=== PATIENT | female | born 1945 | race Caucasian/White ===

== ENCOUNTER → 2017-07-05 09:52 | Outpatient (CLI) | payer MEDICARE, OTHER, SELFPAY ==
[2017-07-05 09:57] VITALS: BP 138/82; PULSE 82; RESP 18; TEMP 37.1; O2SAT 99; BMI 28.3
[2017-07-05] MEDS: DiphenhydrAMINE 50 MG/ML Syringe 25 MG IV (10:11)
[2017-07-05] MEDS: Acetaminophen 325 MG Tablet 650 MG PO (10:11)
[2017-07-05] MEDS: Immune Globulin 10 gm Premixed Solution IV (10:52)
[2017-07-05 11:20] VITALS: BP 137/74; PULSE 73; RESP 16; TEMP 37.1; O2SAT 98
[2017-07-05 12:00] VITALS: BP 126/76; PULSE 81; RESP 16; TEMP 37.2; O2SAT 98
[2017-07-05 12:37] VITALS: BP 127/69; PULSE 76; RESP 18; TEMP 37.3; O2SAT 98
== END ==
PROVIDERS: Family Provider Family Medicine Geriatric Medicine; PCP Family Medicine Geriatric Medicine; Visit Provider Family Medicine Geriatric Medicine
DX: D80.0 Hereditary hypogammaglobulinemia (principal)
CPT/HCPCS: 96365; A4216; J1568

== ENCOUNTER → 2017-08-02 09:28 | Outpatient (CLI) | payer MEDICARE, OTHER, SELFPAY ==
[2017-08-02 09:45] VITALS: BP 135/77; PULSE 92; RESP 16; TEMP 36.4; O2SAT 99; BMI 28.5
[2017-08-02] MEDS: Acetaminophen 325 MG Tablet 650 MG PO (10:00)
[2017-08-02] MEDS: DiphenhydrAMINE 50 MG/ML Syringe 25 MG IV (10:01)
[2017-08-02] MEDS: Immune Globulin 10 gm Premixed Solution IV (10:24)
[2017-08-02 10:55] VITALS: BP 119/75; PULSE 89
[2017-08-02 11:25] VITALS: BP 133/79; PULSE 92
[2017-08-02 12:05] VITALS: BP 122/71; PULSE 88; RESP 18; TEMP 37.1; O2SAT 99
== END ==
PROVIDERS: Family Provider Family Medicine Geriatric Medicine; PCP Family Medicine Geriatric Medicine; Visit Provider Family Medicine Geriatric Medicine
DX: D80.0 Hereditary hypogammaglobulinemia (principal)
CPT/HCPCS: 96365; A4216; J1568

== ENCOUNTER → 2017-08-30 09:57 | Outpatient (CLI) | payer MEDICARE, OTHER, SELFPAY ==
[2017-08-30 10:01] VITALS: BP 118/80; PULSE 101; RESP 16; TEMP 36.8; O2SAT 97; BMI 29.2
[2017-08-30] MEDS: Acetaminophen 325 MG Tablet 650 MG PO (10:09)
[2017-08-30] MEDS: DiphenhydrAMINE 50 MG/ML Syringe 25 MG IV (10:11)
[2017-08-30] MEDS: Immune Globulin 10 gm Premixed Solution IV (10:44)
[2017-08-30 11:25] VITALS: BP 119/66; PULSE 81; RESP 16; TEMP 37.2; O2SAT 96
[2017-08-30 11:53] VITALS: BP 123/70; PULSE 84; RESP 16; TEMP 37.2; O2SAT 98
[2017-08-30 12:25] VITALS: BP 128/75; PULSE 91; RESP 16; TEMP 37.4; O2SAT 95
== END ==
PROVIDERS: Family Provider Family Medicine Geriatric Medicine; PCP Family Medicine Geriatric Medicine; Visit Provider Family Medicine Geriatric Medicine
DX: D80.0 Hereditary hypogammaglobulinemia (principal)
CPT/HCPCS: 96365; A4216; J1568

== ENCOUNTER → 2017-09-06 13:14 | Outpatient (CLI) | payer MEDICARE, OTHER, SELFPAY ==
[2017-09-06 13:55] LABS: Absolute Lymphocyte Count 1.59 X10^3/ul (0.83-4.51); Basophil# 0.01 X10^3/uL; Basophil% 0.1 % (0-1); Eosinophil# 0.03 X10^3/uL; Eosinophils% 0.4 % (0-5); Hematocrit 42.4 % (37-47); Hemoglobin 14.2 g/dl (12.0-15.0); Lymphocyte # 1.59 X10^3/ul (4.0); Lymphocyte % 21.8 % (19-41); Mean Corp Hgb Conc 33.5 g/gl (32-36); Mean Corpuscular Hgb 33.5 pg (27.0-32.0); Mean Platelet Vol. 10.7 fl (6.2-12.0); Monocyte# 0.65 X10^3/uL; Monocyte% 8.9 % (0-10); Neutrophil # 5.02 X10^3/uL (2.7-7.7); Neutrophil % 68.7 % (47-70); Platelet Count 192 K/mm3 (150-450); RBC Distribution Width CV 12.1 % (11.6-14.6); RBC Distribution Width SD 43.7 fl (35.1-43.9); Red Blood Count 4.24 M/mm3 (4.2-5.4); White Blood Count 7.3 K/mm3 (4.4-11.0)
[2017-09-06 13:56] LABS: POSITIVE COUNT NO; POSITIVE DIFFERENTIAL NO; POSITIVE MORPHOLOGY NO
[2017-09-06 14:31] LABS: AST(SGOT) 24 U/L (15-37); Alanine Aminotransfer ALT/SGPT 26 U/L (13-56); Albumin, Serum 3.7 g/dL (3.2-5.0); Alkaline Phosphatase 74 U/L (45-117); Anion Gap 8 (5-15); BUN 10 mg/dL (7-18); BUN/Creat Ratio 12.6 RATIO (10-20); Calcium,Total 8.4 mg/dL (8.5-10.1); Chloride 108 mmol/L (98-107); Creatinine, Serum 0.79 mg/dL (0.55-1.02); EST Glomerular Filtration Rate 76 mL/min (>60); Est Glom Filt Rate - Afr Amer 92 mL/min (>60); Globulin 3.6 g/dL (2.2-4.2); Glucose 84 mg/dL (74-106); Potassium 3.4 mmol/L (3.5-5.1); Protein, Total 7.3 g/dL (6.4-8.2); Sodium Level 143 mmol/L (136-145); Thyroid Stim Hormone (TSH) 0.91 uIU/mL (0.358-3.74); Vitamin D,25 Hydroxy 28.4 ng/mL (29.95-100.01)
[2017-09-08 09:22] LABS: Hep C Antibodies <0.1 s/co ratio (0.0-0.9)
== END ==
PROVIDERS: Family Provider Family Medicine Geriatric Medicine; PCP Family Medicine Geriatric Medicine; Visit Provider Family Medicine Geriatric Medicine
DX: E11.9 Type 2 diabetes mellitus without complications (principal); I10 Essential (primary) hypertension; E55.9 Vitamin D deficiency, unspecified; Z13.89 Encounter for screening for other disorder
CPT/HCPCS: 36415; 80053; 82306; 84443; 85025; 86803

== ENCOUNTER → 2017-09-27 09:42 | Outpatient (CLI) | payer MEDICARE, OTHER, SELFPAY ==
[2017-09-27 10:03] VITALS: BP 109/61; PULSE 121; RESP 20; TEMP 38.7; O2SAT 99
[2017-09-27] MEDS: 0.9% Normal Saline 1,000 ML 999 ML IV ×2 (10:07→11:07)
[2017-09-27] MEDS: DiphenhydrAMINE 50 MG/ML Syringe 25 MG IV (10:14)
[2017-09-27] MEDS: Acetaminophen 325 MG Tablet 650 MG PO (10:14)
[2017-09-27] MEDS: Immune Globulin 10 gm Premixed Solution IV (10:58)
[2017-09-27 11:30] VITALS: BP 115/57; PULSE 99; RESP 18; TEMP 37.3; O2SAT 97
[2017-09-27 12:00] VITALS: BP 125/60; PULSE 107; RESP 20; TEMP 37.9; O2SAT 96
--- NOTE | 2017-09-27 13:13 | RAD_ITS ---
STUDY: X-RAY CHEST REASON FOR EXAM: Female, 72 years old. Bronchitis for 3 weeks. TECHNIQUE: PA and lateral views of the chest. COMPARISON: PA and lateral chest x-ray May 01, 2017. FINDINGS: There is stable minor scarring in the inferolateral left base The lungs are otherwise clear and expanded. There is no demonstrated pleural abnormality. Normal size heart. Normal mediastinum and yudelka. Normal visualized pulmonary arteries. There is stable mild atherosclerotic calcification of the aortic arch. There is a stable mild shaped scoliosis of the thoracic spine. Surgical clips again seen in the medial right axilla. Normal visualized ribs, clavicles, and shoulders. There is no demonstrated abnormality of the visualized soft tissue structures of the upper abdomen. RAD/Chest PA and Lateral IMPRESSION: No acute cardiopulmonary disease. Electronically Signed: Santo Solares MD at 13:48 EDT , Service support ,
== END ==
PROVIDERS: Family Provider Family Medicine Geriatric Medicine; PCP Family Medicine Geriatric Medicine; Visit Provider Family Medicine Geriatric Medicine
DX: J40 Bronchitis, not specified as acute or chronic (principal); R50.9 Fever, unspecified; D80.0 Hereditary hypogammaglobulinemia
CPT/HCPCS: 96365; 71046; 87633; A4216; J1568

== ENCOUNTER → 2017-09-27 10:56 | Outpatient (CLI) | payer MEDICARE, OTHER, SELFPAY | PROVIDERS: Family Provider Family Medicine Geriatric Medicine; PCP Family Medicine Geriatric Medicine; Visit Provider Family Medicine Geriatric Medicine | DX: R50.9 Fever, unspecified (principal) | CPT/HCPCS: 87633 ==

== ENCOUNTER → 2017-10-23 14:57 | Outpatient (CLI) | payer MEDICARE, OTHER, SELFPAY ==
[2017-10-23 18:51] LABS: M R Staph aureus DNA By PCR Negative (Negative); Probe Check PASS; Specimen Processing Control PASS; Staph aureus DNA By PCR NEGATIVE (Negative)
== END ==
PROVIDERS: Family Provider Family Medicine Geriatric Medicine; PCP Family Medicine Geriatric Medicine; Visit Provider Family Medicine Geriatric Medicine
DX: L03.119 Cellulitis of unspecified part of limb (principal); L03.90 Cellulitis, unspecified
CPT/HCPCS: 87070; 87205; 87640

== ENCOUNTER → 2017-10-25 09:41 | Outpatient (CLI) | payer MEDICARE, OTHER, SELFPAY ==
[2017-10-25] MEDS: DiphenhydrAMINE 50 MG/ML Syringe 25 MG IV (10:05)
[2017-10-25] MEDS: Acetaminophen 325 MG Tablet 650 MG PO (10:05)
[2017-10-25 10:07] VITALS: BP 113/75; PULSE 106; RESP 16; TEMP 36.8; O2SAT 99; BMI 28.8
[2017-10-25] MEDS: Immune Globulin 10 gm Premixed Solution IV (10:28)
[2017-10-25 11:03] VITALS: BP 105/66; PULSE 83; RESP 16; TEMP 36.8
[2017-10-25 11:34] VITALS: BP 97/61; PULSE 83; RESP 16
[2017-10-25 12:10] VITALS: BP 106/68; PULSE 88; RESP 18; TEMP 36.7; O2SAT 94
== END ==
PROVIDERS: Family Provider Family Medicine Geriatric Medicine; PCP Family Medicine Geriatric Medicine; Visit Provider Family Medicine Geriatric Medicine
DX: D80.0 Hereditary hypogammaglobulinemia (principal)
CPT/HCPCS: 96365; A4216; J1568

== ENCOUNTER → 2017-11-14 17:30 | Outpatient (CLI) | payer MEDICARE, OTHER, SELFPAY ==
--- NOTE | 2017-11-14 17:29 | BI_ITS ---
MAMMOGRAPHY - UNILATERAL SCREENING: LEFT BREAST REASON FOR EXAM: Female, 72 years old. Routine annual screening examination (unilateral). PERTINENT HISTORY: Personal history of breast cancer. Prior right mastectomy. TECHNIQUE: Digital unilateral breast yumiko (3D mammographic acquisition) in the CC and MLO projections. 2-D mediolateral oblique (MLO) and craniocaudad (CC) views of both breasts were obtained. CAD: Full Field Digital Mammography with Computer Added Detection was performed. COMPARISON: Comparison is made with prior examination dated August 10, 2016 and August 05, 2015. FINDINGS: Breast Composition: There are scattered areas of fibroglandular density. There are no dominant masses or suspicious calcifications. No other significant abnormalities are identified. There has been no significant change since the prior study. BI/UNILAT LT SCRN W/CAD IMPRESSION: Stable unilateral screening mammogram. Yearly follow-up mammogram recommended. (A) ASSESSMENT CATEGORY: BIRADS Category 1: Negative. A letter regarding these results will be sent to the patient by the facility within 30 days. Approximately 10% of breast cancers are not detected by mammography. A normal mammogram should not delay biopsy of a clinically suspicious abnormality. [id number] Electronically Signed: Scooter Pierson MD at 10:54 EDT Tel [phone], Service support ,
== END ==
PROVIDERS: Family Provider Family Medicine Geriatric Medicine; PCP Family Medicine Geriatric Medicine; Visit Provider Family Medicine Geriatric Medicine
DX: Z12.31 Encounter for screening mammogram for malignant neoplasm of breast (principal)
CPT/HCPCS: 77061; 77067; G0279

== ENCOUNTER → 2017-11-22 10:00 | Outpatient (CLI) | payer MEDICARE, OTHER, SELFPAY ==
[2017-11-22 10:09] VITALS: BP 114/66; PULSE 85; RESP 16; TEMP 37.4
[2017-11-22] MEDS: DiphenhydrAMINE 50 MG/ML Syringe 25 MG IV (10:25)
[2017-11-22] MEDS: Acetaminophen 325 MG Tablet 650 MG PO (10:25)
[2017-11-22] MEDS: Immune Globulin 10 gm Premixed Solution IV (11:10)
[2017-11-22 11:44] VITALS: BP 125/62; PULSE 76; RESP 16; TEMP 36.7
[2017-11-22 12:18] VITALS: BP 135/64; PULSE 78
== END ==
PROVIDERS: Family Provider Family Medicine Geriatric Medicine; PCP Family Medicine Geriatric Medicine; Visit Provider Family Medicine Geriatric Medicine
DX: D80.0 Hereditary hypogammaglobulinemia (principal)
CPT/HCPCS: 96365; A4216; J1568

== ENCOUNTER → 2017-12-01 10:48 | Outpatient (CLI) | payer MEDICARE, OTHER, SELFPAY | PROVIDERS: Family Provider Family Medicine Geriatric Medicine; PCP Family Medicine Geriatric Medicine; Visit Provider Family Medicine Geriatric Medicine | DX: R68.83 Chills (without fever) (principal) | CPT/HCPCS: 87633 ==

== ENCOUNTER → 2017-12-20 10:02 | Outpatient (CLI) | payer MEDICARE, OTHER, SELFPAY ==
[2017-12-20 10:31] VITALS: BP 107/64; PULSE 76; RESP 16; TEMP 36.6; O2SAT 100; BMI 28.3
[2017-12-20] MEDS: Acetaminophen 325 MG Tablet 650 MG PO (10:53)
[2017-12-20] MEDS: DiphenhydrAMINE 50 MG/ML Syringe 25 MG IV (10:57)
[2017-12-20] MEDS: Immune Globulin 10 gm Premixed Solution IV (11:31)
[2017-12-20 12:06] VITALS: BP 116/65; PULSE 73; RESP 16; TEMP 36.4; O2SAT 95
[2017-12-20 12:36] VITALS: BP 122/64; PULSE 90
[2017-12-20 13:05] VITALS: BP 106/58; PULSE 98; RESP 16; TEMP 36.4; O2SAT 97
== END ==
PROVIDERS: Family Provider Family Medicine Geriatric Medicine; PCP Family Medicine Geriatric Medicine; Visit Provider Family Medicine Geriatric Medicine
DX: D80.0 Hereditary hypogammaglobulinemia (principal)
CPT/HCPCS: 96365; A4216; J1568

== ENCOUNTER → 2018-01-17 09:56 | Outpatient (CLI) | payer MEDICARE, OTHER, SELFPAY ==
[2018-01-17 10:03] VITALS: BP 130/66; PULSE 84; RESP 16; TEMP 37.3; O2SAT 99; BMI 28.9
[2018-01-17] MEDS: Acetaminophen 325 MG Tablet 650 MG PO (10:14)
[2018-01-17] MEDS: DiphenhydrAMINE 50 MG/ML Syringe 25 MG IV (10:36)
[2018-01-17] MEDS: Immune Globulin 10 gm Premixed Solution IV (11:15)
[2018-01-17 11:19] VITALS: BP 132/69; PULSE 77; RESP 16; TEMP 37.2
[2018-01-17 11:51] VITALS: BP 122/63; PULSE 90; RESP 16; TEMP 36.8; O2SAT 99
[2018-01-17 12:46] VITALS: BP 118/54; PULSE 97
== END ==
PROVIDERS: Family Provider Family Medicine Geriatric Medicine; PCP Family Medicine Geriatric Medicine; Visit Provider Family Medicine Geriatric Medicine
DX: M33.99 Dermatopolymyositis, unspecified with other organ involvement (principal)
CPT/HCPCS: 96365; J7050; A4216; J1568

== ENCOUNTER → 2018-02-14 11:02 | Outpatient (CLI) | payer MEDICARE, OTHER, SELFPAY ==
[2018-02-14 11:17] VITALS: BP 120/66; PULSE 80; RESP 16; TEMP 36.4; O2SAT 100; BMI 28.8
[2018-02-14] MEDS: DiphenhydrAMINE 50 MG/ML Syringe 25 MG IV (11:36)
[2018-02-14] MEDS: Acetaminophen 325 MG Tablet 650 MG PO (11:36)
[2018-02-14] MEDS: Immune Globulin 10 gm Premixed Solution IV (12:11)
[2018-02-14 12:50] VITALS: BP 112/66; PULSE 80; RESP 16; TEMP 36.6; O2SAT 99
[2018-02-14 13:23] VITALS: BP 119/62; PULSE 88; RESP 16; TEMP 36.6; O2SAT 99
== END ==
PROVIDERS: Family Provider Family Medicine Geriatric Medicine; PCP Family Medicine Geriatric Medicine; Visit Provider Family Medicine Geriatric Medicine
DX: D80.0 Hereditary hypogammaglobulinemia (principal)
CPT/HCPCS: 96365; 96366; J7050; A4216; J1568

== ENCOUNTER → 2018-03-14 09:56 | Outpatient (CLI) | payer MEDICARE, OTHER, SELFPAY ==
[2018-03-14 10:10] VITALS: BP 127/68; PULSE 90; RESP 16; TEMP 36.4; O2SAT 100; BMI 27.1
[2018-03-14] MEDS: Acetaminophen 325 MG Tablet 650 MG PO (10:17)
[2018-03-14] MEDS: DiphenhydrAMINE 50 MG/ML Syringe 25 MG IV (10:26)
[2018-03-14] MEDS: Immune Globulin 10 gm Premixed Solution IV (10:39)
[2018-03-14 11:19] VITALS: BP 118/69; PULSE 81; TEMP 36.7
[2018-03-14 11:50] VITALS: BP 121/63; PULSE 82
[2018-03-14 12:23] VITALS: BP 107/59; PULSE 84; RESP 18; TEMP 36.4; O2SAT 100
== END ==
PROVIDERS: Family Provider Family Medicine Geriatric Medicine; PCP Family Medicine Geriatric Medicine; Visit Provider Family Medicine Geriatric Medicine
DX: D80.0 Hereditary hypogammaglobulinemia (principal)
CPT/HCPCS: 96365; 96366; A4216; J1568

== ENCOUNTER → 2018-03-16 11:12 | Outpatient (CLI) | payer MEDICARE, OTHER, SELFPAY ==
[2018-03-16 12:07] LABS: Absolute Lymphocyte Count 1.56 X10^3/ul (0.83-4.51); Absolute Neutrophil Count 1.8 X10^3/uL (2.0-7.7); Basophil# 0.02 X10^3/uL; Basophil% 0.5 % (0-1); Eosinophil# 0.04 X10^3/uL; Hematocrit 39.2 % (37-47); Hemoglobin 13.4 g/dl (12.0-15.0); Lymphocyte # 1.56 X10^3/ul (4.0); Lymphocyte % 40.1 % (19-41); Mean Corp Hgb Conc 34.2 g/gl (32-36); Mean Corpuscular Volume 96.6 fL (81-99); Mean Platelet Vol. 11.5 fl (6.2-12.0); Monocyte# 0.48 X10^3/uL; Monocyte% 12.3 % (0-10); Neutrophil # 1.79 X10^3/uL (2.7-7.7); Neutrophil % 46.1 % (47-70); Platelet Count 172 K/mm3 (150-450); RBC Distribution Width CV 12.1 % (11.6-14.6); RBC Distribution Width SD 41.7 fl (35.1-43.9); Red Blood Count 4.06 M/mm3 (4.2-5.4); White Blood Count 3.9 K/mm3 (4.4-11.0)
[2018-03-16 12:08] LABS: POSITIVE COUNT NO; POSITIVE DIFFERENTIAL NO; POSITIVE MORPHOLOGY NO
[2018-03-16 12:21] LABS: AST(SGOT) 28 U/L (15-37); Alanine Aminotransfer ALT/SGPT 30 U/L (13-56); Albumin, Serum 3.7 g/dL (3.2-5.0); Alkaline Phosphatase 54 U/L (45-117); Anion Gap 8 (5-15); BUN 8 mg/dL (7-18); BUN/Creat Ratio 9.2 RATIO (10-20); Calcium,Total 9.4 mg/dL (8.5-10.1); Chloride 107 mmol/L (98-107); Creatinine, Serum 0.87 mg/dL (0.55-1.02); EST Glomerular Filtration Rate 68 mL/min (>60); Est Glom Filt Rate - Afr Amer 82 mL/min (>60); Globulin 3.6 g/dL (2.2-4.2); Glucose 90 mg/dL (74-106); Potassium 3.9 mmol/L (3.5-5.1); Protein, Total 7.3 g/dL (6.4-8.2); Sodium Level 142 mmol/L (136-145); Thyroid Stim Hormone (TSH) 1.05 uIU/mL (0.358-3.74)
[2018-03-16 12:25] LABS: Vitamin D,25 Hydroxy 35.9 ng/mL (29.95-100.01)
[2018-03-20 11:14] LABS: Hep C Antibodies <0.1 s/co ratio (0.0-0.9)
== END ==
PROVIDERS: Family Provider Family Medicine Geriatric Medicine; PCP Family Medicine Geriatric Medicine; Visit Provider Family Medicine Geriatric Medicine
DX: E55.9 Vitamin D deficiency, unspecified (principal); I10 Essential (primary) hypertension; Z13.89 Encounter for screening for other disorder
CPT/HCPCS: 36415; 80053; 82306; 84443; 85025; 86803

== ENCOUNTER → 2018-03-20 15:55 | Outpatient (CLI) | payer MEDICARE, OTHER, SELFPAY ==
--- NOTE | 2018-03-20 16:01 | BD_ITS ---
STUDY: DUAL ENERGY X-RAY ABSORPTIOMETRY / DXA REASON FOR EXAM: Female, 72 years old. The patient is postmenopausal. Loss of height. History of breast cancer. TECHNIQUE: Bone Mineral Density (BMD) measurements of lumbar spine and bilateral hips were obtained. COMPARISON: Comparison is made with prior study dated January 25, 2011. FINDINGS: Lumbar Spine (L1-L4): g/cm2 (1.005) / T-score (-1.3) / Z-score (0.4) Findings are suggestive of osteopenia with a moderate fracture risk. Left Femur Total: g/cm2 (0.982) / T-score (-0.2) / Z-score (1.4) Left Femoral Neck: g/cm2 (0.893) / T-score (-1.0) / Z-score (0.7) Right Femur Total: g/cm2 (0.888) / T-score (-0.9) / Z-score (0.6) Right Femoral Neck: g/cm2 (0.850) / T-score (-1.4) / Z-score (0.4) The T-Scores on the most recent prior examination were: Lumbar Spine (L1-L4): There has been worsening of bone density since the previous examination. Left Femur Total: which represents a worsening of 6.2%. Right Femur Total: which represents a worsening of 14.6%. BD/Dexa Bone Density Study IMPRESSION: The patient is considered osteopenic as outlined below according to World Fadi Organization (WHO) criteria with a moderate fracture risk. There has been worsening of bone density since the previous examination. Reference Information: The T-score is the number of standard deviations above or below the standard which is normal for young adults at their peak bone mineral density. The World Health Organization (WHO) interprets the T-scores as follows: Above -1 Normal bone density Between -1 and -2.5 Osteopenia Equal to / or below -2.5 Osteoporosis As a practical clinical guideline, osteopenia may be graded as follows: Mild -1 through -1.5 Moderate -1.6 through -2.0 Severe -2.1 through -2.4 The Z-score is the number of standard deviations above or below age-matched controls. A Z-score of less than -1.5 would be considered abnormal. References: 1. NIH Osteoporosis and Related Bone Diseases http://www.osteo.org 2. International Society for Clinical Densitometry http://www.iscd.org 3. National Osteoporosis Foundation http://www.nof.org Electronically Signed: Scooter Pierson MD at 15:25 EDT Tel [phone], Service support ,
== END ==
PROVIDERS: Family Provider Family Medicine Geriatric Medicine; PCP Family Medicine Geriatric Medicine; Visit Provider Family Medicine Geriatric Medicine
DX: Z78.0 Asymptomatic menopausal state (principal)
CPT/HCPCS: 77080

== ENCOUNTER → 2018-04-24 08:02 | Outpatient (CLI) | payer MEDICARE, OTHER, SELFPAY ==
[2018-04-24] MEDS: DiphenhydrAMINE 50 MG/ML Syringe 25 MG IV (08:28)
[2018-04-24] MEDS: Acetaminophen 325 MG Tablet 650 MG PO (08:28)
[2018-04-24 08:37] VITALS: BP 130/71; PULSE 92; RESP 18; O2SAT 100
[2018-04-24] MEDS: Immune Globulin 10 gm Premixed Solution IV (09:05)
[2018-04-24 09:40] VITALS: BP 127/66; PULSE 79
[2018-04-24 10:15] VITALS: BP 116/65; PULSE 67; RESP 16; TEMP 37.1; O2SAT 98
== END ==
PROVIDERS: Family Provider Family Medicine Geriatric Medicine; PCP Family Medicine Geriatric Medicine; Referring Provider Family Medicine Geriatric Medicine; Visit Provider Family Medicine Geriatric Medicine
DX: D80.0 Hereditary hypogammaglobulinemia (principal)
CPT/HCPCS: 96365; J7050; A4216; J1568

== ENCOUNTER → 2018-05-23 10:10 | Outpatient (CLI) | payer MEDICARE, OTHER, SELFPAY ==
[2018-05-23] MEDS: DiphenhydrAMINE 50 MG/ML Syringe 25 MG IV (10:41)
[2018-05-23] MEDS: Acetaminophen 325 MG Tablet 650 MG PO (10:41)
[2018-05-23] MEDS: Immune Globulin 10 gm Premixed Solution IV (10:52)
[2018-05-23 10:56] VITALS: BP 139/83; PULSE 67; RESP 16; TEMP 37.2; O2SAT 100; BMI 26.1
[2018-05-23 12:00] VITALS: BP 143/79; PULSE 67
--- OUTSIDE RECORDS SUMMARY | 2018-08-24 13:48 | XMS RPT_ITS ---
:1945 Author Organization OHIP Support Name Relationship Address Phone [address] Unavailable [address] + [place] [address] KATHLEEN JOSHI Unavailable [address] + [place] [address] R Unavailable Unavailable Unavailable [address] Unavailable [address] + [place] [address] KATHLEEN JOSHI Unavailable [address] + [place] [address] R Unavailable Unavailable Unavailable [address] Unavailable [address] + [place] [address] KATHLEEN JOSHI Unavailable [address] + [place] [address] R Unavailable Unavailable Unavailable [address] Unavailable [address] + [place] [address] KATHLEEN JOSHI Unavailable [address] + [place] [address] R Unavailable Unavailable Unavailable [address] Unavailable [address] + [place] [address] KATHLEEN JOSHI Unavailable [address] + [place] [address] R Unavailable Unavailable Unavailable [address] Unavailable [address] + [place] [address] KATHLEEN JOSHI Unavailable [address] + [place] [address] R Unavailable Unavailable Unavailable [address] Unavailable [address] + [place] [address] KATHLEEN JOSHI Unavailable [address] + [place] [address] R Unavailable Unavailable Unavailable [address] Unavailable [address] + [place] [address] KATHLEEN JOSHI Unavailable [address] + [facility] [place] [place] [address] R Unavailable Unavailable Unavailable [address] Unavailable [address] + [place] [address] KATHLEEN JOSHI Unavailable [address] + [facility] [place] [place] [address] R Unavailable Unavailable Unavailable [address] Unavailable [address] + [place] [address] KATHLEEN JOSHI Unavailable [address] + [place] [address] R Unavailable Unavailable Unavailable [address] Unavailable [address] + [place] [address] YOAN JOSHIA Unavailable [address] + [place] [address] R Unavailable Unavailable Unavailable [address] Unavailable [address] + [place] [address] YOAN JOSHIA Unavailable [address] + [place] [address] R Unavailable Unavailable Unavailable [address] Unavailable [address] + [place] [address] KATHLEEN JOSHI Unavailable [address] + [place] [address] R Unavailable Unavailable Unavailable [address] Unavailable [address] + [place] [address] KATHLEEN JOSHI Unavailable [address] + [place] [address] R Unavailable Unavailable Unavailable [address] Unavailable [address] + [place] [address] YOAN JOSHIA Unavailable [address] + [facility] [place] [address] R Unavailable Unavailable Unavailable [address] Unavailable [address] + [place] [address] RUBENSLALITA KATHLEEN Unavailable [address] + [facility] [place] [address] R Unavailable Unavailable Unavailable [address] Unavailable [address] + [place] [address] KATHLEEN JOSHI Unavailable [address] + [place] [address] R Unavailable Unavailable Unavailable [address] Unavailable [address] + [place] [address] KATHLEEN JOSHI Unavailable [address] + [place] [address] R Unavailable Unavailable Unavailable [address] Unavailable [address] + [place] [address] KATHLEEN JOSHI Unavailable [address] + [place] [address] R Unavailable Unavailable Unavailable [address] Unavailable [address] + [place] [address] KATHLEEN JOSHI Unavailable [address] + [place] [address] R Unavailable Unavailable Unavailable [address] Unavailable [address] + [place] [address] KATHLEEN JOSHI Unavailable [address] + [place] [address] R Unavailable Unavailable Unavailable Care Team Providers Name Role Phone Sánchez, Ari Chi Attending Unavailable Sánchez, Ari Chi Referring Unavailable Sánchez, Ari Chi Primary Care Unavailable Sánchez, Ari Chi Attending Unavailable Sánchez, Ari Chi Referring Unavailable Sánchez, Ari Chi Primary Care Unavailable Sánchez, Ari Chi Attending Unavailable Sánchez, Ari Chi Primary Care Unavailable Sánchez, Ari Chi Attending Unavailable Sánchez, Ari Chi Referring Unavailable Sánchez, Ari Chi Primary Care Unavailable Sánchez, Ari Chi Attending Unavailable Sánchez, Ari Chi Referring Unavailable Sánchez, Ari Chi Primary Care Unavailable Sánchez, Ari Chi Attending Unavailable Sánchez, Ari Chi Primary Care Unavailable Sánchez, Ari Chi Attending Unavailable Sánchez, Ari Chi Referring Unavailable Sánchez, Ari Chi Primary Care Unavailable Sánchez, Ari Chi Attending Unavailable Sánchez, Ari Chi Primary Care Unavailable Sánchez, Ari Chi Referring Unavailable Sánchez, Ari Chi Attending Unavailable Sánchez, Ari Chi Primary Care Unavailable Sánchez, Ari Chi Attending Unavailable Sánchez, Ari Chi Referring Unavailable Sánchez, Ari Chi Primary Care Unavailable Sánchez, Ari Chi Attending Unavailable Sánchez, Ari Chi Primary Care Unavailable Sánchez, Ari Chi Attending Unavailable Sánchez, Ari Chi Referring Unavailable Sánchez, Ari Chi Primary Care Unavailable Sánchez, Ari Chi Attending Unavailable Sánchez, Ari Chi Referring Unavailable Sánchez, Ari Chi Primary Care Unavailable Sánchez, Ari Chi Attending Unavailable Sánchez, Ari Chi Referring Unavailable Sánchez, Ari Chi Primary Care Unavailable Sánchez, Ari Chi Attending Unavailable Sánchez, Ari Chi Referring Unavailable Sánchez, Ari Chi Primary Care Unavailable Sánchez, Ari Chi Attending Unavailable Sánchez, Ari Chi Referring Unavailable Sánchez, Ari Chi Primary Care Unavailable Sánchez, Ari Chi Attending Unavailable Sánchez, Ari Chi Referring Unavailable Sánchez, Ari Chi Primary Care Unavailable Sánchez, Ari Chi Attending Unavailable Sánchez, Ari Chi Primary Care Unavailable Sánchez, Ari Chi Attending Unavailable Sánchez, Ari Chi Primary Care Unavailable Sánchez, Ari Chi Attending Unavailable Sánchez, Ari Chi Referring Unavailable Sánchez, Ari Chi Primary Care Unavailable Sánchez, Ari Chi Attending Unavailable Sánchez, Ari Chi Referring Unavailable Sánchez, Ari Chi Primary Care Unavailable PROBLEMS PROBLEMS DATE TYPE CONDITION / CODE ATTENDING STATUS SOURCE Unknown N95.9 - Unspecified Sánchez, Ari Chi Active [facility] menopausal and Community perimenopausal disorder / Hospital N95.9(ICD-10) Repository Unknown 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, 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 / Community D80.0(ICD-10) Hospital Repository Unknown Z12.31 - Encounter for Sánchez, Ari Chi Active [facility] screening mammogram for [facility] malignant neoplasm of Hospital breast / Z12.31(ICD-10) Repository Unknown R50.9 - Fever, unspecified Sánchez, Ari Chi Active [facility] / R50.9(ICD-10) [facility] Repository PROCEDURES PROCEDURES No Procedure Records FoundRESULTS RESULTS DEXA BONE DENSITY Observed: 03/20/2018 Status: F Source: [place] STUDY 3:56 PM [facility] HOSPITAL REPOSITORY [facility] Imaging Services [address] [place] [address] Dexa Bone Density Study MR#: [id number] Acct: [id number] Name: FREDIS [address] Rep #: [id number] : 1945 F 72 From: Scooter Pierson MD PCP: Sánchez LOTT,Ari Lucero Status: REG CLI Study: Dexa Bone Density Study Date of Exam: 03/20/18 Exam# [id number] Ordering Dr: Ari Pozo MD STUDY: DUAL ENERGY X-RAY ABSORPTIOMETRY / DXA REASON FOR EXAM: Female, 72 years old. The patient is postmenopausal. Loss of height. History of breast cancer. TECHNIQUE: Bone Mineral Density (BMD) measurements of lumbar spine and bilateral hips were obtained. COMPARISON: Comparison is made with prior study dated January 25, 2011. FINDINGS: Lumbar Spine (L1-L4): g/cm2 (1.005) / T-score (-1.3) / Z-score (0.4) Findings are suggestive of osteopenia with a moderate fracture risk. Left Femur Total: g/cm2 (0.982) / T-score (-0.2) / Z- score (1.4) Left Femoral Neck: g/cm2 (0.893) / T-score (-1.0) / Z- score (0.7) Right Femur Total: g/cm2 (0.888) / T-score (-0.9) / Z- score (0.6) Right Femoral Neck: g/cm2 (0.850) / T-score (-1.4) / Z-score (0.4) The T-Scores on the most recent prior examination were: Lumbar Spine (L1-L4): There has been worsening of bone density since the previous examination. Left Femur Total: which represents a worsening of 6.2%. Right Femur Total: which represents a worsening of 14.6%. BD/Dexa Bone Density Study IMPRESSION: The patient is considered osteopenic as outlined below according to World Fadi Organization (WHO) criteria with a moderate fracture risk. There has been worsening of bone density since the previous examination. Reference Information: The T-score is the number of standard deviations above or below the standard which is normal for young adults at their peak bone mineral density. The World Health Organization (WHO) interprets the T-scores as follows: Above -1 Normal bone density Between -1 and -2.5 Osteopenia Equal to / or below -2.5 Osteoporosis As a practical clinical guideline, osteopenia may be graded as follows: Mild -1 through -1.5 Moderate -1.6 through -2.0 Severe -2.1 through -2.4 The Z-score is the number of standard deviations above or below age-matched controls. A Z-score of less than -1.5 would be considered abnormal. References: 1. NIH Osteoporosis and Related Bone Diseases http://www.osteo.org 2. International Society for Clinical Densitometry http://www.iscd.org 3. National Osteoporosis Foundation http://www.nof.org Electronically Signed: Scooter Pierson MD at 15:25 EDT Tel [phone], Service support , CC: Ari Pozo MD Postpartum Nurse: Signed CBC W/DIFF, AUTOMATED Collected: 03/16/2018 Status: F Source: [place] 11:[address] [facility] REPOSITORY TYPE CODE TESTS RESULT OUT OF RANGE REFERENCE UNITS LAB L100.1000 4.4-11.0 K/mm3 Low WBC 3.9 LAB L100.1200 4.2-5.4 M/mm3 Low RBC 4.06 LAB L100.1300 12.0-15.0 g/dl Normal HGB 13.4 LAB L100.1400 37-47 % Normal HCT 39.2 LAB L100.1500 81-99 fL Normal MCV 96.6 LAB L100.1600 27.0-32.0 pg High MCH 33.0 LAB L100.1700 32-36 g/gl Normal MCHC 34.2 LAB L100.1810 11.6-14.6 % Normal RDW CV 12.1 LAB L100.1820 35.1-43.9 fl Normal RDW SD 41.7 LAB L100.1900 150-450 K/mm3 Normal PLT 172 LAB L100.2000 6.2-12.0 fl Normal MPV 11.5 LAB L100.2100 47-70 % Low NEUT% 46.1 LAB L100.2200 19-41 % Normal LY% 40.1 LAB L100.2300 0-10 % High MONO% 12.3 LAB L100.2400 0-5 % Normal EO% 1.0 LAB L100.2500 0-1 % Normal BASO% 0.5 LAB L100.2550 0.0-0.9 % Normal IM GRAN % 0.000 Result Comment: IG% - Immature Granulocytes (promyelocytes, myelocytes and metamyelocytes) > 1% indicates that a LEFT SHIFT is Present. LAB L100.2620 2.0-7.7 X10 3/uL Low Absolute Neut 1.8 LAB L100.2720 0.83-4.51 X10 3/ul Normal Absolute Lymph 1.56 Performed By: #### L100.0100 #### [facility] [address] [place], [address] COMPREHENSIVE METABOLIC Collected: 03/16/2018 Status: F Source: [facility] 11:[address] [facility] REPOSITORY TYPE CODE TESTS RESULT OUT OF RANGE REFERENCE UNITS LAB L501.0100 74-106 mg/dL Normal GLU 90 Result Comment: Please note revised GLUCOSE reference range effective 2017. LAB L501.1000 7-18 mg/dL Normal BUN 8 LAB L501.1100 0.55-1.02 mg/dL Normal CREAT,SERUM 0.87 Result Comment: The validity of the calculated GFR AND GFRAA in patients over 70 years has not been determined. Clinical correlation is essential. LAB L501.1110 >60 mL/min Normal EST GFR 68 Result Comment: Non- GFR Calc LAB L501.1115 >60 mL/min Normal EST GFR - AA 82 Result Comment: GFR Calc LAB L501.1300 10-20 RATIO Low BUN/CRE 9.2 LAB L501.1500 6.4-8.2 g/dL Normal T PROT 7.3 LAB L501.1800 3.2-5.0 g/dL Normal ALB 3.7 LAB L501.1950 2.2-4.2 g/dL Normal GLOB 3.6 LAB L501.2000 0.9-2.4 RATIO Normal A/G 1.0 LAB L501.2200 8.5-10.1 mg/dL Normal CA 9.4 LAB L501.4100 15-37 U/L Normal AST 28 LAB L501.4305 45-117 U/L Normal ALK P 54 LAB L501.4405 13-56 U/L Normal ALT 30 LAB L501.4600 0.20-1.00 mg/dL Normal T BILI 0.50 LAB L501.5300 136-145 mmol/L Normal NA 142 LAB L501.5600 3.5-5.1 mmol/L Normal K 3.9 LAB L501.5900 98-107 mmol/L Normal CL 107 LAB L501.6100 21.0-32.0 mmol/L Normal CO2 27.0 LAB L501.6200 5-15 Normal GAP 8 Performed By: #### L500.4050, L501.9520 #### [facility] [address] [place], [place], [address] THYROID STIM HORMONE Collected: 03/16/2018 Status: F Source: [place] (TSH) 11:[address] [facility] REPOSITORY TYPE CODE TESTS RESULT OUT OF RANGE REFERENCE UNITS LAB L501.9520 0.358-3.74 uIU/mL Normal TSH 1.05 Performed By: #### L500.4050, L501.9520 #### [facility] [address] [place], [place], [address] VITAMIN D,25 HYDROXY Collected: 03/16/2018 Status: F Source: [place] 11:[address] [facility] REPOSITORY TYPE CODE TESTS RESULT OUT OF RANGE REFERENCE UNITS LAB L506.1000 29.95-100.01 ng/mL Normal Vitamin D 35.9 25-OH Result Comment: Vitamin D 25(OH) Status Range Deficiency <20 ng/mL (50nmol/L) Insuffciency 20 - 30 ng/mL (50 - 75 nmol/L) Sufficiency 30 - 100 ng/mL (75 - 250 nmol/L) Toxicity >100 ng/mL (>250 nmol/L) Performed By: #### L506.1000 #### [facility] [address] [place], [place], [address] HEPATITIS C ANTIBODIES Collected: 03/16/2018 Status: F Source: [place] 11:[address] [facility] REPOSITORY TYPE CODE TESTS RESULT OUT OF RANGE REFERENCE UNITS LAB L3100.0650 0.0-0.9 s/co ratio Normal HEP C AB <0.1 Result Comment: Negative: < 0.8 Indeterminate: 0.8 - 0.9 Positive: > 0.9 The CDC recommends that a positive HCV antibody result be followed up with a HCV Nucleic Acid Amplification test (576992). Performed at: - [facility] [id number] An[employer] Machine Operator: José Soto PhD, Phone: [phone] Performed By: #### L3100.0625 #### [facility] (refer to report for specific site) refer to report for address and phone number Observed: 12/01/2017 Status: F Source: [place] RESPIRATORY PANEL 11:[address] [facility] MOLECULAR REPOSITORY RP PANEL Normal Reference Range = Not Detected Copy of report sent to Infection Control Printer [id number] 12/01/17 1401 [place]. RESULTS CALLED TO NURSE LINE 12/01/17 1401 [place]. ADENOVIRUS Not Detected HUMAN METAPHNEUMO Not Detected INFLUENZA A Not Detected INFLUENZA A (SUBTYPE H1) Not Detected INFLUENZA A (SUBTYPE H3) Not Detected INFLUENZA B Not Detected PARAINFLUENZA 1 Not Detected PARAINFLUENZA 2 Not Detected PARAINFLUENZA 3 Not Detected PARAINFLUENZA 4 Not Detected RHINOVIRUS Positive for RHINOVIRUS by NAAT technology RSV A Not Detected RSV B Not Detected NAAT METHOD Testing was performed using nucleic acid amplification ORGANISM 1: RHINOVIRUS Performed By: #### M100.638 #### [facility] [address] [place], [address] [facility] SCRN Observed: 11/14/2017 Status: F Source: [place] W/CAD 5:29 PM [facility] HOSPITAL REPOSITORY [facility] Imaging Services [address] [place] [address] UNILAT LT SCRN W/CAD MR#: [id number] Acct: [id number] Name: FR[address] Rep #: [id number] : 1945 F 72 From: Scooter Pierson MD PCP: Sánchez LOTT,Ari Chi Status: REG CLI Study: UNILAT LT SCRN W/CAD Date of Exam: 11/14/17 Exam# [id number] Ordering Dr: Ari Pozo MD MAMMOGRAPHY - UNILATERAL SCREENING: LEFT BREAST REASON FOR EXAM: Female, 72 years old. Routine annual screening examination (unilateral). PERTINENT HISTORY: Personal history of breast cancer. Prior right mastectomy. TECHNIQUE: Digital unilateral breast yumiko (3D mammographic acquisition) in the CC and MLO projections. 2-D mediolateral oblique (MLO) and craniocaudad (CC) views of both breasts were obtained. CAD: Full Field Digital Mammography with Computer Added Detection was performed. COMPARISON: Comparison is made with prior examination dated August 10, 2016 and August 05, 2015. FINDINGS: Breast Composition: There are scattered areas of fibroglandular density. There are no dominant masses or suspicious calcifications. No other significant abnormalities are identified. There has been no significant change since the prior study. BI/UNILAT LT SCRN W/CAD IMPRESSION: Stable unilateral screening mammogram. Yearly follow-up mammogram recommended. (A) ASSESSMENT CATEGORY: BIRADS Category 1: Negative. A letter regarding these results will be sent to the patient by the facility within 30 days. Approximately 10% of breast cancers are not detected by mammography. A normal mammogram should not delay biopsy of a clinically suspicious abnormality. [id number] Electronically Signed: Scooter Pierson MD at 10:54 EDT Tel [phone], Service support , CC: Ari Pozo MD Postpartum Nurse: Signed MRSA WOUND DNA BY Collected: 10/23/2017 Status: F Source: [place] PCR 2:[address] [facility] REPOSITORY Order Comment: Comments: RIGHT KNEE Specimen Source? WOUND RIGHT KNEE TYPE CODE TESTS RESULT OUT OF RANGE REFERENCE UNITS LAB L8200.1100 Negative Normal MRSA Negative RESULT LAB L8200.1150 Negative Normal SA RESULT NEGATIVE Performed By: #### L8200.1075 #### [facility] [address] [place], [address] Observed: 10/23/2017 Status: F Source: [place] CULTURE, WOUND 2:59 PM [facility] HOSPITAL REPOSITORY Comments: RIGHT KNEE Gram Stain Gram Stain 3+ Red Blood Cells No organisms seen Wound Culture No growth aerobically. Performed By: #### M100.1400 #### [facility] [address] [place], [address] CHEST PA AND LATERAL Observed: 09/27/2017 Status: F Source: [place] 1:13 PM [facility] HOSPITAL REPOSITORY [facility] Imaging Services [address] [place] [address] Chest PA and Lateral MR#: [id number] Acct: [id number] Name: TERESA STREETBinh Rodriguez Rep #: [id number] : 1945 F 72 From: Alfonso Solares MD PCP: Ari Pozo MD, Chi Status: REG CLI Study: Chest PA and Lateral Date of Exam: 09/27/17 Exam# [id number] Ordering Dr: Ari oPzo MD STUDY: X-RAY CHEST REASON FOR EXAM: Female, 72 years old. Bronchitis for 3 weeks. TECHNIQUE: PA and lateral views of the chest. COMPARISON: PA and lateral chest x-ray May 01, 2017. FINDINGS: There is stable minor scarring in the inferolateral left base The lungs are otherwise clear and expanded. There is no demonstrated pleural abnormality. Normal size heart. Normal mediastinum and yudelka. Normal visualized pulmonary arteries. There is stable mild atherosclerotic calcification of the aortic arch. There is a stable mild shaped scoliosis of the thoracic spine. Surgical clips again seen in the medial right axilla. Normal visualized ribs, clavicles, and shoulders. There is no demonstrated abnormality of the visualized soft tissue structures of the upper abdomen. RAD/Chest PA and Lateral IMPRESSION: No acute cardiopulmonary disease. Electronically Signed: Santo Solares MD at 13:48 EDT , Service support , CC: Ari Pozo MD Postpartum Nurse: Signed Observed: 09/27/2017 Status: F Source: [place] RESPIRATORY PANEL 10:[address] [facility] MOLECULAR REPOSITORY RP PANEL ADENOVIRUS Not Detected HUMAN METAPHNEUMO Not Detected INFLUENZA A Not Detected INFLUENZA A (SUBTYPE H1) Not Detected INFLUENZA A (SUBTYPE H3) Not Detected INFLUENZA B Not Detected PARAINFLUENZA 1 Not Detected PARAINFLUENZA 2 Not Detected PARAINFLUENZA 3 Not Detected PARAINFLUENZA 4 Not Detected RHINOVIRUS Not Detected RSV A Not Detected RSV B Not Detected NAAT METHOD Testing was performed using nucleic acid amplification Performed By: #### M100.638 #### [facility] [place], [address] CBC W/DIFF, AUTOMATED Collected: 09/06/2017 Status: F Source: [place] 1:[address] [facility] REPOSITORY TYPE CODE TESTS RESULT OUT OF RANGE REFERENCE UNITS LAB L100.1000 4.4-11.0 K/mm3 Normal WBC 7.3 LAB L100.1200 4.2-5.4 M/mm3 Normal RBC 4.24 LAB L100.1300 12.0-15.0 g/dl Normal HGB 14.2 LAB L100.1400 37-47 % Normal HCT 42.4 LAB L100.1500 81-99 fL High MCV 100.0 LAB L100.1600 27.0-32.0 pg High MCH 33.5 LAB L100.1700 32-36 g/gl Normal MCHC 33.5 LAB L100.1810 11.6-14.6 % Normal RDW CV 12.1 LAB L100.1820 35.1-43.9 fl Normal RDW SD 43.7 LAB L100.1900 150-450 K/mm3 Normal PLT 192 LAB L100.2000 6.2-12.0 fl Normal MPV 10.7 LAB L100.2100 47-70 % Normal NEUT% 68.7 LAB L100.2200 19-41 % Normal LY% 21.8 LAB L100.2300 0-10 % Normal MONO% 8.9 LAB L100.2400 0-5 % Normal EO% 0.4 LAB L100.2500 0-1 % Normal BASO% 0.1 LAB L100.2550 0.0-0.9 % Normal IM GRAN % 0.100 Result Comment: IG% - Immature Granulocytes (promyelocytes, myelocytes and metamyelocytes) > 1% indicates that a LEFT SHIFT is Present. LAB L100.2620 2.0-7.7 X10 3/uL Normal Absolute Neut 5.0 LAB L100.2720 0.83-4.51 X10 3/ul Normal Absolute Lymph 1.59 Performed By: #### L100.0100 #### [facility] [address] [place], [place], [address] VITAMIN D,25 HYDROXY Collected: 09/06/2017 Status: F Source: [place] 1:[address] [facility] REPOSITORY TYPE CODE TESTS RESULT OUT OF REFERENCE UNITS RANGE LAB L506.1000 29.95-100.01 ng/mL Low Vitamin D 28.4 25-OH Result Comment: Vitamin D 25(OH) Status Range Deficiency <20 ng/mL (50nmol/L) Insuffciency 20 - 30 ng/mL (50 - 75 nmol/L) Sufficiency 30 - 100 ng/mL (75 - 250 nmol/L) Toxicity >100 ng/mL (>250 nmol/L) Performed By: #### L506.1000 #### [facility] [address] [place], [address] COMPREHENSIVE METABOLIC Collected: 09/06/2017 Status: F Source: [facility] 1:[address] [facility] REPOSITORY TYPE CODE TESTS RESULT OUT OF RANGE REFERENCE UNITS LAB L501.0100 74-106 mg/dL Normal GLU 84 Result Comment: Please note revised GLUCOSE reference range effective 2017. LAB L501.1000 7-18 mg/dL Normal BUN 10 LAB L501.1100 0.55-1.02 mg/dL Normal CREAT,SERUM 0.79 Result Comment: The validity of the calculated GFR AND GFRAA in patients over 70 years has not been determined. Clinical correlation is essential. LAB L501.1110 >60 mL/min Normal EST GFR 76 Result Comment: Non- GFR Calc LAB L501.1115 >60 mL/min Normal EST GFR - AA 92 Result Comment: GFR Calc LAB L501.1300 10-20 RATIO Normal BUN/CRE 12.6 LAB L501.1500 6.4-8.2 g/dL T Normal PROT 7.3 LAB L501.1800 3.2-5.0 g/dL Normal ALB 3.7 LAB L501.1950 2.2-4.2 g/dL Normal GLOB 3.6 LAB L501.2000 0.9-2.4 RATIO Normal A/G 1.0 LAB L501.2200 8.5-10.1 mg/dL Low CA 8.4 LAB L501.4100 15-37 U/L Normal AST 24 LAB L501.4305 45-117 U/L Normal ALK P 74 LAB L501.4405 13-56 U/L Normal ALT 26 Result Comment: Please note revised ALT reference range effective 2017. LAB L501.4600 0.20-1.00 mg/dL Normal T BILI 0.50 LAB L501.5300 136-145 mmol/L Normal NA 143 LAB L501.5600 3.5-5.1 mmol/L Low K 3.4 LAB L501.5900 98-107 mmol/L High CL 108 LAB L501.6100 21.0-32.0 mmol/L Normal CO2 27.0 LAB L501.6200 5-15 Normal GAP 8 Performed By: #### L500.4050, L501.9520 #### [facility] [address] [place], [place], [address] THYROID STIM HORMONE Collected: 09/06/2017 Status: F Source: [place] (TSH) 1:[address] [facility] REPOSITORY TYPE CODE TESTS RESULT OUT OF RANGE REFERENCE UNITS LAB L501.9520 0.358-3.74 uIU/mL Normal TSH 0.91 Performed By: #### L500.4050, L501.9520 #### [facility] [address] [place], [address] HEPATITIS C ANTIBODIES Collected: 09/06/2017 Status: F Source: [place] 1:27 PM [facility] HOSPITAL REPOSITORY TYPE CODE TESTS RESULT OUT OF RANGE REFERENCE UNITS LAB L3100.0650 0.0-0.9 s/co ratio Normal HEP C AB <0.1 Result Comment: Negative: < 0.8 Indeterminate: 0.8 - 0.9 Positive: > 0.9 The CDC recommends that a positive HCV antibody result be followed up with a HCV Nucleic Acid Amplification test (915261). Performed at: [facility] [id number] [employer] Machine Operator: José Soto PhD, Phone: [phone] Performed By: #### L3100.0625 #### [facility] (refer to report for specific site) refer to report for address and phone number ALLERGIES ALLERGIES DATE TYPE / CODE NAME / CODE REACTION SEVERITY SOURCE 06/20/2018 Drug No Known Unknown Bern [facility] Allergy/4160 Allergies/F00 Hospital 87861(SNOMED [id number](RXNOR Repository CT) M) ENCOUNTERS ENCOUNTERS ADMIT/DISCHARGE ACCOUNT ADMITTING ENCOUNTER LOCATION SOURCE NUMBER CLASS 06/20/2018 [id number] [facility] ing:MEDOUTP Repository 05/23/2018 [id number] Ambulatory [place] Nicolasa 5 [facility] ing:MEDOUTP Repository 04/24/2018 [id number] Ambulatory Nicolasa [place] 6 [facility] ing:MEDOUTP Repository 04/11/2018 [id number] Ambulatory Bern Bern 8 [facility] ing:MEDOUTP Repository 03/20/2018 [id number] Ambulatory [place] Nicolasa 8 [facility] ing:OPBD Repository 03/16/2018 [id number] Ambulatory [place] Nicolasa 8 [facility] ing:POLAB3 Repository 03/14/2018 [id number] Ambulatory Nicolasa Nicolasa 2 [facility] ing:MEDOUTP Repository 02/14/2018 [id number] Ambulatory Nicolasa Nicolasa 5 [facility] ing:MEDOUTP Repository 01/17/2018 [id number] Ambulatory Nicolasa Bern 4 [facility] ing:MEDOUTP Repository 12/20/2017 [id number] Ambulatory Bern Bern 1 [facility] ing:MEDOUTP Repository 12/01/2017 [id number] Ambulatory Bern Bern 6 [facility] ing:PSN Repository 11/22/2017 [id number] Ambulatory Bern Bern 8 [facility] ing:MEDOUTP Repository 11/14/2017 [id number] Ambulatory Nicolasa [place] 3 [facility] ing:OPBI Repository 10/25/2017 [id number] Ambulatory Nicolasa Nicolasa 6 [facility] ing:MEDOUTP Repository 10/23/2017 [id number] Ambulatory [place] Nicolasa 1 [facility] ing:POLAB3 Repository 09/27/2017 [id number] Ambulatory Bern Bern 5 [facility] ing:LABSPEC Repository 09/27/2017 [id number] Ambulatory Bern Nicolasa 4 [facility] Hospital ing:MEDOUTP Repository 09/06/2017 [id number] Ambulatory Nicolasa Nicolasa 8 [facility] ing:POLAB3 Repository 08/30/2017 [id number] Ambulatory Nicolasa Nicolasa 4 [facility] ing:MEDOUTP Repository 08/02/2017 [id number] Ambulatory [place] Bern 9 [facility] ing:MEDOUTP Repository 07/05/2017 [id number] Ambulatory Nicolasa Nicolasa 6 [facility] ing:MEDOUTP Repository PAYERS PAYERS ENCOUNTER GUARANTOR PAYER SUBSCRIBER SOURCE 06/20/2018 FREDIS D [id number] Primary FREDIS D Nicolasa [address] Insurance:MEDICARE [place]: [place] [facility] [id number] Hospital 42913Ost: (330) Number: Repository [phone] HP [id number] Date:2018-05-23 06/20/2018 Secondary FREDIS D Bern Insurance:AARPPolicy BURENDOB: [facility] Number: [id number] Hospital [id number] Repository Date:0347-17-64WZ [address], [place] [address]UV: 06/20/2018 Tertiary NOT GIVENUNK [place] Insurance:SELF PAY [facility] Hospital Number: Effective Repository Date:2018-05-23 05/23/2018 FREDIS D [id number] Primary FREDIS D Bern [address] Insurance:MEDICARE BURENDOB: [facility] [place] PART A [facility] [id number] Hospital 19839Suk: (330) Number: Repository [phone] () [id number] Date:2018-04-24 05/23/2018 Secondary FREDIS D Nicolasa Insurance:AARPPolicy [place]UR[place]: Community Number: [id number] Hospital [id number] Repository Date:8543-46-08BC [address], [place] [address]LX: 05/23/2018 Tertiary NOT GIVENUNK Nicolasa Insurance:SELF PAY [facility] Number: Effective Repository Date:2018-04-24 04/24/2018 FREDIS D [id number] Primary FREDIS D [place] [address] Insurance:MEDICARE BUR[place]OB: [place] [facility] [id number] Hospital 91100Mym: (330) Number: Repository [phone] () [id number] Date:2018-04-23 04/24/2018 Secondary FREDIS D Nicolasa Insurance:AARPPolicy [place]UR[place]OB: Community Number: [id number] Hospital [id number] Repository Date:3497-28-15NA [address], [place] [address]PU: 04/24/2018 Tertiary NOT GIVENUNK Nicolasa Insurance:SELF PAY [facility] Number: Effective Repository Date:2018-04-23 04/11/2018 FREDIS D [id number] Primary FREDIS D Bern [address] Insurance:MEDICARE BURENDOB: [facility] [place] [facility] [id number] Hospital 013[address]Raa: (330) Number: Repository [phone] () [id number] Date:2018-03-14 04/11/2018 Secondary FREDIS D Nicolasa Insurance:AARPPolicy BURENDOB: Community Number: [id number] Hospital [id number] Repository Date:6235-19-41XJ [address], [place] [address]ZS: 04/11/2018 Tertiary NOT GIVENUNK [place] Insurance:SELF PAY [facility] Number: Effective Repository Date:2018-03-14 03/20/2018 FREDIS D [id number] Primary FREDIS D [place] [address] Insurance:MEDICARE BURENDOB: [place] [facility] [id number] Hospital [address]Dfy: (330) Number: Repository [phone] () [id number] Date:2018-03-19 03/20/2018 Secondary FREDIS D [place] Insurance:AARPPolicy [place]UR[place]: Community Number: [id number] Hospital [id number] Repository Date:5020-54-08UR [address], [place] [address]GW: 03/20/2018 Tertiary NOT GIVENUNK [place] Insurance:SELF PAY [facility] Number: Effective Repository Date:2018-03-19 03/16/2018 FREDIS D [id number] Primary FREDIS D [place] [address] Insurance:MEDICARE BUR[place]OB: [place] [facility] [id number] Hospital 77205Yue: (330) Number: Repository [phone] () [id number] Date:2018-03-16 03/16/2018 Secondary FREDIS D Nicolasa Insurance:AARPPolicy BURENDOB: Community Number: [id number] Hospital [id number] Repository Date:3614-24-87EY [address]JY[place]W, [place] [address]DW: 03/16/2018 Tertiary NOT GIVENUNK Bern Insurance:SELF PAY [facility] Number: Effective Repository Date:2018-03-16 03/14/2018 FREDIS D [id number] Primary FREDIS D [place] [address] Insurance:MEDICARE BUR[place]OB: [place] [facility] [id number] Hospital 55615Yps: (330) Number: Repository [phone] () [id number] Date:2018-02-14 03/14/2018 Secondary FREDIS D Nicolasa Insurance:AARPPolicy [place]UR[place]: Community Number: [id number] Hospital [id number] Repository Date:8822-05-79KH [address]WC, [place] [address]NH: 03/14/2018 Tertiary NOT GIVENUNK Nicolasa Insurance:SELF PAY [facility] Number: Effective Repository Date:2018-02-14 02/14/2018 FREDIS D [id number] Primary FREDIS D Bern [address] Insurance:MEDICARE BUR[place]OB: [place] [facility] [id number] Hospital [address]Srq: (330) Number: Repository [phone] () [id number] Date:2018-02-08 02/14/2018 Secondary FREDIS D [place] Insurance:AARPPolicy [facility] Number: [id number] Hospital [id number] Repository Date:6243-51-33ID [address]MWVTWF, [place] [address]KU: 02/14/2018 Tertiary NOT GIVENUNK Nicolasa Insurance:SELF PAY [facility] Number: Effective Repository Date:2018-02-08 01/17/2018 Fredis D [id number] Primary Fredis D [place]a [address] Insurance:MEDICARE BurenDOB: [place] PART A [facility] [id number] Hospital 22914Chv: (330) Number: Repository [phone] () [id number] Date:2017-12-20 01/17/2018 Secondary Frdeis D Nicolasa [facility]ARPPolicy [facility] Number: [id number] Hospital [id number] Repository Date:9949-72-32RL [address], [place] [address]SQ: 01/17/2018 Tertiary NOT GIVENUNK [place] Insurance:SELF PAY [facility] Number: Effective Repository Date:2017-12-20 12/20/2017 Fredis D [id number] Primary Fredis D [place] [address] Insurance:MEDICARE BurenDOB: [place] [facility] [id number] Hospital 47776Idx: (330) Number: Repository [phone] () [id number] Date:2017-11-22 12/20/2017 Secondary Fredis D Nicolasa Insurance:AARPPolicy BurenDOB: Community Number: [id number] Hospital [id number] Repository Date:1315-16-49JX [address]VM, [place] [address]GJ: 12/20/2017 Tertiary NOT GIVENUNK Nicolasa Insurance:SELF PAY [facility] Number: Effective Repository Date:2017-11-22 12/01/2017 Fredis D [id number] Primary Fredis D Nicolasa [address] Insurance:MEDICARE BurenDOB: [place] [facility] [id number] Hospital 92017Egc: (330) Number: Repository [phone] () [id number] Date:2017-12-01 12/01/2017 Secondary Fredis D Nicolasa Insurance:AARPPolicy BurenDOB: Community Number: [id number] Hospital [id number] Repository Date:0950-58-82SZ [address]BRGG, [place] [address]JP: 12/01/2017 Tertiary NOT GIVENUNK Bern Insurance:SELF PAY [facility] Number: Effective Repository Date:2017-12-01 11/22/2017 Fredis D [id number] Primary Fredis D Nicolasa [address] Insurance:MEDICARE BurenDOB: [place] [facility] [id number] Hospital 25016Yzo: (330) Number: Repository [phone] () [id number] Date:2017-10-25 11/22/2017 Secondary Fredis D Bern Insurance:AARPPolicy BurenDOB: Community Number: [id number] Hospital [id number] Repository Date:8536-27-72FV [address], [place] [address]SO: 11/22/2017 Tertiary NOT GIVENUNK Nicolasa Insurance:SELF PAY [facility] Number: Effective Repository Date:2017-10-25 11/14/2017 Fredis D [id number] Primary Fredis D Nicolasa [address] Insurance:MEDICARE BurenDOB: [place] [facility] [id number] Hospital 44154Utt: (330) Number: Repository [phone] () [id number] Date:2017-10-24 11/14/2017 Secondary Fredis D Nicolasa Insurance:AARPPolicy BurenDOB: Community Number: [id number] Hospital [id number] Repository Date:4016-33-07FI [address], [place] [address]FN: 11/14/2017 Tertiary NOT GIVENUNK Nicolasa Insurance:SELF PAY [facility] Number: Effective Repository Date:2017-11-14 10/25/2017 Fredis D [id number] Primary Fredis D Nicolasa [address] Insurance:MEDICARE BurenDOB: [place] [facility] [id number] Hospital 02489Znj: (330) Number: Repository [phone] () [id number] Date:2017-09-28 10/25/2017 Secondary Fredis D Nicolasa Insurance:AARPPolicy BurenDOB: Community Number: [id number] Hospital [id number] Repository Date:9966-87-58PY [address]CV[place]WQK, [place] [address]ZZ: 10/25/2017 Tertiary NOT GIVENUNK Nicolasa Insurance:SELF PAY [facility] Number: Effective Repository Date:2017-10-24 10/23/2017 Fredis D [id number] Primary Fredis D Nicolasa [address] Insurance:MEDICARE BurenDOB: [place] [facility] [id number] Hospital 57585Ybg: (330) Number: Repository [phone] () [id number] Date:2017-10-23 10/23/2017 Secondary Fredis D Nicolasa Insurance:AARPPolicy [facility] Number: [id number] Hospital [id number] Repository Date:6154-33-36[address], [place] [address]EE: 10/23/2017 Tertiary NOT GIVENUNK Bern Insurance:SELF PAY [facility] Number: Effective Repository Date:2017-10-23 09/27/2017 Fredis D [id number] Primary Fredis D [place] [address] Insurance:MEDICARE BurenDOB: [place] [facility] [id number] Hospital 59610Ith: (330) Number: Repository [phone] () [id number] Date:2017-09-27 09/27/2017 Secondary Fredis D Nicolasa Insurance:AARPPolicy [facility] Number: [id number] Hospital [id number] Repository Date:9020-51-15VT [address], [place] [address]US: 09/27/2017 Tertiary NOT GIVENUNK Nicolasa Insurance:SELF PAY [facility] Number: Effective Repository Date:2017-09-27 09/27/2017 Fredis D [id number] Primary Fredis D Nicolasa [address] Insurance:MEDICARE BurenDOB: [place] [facility] [id number] Hospital 46927Vki: (330) Number: Repository [phone] () [id number] Date:2017-08-30 09/27/2017 Secondary Fredis D Nicolasa Insurance:AARolicy [facility] Number: [id number] Hospital [id number] Repository Date:3949-64-57OH [address], [place] [address]WA: 09/27/2017 Tertiary NOT GIVENUNK Bern Insurance:SELF PAY [facility] Number: Effective Repository Date:2017-08-30 09/06/2017 Fredis D [id number] Primary Fredis D Nicolasa [address] Insurance:MEDICARE BurenDOB: [place] [facility] [id number] Hospital 19845Lnp: (330) Number: Repository [phone] () [id number] Date:2017-09-06 09/06/2017 Secondary Fredis D Nicolasa Insurance:AARPPolicy BurenDOB: Community Number: [id number] Hospital [id number] Repository Date:0412-99-60AR [address], [place] [address]DV: 09/06/2017 Tertiary NOT GIVENUNK Nicolasa Insurance:SELF PAY [facility] Number: Effective Repository Date:2017-09-06 08/30/2017 Fredis D [id number] Primary Fredis D Nicolasa [address] Insurance:MEDICARE BurenDOB: [place] [facility] [id number] Hospital 56739Ttj: (330) Number: Repository [phone] () [id number] Date:2017-08-02 08/30/2017 Secondary Fredis D Nicolasa Insurance:AARPPolicy BurenDOB: Community Number: [id number] Hospital [id number] Repository Date:0419-12-53PN [address], [place] [address]KM: 08/30/2017 Tertiary NOT GIVENUNK Bern Insurance:SELF PAY [facility] Number: Effective Repository Date:2017-08-02 08/02/2017 Fredis D [id number] Primary Fredis D [place] [address] Insurance:MEDICARE BurenDOB: [place] [facility] [id number] Hospital 31082Qev: (330) Number: Repository [phone] () [id number] Date:2017-07-05 08/02/2017 Secondary Fredis D [place] Insurance:AARPPolicy BurenDOB: Community Number: [id number] Hospital [id number] Repository Date:9285-13-47KB [facility] [address], [place] [address]JK: 08/02/2017 Tertiary NOT GIVENUNK [place] Insurance:SELF PAY [facility] Number: Effective Repository Date:2017-07-05 07/05/2017 Fredis D [id number] Primary Fredis D Nicolasa [address] Insurance:MEDICARE BurenDOB: [place] [facility] [id number] Hospital 368[address]Yxa: 330) Number: Repository [phone] ( [id number] Date:2017-06-07 07/05/2017 Secondary Fredis D [place] Insurance:AARPPolicy BurenDOB: Community Number: [id number] Hospital [id number] Repository Date:6680-26-44QS [address], [place] [address]MD: 07/05/2017 Tertiary NOT GIVENUNK Nicolasa Insurance:SELF PAY [facility] Number: Effective Repository Date:2017-06-07
== END ==
PROVIDERS: Family Provider Family Medicine Geriatric Medicine; PCP Family Medicine Geriatric Medicine; Referring Provider Family Medicine Geriatric Medicine; Visit Provider Family Medicine Geriatric Medicine
DX: D80.0 Hereditary hypogammaglobulinemia (principal)
CPT/HCPCS: 96365; J7050; A4216; J1568

== ENCOUNTER → 2018-06-20 09:50 | Outpatient (CLI) | payer MEDICARE, OTHER, SELFPAY ==
[2018-05-23 10:56] VITALS: BMI 26.1
[2018-06-20 10:01] VITALS: BP 129/68; PULSE 95; RESP 16; TEMP 37.6; O2SAT 100; BMI 25.0
[2018-06-20] MEDS: Acetaminophen 325 MG Tablet 650 MG PO (10:17)
[2018-06-20] MEDS: DiphenhydrAMINE 50 MG/ML Syringe 25 MG IV (10:17)
[2018-06-20] MEDS: Immune Globulin 10 gm Premixed Solution IV (10:24)
--- OUTSIDE RECORDS SUMMARY | 2018-08-25 02:05 | XMS RPT_ITS ---
:1945 Author Organization OHIP Support Name Relationship Address Phone [address] Unavailable [address] + [place] [address] KATHLEEN JOSHI Unavailable [address] + [place] [address] R Unavailable Unavailable Unavailable [address] Unavailable [address] + [place] [address] KATHLEEN JOSHI Unavailable [address] + [place] [address] R Unavailable Unavailable Unavailable [address] Unavailable [address] + [place] [address] KATHLEEN JOSHI Unavailable [address] + [place] [address] R Unavailable Unavailable Unavailable [address] Unavailable [address] + [place] [address] KATHLEEN JOSHI Unavailable [address] + [place] [address] R Unavailable Unavailable Unavailable [address] Unavailable [address] + [place] [address] KATHLEEN JOSHI Unavailable [address] + [place] [address] R Unavailable Unavailable Unavailable [address] Unavailable [address] + [place] [address] KATHLEEN JOSHI Unavailable [address] + [place] [address] R Unavailable Unavailable Unavailable [address] Unavailable [address] + [place] [address] KATHLEEN JOSHI Unavailable [address] + [place] [address] R Unavailable Unavailable Unavailable [address] Unavailable [address] + [place] [address] KATHLEEN JOSHI Unavailable [address] + [facility] [place] [address] R Unavailable Unavailable Unavailable [address] Unavailable [address] + [place] [address] KATHLEEN JOSHI Unavailable [address] + [facility] [place] [address] R Unavailable Unavailable Unavailable [address] Unavailable [address] + [place] [address] KATHLEEN JOSHI Unavailable [address] + [place] [address] R Unavailable Unavailable Unavailable [address] Unavailable [address] + [place] [address] YOAN JOSHIA Unavailable [address] + [place] [address] R Unavailable Unavailable Unavailable [address] Unavailable [address] + [place] [address] YOAN JOSHIA Unavailable [address] + [place] [address] R Unavailable Unavailable Unavailable [address] Unavailable [address] + [place] [address] KATHLEEN JOSHI Unavailable [address] + [place] [address] R Unavailable Unavailable Unavailable [address] Unavailable [address] + [place] [address] KATHLEEN JOSHI Unavailable [address] + [place] [address] R Unavailable Unavailable Unavailable [address] Unavailable [address] + [place] [address] YOAN JOSHIA Unavailable [address] + [facility] [place] [address] R Unavailable Unavailable Unavailable [address] Unavailable [address] + [place] [address] RUBENSLALITA KATHLEEN Unavailable [address] + [facility] [place] [address] R Unavailable Unavailable Unavailable [address] Unavailable [address] + [place] [address] KATHLEEN JOSHI Unavailable [address] + [place] [address] R Unavailable Unavailable Unavailable [address] Unavailable [address] + [place] [address] RUBENSKATHLEEN CELIS Unavailable [address] + [place] [address] R Unavailable Unavailable Unavailable [address] Unavailable [address] + [place] [address] RUBENSKATHLEEN CELIS Unavailable [address] + [place] [address] R Unavailable Unavailable Unavailable [address] Unavailable [address] + [place] [address] RUBENSKATHLEEN CELIS Unavailable [address] + [place] [address] R Unavailable Unavailable Unavailable [address] Unavailable [address] + [place] [address] KATHLEEN JOSHI Unavailable [address] + [place] [address] R Unavailable Unavailable Unavailable Care Team Providers [...] Chi Active Nicolas[facility] 8 screening mammogram for [facility] malignant neoplasm of Hospital breast / Z12.31(ICD-10) Repository Unknown R50.9 - Fever, unspecified Sánchez, Ari Chi Active [place] 8 / R50.9(ICD-10) [facility] Hospital Repository PROCEDURES PROCEDURES No Procedure Records FoundRESULTS RESULTS DEXA BONE DENSITY Observed: 03/20/2018 Status: F Source: NICOLAS[place] STUDY 3:56 PM [facility] HOSPITAL REPOSITORY [facility] Imaging Services [address] [place] [address] Dexa Bone Density Study MR#: [id number] Acct: [id number] Name: FREDIS [address] Rep #: [id number] : 1945 F 72 From: Scooter Pierson MD PCP: Sánchez LOTT,Ari Lucero Status: REG CLI Study: Dexa Bone Density Study Date of Exam: 03/20/18 Exam# [id number] Ordering Dr: Ari Pozo MD STUDY: DUAL [...] Scooter Pierson MD at 15:25 EDT Tel [phone], Service support , CC: Ari Pozo MD Electrical 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, [address] COMPREHENSIVE METABOLIC Collected: 03/16/2018 Status: F Source: [facility] 11:13 AM [facility] REPOSITORY TYPE CODE TESTS RESULT OUT [...] 8 Performed By: #### L500.4050, L501.9520 #### [facility] [address] [facility]. [place], [place], [address] THYROID STIM HORMONE Collected: 03/16/2018 Status: F Source: NICOLASA (TSH) 11:13 AM [facility] REPOSITORY TYPE CODE TESTS RESULT OUT OF RANGE REFERENCE UNITS LAB L501.9520 0.358-3.74 uIU/mL Normal TSH 1.05 Performed By: #### L500.4050, L501.9520 #### [facility] [address] [facility] [place], [place], [address] VITAMIN D,25 HYDROXY Collected: 03/16/2018 Status: F Source: NICOLASA 11:13 AM [facility] REPOSITORY TYPE CODE TESTS RESULT OUT OF RANGE REFERENCE UNITS LAB L506.1000 29.95-100.01 ng/mL Normal Vitamin D 35.9 25-OH Result Comment: Vitamin D 25(OH) Status Range Deficiency <20 ng/mL (50nmol/L) Insuffciency 20 - 30 ng/mL (50 - 75 nmol/L) Sufficiency 30 - 100 ng/mL (75 - 250 nmol/L) Toxicity >100 ng/mL (>250 nmol/L) Performed By: #### L506.1000 #### [facility] [address] [place], [place], [address] HEPATITIS C ANTIBODIES Collected: 03/16/2018 Status: F Source: [facility] 11:13 AM [facility] REPOSITORY TYPE CODE TESTS RESULT OUT OF RANGE REFERENCE UNITS LAB L3100.0650 0.0-0.9 s/co ratio Normal HEP C AB <0.1 Result Comment: Negative: < 0.8 Indeterminate: 0.8 - 0.9 Positive: > 0.9 The CDC recommends that a positive HCV antibody result be followed up with a HCV Nucleic Acid Amplification test (780722). Performed at: - [facility] [id number] Coating Line Worker: José Soto PhD, Phone: [phone] Performed By: #### L3100.0625 #### [facility] (refer to report for specific site) refer to report for address and phone number Observed: 12/01/2017 Status: F Source: [facility] RESPIRATORY PANEL 11:17 AM [facility] MOLECULAR REPOSITORY RP PANEL Normal Reference Range [...] 1: RHINOVIRUS Performed By: #### M100.638 #### [facility] [address] [place], [address] [facility] SCRN Observed: 11/14/2017 Status: F Source: NICOLASA W/CAD 5:29 PM [facility] HOSPITAL REPOSITORY [facility] Imaging Services [address] [place] [address] UNILAT LT SCRN W/CAD MR#: [id number] Acct: [id number] Name: FREDIS [address] Rep #: [id number] : 1945 F 72 From: Scooter Pierson MD PCP: Sánchez LOTT,Ari Chi Status: REG CLI Study: UNILAT LT SCRN W/CAD Date of Exam: 11/14/17 Exam# [id number] Ordering Dr: Ari Pozo MD MAMMOGRAPHY - [...] delay biopsy of a clinically suspicious abnormality. IX8000 Electronically Signed: Scooter Pierson MD at 10:54 EDT Tel [phone], Service support , CC: Ari Pozo MD Electrical Appliance Mechanic: Signed MRSA WOUND DNA BY Collected: 10/23/2017 Status: F Source: N[place]OLASA PCR 2:59 PM [facility] REPOSITORY Order Comment: Comments: RIGHT KNEE Specimen Source? WOUND RIGHT KNEE TYPE CODE TESTS RESULT OUT OF RANGE REFERENCE UNITS LAB L8200.1100 Negative Normal MRSA Negative RESULT LAB L8200.1150 Negative Normal SA RESULT NEGATIVE Performed By: #### L8200.1075 #### [facility] [address] [place], [address] Observed: 10/23/2017 Status: F Source: NICOLASA CULTURE, WOUND 2:59 PM [facility] HOSPITAL REPOSITORY Comments: RIGHT KNEE Gram Stain Gram Stain 3+ Red Blood Cells No organisms seen Wound Culture No growth aerobically. Performed By: #### M100.1400 #### [facility] [address] [place], [address] CHEST PA AND LATERAL Observed: 09/27/2017 Status: F Source: N[place]OLASA 1:13 PM [facility] HOSPITAL REPOSITORY [facility] Imaging Services [address] [facility] [place] [address] Chest PA and Lateral MR#: [id number] Acct: [id number] Name: TERESA STREETBinh Rodriguez Rep #: [id number] : 1945 F 72 From: Alfonso Solares MD PCP: Ari Pozo MD, Chi Status: REG CLI Study: Chest PA and Lateral Date of Exam: 09/27/17 Exam# [id number] Ordering Dr: Ari Pozo MD STUDY: X-RAY CHEST REASON FOR EXAM: [...] Service support , CC: Ari Pozo MD Electrical Appliance Mechanic: Signed Observed: 09/27/2017 Status: F Source: [facility] RESPIRATORY PANEL 10:15 AM [facility] MOLECULAR REPOSITORY RP PANEL ADENOVIRUS Not Detected [...] acid amplification Performed By: #### M100.638 #### [facility] [place], [address] CBC W/DIFF, AUTOMATED Collected: 09/06/2017 Status: F Source: [place] 1:27 PM [facility] REPOSITORY TYPE CODE TESTS RESULT OUT [...] Lymph 1.59 Performed By: #### L100.0100 #### [facility] [address] [facility] [place], [place], [address] VITAMIN D,25 HYDROXY Collected: 09/06/2017 Status: F Source: [place] 1:27 PM [facility] REPOSITORY TYPE CODE TESTS RESULT OUT OF REFERENCE UNITS RANGE LAB L506.1000 29.95-100.01 ng/mL Low Vitamin D 28.4 25-OH Result Comment: Vitamin D 25(OH) Status Range Deficiency <20 ng/mL (50nmol/L) Insuffciency 20 - 30 ng/mL (50 - 75 nmol/L) Sufficiency 30 - 100 ng/mL (75 - 250 nmol/L) Toxicity >100 ng/mL (>250 nmol/L) Performed By: #### L506.1000 #### [facility] [address] [facility] [place] [place], [address] COMPREHENSIVE METABOLIC Collected: 09/06/2017 Status: F Source: [facility] 1:27 PM [facility] REPOSITORY TYPE CODE TESTS RESULT OUT [...] 8 Performed By: #### L500.4050, L501.9520 #### [facility] [address] [facility] [place], [place], [address] THYROID STIM HORMONE Collected: 09/06/2017 Status: F Source: [facility] (TSH) 1:27 PM [facility] REPOSITORY TYPE CODE TESTS RESULT OUT OF RANGE REFERENCE UNITS LAB L501.9520 0.358-3.74 uIU/mL Normal TSH 0.91 Performed By: #### L500.4050, L501.9520 #### [facility] [address] [facility] [place] [place], [address] HEPATITIS C ANTIBODIES Collected: 09/06/2017 Status: F Source: N[place] 1:27 PM [facility] HOSPITAL REPOSITORY TYPE CODE TESTS RESULT OUT OF RANGE REFERENCE UNITS LAB L3100.0650 0.0-0.9 s/co ratio Normal HEP C AB <0.1 Result Comment: Negative: < 0.8 Indeterminate: 0.8 - 0.9 Positive: > 0.9 The CDC recommends that a positive HCV antibody result be followed up with a HCV Nucleic Acid Amplification test (514364). Performed at: [facility] [id number] Coating Line Worker: José Soto PhD, Phone: [phone] Performed By: #### L3100.0625 #### [facility] (refer to report for specific site) refer to report for address and phone number ALLERGIES ALLERGIES DATE TYPE / CODE NAME / CODE REACTION SEVERITY SOURCE 06/20/2018 Drug No Known Unknown [place] [facility] Allergy/4160 Allergies/F00 Hospital 10648(SNOMED 7196610(RXNOR Repository CT) M) ENCOUNTERS ENCOUNTERS ADMIT/DISCHARGE ACCOUNT ADMITTING ENCOUNTER LOCATION SOURCE NUMBER CLASS 06/20/2018 [id number] [facility] ing:MEDOUTP Repository 05/23/2018 [id number] Ambulatory [place] [facility] 5 [facility] ing:MEDOUTP Repository 04/24/2018 [id number] Ambulatory [place] 6 [facility] ing:MEDOUTP Repository 04/11/2018 [id number] [facility] [place] 8 [facility] ing:MEDOUTP Repository 03/20/2018 [id number] Ambulatory [place] [facility] 8 [facility] ing:OPBD Repository 03/16/2018 [id number] Ambulatory [place] [facility] 8 [facility] Hospital ing:POLAB3 Repository 03/14/2018 [id number] Ambulatory [place] [facility] 2 [facility] ing:MEDOUTP Repository 02/14/2018 [id number] Ambulatory [facility] [facility] 5 [facility] ing:MEDOUTP Repository 01/17/2018 [id number] Ambulatory [place] 4 [facility] ing:MEDOUTP Repository 12/20/2017 [id number] Ambulatory [place] 1 [facility] Hospital ing:MEDOUTP Repository 12/01/2017 [id number] Ambulatory [place] 6 [facility] Hospital ing:PSN Repository 11/22/2017 [id number] Amb[facility] [place] 8 [facility] Hospital ing:MEDOUTP Repository 11/14/2017 [id number] Ambulatory [place] 3 [facility] Hospital ing:OPBI Repository 10/25/2017 [id number] Ambulatory [facility] 6 [facility] Hospital ing:MEDOUTP Repository 10/23/2017 [id number] Ambulatory [place] [facility] 1 [facility] Hospital ing:POLAB3 Repository 09/27/2017 [id number] [facility]ulatory [place] 5 [facility] Hospital ing:LABSPEC Repository 09/27/2017 [id number] Ambulatory [place] [facility] 4 [facility] Hospital ing:MEDOUTP Repository 09/06/2017 [id number] Ambulatory [facility] 8 [facility] Hospital ing:POLAB3 Repository 08/30/2017 [id number] Ambulatory [facility] 4 [facility] Hospital ing:MEDOUTP Repository 08/02/2017 [id number] Ambulatory [place] 9 [facility] Hospital ing:MEDOUTP Repository 07/05/2017 [id number] Ambulatory [facility] 6 [facility] Hospital ing:MEDOUTP Repository PAYERS PAYERS ENCOUNTER GUARANTOR PAYER SUBSCRIBER SOURCE 06/20/2018 FREDIS D [id number] Primary FREDIS D [place] [address] Insurance:MEDICARE BURENDOB: [place] PART A [facility] [id number] Hospital [address]Xee: (330) Number: Repository [phone] HP [id number] Date:2018-05-23 06/20/2018 Secondary FREDIS D [place] Insurance:AARPPolicy BURENDOB: [facility] Number: [id number] Hospital [id number] Repository Date:1820-62-[address], [place] [address]RP: 06/20/2018 Tertiary NOT GIVENUNK [place] Insurance:SELF PAY [facility] Number: Effective Repository Date:2018-05-23 05/23/2018 FREDIS D [id number] Primary FREDIS D [place] [address] Insurance:MEDICARE BURENDOB: [facility] [place] PART A [facility] [id number] Hospital [address]Rzp: (330) Number: Repository [phone] () [id number] Date:2018-04-24 05/23/2018 Secondary FREDIS D Nicolasa Insurance:AARPPolicy BURENDOB: Community Number: [id number] Hospital [id number] Repository Date:0369-79-23[address], [place] [address]JL: 05/23/2018 Tertiary NOT GIVENUNK [place] Insurance:SELF PAY [facility] Number: Effective Repository Date:2018-04-24 04/24/2018 FREDIS D [id number] Primary FREDIS D [place] [address] Insurance:MEDICARE BURENDOB: [place] PART A [facility] [id number] Hospital [address]Tzx: (330) Number: Repository [phone] () [id number] Date:2018-04-23 04/24/2018 Secondary FREDIS D [place] Insurance:AARPPolicy BURENDOB: Community Number: [id number] Hospital [id number] Repository Date:4756-75-36[address], [place] [address]KX: 04/24/2018 Tertiary NOT GIVENUNK [place] Insurance:SELF PAY [facility] Number: Effective Repository Date:2018-04-23 04/11/2018 FREDIS D [id number] Primary FREDIS D [place] [address] Insurance:MEDICARE BURENDOB: [facility] [place] PART A [facility] [id number] Hospital [address]Usy: (330) Number: Repository [phone] () [id number] Date:2018-03-14 04/11/2018 Secondary FREDIS D Nicolasa Insurance:AARPPolicy BURENDOB: Community Number: [id number] Hospital [id number] Repository Date:2402-77-65[address], [place] [address]YE: 04/11/2018 Tertiary NOT GIVENUNK [place] Insurance:SELF PAY [facility] Number: Effective Repository Date:2018-03-14 03/20/2018 FREDIS D [id number] Primary FREDIS D [place] [address] Insurance:MEDICARE BURENDOB: [place] PART A [facility] [id number] Hospital [address]Kak: (330) Number: Repository [phone] () [id number] Date:2018-03-19 03/20/2018 Secondary FREDIS D [place] Insurance:AARPPolicy BURENDOB: Community Number: [id number] Hospital [id number] Repository Date:7343-51-20[address], [place] [address]HA: 03/20/2018 Tertiary NOT GIVENUNK [place] Insurance:SELF PAY [facility] Number: Effective Repository Date:2018-03-19 03/16/2018 FREDIS D [id number] Primary FREDIS D [place] [address] Insurance:MEDICARE BURENDOB: [place] PART A [facility] [id number] Hospital [address]Vlu: (330) Number: Repository [phone] () [id number] Date:2018-03-16 03/16/2018 Secondary FREDIS D Nicolasa Insurance:AARPPolicy BURENDOB: Community Number: [id number] Hospital [id number] Repository Date:3086-12-15[address], [place] [address]OM: 03/16/2018 Tertiary NOT GIVENUNK [place] Insurance:SELF PAY [facility] Number: Effective Repository Date:2018-03-16 03/14/2018 FREDIS D [id number] Primary FREDIS D [place] [address] Insurance:MEDICARE BURENDOB: [place] PART A [facility] [id number] Hospital [address]Udp: (330) Number: Repository [phone] () [id number] Date:2018-02-14 03/14/2018 Secondary FREDIS D Nicolasa Insurance:AARPPolicy BURENDOB: Community Number: [id number] Hospital [id number] Repository Date:3425-63-23[address], [place] [address]IE: 03/14/2018 Tertiary NOT GIVENUNK [place] Insurance:SELF PAY [facility] Number: Effective Repository Date:2018-02-14 02/14/2018 FREDIS D [id number] Primary FREDIS D [place] [address] Insurance:MEDICARE BURENDOB: [place] PART A [facility] [id number] Hospital [address]Ahh: (330) Number: Repository [phone] () [id number] Date:2018-02-08 02/14/2018 Secondary FREDIS D [place] Insurance:AARPPolicy [facility] Number: [id number] Hospital [id number] Repository Date:2074-78-90[address], [place] [address]XX: 02/14/2018 Tertiary NOT GIVENUNK Nicolas[place] Insurance:SELF PAY [facility] Number: Effective Repository Date:2018-02-08 01/17/2018 Fredis D [id number] Primary Fredis D [facility] [address] Insurance:MEDICARE BurenDOB: [place] PART A [facility] [id number] Hospital [address]Nax: (330) Number: Repository [phone] () [id number] Date:2017-12-20 01/17/2018 Secondary Fredis D Nicolas[place] Insurance:AARPPolicy [facility] Community Number: [id number] Hospital [id number] Repository Date:2017-03-69[address], [place] [address]AM: 01/17/2018 Tertiary NOT GIVENUNK [place] Insurance:SELF PAY [facility] Number: Effective Repository Date:2017-12-20 12/20/2017 Fredis D [id number] Primary Fredis D [place] [address] Insurance:MEDICARE BurenDOB: [place] PART A [facility] [id number] Hospital [address]Thx: (330) Number: Repository [phone] () [id number] Date:2017-11-22 12/20/2017 Secondary Fredis D Nicolasa Insurance:AARPPolicy BurenDOB: Community Number: [id number] Hospital [id number] Repository Date:4140-62-54SZ [address], [place] [address]TP: 12/20/2017 Tertiary NOT GIVENUNK Nicolas[place] Insurance:SELF PAY [facility] Number: Effective Repository Date:2017-11-22 12/01/2017 Fredis D [id number] Primary Fredis D [place] [address] Insurance:MEDICARE BurenDOB: [place] PART A [facility] [id number] Hospital [address]Hry: (330) Number: Repository [phone] () [id number] Date:2017-12-01 12/01/2017 Secondary Fredis D Nicolasa Insurance:AARPPolicy BurenDOB: Community Number: [id number] Hospital [id number] Repository Date:6012-75-25[address], [place] [address]NB: 12/01/2017 Tertiary NOT GIVENUNK [place] Insurance:SELF PAY [facility] Number: Effective Repository Date:2017-12-01 11/22/2017 Fredis D [id number] Primary Fredis D Nicolas[place] [address] Insurance:MEDICARE BurenDOB: [place] PART A [facility] [id number] Hospital [address]Ubh: (330) Number: Repository [phone] () [id number] Date:2017-10-25 11/22/2017 Secondary Fredis D [place] Insurance:AARPPolicy BurenDOB: Community Number: [id number] Hospital [id number] Repository Date:5801-96-71[address], [place] [address]XX: 11/22/2017 Tertiary NOT GIVENUNK Nciolasa Insurance:SELF PAY [facility] Number: Effective Repository Date:2017-10-25 11/14/2017 Fredis D [id number] Primary Fredis D Nicolas[place] [address] Insurance:MEDICARE BurenDOB: [place] PART [place] [facility] [id number] Hospital [address]Guv: (330) Number: Repository [phone] () [id number] Date:2017-10-24 11/14/2017 Secondary Fredis D Nicolas[place] Insurance:AARPPolicy BurenDOB: Community Number: [id number] Hospital [id number] Repository Date:6801-77-62[address]TYWZD, [place] [address]YJ: 11/14/2017 Tertiary NOT GIVENUNK [place] Insurance:SELF PAY [facility] Number: Effective Repository Date:2017-11-14 10/25/2017 Fredis D [id number] Primary Fredis D Nicolas[place] [address] Insurance:MEDICARE BurenDOB: [place] PART [place] [facility] [id number] Hospital [address]Hbz: (330) Number: Repository [phone] () [id number] Date:2017-09-28 10/25/2017 Secondary Fredis D Nicolas[place] Insurance:AARPPolicy BurenDOB: Community Number: [id number] Hospital [id number] Repository Date:6353-85-36[address], [place] [address]VJ: 10/25/2017 Tertiary NOT GIVENUNK Nicolas[place] Insurance:SELF PAY [facility] Number: Effective Repository Date:2017-10-24 10/23/2017 Fredis D [id number] Primary Fredis D [place] [address] Insurance:MEDICARE BurenDOB: [place] PART [place] [facility] [id number] Hospital [address]Uey: (330) Number: Repository [phone] () [id number] Date:2017-10-23 10/23/2017 Secondary Fredis D Nicolas[place] Insurance:AARPPolicy [facility] Community Number: [id number] Hospital [id number] Repository Date:5287-07-28[address], [place] [address]PR: 10/23/2017 Tertiary NOT GIVENUNK [place] Insurance:SELF PAY [facility] Number: Effective Repository Date:2017-10-23 09/27/2017 Fredis D [id number] Primary Fredis D [place] [address] Insurance:MEDICARE [place]DOB: [place], [place] PART [place] [facility] [id number] Hospital [address]Fav: [phone]) Number: Repository [phone] () [id number] Date:2017-09-27 09/27/2017 Secondary Fredis D Nicolasa Insurance:AARPPolicy [facility] Number: [id number] Hospital [id number] Repository Date:[id number], [place] [address]DT: 09/27/2017 Tertiary NOT GIVENUNK Nicolasa Insurance:SELF PAY [facility] Number: Effective Repository Date:2017-09-27 09/27/2017 Fredis D [id number] Primary Fredis D Nicolasa [address] Insurance:MEDICARE BurenDOB: [place], [place] [facility] [id number] Hospital [address]Zla: [phone]) Number: Repository [phone] () [id number] Date:2017-08-30 09/27/2017 Secondary Fredis D Nicolasa Insurance:AARolicy [facility] Number: [id number] Hospital [id number] Repository Date:[id number], [place] [address]FR: 09/27/2017 Tertiary NOT GIVENUNK [place] Insurance:SELF PAY [facility] Number: Effective Repository Date:2017-08-30 09/06/2017 Fredis D [id number] Primary Fredis D Nicolasa [address] Insurance:MEDICARE BurenDOB: [place] [facility] [id number] Hospital [address]Xzm: [phone]) Number: Repository [phone] () [id number] Date:2017-09-06 09/06/2017 Secondary Fredis D Nicolasa Insurance:AARPPolicy [place]DOB: Community Number: [id number] Hospital [id number] Repository Date:[id number], [place] [address]YB: 09/06/2017 Tertiary NOT GIVENUNK Nicolasa Insurance:SELF PAY [facility]: Effective Repository Date:2017-09-06 08/30/2017 Fredis D [id number] Primary Fredis D Nicolasa [address] Insurance:MEDICARE BurenDOB: [place] [facility] [id number] Hospital [address]Gnr: [phone]) Number: Repository [phone] () [id number] Date:2017-08-02 08/30/2017 Secondary Fredis D Nicolasa Insurance:AARPPolicy Bu[place]DOB: Community Number: [id number] Hospital [id number] Repository Date:[id number], [place] [address]EF: 08/30/2017 Tertiary NOT GIVENUNK [place] Insurance:SELF PAY [facility] Number: Effective Repository Date:2017-08-02 08/02/2017 Fredis D [id number] Primary Fredis D [place] [address] Insurance:MEDICARE BurenDOB: [place] [facility] [id number] Hospital [address]Ibz: [phone]) Number: Repository [phone] () [id number] Date:2017-07-05 08/02/2017 Secondary Fredis D [place] Insurance:AARPPolicy Bu[place]DOB: Community Number: [id number] Hospital [id number] Repository Date:[id number] [facility] [id number], [place] [address]EF: 08/02/2017 Tertiary NOT GIVENUNK [place] Insurance:SELF PAY [facility] Number: Effective Repository Date:2017-07-05 07/05/2017 Fredis D [id number] Primary Fredis D Nicolasa [address] Insurance:MEDICARE BurenDOB: [place] [facility] [id number] Hospital [id number]: 330) Number: Repository [phone] ( [id number] Date:2017-06-07 07/05/2017 Secondary Fredis D [place] Insurance:AARPPolicy BurenDOB: Community Number: [id number] Hospital [id number] Repository Date:[id number], [place] [address]ZE: 07/05/2017 Tertiary NOT GIVENUNK Nicolasa Insurance:SELF PAY [facility]: Effective Repository Date:2017-06-07
== END ==
PROVIDERS: Family Provider Family Medicine Geriatric Medicine; PCP Family Medicine Geriatric Medicine; Referring Provider Family Medicine Geriatric Medicine; Visit Provider Family Medicine Geriatric Medicine
DX: D80.0 Hereditary hypogammaglobulinemia (principal)
CPT/HCPCS: 96365; 96366; J7050; A4216; J1568

== ENCOUNTER → 2018-07-18 10:10 | Outpatient (CLI) | payer MEDICARE, OTHER, SELFPAY ==
[2018-06-20 10:01] VITALS: BMI 25.0
[2018-07-18 10:34] VITALS: BP 123/62; PULSE 82; RESP 16; TEMP 37.3; O2SAT 100; BMI 25.9
[2018-07-18] MEDS: Acetaminophen 325 MG Tablet 650 MG PO (10:50)
[2018-07-18] MEDS: DiphenhydrAMINE 50 MG/ML Syringe 25 MG IV (10:50)
[2018-07-18] MEDS: Immune Globulin 10 gm Premixed Solution IV (10:58)
== END ==
PROVIDERS: Family Provider Family Medicine Geriatric Medicine; PCP Family Medicine Geriatric Medicine; Referring Provider Family Medicine Geriatric Medicine; Visit Provider Family Medicine Geriatric Medicine
DX: D80.0 Hereditary hypogammaglobulinemia (principal)
CPT/HCPCS: 96365; 96366; J7050; A4216; J1568

== ENCOUNTER → 2018-08-15 10:04 | Outpatient (CLI) | payer MEDICARE, OTHER, SELFPAY ==
[2018-07-18 10:34] VITALS: BMI 25.9
[2018-08-15 10:37] VITALS: BP 126/73; PULSE 93; RESP 16; TEMP 37.6; O2SAT 100; BMI 26.1
[2018-08-15] MEDS: Acetaminophen 325 MG Tablet 650 MG PO (10:45)
[2018-08-15] MEDS: DiphenhydrAMINE 50 MG/ML Syringe 25 MG IV (10:48)
[2018-08-15] MEDS: Immune Globulin 10 gm Premixed Solution IV (11:28)
== END ==
PROVIDERS: Family Provider Family Medicine Geriatric Medicine; PCP Family Medicine Geriatric Medicine; Referring Provider Family Medicine Geriatric Medicine; Visit Provider Family Medicine Geriatric Medicine
DX: D80.0 Hereditary hypogammaglobulinemia (principal)
CPT/HCPCS: 96365; 96366 ×3; J7050; A4216; J1568

== ENCOUNTER → 2018-09-12 10:00 | Outpatient (CLI) | payer MEDICARE, OTHER, SELFPAY ==
[2018-08-15 10:37] VITALS: BMI 26.1
[2018-09-12 09:30] VITALS: BP 150/84; PULSE 90; RESP 16; TEMP 36.5; O2SAT 100; BMI 26.4
[2018-09-12] MEDS: DiphenhydrAMINE 50 MG/ML Syringe 25 MG IV (10:20)
[2018-09-12] MEDS: Acetaminophen 325 MG Tablet 650 MG PO (10:20)
[2018-09-12] MEDS: Immune Globulin 10 gm Premixed Solution IV (10:44)
== END ==
LOC: MEDOUTP 10:01 → PSN 14:41
PROVIDERS: Family Provider Family Medicine Geriatric Medicine; PCP Family Medicine Geriatric Medicine; Referring Provider Family Medicine Geriatric Medicine; Visit Provider Family Medicine Geriatric Medicine
DX: R68.83 Chills (without fever) (principal); D80.0 Hereditary hypogammaglobulinemia
CPT/HCPCS: 96365; 87633; J7050; A4216; J1568

== ENCOUNTER → 2018-09-21 11:18 | Outpatient (CLI) | payer MEDICARE, OTHER, SELFPAY ==
[2018-09-12 09:30] VITALS: BMI 26.4
[2018-09-21 13:55] LABS: Vitamin D,25 Hydroxy 19.5 ng/mL (29.95-100.01)
[2018-09-21 13:56] LABS: Absolute Lymphocyte Count 2.09 X10^3/ul (0.83-4.51); Absolute Neutrophil Count 6.8 X10^3/uL (2.0-7.7); Basophil# 0.02 X10^3/uL; Basophil% 0.2 % (0-1); Eosinophil# 0.03 X10^3/uL; Eosinophils% 0.3 % (0-5); Hematocrit 39.4 % (37-47); Lymphocyte # 2.09 X10^3/ul (4.0); Lymphocyte % 21.3 % (19-41); Mean Corpuscular Hgb 31.9 pg (27.0-32.0); Mean Corpuscular Volume 96.6 fL (81-99); Mean Platelet Vol. 10.8 fl (6.2-12.0); Monocyte% 8.2 % (0-10); Neutrophil # 6.83 X10^3/uL (2.7-7.7); Neutrophil % 69.8 % (47-70); Platelet Count 191 K/mm3 (150-450); RBC Distribution Width CV 12.4 % (11.6-14.6); RBC Distribution Width SD 43.4 fl (35.1-43.9); Red Blood Count 4.08 M/mm3 (4.2-5.4); White Blood Count 9.8 K/mm3 (4.4-11.0)
[2018-09-21 13:58] LABS: ALB/GLOB Ratio 1.1 RATIO (0.9-2.4); AST(SGOT) 15 U/L (15-37); Alanine Aminotransfer ALT/SGPT 23 U/L (13-56); Albumin, Serum 3.4 g/dL (3.2-5.0); Alkaline Phosphatase 87 U/L (45-117); Anion Gap 4 (5-15); BUN 14 mg/dL (7-18); BUN/Creat Ratio 16.9 RATIO (10-20); Calcium,Total 8.5 mg/dL (8.5-10.1); Chloride 109 mmol/L (98-107); Creatinine, Serum 0.83 mg/dL (0.55-1.02); EST Glomerular Filtration Rate 72 mL/min (>60); Est Glom Filt Rate - Afr Amer 87 mL/min (>60); Globulin 3.1 g/dL (2.2-4.2); Glucose 81 mg/dL (74-106); Potassium 3.7 mmol/L (3.5-5.1); Protein, Total 6.5 g/dL (6.4-8.2); Sodium Level 142 mmol/L (136-145); Thyroid Stim Hormone (TSH) 0.24 uIU/mL (0.358-3.74)
[2018-09-21 13:59] LABS: POSITIVE COUNT NO; POSITIVE DIFFERENTIAL NO; POSITIVE MORPHOLOGY NO
== END ==
PROVIDERS: Family Provider Family Medicine Geriatric Medicine; PCP Family Medicine Geriatric Medicine; Visit Provider Family Medicine Geriatric Medicine
DX: I10 Essential (primary) hypertension (principal); E55.9 Vitamin D deficiency, unspecified
CPT/HCPCS: 36415; 80053; 82306; 84443; 85025

== ENCOUNTER → 2018-10-11 10:08 | Outpatient (CLI) | payer MEDICARE, OTHER, SELFPAY ==
[2018-09-12 09:30] VITALS: BMI 26.4
[2018-10-11] MEDS: Acetaminophen 325 MG Tablet 650 MG PO (10:20)
[2018-10-11] MEDS: DiphenhydrAMINE 50 MG/ML Syringe 25 MG IV (10:32)
[2018-10-11 10:33] VITALS: BP 135/68; PULSE 91; RESP 16; TEMP 37.6; O2SAT 99; BMI 26.6
[2018-10-11] MEDS: Immune Globulin 10 gm Premixed Solution IV (10:55)
== END ==
PROVIDERS: Family Provider Family Medicine Geriatric Medicine; PCP Family Medicine Geriatric Medicine; Referring Provider Family Medicine Geriatric Medicine; Visit Provider Family Medicine Geriatric Medicine
DX: D80.0 Hereditary hypogammaglobulinemia (principal)
CPT/HCPCS: 96365; A4216; J1568

== ENCOUNTER → 2018-11-08 | Outpatient (CLI) | payer MEDICARE, OTHER, SELFPAY ==
[2018-10-11 10:33] VITALS: BMI 26.6
[2018-11-08] MEDS: Acetaminophen 325 MG Tablet 650 MG PO (10:18)
[2018-11-08] MEDS: DiphenhydrAMINE 50 MG/ML Syringe 25 MG IV (10:19)
[2018-11-08 10:25] VITALS: BP 142/72; PULSE 75; RESP 15; TEMP 37.3; O2SAT 100; BMI 27.4
[2018-11-08] MEDS: Immune Globulin 10 gm Premixed Solution IV (10:30)
== END | disposition home or self-care (01) ==
LOC: MEDOUTP 09:51
PROVIDERS: Family Provider Family Medicine Geriatric Medicine; PCP Family Medicine Geriatric Medicine; Referring Provider Family Medicine Geriatric Medicine; Visit Provider Family Medicine Geriatric Medicine
DX: D80.0 Hereditary hypogammaglobulinemia (principal)
CPT/HCPCS: 96365; 96366; 96374; A4216; J1568

== ENCOUNTER → 2018-12-07 10:02 | Outpatient (CLI) | payer MEDICARE, OTHER, SELFPAY ==
[2018-11-08 10:25] VITALS: BMI 27.4
[2018-12-07] MEDS: Immune Globulin 10 gm Premixed Solution IV (10:31)
[2018-12-07] MEDS: Acetaminophen 325 MG Tablet 650 MG PO (10:34)
[2018-12-07] MEDS: DiphenhydrAMINE 50 MG/ML Syringe 25 MG IV (10:34)
[2018-12-07 10:52] VITALS: BP 117/69; PULSE 84; RESP 16; TEMP 37; O2SAT 98; BMI 27.3
== END ==
PROVIDERS: Family Provider Family Medicine Geriatric Medicine; PCP Family Medicine Geriatric Medicine; Referring Provider Family Medicine Geriatric Medicine; Visit Provider Family Medicine Geriatric Medicine
DX: D80.0 Hereditary hypogammaglobulinemia (principal)
CPT/HCPCS: 96365; 96366; J7050; A4216; J1568

== ENCOUNTER → 2019-01-29 09:54 | Outpatient (CLI) | payer MEDICARE, OTHER, SELFPAY ==
[2018-12-07 10:52] VITALS: BMI 27.3
[2019-01-29] MEDS: Acetaminophen 325 MG Tablet 650 MG PO (10:22)
[2019-01-29] MEDS: DiphenhydrAMINE 50 MG/ML Syringe 25 MG IV (10:23)
[2019-01-29] MEDS: Immune Globulin 10 gm Premixed Solution 27.4 BAG IV (10:30)
[2019-01-29 11:16] VITALS: BP 113/78; PULSE 76; RESP 16; TEMP 36.8; O2SAT 97; BMI 24.1
== END ==
PROVIDERS: Family Provider Family Medicine Geriatric Medicine; PCP Family Medicine Geriatric Medicine; Referring Provider Family Medicine Geriatric Medicine; Visit Provider Family Medicine Geriatric Medicine
DX: D80.0 Hereditary hypogammaglobulinemia (principal)
CPT/HCPCS: 96365; J7050; A4216; J1568

== ENCOUNTER → 2019-02-18 16:39 | Outpatient (CLI) | payer MEDICARE, OTHER, SELFPAY ==
[2019-01-29 11:16] VITALS: BMI 24.1
--- NOTE | 2019-02-18 16:42 | RAD_ITS ---
STUDY: X-RAY - RIGHT FOOT CLINICAL: Female, 73 years old. Pain TECHNIQUE: 3 view(s) of the foot. COMPARISON: None. FINDINGS: There is a plantar calcaneal spur. Normal visualized subtalar, talonavicular, calcaneocuboid, tarsal and tarsometatarsal articulations. Normal metatarsi. There is mild degenerative arthrosis of the metatarsophalangeal joint of the hallux . Normal tibial and fibular sesamoid bones. Normal interphalangeal joint of the great toe. Normal phalanges of the great toe. Normal second through fifth metatarsophalangeal joints. There is a flexed appearance of the fourth digit. The soft tissue structures are unremarkable. RAD/Foot min 3 Views IMPRESSION: Bony osteopenia. Plantar spur. No visualized acute fracture. Electronically Signed: Darlin Schmitt MD at 23:02 EDT Tel , Service support ,
--- NOTE | 2019-02-18 16:42 | RAD_ITS ---
STUDY: X-RAY - LEFT KNEE REASON FOR EXAM: Female, 73 years old. Pain TECHNIQUE: 4 with weightbearing view(s) of the knee. COMPARISON: None. FINDINGS: There is demineralization of the visualized distal femur. There is demineralization of the tibia and fibula. Normal proximal tibiofibular articulation. Normal medial femorotibial compartment. There is mild degenerative arthrosis of the lateral femorotibial compartment. There is mild degenerative arthrosis of the patellofemoral articulation. The soft tissue structures are unremarkable. RAD/Knee 4 or More Views IMPRESSION: Mild arthrosis, no joint effusion. No visualized fracture. Electronically Signed: Darlin Schmitt MD at 22:48 EDT Tel , Service support ,
--- NOTE | 2019-02-18 16:42 | RAD_ITS ---
STUDY: X-RAY - RIGHT KNEE REASON FOR EXAM: Female, 73 years old. Pain TECHNIQUE: 4 view(s) of the knee. 2 with weightbearing. COMPARISON: None. FINDINGS: There is demineralization of the visualized distal femur. There is demineralization of the tibia and fibula. Normal proximal tibiofibular articulation. There is mild narrowing of the medial compartment. Normal lateral femorotibial compartment. Normal patellofemoral articulation. There are phleboliths within the soft tissues. RAD/Knee 4 or More Views IMPRESSION: Minimal degenerative change. No visualized acute fracture. If pain persists could consider MRI if clinically appropriate. Electronically Signed: Dariln Schmitt MD at 22:49 EDT Tel , Service support ,
--- NOTE | 2019-02-18 16:43 | RAD_ITS ---
STUDY: X-RAY - LEFT FOOT CLINICAL: Female, 73 years old. Pain heel pain TECHNIQUE: 3 view(s) of the foot. COMPARISON: None. FINDINGS: There is a plantar calcaneal spur. Normal visualized subtalar, talonavicular, calcaneocuboid, tarsal and tarsometatarsal articulations. There is demineralization of the metatarsi. There is degenerative arthrosis of the metatarsophalangeal joint of the hallux . Normal tibial and fibular sesamoid bones. Normal interphalangeal joint of the great toe. Normal phalanges of the great toe. Normal second through fifth metatarsophalangeal joints. Normal interphalangeal joints and phalanges of the lesser toes. The soft tissue structures are unremarkable. RAD/Foot min 3 Views IMPRESSION: Bony osteopenia. Plantar spur. Degenerative change. No visualized acute fracture. Electronically Signed: Darlin Schmitt MD at 23:27 EDT Tel , Service support ,
--- NOTE | 2019-02-18 16:43 | RAD_ITS ---
STUDY: X-RAY - CERVICAL SPINE REASON FOR EXAM: Female, 73 years old. Pain TECHNIQUE: 4 view(s) of the cervical spine were obtained. COMPARISON: None FINDINGS: There are degenerative changes of the anterior atlantoaxial articulation. Normal odontoid process. There is anterolisthesis at the level of C3 over C4 of approximately 2 mm. At C5 C6 C6 C7 C7 T1 there is disc space narrowing spondylosis. There is multilevel facet arthropathy. The soft tissue structures are unremarkable. RAD/Cerv Spine 2 or 3 Views IMPRESSION: Slight anterolisthesis at the level of C3 on C4, this is likely degenerative. Could consider follow-up MRI. No visualized evidence of an acute fracture. Multilevel degenerative disc disease. Electronically Signed: Darlin Schmitt MD at 23:22 EDT Tel , Service support ,
--- NOTE | 2019-02-18 16:43 | RAD_ITS ---
STUDY: X-RAY - LUMBAR SPINE REASON FOR EXAM: Female, 73 years old. Pain TECHNIQUE: 3 view(s) of the lumbar spine were obtained. COMPARISON: May 01, 2017. Lateral film of the chest FINDINGS: Normal lumbar lordosis. There is no substantial scoliosis. There is a normal alignment of the vertebrae. There is slight chronic-appearing loss of height at L2. This is slightly greater than the prior study. There is mild multilevel spondylosis. There is facet arthropathy. Normal disc space heights. The soft tissue structures are unremarkable. RAD/Lumbar Spine 2 or 3 Views IMPRESSION: Age indeterminate 10-20% loss of height at the level of L2. Multilevel degenerative change. Could consider follow-up studies such as CT or MRI when appropriate. Electronically Signed: Darlin Schmitt MD at 23:30 EDT Tel , Service support ,
--- NOTE | 2019-02-18 16:50 | RAD_ITS ---
STUDY: X-RAY - RIGHT SHOULDER REASON FOR EXAM: Female, 73 years old. Pain right shoulder TECHNIQUE: 4 view(s) of the shoulder. COMPARISON: September 27, 2017 chest x-ray FINDINGS: Normal glenohumeral articulation. There is degenerative arthrosis of the acromioclavicular joint without inferior osseous spur formation. Normal acromion. Normal humeral head and visualized proximal humerus. There are surgical skin denys seen in the right axilla. Normal visualized pulmonary apex. RAD/Shoulder min 2 Views IMPRESSION: Minimal degenerative change. No visualized fracture. Postoperative changes right axilla. Degenerative change thoracic spine. Electronically Signed: Darlin Schmitt MD at 22:56 EDT Tel , Service support ,
== END ==
PROVIDERS: Family Provider Family Medicine Geriatric Medicine; PCP Family Medicine Geriatric Medicine; Referring Provider Family Medicine Geriatric Medicine; Visit Provider Family Medicine Geriatric Medicine
DX: M54.5 Low back pain (principal); M79.609 Pain in unspecified limb; M25.569 Pain in unspecified knee; M54.2 Cervicalgia
CPT/HCPCS: 72040; 72100; 73030; 73564; 73630

== ENCOUNTER → 2019-02-26 10:00 | Outpatient (CLI) | payer MEDICARE, OTHER, SELFPAY ==
[2019-01-29 11:16] VITALS: BMI 24.1
[2019-02-26] MEDS: Acetaminophen 325 MG Tablet 650 MG PO (10:23)
[2019-02-26] MEDS: DiphenhydrAMINE 50 MG/ML Syringe 25 MG IV (10:40)
[2019-02-26 10:49] VITALS: BP 134/76; PULSE 71; RESP 16; TEMP 37.2; O2SAT 100; BMI 27.3
[2019-02-26] MEDS: Immune Globulin 10 gm Premixed Solution 27.4 BAG IV (11:23)
== END ==
PROVIDERS: Family Provider Family Medicine Geriatric Medicine; PCP Family Medicine Geriatric Medicine; Referring Provider Family Medicine Geriatric Medicine; Visit Provider Family Medicine Geriatric Medicine
DX: D80.0 Hereditary hypogammaglobulinemia (principal)
CPT/HCPCS: 96365; 96366; J7050; A4216; J1568

== ENCOUNTER → 2019-03-15 14:26 | Outpatient (CLI) | payer MEDICARE, OTHER, SELFPAY ==
[2019-03-15 14:21] VITALS: BMI 27.3
--- NOTE | 2019-03-15 14:27 | RAD_ITS ---
STUDY: X-RAY - LEFT WRIST REASON FOR EXAM: Female, 73 years old. Left wrist fracture TECHNIQUE: 3 view(s) of the wrist were obtained. COMPARISON: None. FINDINGS: There is demineralization of the radius and ulna. Normal radiocarpal articulation. Normal distal radioulnar articulation. There is demineralization of the carpal bones. There is degenerative arthrosis of the carpal articulations. There is degenerative arthrosis of the carpometacarpal articulation of the thumb. Normal second through fifth carpometacarpal articulations. Normal visualized metacarpal bones. The soft tissue structures are unremarkable. RAD/Wrist min 3 Views IMPRESSION: No demonstrated fracture or malalignment. Electronically Signed: Girish Estrada MD ([place]) at 15:53 EDT , Service support ,
== END ==
PROVIDERS: Family Provider Family Medicine Geriatric Medicine; PCP Family Medicine Geriatric Medicine; Referring Provider Physician Assistant; Visit Provider Physician Assistant
DX: M25.532 Pain in left wrist (principal)
CPT/HCPCS: 73110

== ENCOUNTER → 2019-03-18 14:43 | Outpatient (CLI) | payer MEDICARE, OTHER, SELFPAY ==
[2019-03-15 14:21] VITALS: BMI 27.3
[2019-03-18 16:58] LABS: Absolute Neutrophil Count 4.6 X10^3/uL (2.0-7.7); Basophil# 0.02 X10^3/uL; Basophil% 0.3 % (0-1); Eosinophil# 0.04 X10^3/uL; Eosinophils% 0.6 % (0-5); Hematocrit 39.9 % (37-47); Hemoglobin 13.1 g/dL (12.0-15.0); Lymphocyte % 19.8 % (19-41); Mean Corp Hgb Conc 32.8 g/dL (32-36); Mean Corpuscular Hgb 32.3 pg (27.0-32.0); Mean Corpuscular Volume 98.5 fL (81-99); Mean Platelet Vol. 10.6 fl (6.2-12.0); Monocyte# 0.55 X10^3/uL; Monocyte% 8.4 % (0-10); NRBC Flagged by Analyzer 0 % (0-5); Neutrophil # 4.61 X10^3/uL (2.7-7.7); Neutrophil % 70.4 % (47-70); Platelet Count 186 K/mm3 (150-450); RBC Distribution Width CV 14.4 % (11.6-14.6); RBC Distribution Width SD 53.1 fl (35.1-43.9); Red Blood Count 4.05 M/mm3 (4.2-5.4); White Blood Count 6.6 K/mm3 (4.4-11.0)
[2019-03-18 17:15] LABS: ALB/GLOB Ratio 1.1 RATIO (0.9-2.4); AST(SGOT) 17 U/L (15-37); Alanine Aminotransfer ALT/SGPT 23 U/L (13-56); Albumin, Serum 3.5 g/dL (3.2-5.0); Alkaline Phosphatase 97 U/L (45-117); Anion Gap 6 (5-15); BUN 18 mg/dL (7-18); BUN/Creat Ratio 20.5 RATIO (10-20); Calcium,Total 8.4 mg/dL (8.5-10.1); Chloride 108 mmol/L (98-107); Creatinine, Serum 0.88 mg/dL (0.55-1.02); EST Glomerular Filtration Rate 67 mL/min (>60); Est Glom Filt Rate - Afr Amer 81 mL/min (>60); Globulin 3.3 g/dL (2.2-4.2); Glucose 85 mg/dL (74-106); Potassium 4.2 mmol/L (3.5-5.1); Protein, Total 6.8 g/dL (6.4-8.2); Sodium Level 143 mmol/L (136-145); Thyroid Stim Hormone (TSH) 1.75 uIU/mL (0.358-3.74)
[2019-03-18 17:27] LABS: Vitamin D,25 Hydroxy 21.1 ng/mL (29.95-100.01)
== END ==
PROVIDERS: Family Provider Family Medicine Geriatric Medicine; PCP Family Medicine Geriatric Medicine; Visit Provider Family Medicine Geriatric Medicine
DX: E11.9 Type 2 diabetes mellitus without complications (principal); E55.9 Vitamin D deficiency, unspecified; I10 Essential (primary) hypertension
CPT/HCPCS: 36415; 80053; 82306; 84443; 85025

== ENCOUNTER → 2019-04-01 | Outpatient (CLI) | payer MEDICARE, OTHER, SELFPAY ==
[2019-02-26 10:49] VITALS: BMI 27.3
[2019-03-15 14:21] VITALS: BMI 27.3
[2019-04-01 11:11] VITALS: BP 120/68; PULSE 92; RESP 16; TEMP 36.6; O2SAT 99; BMI 25.7
[2019-04-01] MEDS: DiphenhydrAMINE 50 MG/ML Syringe 25 MG IV (11:17)
[2019-04-01] MEDS: Acetaminophen 325 MG Tablet 650 MG PO (11:17)
[2019-04-01] MEDS: Immune Globulin 10 gm Premixed Solution 27.5 BAG IV (11:58)
== END | disposition home or self-care (01) ==
LOC: MEDOUTP 10:56
PROVIDERS: Family Provider Family Medicine Geriatric Medicine; PCP Family Medicine Geriatric Medicine; Referring Provider Family Medicine Geriatric Medicine; Visit Provider Family Medicine Geriatric Medicine
DX: D80.0 Hereditary hypogammaglobulinemia (principal)
CPT/HCPCS: 96365; 96366; 96375; A4216; J1568

== ENCOUNTER → 2019-04-29 10:54 | Outpatient (CLI) | payer MEDICARE, OTHER, SELFPAY ==
[2019-04-01 11:11] VITALS: BMI 25.7
[2019-04-08 12:40] VITALS: BMI 25.7
[2019-04-29] MEDS: Acetaminophen 325 MG Tablet 650 MG PO (11:27)
[2019-04-29] MEDS: DiphenhydrAMINE 50 MG/ML Syringe 25 MG IV (11:29)
[2019-04-29 11:46] VITALS: BP 127/64; PULSE 88; RESP 16; TEMP 37.1; O2SAT 100; BMI 25.2
[2019-04-29] MEDS: Immune Globulin 10 gm Premixed Solution 27.5 BAG IV (12:05)
== END ==
PROVIDERS: Family Provider Family Medicine Geriatric Medicine; PCP Family Medicine Geriatric Medicine; Referring Provider Family Medicine Geriatric Medicine; Visit Provider Family Medicine Geriatric Medicine
DX: D80.0 Hereditary hypogammaglobulinemia (principal)
CPT/HCPCS: 96365; J7050; A4216; J1568

== ENCOUNTER → 2019-05-27 11:00 | Outpatient (CLI) | payer MEDICARE, OTHER, SELFPAY ==
[2019-04-29 11:46] VITALS: BMI 25.2
[2019-05-27 11:09] VITALS: BP 125/71; PULSE 86; RESP 16; TEMP 37.3; O2SAT 99; BMI 26.4
[2019-05-27] MEDS: DiphenhydrAMINE 50 MG/ML Syringe 25 MG IV (11:24)
[2019-05-27] MEDS: Acetaminophen 325 MG Tablet 650 MG PO (11:24)
[2019-05-27] MEDS: Immune Globulin 10 gm Premixed Solution 27.5 BAG IV (11:52)
== END ==
PROVIDERS: Family Provider Family Medicine Geriatric Medicine; PCP Family Medicine Geriatric Medicine; Referring Provider Family Medicine Geriatric Medicine; Visit Provider Family Medicine Geriatric Medicine
DX: D80.0 Hereditary hypogammaglobulinemia (principal)
CPT/HCPCS: 96365; 96366; 96375; J7050; A4216; J1568

== ENCOUNTER → 2019-06-27 12:08 | Outpatient (CLI) | payer MEDICARE, OTHER, SELFPAY ==
[2019-05-27 11:09] VITALS: BMI 26.4
[2019-06-27 12:20] VITALS: BP 127/64; PULSE 83; RESP 18; TEMP 37.1; O2SAT 100; BMI 25.4
[2019-06-27] MEDS: DiphenhydrAMINE 50 MG/ML Syringe 25 MG IV (12:35)
[2019-06-27] MEDS: Acetaminophen 325 MG Tablet 650 MG PO (12:35)
[2019-06-27] MEDS: Immune Globulin 10 gm Premixed Solution 27.5 BAG IV (13:08)
== END ==
PROVIDERS: Family Provider Family Medicine Geriatric Medicine; PCP Family Medicine Geriatric Medicine; Referring Provider Family Medicine Geriatric Medicine; Visit Provider Family Medicine Geriatric Medicine
DX: D80.0 Hereditary hypogammaglobulinemia (principal)
CPT/HCPCS: 96365; J7050; A4216; J1568

== ENCOUNTER → 2019-07-25 11:48 | Outpatient (CLI) | payer MEDICARE, OTHER, SELFPAY ==
[2019-05-27 11:09] VITALS: BMI 26.4
[2019-06-27 12:20] VITALS: BMI 25.4
[2019-07-25 12:06] VITALS: BP 135/59; PULSE 83; RESP 16; TEMP 36.4; O2SAT 100; BMI 25.9
[2019-07-25] MEDS: DiphenhydrAMINE 50 MG/ML Syringe 25 MG IV (12:21)
[2019-07-25] MEDS: Acetaminophen 325 MG Tablet 650 MG PO (12:21)
[2019-07-25] MEDS: Immune Globulin 10 gm Premixed Solution 27.5 BAG IV (12:35)
== END ==
PROVIDERS: PCP Family Medicine Geriatric Medicine; Referring Provider Family Medicine Geriatric Medicine; Visit Provider Family Medicine Geriatric Medicine
DX: D80.0 Hereditary hypogammaglobulinemia (principal)
CPT/HCPCS: 96365; 96366; J7050; A4216; J1568

== ENCOUNTER → 2019-09-18 13:01 | Outpatient (CLI) | payer MEDICARE, OTHER, SELFPAY ==
[2019-07-25 12:06] VITALS: BMI 25.9
[2019-09-18 15:30] LABS: Absolute Lymphocyte Count 1.58 X10^3/uL (0.83-4.51); Absolute Neutrophil Count 3.4 X10^3/uL (2.0-7.7); Basophil# 0.03 X10^3/uL; Basophil% 0.5 % (0-1); Eosinophil# 0.06 X10^3/uL; Eosinophils% 1.1 % (0-5); Hematocrit 41.5 % (37-47); Hemoglobin 13.9 g/dL (12.0-15.0); Lymphocyte # 1.58 X10^3/ul (4.0); Lymphocyte % 28.7 % (19-41); Mean Corp Hgb Conc 33.5 g/dL (32-36); Mean Corpuscular Hgb 31.2 pg (27.0-32.0); Mean Corpuscular Volume 93.3 fL (81-99); Mean Platelet Vol. 11.2 fl (6.2-12.0); Monocyte# 0.43 X10^3/uL; Monocyte% 7.8 % (0-10); NRBC Flagged by Analyzer 0 % (0-5); Neutrophil % 61.7 % (47-70); Platelet Count 180 K/mm3 (150-450); RBC Distribution Width CV 11.9 % (11.6-14.6); RBC Distribution Width SD 41.4 fl (35.1-43.9); Red Blood Count 4.45 M/mm3 (4.2-5.4); White Blood Count 5.5 K/mm3 (4.4-11.0)
[2019-09-18 15:44] LABS: Vitamin D,25 Hydroxy 22.3 ng/mL
[2019-09-18 15:54] LABS: ALB/GLOB Ratio 1.1 RATIO (0.9-2.4); AST(SGOT) 22 U/L (15-37); Alanine Aminotransfer ALT/SGPT 21 U/L (13-56); Albumin, Serum 3.9 g/dL (3.2-5.0); Alkaline Phosphatase 91 U/L (45-117); Anion Gap 6 (5-15); BUN 11 mg/dL (7-18); BUN/Creat Ratio 12.9 RATIO (10-20); Calcium,Total 9.1 mg/dL (8.5-10.1); Chloride 106 mmol/L (98-107); Creatinine, Serum 0.85 mg/dL (0.55-1.02); EST Glomerular Filtration Rate 69 mL/min (>60); Est Glom Filt Rate - Afr Amer 84 mL/min (>60); Globulin 3.4 g/dL (2.2-4.2); Glucose 121 mg/dL (74-106); Potassium 3.7 mmol/L (3.5-5.1); Protein, Total 7.3 g/dL (6.4-8.2); Sodium Level 140 mmol/L (136-145); Thyroid Stim Hormone (TSH) 3.47 uIU/mL (0.358-3.74)
== END ==
PROVIDERS: PCP Family Medicine Geriatric Medicine; Visit Provider Family Medicine Geriatric Medicine
DX: E11.9 Type 2 diabetes mellitus without complications (principal); E55.9 Vitamin D deficiency, unspecified; I10 Essential (primary) hypertension
CPT/HCPCS: 36415; 80053; 82306; 84443; 85025

== ENCOUNTER → 2019-10-03 10:32 | Outpatient (CLI) | payer MEDICARE, OTHER, SELFPAY ==
[2019-07-25 12:06] VITALS: BMI 25.9
[2019-10-03] MEDS: DiphenhydrAMINE 50 MG/ML Syringe 25 MG IV (10:58)
[2019-10-03] MEDS: Acetaminophen 325 MG Tablet 650 MG PO (10:59)
[2019-10-03] MEDS: Immune Globulin 10 gm Premixed Solution 27.5 BAG IV (11:15)
[2019-10-03 11:20] VITALS: BP 144/88; PULSE 119; RESP 16; TEMP 37.1; BMI 25.1
== END ==
PROVIDERS: PCP Family Medicine Geriatric Medicine; Referring Provider Family Medicine Geriatric Medicine; Visit Provider Family Medicine Geriatric Medicine
DX: D80.0 Hereditary hypogammaglobulinemia (principal)
CPT/HCPCS: 96365; A4216; J1568

== ENCOUNTER → 2019-10-31 10:24 | Outpatient (CLI) | payer MEDICARE, OTHER, SELFPAY ==
[2019-07-25 12:06] VITALS: BMI 25.9
[2019-10-03 11:20] VITALS: BMI 25.1
[2019-10-31 10:33] VITALS: BP 119/66; PULSE 90; RESP 16; TEMP 37.2; O2SAT 96; BMI 25.7
[2019-10-31] MEDS: 0.9% NaCl Peripheral Flush Adult/Peds IV (10:37)
[2019-10-31] MEDS: 0.9% NaCl IVPB Med Flush (250 mL) 15 ML IV (10:46)
[2019-10-31] MEDS: DiphenhydrAMINE 50 MG/ML Syringe 25 MG IV (10:47)
[2019-10-31] MEDS: Acetaminophen 325 MG Tablet 650 MG PO (10:47)
[2019-10-31] MEDS: Immune Globulin 10 gm Premixed Solution 27.5 BAG IV (11:18)
== END ==
PROVIDERS: PCP Family Medicine Geriatric Medicine; Referring Provider Family Medicine Geriatric Medicine; Visit Provider Family Medicine Geriatric Medicine
DX: D80.0 Hereditary hypogammaglobulinemia (principal)
CPT/HCPCS: 96365; J7050; A4216; J1568

== ENCOUNTER → 2019-11-28 10:26 | Outpatient (CLI) | payer MEDICARE, OTHER, SELFPAY ==
[2019-10-03 11:20] VITALS: BMI 25.1
[2019-10-31 10:33] VITALS: BMI 25.7
[2019-11-28 10:32] VITALS: BP 132/67; PULSE 84; RESP 16; TEMP 37; O2SAT 100; BMI 26.0
[2019-11-28] MEDS: 0.9% NaCl Peripheral Flush Adult/Peds IV (10:38)
[2019-11-28] MEDS: DiphenhydrAMINE 50 MG/ML Syringe 25 MG IV (10:45)
[2019-11-28] MEDS: 0.9% NaCl IVPB Med Flush (250 mL) 15 ML IV (10:45)
[2019-11-28] MEDS: Acetaminophen 325 MG Tablet 650 MG PO (10:46)
[2019-11-28] MEDS: Immune Globulin 10 gm Premixed Solution 27.5 BAG IV (11:22)
== END ==
PROVIDERS: PCP Family Medicine Geriatric Medicine; Referring Provider Family Medicine Geriatric Medicine; Visit Provider Family Medicine Geriatric Medicine
DX: D80.0 Hereditary hypogammaglobulinemia (principal)
CPT/HCPCS: 96365; J7050; A4216; J1568

== ENCOUNTER → 2019-12-26 10:19 | Outpatient (CLI) | payer MEDICARE, OTHER, SELFPAY ==
[2019-10-31 10:33] VITALS: BMI 25.7
[2019-11-28 10:32] VITALS: BMI 26.0
[2019-12-26 10:30] VITALS: BP 122/63; PULSE 84; RESP 16; TEMP 37.2; O2SAT 99; BMI 25.2
[2019-12-26] MEDS: Acetaminophen 325 MG Tablet 650 MG PO (10:39)
[2019-12-26] MEDS: DiphenhydrAMINE 50 MG/ML Syringe 25 MG IV (10:42)
[2019-12-26] MEDS: Immune Globulin 10 gm Premixed Solution 27.5 BAG IV (11:25)
== END ==
PROVIDERS: PCP Family Medicine Geriatric Medicine; Referring Provider Family Medicine Geriatric Medicine; Visit Provider Family Medicine Geriatric Medicine
DX: D80.0 Hereditary hypogammaglobulinemia (principal)
CPT/HCPCS: 96365; J7050; A4216; J1568

== ENCOUNTER → 2020-01-23 10:27 | Outpatient (CLI) | payer MEDICARE, OTHER, SELFPAY ==
[2019-11-28 10:32] VITALS: BMI 26.0
[2019-12-26 10:30] VITALS: BMI 25.2
[2020-01-23 10:33] VITALS: BP 128/70; PULSE 97; RESP 16; TEMP 37.2; O2SAT 95; BMI 26.4
[2020-01-23] MEDS: Acetaminophen 325 MG Tablet 650 MG PO (10:45)
[2020-01-23] MEDS: DiphenhydrAMINE 50 MG/ML Syringe 25 MG IV (10:49)
[2020-01-23] MEDS: Immune Globulin 10 gm Premixed Solution 0.3 BAG IV (11:34)
== END ==
PROVIDERS: PCP Family Medicine Geriatric Medicine; Referring Provider Family Medicine Geriatric Medicine; Visit Provider Family Medicine Geriatric Medicine
DX: D80.0 Hereditary hypogammaglobulinemia (principal)
CPT/HCPCS: 96365; J7050; A4216; J1568

== ENCOUNTER → 2020-02-20 10:25 | Outpatient (CLI) | payer MEDICARE, OTHER, SELFPAY ==
[2019-12-26 10:30] VITALS: BMI 25.2
[2020-01-23 10:33] VITALS: BMI 26.4
[2020-02-20 10:45] VITALS: BP 136/75; PULSE 101; RESP 16; TEMP 37.2; O2SAT 98; BMI 25.2
[2020-02-20] MEDS: Acetaminophen 325 MG Tablet 650 MG PO (10:48)
[2020-02-20] MEDS: DiphenhydrAMINE 50 MG/ML Syringe 25 MG IV (10:49)
[2020-02-20] MEDS: Immune Globulin 10 gm Premixed Solution 27.5 BAG IV (11:31)
[2020-02-20 13:42] VITALS: BP 122/69; PULSE 83; RESP 14; TEMP 37; O2SAT 100
== END ==
PROVIDERS: PCP Family Medicine Geriatric Medicine; Referring Provider Family Medicine Geriatric Medicine; Visit Provider Family Medicine Geriatric Medicine
DX: D80.0 Hereditary hypogammaglobulinemia (principal)
CPT/HCPCS: 96365; J7050; A4216; J1568

== ENCOUNTER → 2020-03-19 12:42 | Outpatient (CLI) | payer MEDICARE, OTHER, SELFPAY ==
[2020-01-23 10:33] VITALS: BMI 26.4
[2020-02-20 10:45] VITALS: BMI 25.2
[2020-03-19 12:49] VITALS: BP 120/68; PULSE 97; RESP 18; TEMP 36.6; O2SAT 99; BMI 25.4
[2020-03-19] MEDS: Acetaminophen 325 MG Tablet 650 MG PO (12:57)
[2020-03-19] MEDS: 0.9% NaCl IVPB Med Flush (250 mL) 15 ML IV (12:57)
[2020-03-19] MEDS: DiphenhydrAMINE 50 MG/ML Syringe 25 MG IV (12:58)
[2020-03-19] MEDS: 0.9% NaCl Peripheral Flush Adult/Peds IV (13:00)
[2020-03-19] MEDS: Immune Globulin 10 gm Premixed Solution 27.5 BAG IV (13:36)
== END ==
PROVIDERS: PCP Family Medicine Geriatric Medicine; Referring Provider Family Medicine Geriatric Medicine; Visit Provider Family Medicine Geriatric Medicine
DX: D80.0 Hereditary hypogammaglobulinemia (principal)
CPT/HCPCS: 96365; 96366; 96375; J7050; A4216; J1568

== ENCOUNTER → 2020-03-25 13:11 | Outpatient (CLI) | payer MEDICARE, OTHER, SELFPAY ==
[2020-03-19 12:49] VITALS: BMI 25.4
[2020-03-25 16:39] LABS: Absolute Lymphocyte Count 1.99 X10^3/uL (0.83-4.51); Basophil# 0.04 X10^3/uL; Basophil% 0.7 % (0-1); Eosinophil# 0.07 X10^3/uL; Eosinophils% 1.3 % (0-5); Hematocrit 41.7 % (37-47); Hemoglobin 13.6 g/dL (12.0-15.0); Lymphocyte # 1.99 X10^3/ul (4.0); Lymphocyte % 36.1 % (19-41); Mean Corp Hgb Conc 32.6 g/dL (32-36); Mean Corpuscular Hgb 31.6 pg (27.0-32.0); Mean Corpuscular Volume 96.8 fL (81-99); Mean Platelet Vol. 11.8 fl (6.2-12.0); Monocyte# 0.39 X10^3/uL; Monocyte% 7.1 % (0-10); NRBC Flagged by Analyzer 0 % (0-5); Neutrophil # 3.02 X10^3/uL (2.7-7.7); Neutrophil % 54.6 % (47-70); Platelet Count 211 K/mm3 (150-450); RBC Distribution Width CV 11.9 % (11.6-14.6); Red Blood Count 4.31 M/mm3 (4.2-5.4); White Blood Count 5.5 K/mm3 (4.4-11.0)
[2020-03-25 17:01] LABS: Vitamin D,25 Hydroxy 21.9 ng/mL
[2020-03-25 17:11] LABS: AST(SGOT) 28 U/L (15-37); Alanine Aminotransfer ALT/SGPT 26 U/L (13-56); Albumin, Serum 3.9 g/dL (3.2-5.0); Alkaline Phosphatase 84 U/L (45-117); Anion Gap 6 (5-15); BUN 15 mg/dL (7-18); BUN/Creat Ratio 14.4 RATIO (10-20); Calcium,Total 9.4 mg/dL (8.5-10.1); Chloride 108 mmol/L (98-107); Creatinine, Serum 1.04 mg/dL (0.55-1.02); EST Glomerular Filtration Rate 55 mL/min (>60); Est Glom Filt Rate - Afr Amer 67 mL/min (>60); Globulin 3.9 g/dL (2.2-4.2); Glucose 102 mg/dL (74-106); Protein, Total 7.8 g/dL (6.4-8.2); Sodium Level 142 mmol/L (136-145); Thyroid Stim Hormone (TSH) 1.65 uIU/mL (0.358-3.74)
== END ==
PROVIDERS: PCP Family Medicine Geriatric Medicine; Visit Provider Family Medicine Geriatric Medicine
DX: E55.9 Vitamin D deficiency, unspecified (principal); I10 Essential (primary) hypertension
CPT/HCPCS: 36415; 80053; 82306; 84443; 85025

== ENCOUNTER → 2020-04-16 11:04 | Outpatient (CLI) | payer MEDICARE, OTHER, SELFPAY ==
[2020-02-20 10:45] VITALS: BMI 25.2
[2020-03-19 12:49] VITALS: BMI 25.4
[2020-04-16] MEDS: 0.9% NaCl Peripheral Flush Adult/Peds IV (11:27)
[2020-04-16] MEDS: 0.9% NaCl IVPB Med Flush (250 mL) 15 ML IV (11:32)
[2020-04-16] MEDS: DiphenhydrAMINE 50 MG/ML Syringe 25 MG IV (11:34)
[2020-04-16] MEDS: Acetaminophen 325 MG Tablet 650 MG PO (11:34)
[2020-04-16 11:41] VITALS: BP 125/62; PULSE 80; RESP 14; TEMP 36.5; O2SAT 100; BMI 25.9
[2020-04-16] MEDS: Immune Globulin 10 gm Premixed Solution 27.5 BAG IV (12:37)
== END ==
PROVIDERS: PCP Family Medicine Geriatric Medicine; Referring Provider Family Medicine Geriatric Medicine; Visit Provider Family Medicine Geriatric Medicine
DX: D80.0 Hereditary hypogammaglobulinemia (principal)
CPT/HCPCS: 96365; J7050; A4216; J1568

== ENCOUNTER → 2020-05-14 12:27 | Outpatient (CLI) | payer MEDICARE, OTHER, SELFPAY ==
[2020-03-19 12:49] VITALS: BMI 25.4
[2020-04-16 11:41] VITALS: BMI 25.9
[2020-05-14 12:43] VITALS: BP 151/83; PULSE 94; RESP 18; TEMP 37.1; O2SAT 98; BMI 26.1
[2020-05-14] MEDS: Acetaminophen 325 MG Tablet 650 MG PO (12:48)
[2020-05-14] MEDS: 0.9% NaCl Peripheral Flush Adult/Peds IV (12:52)
[2020-05-14] MEDS: 0.9% NaCl IVPB Med Flush (250 mL) 15 ML IV (12:58)
[2020-05-14] MEDS: DiphenhydrAMINE 50 MG/ML Syringe 25 MG IV (12:58)
[2020-05-14] MEDS: Immune Globulin 10 gm Premixed Solution 27.5 BAG IV (13:36)
== END ==
PROVIDERS: PCP Family Medicine Geriatric Medicine; Referring Provider Family Medicine Geriatric Medicine; Visit Provider Family Medicine Geriatric Medicine
DX: D80.0 Hereditary hypogammaglobulinemia (principal)
CPT/HCPCS: 96365; J7050; A4216; J1568

== ENCOUNTER → 2020-06-11 12:36 | Outpatient (CLI) | payer MEDICARE, OTHER, SELFPAY ==
[2020-04-16 11:41] VITALS: BMI 25.9
[2020-05-14 12:43] VITALS: BMI 26.1
[2020-06-11] MEDS: 0.9% NaCl IVPB Med Flush (250 mL) 15 ML IV (12:58)
[2020-06-11] MEDS: 0.9% NaCl Peripheral Flush Adult/Peds IV (12:59)
[2020-06-11] MEDS: DiphenhydrAMINE 50 MG/ML Syringe 25 MG IV (13:03)
[2020-06-11] MEDS: Acetaminophen 325 MG Tablet 650 MG PO (13:17)
[2020-06-11] MEDS: Acetaminophen 325 MG Tablet PO (13:19)
[2020-06-11 13:23] VITALS: BP 149/74; PULSE 83; RESP 16; TEMP 36.9; O2SAT 100
[2020-06-11] MEDS: Immune Globulin 10 gm Premixed Solution 27.5 BAG IV (13:46)
== END ==
PROVIDERS: PCP Family Medicine Geriatric Medicine; Referring Provider Family Medicine Geriatric Medicine; Visit Provider Family Medicine Geriatric Medicine
DX: D80.0 Hereditary hypogammaglobulinemia (principal)
CPT/HCPCS: 96365; J7050; A4216; J1568

== ENCOUNTER → 2020-06-12 12:37 | Outpatient (CLI) | payer MEDICARE, OTHER, SELFPAY ==
[2020-03-19 12:49] VITALS: BMI 25.4
[2020-05-14 12:43] VITALS: BMI 26.1
--- NOTE | 2020-06-12 12:39 | BI_ITS ---
MAMMOGRAPHY - UNILATERAL SCREENING: LEFT BREAST REASON FOR EXAM: Female, 75 years old. Routine annual screening examination (unilateral). PERTINENT HISTORY: Personal history of breast cancer. Prior right mastectomy. TECHNIQUE: Digital unilateral breast kassie (3D mammographic acquisition) in the CC and MLO projections. 2-D mediolateral oblique (MLO) and craniocaudad (CC) views of both breasts were obtained. CAD: Full Field Digital Mammography with Computer Added Detection was performed. COMPARISON: Comparison is made with prior study dated 11/14/2017. FINDINGS: Breast Composition: There are scattered areas of fibroglandular density. There are no dominant masses or suspicious calcifications. No other significant abnormalities are identified. There has been no significant change since the prior study. BI/SCREEN MAMM (CAD) W/KASSIE UNI L IMPRESSION: Stable unilateral screening mammogram. Yearly follow-up mammogram recommended. (A) ASSESSMENT CATEGORY: BIRADS Category 1: Negative. A letter regarding these results will be sent to the patient by the facility within 30 days. Approximately 10% of breast cancers are not detected by mammography. A normal mammogram should not delay biopsy of a clinically suspicious abnormality. [id number] Electronically Signed: Scooter Pierson, at 13:23 EST , Service support ,
== END ==
PROVIDERS: PCP Family Medicine Geriatric Medicine; Visit Provider Family Medicine Geriatric Medicine
DX: Z12.31 Encounter for screening mammogram for malignant neoplasm of breast (principal); Z85.3 Personal history of malignant neoplasm of breast; Z90.11 Acquired absence of right breast and nipple
CPT/HCPCS: 77063; 77067

== ENCOUNTER → 2020-07-09 12:20 | Outpatient (CLI) | payer MEDICARE, OTHER, SELFPAY ==
[2020-05-14 12:43] VITALS: BMI 26.1
[2020-07-09 12:30] VITALS: BP 122/59; PULSE 86; RESP 16; TEMP 37.3; O2SAT 98; BMI 26.1
[2020-07-09] MEDS: Acetaminophen 325 MG Tablet 650 MG PO (12:39)
[2020-07-09] MEDS: DiphenhydrAMINE 50 MG/ML Syringe 25 MG IV (12:40)
[2020-07-09] MEDS: 0.9% NaCl IVPB Med Flush (250 mL) 15 ML IV (12:55)
[2020-07-09] MEDS: 0.9% NaCl Peripheral Flush Adult/Peds IV (12:55)
[2020-07-09] MEDS: Immune Globulin 10 gm Premixed Solution 27.5 BAG IV (13:15)
== END ==
PROVIDERS: PCP Family Medicine Geriatric Medicine; Referring Provider Family Medicine Geriatric Medicine; Visit Provider Family Medicine Geriatric Medicine
DX: D80.0 Hereditary hypogammaglobulinemia (principal)
CPT/HCPCS: 96365; J7050; A4216; J1568

== ENCOUNTER → 2020-08-06 12:23 | Outpatient (CLI) | payer MEDICARE, OTHER, SELFPAY ==
[2020-05-14 12:43] VITALS: BMI 26.1
[2020-07-09 12:30] VITALS: BMI 26.1
[2020-08-06 13:00] VITALS: BP 147/75; PULSE 87; RESP 16; TEMP 36.7; O2SAT 100; BMI 26.1
[2020-08-06] MEDS: 0.9% NaCl Peripheral Flush Adult/Peds IV (13:00)
[2020-08-06] MEDS: 0.9% NaCl IVPB Med Flush (250 mL) 15 ML IV (13:00)
[2020-08-06] MEDS: Acetaminophen 325 MG Tablet 650 MG PO (13:08)
[2020-08-06] MEDS: DiphenhydrAMINE 50 MG/ML Syringe 25 MG IV (13:08)
[2020-08-06] MEDS: Immune Globulin 10 gm Premixed Solution 27.5 BAG IV (13:21)
[2020-08-06 15:23] VITALS: BP 147/70; PULSE 79; RESP 16; TEMP 37.5; O2SAT 99
== END ==
PROVIDERS: PCP Family Medicine Geriatric Medicine; Referring Provider Family Medicine Geriatric Medicine; Visit Provider Family Medicine Geriatric Medicine
DX: D80.0 Hereditary hypogammaglobulinemia (principal)
CPT/HCPCS: 96365; J7050; A4216; J1568

== ENCOUNTER → 2020-09-03 12:24 | Outpatient (CLI) | payer MEDICARE, OTHER, SELFPAY ==
[2020-07-09 12:30] VITALS: BMI 26.1
[2020-08-06 13:00] VITALS: BMI 26.1
[2020-09-03 12:34] VITALS: BP 146/71; PULSE 84; RESP 18; TEMP 37.1; O2SAT 99; BMI 26.1
[2020-09-03] MEDS: Acetaminophen 325 MG Tablet 650 MG PO (12:47)
[2020-09-03] MEDS: DiphenhydrAMINE 50 MG/ML Syringe 25 MG IV (12:50)
[2020-09-03] MEDS: 0.9% NaCl Peripheral Flush Adult/Peds IV (12:50)
[2020-09-03] MEDS: 0.9% NaCl IVPB Med Flush (250 mL) 15 ML IV (13:00)
[2020-09-03] MEDS: Immune Globulin 10 gm Premixed Solution 27.5 BAG IV (13:01)
== END ==
PROVIDERS: PCP Family Medicine Geriatric Medicine; Referring Provider Family Medicine Geriatric Medicine; Visit Provider Family Medicine Geriatric Medicine
DX: D80.0 Hereditary hypogammaglobulinemia (principal)
CPT/HCPCS: 96365; J7050; A4216; J1568

== ENCOUNTER → 2020-09-23 13:59 | Outpatient (CLI) | payer MEDICARE, OTHER, SELFPAY ==
[2020-09-03 12:34] VITALS: BMI 26.1
[2020-09-23 14:28] LABS: Absolute Lymphocyte Count 2.12 X10^3/uL (0.83-4.51); Absolute Neutrophil Count 3.2 X10^3/uL (2.0-7.7); Basophil# 0.04 X10^3/uL; Basophil% 0.7 % (0-1); Eosinophil# 0.13 X10^3/uL; Eosinophils% 2.2 % (0-5); Hematocrit 38.9 % (37-47); Hemoglobin 13.4 g/dL (12.0-15.0); Lymphocyte # 2.12 X10^3/ul (0.83-4.51); Lymphocyte % 35.3 % (19-41); Mean Corp Hgb Conc 34.4 g/dL (32-36); Mean Corpuscular Hgb 31.8 pg (27.0-32.0); Mean Corpuscular Volume 92.2 fL (81-99); Mean Platelet Vol. 11.5 fl (6.2-12.0); Monocyte# 0.55 X10^3/uL; Monocyte% 9.2 % (0-10); NRBC Flagged by Analyzer 0 % (0-5); Neutrophil # 3.15 X10^3/uL (2.7-7.7); Neutrophil % 52.3 % (47-70); Platelet Count 193 K/mm3 (150-450); RBC Distribution Width CV 11.7 % (11.6-14.6); RBC Distribution Width SD 39.8 fl (35.1-43.9); Red Blood Count 4.22 M/mm3 (4.2-5.4)
[2020-09-23 15:07] LABS: Vitamin D,25 Hydroxy 21.4 ng/mL
[2020-09-23 15:15] LABS: AST(SGOT) 23 U/L (15-37); Alanine Aminotransfer ALT/SGPT 21 U/L (13-56); Albumin, Serum 3.6 g/dL (3.2-5.0); Alkaline Phosphatase 97 U/L (45-117); Anion Gap 5 (5-15); BUN 20 mg/dL (7-18); BUN/Creat Ratio 22.1 RATIO (10-20); Calcium,Total 8.6 mg/dL (8.5-10.1); Chloride 106 mmol/L (98-107); EST Glomerular Filtration Rate 65 mL/min (>60); Est Glom Filt Rate - Afr Amer 78 mL/min (>60); Globulin 3.5 g/dL (2.2-4.2); Glucose 78 mg/dL (74-106); Potassium 3.2 mmol/L (3.5-5.1); Protein, Total 7.1 g/dL (6.4-8.2); Sodium Level 142 mmol/L (136-145); Thyroid Stim Hormone (TSH) 1.43 uIU/mL (0.358-3.74)
== END ==
PROVIDERS: PCP Family Medicine Geriatric Medicine; Visit Provider Family Medicine Geriatric Medicine
DX: E55.9 Vitamin D deficiency, unspecified (principal); I10 Essential (primary) hypertension
CPT/HCPCS: 36415; 80053; 82306; 84443; 85025

== ENCOUNTER → 2020-10-01 12:58 | Outpatient (CLI) | payer MEDICARE, OTHER, SELFPAY ==
[2020-08-06 13:00] VITALS: BMI 26.1
[2020-09-03 12:34] VITALS: BMI 26.1
[2020-10-01 13:02] VITALS: BP 153/60; PULSE 99; RESP 16; TEMP 37; O2SAT 100; BMI 26.7
[2020-10-01] MEDS: Acetaminophen 325 MG Tablet 650 MG PO (13:11)
[2020-10-01] MEDS: 0.9% NaCl IVPB Med Flush (250 mL) 15 ML IV (13:11)
[2020-10-01] MEDS: 0.9% NaCl Peripheral Flush Adult/Peds IV (13:13)
[2020-10-01] MEDS: DiphenhydrAMINE 50 MG/ML Syringe 25 MG IV (13:13)
[2020-10-01] MEDS: Immune Globulin 10 gm Premixed Solution 27.5 BAG IV (13:51)
== END ==
PROVIDERS: PCP Family Medicine Geriatric Medicine; Referring Provider Family Medicine Geriatric Medicine; Visit Provider Family Medicine Geriatric Medicine
DX: D80.0 Hereditary hypogammaglobulinemia (principal)
CPT/HCPCS: 96365; J7050; A4216; J1568

== ENCOUNTER → 2020-10-05 14:11 | Outpatient (CLI) | payer MEDICARE, OTHER, SELFPAY ==
[2020-10-01 13:02] VITALS: BMI 26.7
[2020-10-05 15:28] LABS: Anion Gap 7 (5-15); BUN 16 mg/dL (7-18); BUN/Creat Ratio 19.1 RATIO (10-20); Calcium,Total 8.5 mg/dL (8.5-10.1); Chloride 107 mmol/L (98-107); Creatinine, Serum 0.84 mg/dL (0.55-1.02); EST Glomerular Filtration Rate 71 mL/min (>60); Est Glom Filt Rate - Afr Amer 86 mL/min (>60); Glucose 93 mg/dL (74-106); Potassium 3.6 mmol/L (3.5-5.1); Sodium Level 142 mmol/L (136-145)
== END ==
PROVIDERS: PCP Family Medicine Geriatric Medicine; Visit Provider Family Medicine Geriatric Medicine
DX: E87.6 Hypokalemia (principal)
CPT/HCPCS: 36415; 80048

== ENCOUNTER → 2020-10-29 12:57 | Outpatient (CLI) | payer MEDICARE, OTHER, SELFPAY ==
[2020-09-03 12:34] VITALS: BMI 26.1
[2020-10-01 13:02] VITALS: BMI 26.7
[2020-10-29 13:04] VITALS: BP 123/62; PULSE 91; RESP 16; TEMP 36.8; O2SAT 100
[2020-10-29] MEDS: 0.9% NaCl Peripheral Flush Adult/Peds IV (13:10)
[2020-10-29] MEDS: 0.9% NaCl IVPB Med Flush (250 mL) 15 ML IV (13:20)
[2020-10-29] MEDS: DiphenhydrAMINE 50 MG/ML Syringe 25 MG IV (13:25)
[2020-10-29] MEDS: Acetaminophen 325 MG Tablet 650 MG PO (13:25)
[2020-10-29] MEDS: Immune Globulin 10 gm Premixed Solution 27.5 BAG IV (13:48)
== END ==
PROVIDERS: PCP Family Medicine Geriatric Medicine; Referring Provider Family Medicine Geriatric Medicine; Visit Provider Family Medicine Geriatric Medicine
DX: D80.0 Hereditary hypogammaglobulinemia (principal)
CPT/HCPCS: 96365; 96366 ×3; J7050; A4216; J1568

== ENCOUNTER → 2020-11-26 12:56 | Outpatient (CLI) | payer MEDICARE, OTHER, SELFPAY ==
[2020-10-01 13:02] VITALS: BMI 26.7
[2020-11-26 13:18] VITALS: BP 133/77; PULSE 81; RESP 16; TEMP 36.8; O2SAT 99; BMI 26.7
[2020-11-26] MEDS: 0.9% NaCl Peripheral Flush Adult/Peds IV (13:23)
[2020-11-26] MEDS: 0.9% NaCl IVPB Med Flush (250 mL) 15 ML IV (13:37)
[2020-11-26] MEDS: DiphenhydrAMINE 50 MG/ML Syringe 25 MG IV (13:38)
[2020-11-26] MEDS: Acetaminophen 325 MG Tablet 650 MG PO (13:38)
[2020-11-26] MEDS: Immune Globulin 10 gm Premixed Solution 27.5 BAG IV (14:15)
== END ==
PROVIDERS: PCP Family Medicine Geriatric Medicine; Referring Provider Family Medicine Geriatric Medicine; Visit Provider Family Medicine Geriatric Medicine
DX: D80.0 Hereditary hypogammaglobulinemia (principal)
CPT/HCPCS: 96365; J7050; A4216; J1568

== ENCOUNTER → 2020-12-24 12:57 | Outpatient (CLI) | payer MEDICARE, OTHER, SELFPAY ==
[2020-10-01 13:02] VITALS: BMI 26.7
[2020-11-26 13:18] VITALS: BMI 26.7
[2020-12-24 13:10] VITALS: BP 114/67; PULSE 87; RESP 16; TEMP 37.2; O2SAT 98; BMI 26.1
[2020-12-24] MEDS: Acetaminophen 325 MG Tablet 650 MG PO (13:16)
[2020-12-24] MEDS: DiphenhydrAMINE 50 MG/ML Syringe 25 MG IV (13:27)
[2020-12-24] MEDS: 0.9% NaCl IVPB Med Flush (250 mL) 15 ML IV (13:38)
[2020-12-24] MEDS: 0.9% NaCl Peripheral Flush Adult/Peds IV (13:38)
[2020-12-24] MEDS: Immune Globulin 10 gm Premixed Solution 27.5 BAG IV (14:01)
[2020-12-24 15:37] VITALS: BP 125/63; PULSE 81; RESP 16; TEMP 37.2; O2SAT 100
== END ==
PROVIDERS: PCP Family Medicine Geriatric Medicine; Referring Provider Family Medicine Geriatric Medicine; Visit Provider Family Medicine Geriatric Medicine
DX: D80.0 Hereditary hypogammaglobulinemia (principal)
CPT/HCPCS: 96365; J7050; A4216; J1568

== ENCOUNTER → 2021-01-21 12:52 | Outpatient (CLI) | payer MEDICARE, OTHER, SELFPAY ==
[2020-11-26 13:18] VITALS: BMI 26.7
[2021-01-21] MEDS: 0.9% NaCl Peripheral Flush Adult/Peds IV (13:07)
[2021-01-21] MEDS: DiphenhydrAMINE 50 MG/ML Syringe 25 MG IV (13:09)
[2021-01-21] MEDS: Acetaminophen 325 MG Tablet 650 MG PO (13:09)
[2021-01-21] MEDS: 0.9% NaCl IVPB Med Flush (250 mL) 15 ML IV (13:10)
[2021-01-21 13:19] VITALS: BP 140/63; PULSE 88; RESP 16; TEMP 36.1; O2SAT 97; BMI 26.9
[2021-01-21] MEDS: Immune Globulin 10 gm Premixed Solution 27.5 BAG IV (13:45)
== END ==
PROVIDERS: PCP Family Medicine Geriatric Medicine; Referring Provider Family Medicine Geriatric Medicine; Visit Provider Family Medicine Geriatric Medicine
DX: D80.0 Hereditary hypogammaglobulinemia (principal)
CPT/HCPCS: 96365; J7050; A4216; J1568

== ENCOUNTER → 2021-01-25 14:10 | Outpatient (CLI) | payer MEDICARE, OTHER, SELFPAY ==
--- NOTE | 2021-01-25 14:13 | CT_ITS ---
STUDY: CT BRAIN WITHOUT CONTRAST REASON FOR EXAM: Female, 75 years old. HEAD TRAUMA RADIATION DOSAGE (If Supplied By Facility): CTDIvol = ( 44.99 ) mGy, DLP = ( 762.36 ) mGycm TECHNIQUE: Transaxial CT imaging of the brain was performed without administration of intravenous contrast material. Individualized dose optimization techniques were used for this CT. COMPARISON: Comparison is made with prior study dated 05/12/2015. FINDINGS: Normal soft tissue structures. Normal calvarium. There is mild cerebral atrophy with widening of the extra-axial spaces and ventricular dilatation. Normal white matter tracts of the cerebral hemispheres. Normal basal ganglia and thalami. Normal brainstem. Normal cerebellum. There is no intracranial hemorrhage. There are no findings of an acute ischemic infarction. Normal visualized paranasal sinuses. CT/Brain/Head without Contrast IMPRESSION: Chronic involutional changes of the brain. Electronically Signed: Scooter Pierson MD at 14:39 EDT , Service support ,
--- NOTE | 2021-01-25 14:25 | RAD_ITS ---
STUDY: X-RAY - LUMBAR SPINE REASON FOR EXAM: Female, 75 years old. LOW BACK PAIN TECHNIQUE: 3 view(s) of the lumbar spine were obtained. COMPARISON: Comparison is made with prior examination dated 02/18/2009. FINDINGS: Normal lumbar lordosis. There is no substantial scoliosis. There is a normal alignment of the vertebrae. There is generalized demineralization of the vertebral bodies. Stable loss of height of the superior endplate of the L2 vertebrae. Mild degree of disc space narrowing at the L2-L3, L3-L4 and L4-L5 levels. Facet joint osteoarthritis. The soft tissue structures are unremarkable. RAD/Lumbar Spine 2 or 3 Views IMPRESSION: Stable loss of height of the superior endplate of the L2 vertebrae. Stable degenerative changes. Electronically Signed: Scooter Pierson MD at 15:04 EDT , Service support ,
[2021-01-25 17:03] LABS: Absolute Lymphocyte Count 1.76 X10^3/uL (0.83-4.51); Absolute Neutrophil Count 4.6 X10^3/uL (2.0-7.7); Basophil# 0.05 X10^3/uL; Basophil% 0.7 % (0-1); Eosinophils% 1.4 % (0-5); Hematocrit 39.3 % (37-47); Hemoglobin 13.2 g/dL (12.0-15.0); Lymphocyte # 1.76 X10^3/ul (0.83-4.51); Lymphocyte % 24.7 % (19-41); Mean Corp Hgb Conc 33.6 g/dL (32-36); Mean Corpuscular Hgb 31.3 pg (27.0-32.0); Mean Corpuscular Volume 93.1 fL (81-99); Mean Platelet Vol. 11.4 fl (6.2-12.0); Monocyte# 0.58 X10^3/uL; Monocyte% 8.1 % (0-10); NRBC Flagged by Analyzer 0 % (0-5); Neutrophil # 4.61 X10^3/uL (2.7-7.7); Neutrophil % 64.8 % (47-70); Platelet Count 230 K/mm3 (150-450); RBC Distribution Width CV 11.9 % (11.6-14.6); RBC Distribution Width SD 40.8 fl (35.1-43.9); Red Blood Count 4.22 M/mm3 (4.2-5.4); White Blood Count 7.1 K/mm3 (4.4-11.0)
[2021-01-25 17:19] LABS: ALB/GLOB Ratio 0.9 RATIO (0.9-2.4); AST(SGOT) 35 U/L (15-37); Alanine Aminotransfer ALT/SGPT 35 U/L (13-56); Albumin, Serum 3.7 g/dL (3.2-5.0); Alkaline Phosphatase 77 U/L (45-117); Anion Gap 5 (5-15); BUN 11 mg/dL (7-18); BUN/Creat Ratio 12.3 RATIO (10-20); Calcium,Total 9.2 mg/dL (8.5-10.1); Chloride 106 mmol/L (98-107); EST Glomerular Filtration Rate 65 mL/min (>60); Est Glom Filt Rate - Afr Amer 79 mL/min (>60); Globulin 3.9 g/dL (2.2-4.2); Glucose 75 mg/dL (74-106); Potassium 3.2 mmol/L (3.5-5.1); Protein, Total 7.6 g/dL (6.4-8.2); Sodium Level 140 mmol/L (136-145)
== END ==
PROVIDERS: PCP Family Medicine Geriatric Medicine; Referring Provider Family Medicine Geriatric Medicine; Visit Provider Family Medicine Geriatric Medicine
DX: S09.90XA Unspecified injury of head, initial encounter (principal); M54.5 Low back pain; I10 Essential (primary) hypertension; N39.0 Urinary tract infection, site not specified
CPT/HCPCS: 36415; 70450; 72100; 80053; 85025; 87086

== ENCOUNTER → 2021-02-18 12:49 | Outpatient (CLI) | payer MEDICARE, OTHER, SELFPAY ==
[2021-02-18] MEDS: 0.9% NaCl Peripheral Flush Adult/Peds IV (13:24)
[2021-02-18] MEDS: Acetaminophen 325 MG Tablet 650 MG PO (13:35)
[2021-02-18] MEDS: DiphenhydrAMINE 50 MG/ML Syringe 25 MG IV (13:35)
[2021-02-18] MEDS: 0.9% NaCl IVPB Med Flush (250 mL) 15 ML IV (13:36)
[2021-02-18 13:41] VITALS: BP 135/78; PULSE 88; RESP 16; TEMP 36.8; O2SAT 98
[2021-02-18] MEDS: Immune Globulin 10 gm Premixed Solution 27.5 BAG IV (14:14)
== END ==
PROVIDERS: PCP Family Medicine Geriatric Medicine; Referring Provider Family Medicine Geriatric Medicine; Visit Provider Family Medicine Geriatric Medicine
DX: D80.0 Hereditary hypogammaglobulinemia (principal)
CPT/HCPCS: 96365; J7050; A4216; J1568

== ENCOUNTER → 2021-03-18 12:55 | Outpatient (CLI) | payer MEDICARE, OTHER, SELFPAY ==
[2021-03-18 13:05] VITALS: BP 134/63; PULSE 94; RESP 16; TEMP 37.2; O2SAT 98; BMI 26.6
[2021-03-18] MEDS: 0.9% NaCl Peripheral Flush Adult/Peds IV (13:15)
[2021-03-18] MEDS: 0.9% NaCl IVPB Med Flush (250 mL) 15 ML IV (13:15)
[2021-03-18] MEDS: Acetaminophen 325 MG Tablet 650 MG PO (13:17)
[2021-03-18] MEDS: DiphenhydrAMINE 50 MG/ML Syringe 25 MG IV (13:18)
[2021-03-18] MEDS: Immune Globulin 10 gm Premixed Solution 27.5 BAG IV (13:50)
== END ==
PROVIDERS: PCP Family Medicine Geriatric Medicine; Referring Provider Family Medicine Geriatric Medicine; Visit Provider Family Medicine Geriatric Medicine
DX: D80.0 Hereditary hypogammaglobulinemia (principal)
CPT/HCPCS: 96365; J7050; A4216; J1568

== ENCOUNTER → 2021-03-29 14:34 | Outpatient (CLI) | payer MEDICARE, OTHER, SELFPAY ==
[2021-03-29 16:31] LABS: Absolute Lymphocyte Count 2.35 X10^3/uL (0.83-4.51); Absolute Neutrophil Count 2.7 X10^3/uL (2.0-7.7); Basophil# 0.04 X10^3/uL; Basophil% 0.7 % (0-1); Eosinophil# 0.05 X10^3/uL; Eosinophils% 0.9 % (0-5); Hematocrit 39.8 % (37-47); Hemoglobin 13.3 g/dL (12.0-15.0); Lymphocyte # 2.35 X10^3/ul (0.83-4.51); Lymphocyte % 42.5 % (19-41); Mean Corp Hgb Conc 33.4 g/dL (32-36); Mean Corpuscular Hgb 31.4 pg (27.0-32.0); Mean Corpuscular Volume 94.1 fL (81-99); Mean Platelet Vol. 11.6 fl (6.2-12.0); Monocyte% 7.2 % (0-10); NRBC Flagged by Analyzer 0 % (0-5); Neutrophil # 2.68 X10^3/uL (2.7-7.7); Neutrophil % 48.5 % (47-70); Platelet Count 210 K/mm3 (150-450); RBC Distribution Width CV 12.4 % (11.6-14.6); RBC Distribution Width SD 43.3 fl (35.1-43.9); Red Blood Count 4.23 M/mm3 (4.2-5.4); White Blood Count 5.5 K/mm3 (4.4-11.0)
[2021-03-29 16:48] LABS: Vitamin D,25 Hydroxy 18.9 ng/mL
[2021-03-29 16:51] LABS: ALB/GLOB Ratio 0.9 RATIO (0.9-2.4); AST(SGOT) 23 U/L (15-37); Alanine Aminotransfer ALT/SGPT 26 U/L (13-56); Albumin, Serum 3.6 g/dL (3.2-5.0); Alkaline Phosphatase 85 U/L (45-117); Anion Gap 6 (5-15); BUN 15 mg/dL (7-18); BUN/Creat Ratio 16.5 RATIO (10-20); Chloride 107 mmol/L (98-107); Creatinine, Serum 0.91 mg/dL (0.55-1.02); EST Glomerular Filtration Rate 64 mL/min (>60); Est Glom Filt Rate - Afr Amer 78 mL/min (>60); Globulin 3.8 g/dL (2.2-4.2); Glucose 112 mg/dL (74-106); Potassium 3.5 mmol/L (3.5-5.1); Protein, Total 7.4 g/dL (6.4-8.2); Sodium Level 140 mmol/L (136-145)
== END ==
PROVIDERS: PCP Family Medicine Geriatric Medicine; Visit Provider Family Medicine Geriatric Medicine
DX: E11.9 Type 2 diabetes mellitus without complications (principal); E55.9 Vitamin D deficiency, unspecified; I10 Essential (primary) hypertension
CPT/HCPCS: 36415; 80053; 82306; 84443; 85025

== ENCOUNTER → 2021-04-20 13:05 | Outpatient (CLI) | payer MEDICARE, OTHER, SELFPAY ==
[2021-04-20 13:26] VITALS: BP 125/58; PULSE 82; RESP 16; TEMP 36.7; O2SAT 96
[2021-04-20] MEDS: 0.9% NaCl IVPB Med Flush (250 mL) 15 ML IV (13:32)
[2021-04-20] MEDS: 0.9% NaCl Peripheral Flush Adult/Peds IV (13:32)
[2021-04-20] MEDS: Acetaminophen 325 MG Tablet 650 MG PO (13:33)
[2021-04-20] MEDS: DiphenhydrAMINE 50 MG/ML Syringe 25 MG IV (13:33)
[2021-04-20] MEDS: Immune Globulin 10 gm Premixed Solution 27.5 BAG IV (14:07)
== END ==
PROVIDERS: PCP Family Medicine Geriatric Medicine; Referring Provider Family Medicine Geriatric Medicine; Visit Provider Family Medicine Geriatric Medicine
DX: D80.0 Hereditary hypogammaglobulinemia (principal)
CPT/HCPCS: 96365; J7050; A4216; J1568

== ENCOUNTER → 2021-05-27 11:07 | Outpatient (CLI) | payer MEDICARE, OTHER, SELFPAY ==
[2021-05-27 12:25] LABS: Absolute Lymphocyte Count 1.34 X10^3/uL (0.83-4.51); Basophil# 0.03 X10^3/uL; Basophil% 0.6 % (0-1); Eosinophil# 0.04 X10^3/uL; Eosinophils% 0.8 % (0-5); Hematocrit 39.9 % (37-47); Hemoglobin 13.6 g/dL (12.0-15.0); Lymphocyte # 1.34 X10^3/ul (0.83-4.51); Lymphocyte % 27.6 % (19-41); Mean Corp Hgb Conc 34.1 g/dL (32-36); Mean Corpuscular Hgb 32.2 pg (27.0-32.0); Mean Corpuscular Volume 94.3 fL (81-99); Mean Platelet Vol. 11.5 fl (6.2-12.0); Monocyte# 0.42 X10^3/uL; Monocyte% 8.6 % (0-10); NRBC Flagged by Analyzer 0.4 % (0-5); Neutrophil # 3.02 X10^3/uL (2.7-7.7); Neutrophil % 62.2 % (47-70); Platelet Count 189 K/mm3 (150-450); RBC Distribution Width CV 12.5 % (11.6-14.6); RBC Distribution Width SD 43.2 fl (35.1-43.9); Red Blood Count 4.23 M/mm3 (4.2-5.4); White Blood Count 4.9 K/mm3 (4.4-11.0)
[2021-05-27 12:59] LABS: AST(SGOT) 24 U/L (15-37); Alanine Aminotransfer ALT/SGPT 23 U/L (13-56); Albumin, Serum 3.6 g/dL (3.2-5.0); Alkaline Phosphatase 88 U/L (45-117); Anion Gap 4 (5-15); BUN 19 mg/dL (7-18); BUN/Creat Ratio 22.1 RATIO (10-20); Chloride 114 mmol/L (98-107); Creatinine, Serum 0.86 mg/dL (0.55-1.02); EST Glomerular Filtration Rate 68 mL/min (>60); Est Glom Filt Rate - Afr Amer 83 mL/min (>60); Globulin 3.6 g/dL (2.2-4.2); Glucose 91 mg/dL (74-106); Potassium 4.2 mmol/L (3.5-5.1); Protein, Total 7.2 g/dL (6.4-8.2); Sodium Level 143 mmol/L (136-145)
[2021-05-27 13:01] LABS: Vitamin D,25 Hydroxy 21.6 ng/mL
[2021-05-27 13:05] VITALS: BP 135/74; PULSE 93; RESP 16; TEMP 36.9; O2SAT 98
[2021-05-27] MEDS: 0.9% NaCl Peripheral Flush Adult/Peds IV (13:11)
[2021-05-27] MEDS: Acetaminophen 325 MG Tablet 650 MG PO (13:15)
[2021-05-27] MEDS: 0.9% NaCl IVPB Med Flush (250 mL) 15 ML IV (13:18)
[2021-05-27] MEDS: DiphenhydrAMINE 50 MG/ML Syringe 25 MG IV (13:18)
[2021-05-27] MEDS: Immune Globulin 10 gm Premixed Solution 27.5 BAG IV (13:54)
== END ==
PROVIDERS: PCP Family Medicine Geriatric Medicine; Referring Provider Family Medicine Geriatric Medicine; Visit Provider Family Medicine Geriatric Medicine
DX: E55.9 Vitamin D deficiency, unspecified (principal); R53.83 Other fatigue; D80.0 Hereditary hypogammaglobulinemia
CPT/HCPCS: 96365; 96366; 36415; 80053; 82306; 85025; J7050; A4216; J1568

== ENCOUNTER 2021-06-18 07:58 | Day surgery (SDC) | payer MEDICARE, OTHER, SELFPAY ==
[2021-06-18] VITALS (9 sets, daily range): BP systolic 107–140; BP diastolic 58–71; PULSE 83–98; RESP 16–18; TEMP 36.1–36.3; O2SAT 93–100; BMI 25.7
[2021-06-18] MEDS: Lactated Ringers 1,000 ML 15 ML IV ×2 (08:30→11:15)
--- NOTE | 2021-06-18 08:56 | EX.PCM.DISCH ---
Discharge Instructions Diet Discharge Diet: No restrictions Activity Discharge Activity: May Not Drive (while using pain medication) and May Shower (use shower bag to keep dressing and splint clean and dry) Ice area for (Minutes): 15 (place ice pack behind knee and do not apply to the surgical foot) Weight Bearing Status: No weight bearing Keep extremity elevated above heart level: Left Leg Dressing / Incision Call your doctor if your incision/area has: Continuous Slow Oozing, Sudden Increased Bleeding, Increased Pain/ Swelling, Increased Redness, Foul Smelling Discharge and Swelling at the incision site Call your doctor if you observe: Fever of 101 or Higher, Numbness or Tingling, Calf discomfort and Uncontrolled pain Change Dressing in: do not change dressing Remove Dressing in: do not remove dressing Cleanse incision/area with: Keep Dressing Clean & Dry Follow Up Care Please Follow Up With: Radha Khan DPM When: [facility] Call [phone] if questions or concerns. Test Results: Test results from this visit will be discussed in further detail at your follow-up appointment, if applicable. Discharge Plan Admission Primary Reason for Your Visit: s/p left bunion and hammer toe correction Attending Provider: Radha Khan Primary Care Provider: Ari Pozo Chi Discharge Orders/Prescriptions Prescriptions: New hydrocodone-acetaminophen 5-325 mg tablet 1 tab PO Q4H PRN (Reason: pain) 7 Days Qty: 42 RF: 0 No Action lisinopril-hydrochlorothiazide 20-12.5 mg tablet 1 tab PO DAILY Qty: 90 RF: 0 citalopram 40 MG tablet 40 mg PO DAILY RF: 0 levothyroxine 100 MCG tablet 100 mcg PO DAILY RF: 0 trazodone 100 MG tablet 100 mg PO QHS RF: 0 potassium chloride 20 MEQ tablet,ER particles/crystals 20 meq PO BID RF: 0 Referrals / Follow Up: Radha Khan DPM [STAFF PHYSICIAN] - In 1 Week Ari Pozo Chi, MD [Primary Care Provider] - Disposition Disposition (needs filled in before D/C Order can be placed): Home, Self Care
[2021-06-18] MEDS: Bupivacaine Mpf 0.5% 30 ML VIAL (09:37)
[2021-06-18] MEDS: Lidocaine 1% (30 ml sdv) 30 ML Vial (09:37)
--- NOTE | 2021-06-18 12:36 | OP.PCM_ITS ---
Problems Associated Problem List Diagnoses (1) Other hammer toe(s) (acquired), left foot: (2) Pain in left foot: (3) Hallux valgus (acquired), left foot: Report of Operation Date of Procedure: 06/18/21 Pre-Operative Diagnosis: 1. 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 Left hammertoe deformity Post-Operative Diagnosis: 1. 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 Left hammertoe deformity Surgery/Procedure Performed:: 1. Left foot bunionectomy including Lapidus (arthrodesis of first metatarsal cuneiform with internal fixation) 2. Hammer digit syndrome correction with arthrodesis of proximal interphalangeal joint with internal fixation and capsule release of the second metatarsal phalangeal joint Description of Surgical Findings:: Hemostasis: Well-padded pneumatic left thigh tourniquet, 305 mmHg, 120 minutes Materials: 3-0 Vicryl, 3-0 Monocryl, 4-0 Monocryl, 2.5 mm compression FT screw, 4 mm cannulated screw, 3.5 mm compression FT screw, 3.5 mm locking screw (3), 3.5 mm cortical screw, short left plantar Lapidus plate Surgeon: Radha Khan gun sealing machine operator: None (Tahir Felipe DPM, PGY2) Type of Anesthesia: Local (Preop: 1:1 1% lidocaine plain and 0.5% Marcaine plain administered in typical left ankle block fashion, 20 cc. Intra-Op: Same mixture first interspace and dorsal intermediate cutaneous nerve branches, 7 cc) and MAC (LMA) Specimen's removed: none Estimated Blood Loss (mL): <40 mL Description of Procedure: Indications: This 76-year-old female with significant past medical history of depression, hypertension, hyperlipidemia, hypothyroidism, GERD, arthritis, and history of breast cancer continues to have symptomatic painful left bunion deformity and hammertoe deformities. She has pain on palpation to the prominent medial first metatarsal head eminence. Her pain is aggravated with walking and shoe gear use. Her neurovascular status is intact. She does have hypermobility of the first metatarsal tarsal articulation and her first metatarsophalangeal joint is limited with some subluxation in the lateral direction. Her neurovascular status is intact. She also has nonreducible dorsal contraction of the second toe with the apex of the deformity at the proximal interphalangeal joint. This is where her pain to palpation is located. This hammertoe deformity is also apparent radiographically. Preoperative standing x-rays were reviewed with a lateral hallux deviation, large increased first intermetatarsal space, prominent medial first metatarsal eminence, lateral sesamoid apparatus appearance s ignificant, frontal plane rotation with the sesamoid apparatus with some degenerative changes to the sesamoid metatarsal articular surface in the axial sesamoid view. No other acute pathology or injuries were noted. Preoperative H&P were reviewed including his diagnostic data. There is no gross abnormalities noted with labs. Preoperative indications, planned procedure, benefits, risk, anticipated healing time and management were reviewed. The patient understands and elects proceed with surgery at this time. No guarantees were made. The patient understands risk and complications include but are not limited to following: pain, swelling, scarring, need for further surgery, tendon contracture, transfer lesion, hardware failure, arthritis, need for further surgery, delayed or nonhealing, infection, blood clot, allergic reaction, loss of limb, function, or life. The informed surgical limb and consent were signed. Her clearance and preoperative history and physical exam were also reviewed. I answered all the patient's questions. The patient also understands there is an inherent risk with being in the hospital and undergoing a procedure during the time of COVID-19 pandemic. The patient understands precautions are being taken to prevent transmission. This patient understands the benefits and risks of having a procedure at this time versus waiting in which the benefits are reasonable at this time. Procedure in detail: The patient was transported to the operating room via cart and placed on the operating table in the supine position. Final verification the patient, s urgery, limb designation was performed via the timeout procedure. Preoperative antibiotics were administered by the anesthesia team. General anesthesia was initially by the anesthesia team. I administered the preoperative local anesthetic as noted. Well-padded pneumatic left thigh tourniquet was placed. The left lower extremity was prepped and draped in the usual aseptic manner. An Esmarch bandage was used to exsanguinate the limb and the tourniquet was inflated at this time. Surgery began the following manner: Attention was first directed to the medial left foot in which an 8 cm linear incision was made through the skin from the midfoot to the medial aspect of the first metatarsophalangeal joint. Care was taken to identify, protect, and retract all neurovascular structures at this point and throughout the remainder of surgery. Blunt dissection was performed down to the layer between the abductor hallucis muscle belly and the first ray. The medial and dorsal aspect of the first metatarsal cuneiform joint were identified and the joint was entered and distracted. Care was taken to preserve the tibialis anterior tendon. The joint surfaces were denuded of cartilage. The surfaces were next prepared for arthrodesis with fish scaling, drilling, and removal of the subchondral plate. Healthy bleeding surfaces were identified. Additional mobilization was needed due to her arthrosis of the structures around the first metatarsophalangeal joint. Therefore, a McGlamry elevator was used to release the sesamoid metatarsal articulation. An additional partial lateral release was performed by releasing the intermetatarsal superficial ligament and the abductor hallucis muscle. Significant improvement with mobility, and correction of the subluxed first metatarsal phalangeal joint was achieved with these extra steps. Next, a K wire was entered into the first metatarsal and used as a joystick to correct the deformity in a triplanar manner. This was temporarily fixated with tenaculum and additional K wires. The windlass mechanism was also recreated to gain good compression. Next, FT Arthrex compression screw was applied across the arthrodesis site. Next, a plantar lapidus plate was temporarily secured with BB tacks. Utilizing proper AO fixation technique, the distal aspect of the plate was secured to the bone with locking and cortical screws. Also, the arthrodesis site was further compressed and secured with a cancellous screw and this was applied according to typical AO standard technique. Solid fixation was viewed radiographically and clinically with corrected deformity position maintained. The sesamoid apparatus were realigned, reduced first intermetatarsal space, and resolution of lateral hallux deviation. Next, the remainder of the proximal s crew holes were filled with locking screws and this site was secured as one solid unit. Next, attention was directed to the first metatarsophalangeal joint level in which a sagittal saw was used to resect any hypertrophic remaining eminence that was now dorsal medially located. Care was taken to avoid staking the head. Her first metatarsophalangeal joint range of motion was next tested in a loaded and unloaded position and she had about 70 degrees of range of motion. An additional cheilectomy was not deemed necessary. The first ray was in a rectus position and additional osteotomies were also not deemed necessary at this time. There was some degenerative first metatarsal head articular surface changes noted that involved the dorsal 40% of the joint surface. Therefore, a 0.045 K wire was used to perform subchondral drilling. Next, saline copious irrigation was performed. The capsulorrhaphy was performed at the level of the joint and capsular closure was performed with 3-0 Monocryl. Next, attention was directed to the second toe deformity. A one and a half centimeter linear incision was made over the proximal interphalangeal joint through the skin. Blunt dissection was performed down to the extensor tendon and the tissue was gently reflected. The extensor tendon was released and the collateral ligaments were reflected from the head of the proximal phalanx to obtain good exposure. A sagittal saw was next used to resect the proximal phalanx head. A rongeur was used to reflect the cartilage off of the base of the middle phalanx to prepare this for arthrodesis with subchondral bone exposure. The prepared bone ends were approximated and a temporary guidewire was placed. An FT compression screw was applied and a compressive manner according to standard protocol. Next, the Kelikian push-up test was performed to see if additional release was deemed necessary. The second metatarsal phalangeal joint was next released with the 15 blade scalpel. A 1 cm linear incision was made to the lateral aspect of the extensor tendon. Then blunt dissection was performed down to the capsule. The capsule was released and a McGlamry elevator was used to gain additional mobility from plantar tissue adhesions. The Kelikian push-up test was next performed and adequate correction was achieved. Saline irrigation was performed. The tourniquet was deflated at this time and brisk capillary refill time was noted to all digits of the left foot. No pulsatile bleeding was noted. Electrocauterization and direct pressure was used to control hemostasis. Next, deep closure was further performed with 3-0 Monocryl and the skin was reapproximated with 4-0 Monocryl utilizing subcuticular technique. Steri-Strips were applied. A dressing consisting of Adaptic soaked in Betadine, 4 x 4 gauze, abdominal pads, and Carlos wrap. A well-padded posterior mold splint was applied in a rectus position. Intraoperative fluoroscopy was used throughout the bunion and hammertoe correction to confirm adequate hardware placement in the desired trajectory and position and also deformity correction. No acute injuries were noted. After procedure: The patient tolerated the procedure and anesthesia well. The patient was transported to the PACU with vital signs stable and vascular status intact to the surgical limb. To ice and elevate for pain and inflammation management. Postoperative x-rays were reviewed prior to leaving the operating room as noted. To maintain a strict nonweightbearing status to left foot. She has a splint in place and already has an assistive walking device. She was provided with a postoperative pain medication prescription including Roulette and was advised on safe and proper use. She will follow-up in clinic in 1 week at the [facility]. Postoperative orders were entered electronically. She will be discharged home. Radha Khan DPM, [facility] Grafts/Implants Used: arthrex Complications none Admit VTE Documentation VTE Present on Admission: No VTE Mechan Device Prophylaxis: SCD's VTE Pharm Prophylaxis ordered?: Yes
--- NOTE | 2021-06-18 13:00 | RAD_ITS ---
STUDY: X-RAY - LEFT FOOT CLINICAL: Female, 76 years old. s/p bunionectomy, arthrodesis , hammer toe correct TECHNIQUE: 3 view(s) of the foot. COMPARISON: Comparison is made with prior examination done earlier today. FINDINGS: The patient is status post bunionectomy with arthrodesis utilizing bridging hardware of the first tarsometatarsal articulation and arthrodesis of the second proximal interphalangeal joint with a bridging orthopedic screw. RAD/Foot min 3 Views IMPRESSION: Postoperative changes as described above. Electronically Signed: Scooter Pierson MD at 15:25 EST , Service support ,
[2021-06-18] MEDS: HYDROcodone Bitartrate/Apap 5/325 Tablet PO (14:44)
== END 2021-06-18 23:59 | disposition home or self-care (01) ==
LOC: SDC 08:00 → AC 08:01
PROVIDERS: PCP Family Medicine Geriatric Medicine; Referring Provider Podiatrist; Visit Provider Podiatrist
PROC: (CPT 28292; principal; 2021-06-18 09:10)
DX: M20.12 Hallux valgus (acquired), left foot (principal); M20.42 Other hammer toe(s) (acquired), left foot; M19.072 Primary osteoarthritis, left ankle and foot; I10 Essential (primary) hypertension; E78.5 Hyperlipidemia, unspecified; E03.9 Hypothyroidism, unspecified; M19.90 Unspecified osteoarthritis, unspecified site; Z79.899 Other long term (current) drug therapy
CPT/HCPCS: 28297; 28285; 01480; 73620; 73630; 76000; C1713; J7120; C1769; J2405

== ENCOUNTER 2021-08-20 12:45 | Outpatient (CLI) | payer MEDICARE, OTHER, SELFPAY ==
--- NOTE | 2021-06-18 09:38 | RAD_ITS ---
STUDY: X-RAY - LEFT FOOT CLINICAL: Intraoperative fluoroscopy for bunionectomy, arthrodesis and internal fixation of the second toe. TECHNIQUE: 5 intraoperative images of the foot. COMPARISON: Radiographs 02/18/2019. FINDINGS: Status post bunionectomy, arthrodesis with bridging hardware of the first tarsometatarsal articulation and arthrodesis of the second proximal interphalangeal joint with a bridging orthopedic screw. 67.2 seconds of fluoroscopy time was used. Electronically Signed: Mick Javier MD at 14:44 EST Tel , Service support , RAD/Foot 2 Views
[2021-08-20] MEDS: Acetaminophen 325 MG Tablet 650 MG PO (13:00)
[2021-08-20] MEDS: DiphenhydrAMINE 50 MG/ML Syringe 25 MG IV (13:08)
[2021-08-20] MEDS: 0.9% NaCl IVPB Med Flush (250 mL) 15 ML IV (13:20)
[2021-08-20] MEDS: 0.9% NaCl Peripheral Flush Adult/Peds IV (13:20)
[2021-08-20] MEDS: Immune Globulin 10 gm Premixed Solution 27.5 BAG IV (13:46)
== END 2021-08-20 23:59 | disposition home or self-care (01) ==
LOC: MEDOUTP 12:50
PROVIDERS: PCP Family Medicine Geriatric Medicine; Referring Provider Family Medicine Geriatric Medicine; Visit Provider Family Medicine Geriatric Medicine
DX: D80.0 Hereditary hypogammaglobulinemia (principal)
CPT/HCPCS: 96365; 96366; 96375; J7050; A4216; J1568

== ENCOUNTER 2021-09-17 11:32 | Outpatient (CLI) | payer MEDICARE, OTHER, SELFPAY ==
[2021-09-17 11:43] VITALS: BP 118/70; PULSE 94; RESP 16; TEMP 37.1; O2SAT 97
[2021-09-17] MEDS: 0.9% NaCl Peripheral Flush Adult/Peds IV (11:53)
[2021-09-17] MEDS: Acetaminophen 325 MG Tablet 650 MG PO (11:56)
[2021-09-17] MEDS: DiphenhydrAMINE 50 MG/ML Syringe 25 MG IV (11:58)
[2021-09-17] MEDS: 0.9% NaCl IVPB Med Flush (250 mL) 15 ML IV (12:06)
[2021-09-17] MEDS: Immune Globulin 10 gm Premixed Solution 27.5 BAG IV (12:18)
== END 2021-09-17 23:59 | disposition home or self-care (01) ==
LOC: MEDOUTP 11:33
PROVIDERS: PCP Family Medicine Geriatric Medicine; Referring Provider Family Medicine Geriatric Medicine; Visit Provider Family Medicine Geriatric Medicine
DX: D80.0 Hereditary hypogammaglobulinemia (principal)
CPT/HCPCS: 96365; 96366; 96375; J7050; A4216; J1568

== ENCOUNTER → 2021-09-27 | Outpatient (CLI) | payer MEDICARE, OTHER, SELFPAY ==
[2021-09-27 17:16] LABS: Absolute Lymphocyte Count 1.82 X10^3/uL (0.83-4.51); Absolute Neutrophil Count 2.9 X10^3/uL (2.0-7.7); Basophil# 0.04 X10^3/uL; Basophil% 0.8 % (0-1); Eosinophil# 0.07 X10^3/uL; Eosinophils% 1.3 % (0-5); Hematocrit 38.6 % (37-47); Hemoglobin 13.2 g/dL (12.0-15.0); Lymphocyte # 1.82 X10^3/ul (0.83-4.51); Lymphocyte % 34.5 % (19-41); Mean Corp Hgb Conc 34.2 g/dL (32-36); Mean Corpuscular Hgb 31.7 pg (27.0-32.0); Mean Corpuscular Volume 92.6 fL (81-99); Mean Platelet Vol. 11.5 fl (6.2-12.0); Monocyte# 0.43 X10^3/uL; Monocyte% 8.1 % (0-10); NRBC Flagged by Analyzer 0 % (0-5); Neutrophil # 2.91 X10^3/uL (2.7-7.7); Neutrophil % 55.1 % (47-70); Platelet Count 239 K/mm3 (150-450); RBC Distribution Width CV 12.2 % (11.6-14.6); RBC Distribution Width SD 41.1 fl (35.1-43.9); Red Blood Count 4.17 M/mm3 (4.2-5.4); White Blood Count 5.3 K/mm3 (4.4-11.0)
[2021-09-27 17:26] LABS: Vitamin D,25 Hydroxy 49.8 ng/mL
[2021-09-27 17:28] LABS: ALB/GLOB Ratio 1.1 RATIO (0.9-2.4); AST(SGOT) 26 U/L (15-37); Alanine Aminotransfer ALT/SGPT 21 U/L (13-56); Albumin, Serum 3.7 g/dL (3.2-5.0); Alkaline Phosphatase 85 U/L (45-117); Anion Gap 5 (5-15); BUN 14 mg/dL (7-18); BUN/Creat Ratio 15.2 RATIO (10-20); Calcium,Total 8.7 mg/dL (8.5-10.1); Chloride 108 mmol/L (98-107); Creatinine, Serum 0.92 mg/dL (0.55-1.02); EST Glomerular Filtration Rate 63 mL/min (>60); Est Glom Filt Rate - Afr Amer 76 mL/min (>60); Globulin 3.5 g/dL (2.2-4.2); Glucose 87 mg/dL (74-106); Potassium 3.6 mmol/L (3.5-5.1); Protein, Total 7.2 g/dL (6.4-8.2); Sodium Level 140 mmol/L (136-145); Thyroid Stim Hormone (TSH) 1.97 uIU/mL (0.358-3.74)
== END | disposition home or self-care (01) ==
LOC: POLAB3 13:30
PROVIDERS: PCP Family Medicine Geriatric Medicine; Visit Provider Family Medicine Geriatric Medicine
DX: E11.9 Type 2 diabetes mellitus without complications (principal); E55.9 Vitamin D deficiency, unspecified; I10 Essential (primary) hypertension
CPT/HCPCS: 36415; 80053; 82306; 84443; 85025

== ENCOUNTER → 2021-10-15 | Outpatient (CLI) | payer MEDICARE, OTHER, SELFPAY ==
[2021-10-15] MEDS: 0.9% NaCl IVPB Med Flush (250 mL) 15 ML IV (13:04)
[2021-10-15] MEDS: 0.9% NaCl Peripheral Flush Adult/Peds IV (13:05)
[2021-10-15] MEDS: Acetaminophen 325 MG Tablet 650 MG PO (13:09)
[2021-10-15] MEDS: DiphenhydrAMINE 50 MG/ML Syringe 25 MG IV (13:11)
[2021-10-15 13:13] LABS: Absolute Lymphocyte Count 1.64 X10^3/uL (0.83-4.51); Absolute Neutrophil Count 2.8 X10^3/uL (2.0-7.7); Basophil# 0.03 X10^3/uL; Basophil% 0.6 % (0-1); Hematocrit 37.3 % (37-47); Lymphocyte # 1.64 X10^3/ul (0.83-4.51); Lymphocyte % 33.1 % (19-41); Mean Corp Hgb Conc 34.9 g/dL (32-36); Mean Corpuscular Hgb 32.1 pg (27.0-32.0); Mean Corpuscular Volume 92.1 fL (81-99); Mean Platelet Vol. 11.9 fl (6.2-12.0); Monocyte# 0.37 X10^3/uL; Monocyte% 7.5 % (0-10); NRBC Flagged by Analyzer 0 % (0-5); Neutrophil # 2.81 X10^3/uL (2.7-7.7); Neutrophil % 56.6 % (47-70); Platelet Count 153 K/mm3 (150-450); RBC Distribution Width SD 41.2 fl (35.1-43.9); Red Blood Count 4.05 M/mm3 (4.2-5.4)
[2021-10-15 13:17] LABS: Prothrombin Time (Protime)PT. 13.2 SECONDS (11.7-14.9)
[2021-10-15 13:19] VITALS: BP 140/82; PULSE 87; RESP 12; TEMP 35.8; O2SAT 99; BMI 25.2
[2021-10-15 13:39] LABS: ALB/GLOB Ratio 1.1 RATIO (0.9-2.4); AST(SGOT) 23 U/L (15-37); Alanine Aminotransfer ALT/SGPT 19 U/L (13-56); Albumin, Serum 3.7 g/dL (3.2-5.0); Alkaline Phosphatase 86 U/L (45-117); Anion Gap 5 (5-15); BUN 13 mg/dL (7-18); BUN/Creat Ratio 16.4 RATIO (10-20); Calcium,Total 9.1 mg/dL (8.5-10.1); Chloride 111 mmol/L (98-107); Creatinine, Serum 0.79 mg/dL (0.55-1.02); EST Glomerular Filtration Rate 75 mL/min (>60); Est Glom Filt Rate - Afr Amer 91 mL/min (>60); Estimated Creatinine Clearance 41.97 ml/min; Globulin 3.4 g/dL (2.2-4.2); Glucose 86 mg/dL (74-106); Potassium 4.1 mmol/L (3.5-5.1); Protein, Total 7.1 g/dL (6.4-8.2); Sodium Level 142 mmol/L (136-145)
[2021-10-15 13:40] LABS: Vitamin D,25 Hydroxy 43.1 ng/mL
[2021-10-15] MEDS: Immune Globulin 10 gm Premixed Solution 27.5 BAG IV (13:43)
== END | disposition home or self-care (01) ==
PROVIDERS: PCP Family Medicine Geriatric Medicine; Referring Provider Family Medicine Geriatric Medicine; Visit Provider Family Medicine Geriatric Medicine
DX: D80.0 Hereditary hypogammaglobulinemia (principal); R53.83 Other fatigue; E55.9 Vitamin D deficiency, unspecified; R23.8 Other skin changes
CPT/HCPCS: 96365; 96366; 36415; 80053; 82306; 85025; 85610; J7050; A4216; J1568

== ENCOUNTER → 2021-11-03 | Outpatient (CLI) | payer MEDICARE, OTHER, SELFPAY ==
--- NOTE | 2021-11-03 16:25 | RAD_ITS ---
STUDY: X-RAY - ABDOMEN/PELVIS REASON FOR EXAM: Female, 76 years old. ABD PAIN TECHNIQUE: AP supine and upright views of the abdomen and pelvis. COMPARISON: 05/01/2017 FINDINGS: Normal visualized lung bases. There is an unremarkable bowel gas pattern. There is no demonstrated free abdominal air. The visualized liver, spleen and kidneys are grossly normal in size and morphology. Normal soft tissue structures. Normal visualized osseous structures. RAD/Abd Inc Decub and/or Erect IMPRESSION: Normal x-ray examination of the abdomen and pelvis. Electronically Signed: Jason Stephenson MD at 17:37 EDT ,
[2021-11-03 16:32] LABS: Absolute Lymphocyte Count 1.77 X10^3/uL (0.83-4.51); Absolute Neutrophil Count 3.2 X10^3/uL (2.0-7.7); Basophil# 0.04 X10^3/uL; Basophil% 0.7 % (0-1); Eosinophil# 0.05 X10^3/uL; Eosinophils% 0.9 % (0-5); Hematocrit 43.1 % (37-47); Hemoglobin 14.6 g/dL (12.0-15.0); Lymphocyte # 1.77 X10^3/ul (0.83-4.51); Lymphocyte % 31.9 % (19-41); Mean Corp Hgb Conc 33.9 g/dL (32-36); Mean Corpuscular Hgb 31.3 pg (27.0-32.0); Mean Corpuscular Volume 92.5 fL (81-99); Mean Platelet Vol. 11.5 fl (6.2-12.0); Monocyte# 0.48 X10^3/uL; Monocyte% 8.7 % (0-10); NRBC Flagged by Analyzer 0 % (0-5); Neutrophil # 3.19 X10^3/uL (2.7-7.7); Neutrophil % 57.6 % (47-70); Platelet Count 204 K/mm3 (150-450); RBC Distribution Width CV 11.9 % (11.6-14.6); RBC Distribution Width SD 40.3 fl (35.1-43.9); Red Blood Count 4.66 M/mm3 (4.2-5.4); White Blood Count 5.5 K/mm3 (4.4-11.0)
[2021-11-03 16:59] LABS: AST(SGOT) 26 U/L (15-37); Alanine Aminotransfer ALT/SGPT 22 U/L (13-56); Albumin, Serum 3.8 g/dL (3.2-5.0); Alkaline Phosphatase 85 U/L (45-117); Anion Gap 11 (5-15); BUN 8 mg/dL (7-18); BUN/Creat Ratio 8.8 RATIO (10-20); Calcium,Total 9.2 mg/dL (8.5-10.1); Chloride 106 mmol/L (98-107); EST Glomerular Filtration Rate 65 mL/min (>60); Est Glom Filt Rate - Afr Amer 78 mL/min (>60); Globulin 3.7 g/dL (2.2-4.2); Glucose 96 mg/dL (74-106); Potassium 3.3 mmol/L (3.5-5.1); Protein, Total 7.5 g/dL (6.4-8.2); Sodium Level 142 mmol/L (136-145)
== END | disposition home or self-care (01) ==
LOC: POLAB3 15:28 → RAD 16:04
PROVIDERS: PCP Family Medicine Geriatric Medicine; Referring Provider Family Medicine Geriatric Medicine; Visit Provider Family Medicine Geriatric Medicine
DX: I10 Essential (primary) hypertension (principal); R10.9 Unspecified abdominal pain
CPT/HCPCS: 36415; 74019; 80053; 85025

== ENCOUNTER 2021-11-12 08:40 | Day surgery (SDC) | payer MEDICARE, OTHER, SELFPAY ==
[2021-11-12 09:16] VITALS: BP 163/86; PULSE 90; RESP 17; TEMP 37.5; O2SAT 98; BMI 24.2
[2021-11-12] MEDS: Lactated Ringers 1,000 ML 15 ML IV (09:22)
[2021-11-12] MEDS: Cefazolin 2 GM in 0.9% Normal Saline 100 ML IV (11:00)
--- NOTE | 2021-11-12 11:01 | EX.PCM.DISCH ---
Discharge Instructions Procedure Narrative: left fusion of great toe joint and metatarsal head resection (2nd) Diet Discharge Diet: No restrictions Activity Discharge Activity: May Not Drive (while on pain medications), May Shower (with use of shower bag) and Use Walker Ice area for (Minutes): 15 (apply ice bag behind knee no more than 15 min per hour) Weight Bearing Status: No weight bearing Keep extremity elevated above heart level: Left Leg Dressing / Incision Call your doctor if your incision/area has: Continuous Slow Oozing, Sudden Increased Bleeding, Increased Pain/ Swelling, Increased Redness, Foul Smelling Discharge and Swelling at the incision site Call your doctor if you observe: Fever of 101 or Higher, Chest pain, Calf discomfort and Uncontrolled pain Change Dressing in: do not change dressing Remove Dressing in: do not remove dressing Cleanse incision/area with: Do not get Incision Wet Follow Up Care Please Follow Up With: Radha Khan DPM When: [facility]. Call [phone] sooner if questions or concerns. Test Results: Test results from this visit will be discussed in further detail at your follow-up appointment, if applicable. Discharge Plan Admission Attending Provider: Radha Khan Primary Care Provider: Ari Pozo Chi Discharge Orders/Prescriptions Prescriptions: New hydrocodone-acetaminophen 5-300 mg tablet 1 tab PO Q8H PRN (Reason: pain) 7 Days Qty: 21 RF: 0 No Action lisinopril-hydrochlorothiazide 20-12.5 mg tablet 1 tab PO DAILY Qty: 90 RF: 0 citalopram [Celexa] 40 MG tablet 40 mg PO DAILY RF: 0 levothyroxine 100 MCG tablet 100 mcg PO DAILY RF: 0 trazodone 100 MG tablet 100 mg PO QHS RF: 0 potassium chloride 20 MEQ tablet,ER particles/crystals 20 meq PO BID RF: 0 Referrals / Follow Up: Ari Pozo Chi, MD [Primary Care Provider] - Disposition Disposition (needs filled in before D/C Order can be placed): Home, Self Care
[2021-11-12] MEDS: Lidocaine 1% (50 ml mdv) 50 ML Vial (11:21)
[2021-11-12] MEDS: Bupivacaine Mpf 0.5% 30 ML VIAL (11:21)
--- NOTE | 2021-11-12 11:30 | RAD_ITS ---
STUDY: INTRAOPERATIVE FLUOROSCOPY TECHNIQUE: The examination was performed with referring physician in attendance. Under fluoroscopic observation, fluoroscopic images were obtained. Radiologist was not present for the study. Radiologist did not perform the procedure. This dictation is for documentation of the radiation dosage only. There is no interpretation of the images. TOTAL NUMBER OF IMAGES: 1 COMPARISON: None RADIATION DOSE: 1.9 mGy FLUOROSCOPY TIME: 115 seconds REASON FOR EXAM: ARTHRODESIS FUSION 1ST METATARSAL Female, 76 years old. FINDINGS: Multiple screws in the first metatarsal bone. Multiple screws - the first metatarsal bone. Cortical screw of the second PIP joint. RAD/Foot min 3 Views IMPRESSION: Fluoroscopic assistance images were obtained. Dictation for documentation purposes only. Electronically Signed: Dagoberto Willams MD at 15:22 EDT ,
--- NOTE | 2021-11-12 13:22 | OP.PCM_ITS ---
Problems Associated Problem List Diagnoses (1) Pain in left foot: (2) Hallux rigidus, left foot: (3) Capsulitis of left foot: Report of Operation Date of Procedure: 11/12/21 Pre-Operative Diagnosis: Left hallux rigidus Left second metatarsal phalangeal joint capsulitis Post-Operative Diagnosis: Left hallux rigidus Left second metatarsal phalangeal joint capsulitis Surgery/Procedure Performed:: 1. Left arthrodesis of first metatarsal phalangeal joint with internal fixation 2. Second metatarsal head resection Description of Surgical Findings:: Hemostasis: Well-padded pneumatic left ankle tourniquet, 215 mmHg, 84 minutes Materials: two FT 4.0 compression screws, 3-0 nylon, 4-0 nylon, 2-0 Vicryl Surgeon: Radha Khan forest fire management officer: None (José Silva DPM, PGY1) Type of Anesthesia: General and Local (Preop: 1:1 mix 1% lidocaine plain and 0.5% Marcaine plain administered in left first and second ray block fashion, 18 cc) Specimen's removed: none Drains: none Estimated Blood Loss (mL): 100 mL Description of Procedure: Indications: This 76-year-old female with significant past medical history of depression, hypertension, hyperlipidemia, hypothyroidism, GERD, arthritis, and history of breast cancer continues to have symptomatic painful left great toe joint and a hammer toe deformity. She has pain on palpation now to the dorsal first metatarsal phalangeal joint and with end range of dorsiflexion motion. This has progressively worsened. She had prior bunionectomy procedure performed in June 2021 with some early partial reoccurrence noted and further subluxation of her second metatarsal phalangeal joint in the dorsal direction. Her pain is now aggravated with walking and shoe gear use. Her neurovascular status is intact. Her neurovascular status is intact. Her second toe remains in a rectus position at the interphalangeal joint levels however this is subluxed in a dorsal direction at the metatarsal phalangeal joint level and the hallux abuts the second toe causing additional lateral deviation. Preoperative x-rays were reviewed with a healed first metatarsal cuneiform arthrodesis with hardware intact, there is some progressive return of lateral hallux deviation in which the hallux abuts the second toe that is dislocating in a dorsal lateral direction. No other acute pathology or injuries were noted. Preoperative H&P were reviewed including his diagnostic data. There is no gross abnormalities noted with labs. Preoperative indications, planned procedure, benefits, risk, anticipated healing time and management were reviewed. The patient understands and elects proceed with surgery at this time. No guarantees were made. The patient understands risk and complications include but are not limited to following: pain, swelling, scarring, need for further surgery, tendon contracture, transfer lesion, hardware failure, arthritis, need for further surgery, delayed or nonhealing, infection, blood clot, allergic reaction, loss of limb, function, or life. The informed surgical limb and consent were signed. Her clearance and preoperative history and physical exam were also reviewed. I answered all the patient's questions. The patient also understands there is an inherent risk with being in the hospital and undergoing a procedure during the time of COVID-19 pandemic. The patient understands precautions are being taken to prevent transmission. This patient understands the benefits and risks of having a procedure at this time versus waiting in which the benefits are reasonable at this time. Procedure in detail: The patient was transported to the operating room via cart and placed on the operating table in the supine position. Final verification the patient, surgery, limb designation was performed via the timeout procedure. Preoperative antibiotics were administered by the anesthesia team. General anesthesia was initially by the anesthesia team. I administered the preoperative local anesthetic as noted. Well-padded pneumatic left ankle tourniquet was placed. The left lower extremity was prepped and draped in the usual aseptic manner. An Esmarch bandage was used to exsanguinate the limb and the tourniquet was inflated at this time. Surgery began the following manner: Attention was first directed to the dorsal medial left foot in which an 3 cm linear incision was made through the skin over the first metatarsophalangeal joint. Care was taken to identify, protect, and retract all neurovascular structures at this point and throughout the remainder of surgery. Blunt dissection was performed down to the capsule in which an incision was made to expose the joint surfaces. The first metatarsal head had approximately 50% loss of cartilage surface and was subluxing in the lateral direction. The joint surfaces were denuded of cartilage in a gentle manner. It is noted her bone is extremely soft to both of the metatarsal heads and there was some fragmentation of the central medial aspect of this first metatarsal bone noted with gentle reaming. The remainder of the surface of the joint was denuded by hand with curettes and rongeurs. Subchondral bone was exposed and the proximal phalanx surface was further prepared with fish scaling and gentle K wire drilling. Healthy bleeding surfaces were identified. This was temporarily fixated with 2 crossing guidewires with care being taken to place this in the desired neutral position to allow weightbearing after healed status. Next, FT Arthrex compression screws were applied across the arthrodesis site utilizing proper AO and device techniques. The decision was made to not use additional fixation such as a plate due to her soft bone quality. Solid fixation was viewed radiographically and clinically with corrected deformity position maintained. Next, attention was directed to the second ray. A one and a half centimeter linear incision was made over the metatarsal phalangeal joint through the skin. Blunt dissection was performed down to the extensor tendon and the tissue was gently retracted. A capsular incision was made to expose metatarsal phalangeal joint in which the toe was dorsally and slightly laterally subluxed upon the metatarsal head. McGlamry elevator was used to gently mobilize the second metatarsal head from the plantar structures and a sagittal saw was used to resect the metatarsal head in a slightly beveled manner. This was removed in toto without difficulty. It is also noted the bone was extremely soft. Saline irrigation was performed. The position of the toe in respect to the rest of the forefoot was immediately corrected in both the sagittal and frontal planes. Nylon suture was used to place an interposition arthroplasty with the capsule utilizing a pursestring technique. Saline irrigation was performed. The tourniquet was deflated at this time and brisk capillary refill time was noted to all digits of the left foot. No pulsatile bleeding was noted. Electrocauterization and direct pressure was used to control hemostasis. Next, deep closure was further performed with Vicryl suture and the skin was reapproximated with 4-0 nylon utilizing simple and horizontal mattress techniques. A dressing consisting of Adaptic soaked in Betadine, 4 x 4 gauze, abdominal pads, and Carlos wrap. A well-padded posterior mold splint was applied in a rectus position. Intraoperative fluoroscopy was used throughout the case to confirm appropriate positioning of hardware and deformity correction. No acute injuries were noted. After procedure: The patient tolerated the procedure and anesthesia well. The patient was transported to the PACU with vital signs stable and vascular status intact to the surgical limb. To ice and elevate for pain and inflammation management. Postoperative x-rays were reviewed prior to leaving the operating room as noted. To maintain a strict nonweightbearing status to left foot. She has a splint in place and already has an assistive walking device. She was provided with a postoperative pain medication prescription including Crenshaw and was advised on safe and proper use. Her bone is very soft and caution is advised while she goes through the healing process. She was noted to be on previous vitamin D supplements and her last level was checked on 10-15-21 as 43.1. This is in the normal range but on the lower side. OTC supplementation will additionally be recommended in addition to controlled sun exposure to optimize this level which affects bone healing. She will follow-up in clinic in 1 [facility] or call sooner if questions or concerns. Postoperative orders were entered electronically. She will be discharged home. Radha Khan DPM, FACFAS [facility] Grafts/Implants Used: arthrex Complications none Admit VTE Documentation VTE Present on Admission: No VTE Mechan Device Prophylaxis: SCD's VTE Pharm Prophylaxis ordered?: No Reason prophylaxis not ordered:: Treatment Not Indicated
[2021-11-12 13:35] VITALS: BP 144/83; BP 163/83; PULSE 79; RESP 16; TEMP 36.7; O2SAT 98
[2021-11-12 13:45] VITALS: BP 158/101; BP 163/83; PULSE 71; RESP 16; O2SAT 98
[2021-11-12 14:00] VITALS: BP 151/82; BP 163/83; PULSE 68; RESP 16; O2SAT 98
--- NOTE | 2021-11-12 14:15 | RAD_ITS ---
EXAM: XR LEFT FOOT COMPLETE, 3 OR MORE VIEWS CLINICAL INDICATION: s/p arthrodesis first metatarsal phalangeal joint TECHNIQUE: Frontal, lateral and oblique views of the left foot. This report was created using [employer] report [employer] technology. COMPARISON: None. FINDINGS: BONES/JOINTS: Cortical screws transfixing the first tarsal phalangeal joint. Single screw transfixing the second PIP joint. There is a metal sideplate transfixing the first tarsometatarsal joint. There are cortical screws holding the plate in place. No acute fracture. No subluxation. Normal alignment. No sclerotic or destructive changes observed. SOFT TISSUES: Unremarkable. No soft tissue swelling or gas. No radiopaque foreign body. RAD/Foot min 3 Views IMPRESSION: Satisfactory postoperative findings. Electronically Signed: Dagoberto Willams MD at 15:26 EDT Reading Location ID and State: [facility] / [place] , Service support ,
[2021-11-12 14:16] VITALS: BP 154/85; BP 163/83; PULSE 68; RESP 16; TEMP 37.1; O2SAT 100
[2021-11-12 14:32] VITALS: BP 163/83
[2021-11-12] MEDS: HYDROcodone Bitartrate/Apap 5/325 Tablet PO (15:00)
== END 2021-11-12 15:15 | disposition home or self-care (01) ==
LOC: SDC 08:40 → AC 08:42
PROVIDERS: Anesthesiology; PCP Family Medicine Geriatric Medicine; Referring Provider Podiatrist; Visit Provider Podiatrist
PROC: (CPT 28750; principal; 2021-11-12 10:15)
DX: M20.22 Hallux rigidus, left foot (principal); F33.42 Major depressive disorder, recurrent, in full remission; M79.672 Pain in left foot; I10 Essential (primary) hypertension; M25.549 Pain in joints of unspecified hand; E78.5 Hyperlipidemia, unspecified; M77.8 Other enthesopathies, not elsewhere classified; M20.42 Other hammer toe(s) (acquired), left foot
CPT/HCPCS: 28750; 28114; 01480; 73630; 76000; 84443; C1713; J7120; J2405

== ENCOUNTER → 2022-03-11 | Outpatient (CLI) | payer MEDICARE, OTHER, SELFPAY ==
[2022-03-11] MEDS: 0.9% NaCl Peripheral Flush Adult/Peds IV (12:53)
[2022-03-11] MEDS: Acetaminophen 325 MG Tablet 650 MG PO (12:58)
[2022-03-11] MEDS: 0.9% NaCl IVPB Med Flush (250 mL) 15 ML IV (12:58)
[2022-03-11] MEDS: DiphenhydrAMINE 50 MG/ML Syringe 25 MG IV (12:59)
[2022-03-11 13:07] VITALS: PULSE 86; RESP 16; TEMP 36.2; O2SAT 100; BMI 23.5
[2022-03-11] MEDS: Immune Globulin 10 gm Premixed Solution 27.5 BAG IV (13:33)
== END | disposition home or self-care (01) ==
LOC: MEDOUTP 12:25
PROVIDERS: PCP Family Medicine Geriatric Medicine; Referring Provider Family Medicine Geriatric Medicine; Visit Provider Family Medicine Geriatric Medicine
DX: D80.0 Hereditary hypogammaglobulinemia (principal)
CPT/HCPCS: 96365; 96366; 96375; J7050; A4216; J1568

== ENCOUNTER → 2022-04-04 | Outpatient (CLI) | payer MEDICARE, OTHER, SELFPAY ==
[2022-04-04 13:53] LABS: Absolute Lymphocyte Count 1.63 X10^3/uL (0.83-4.51); Absolute Neutrophil Count 2.4 X10^3/uL (2.0-7.7); Basophil# 0.05 X10^3/uL; Basophil% 1.1 % (0-1); Eosinophil# 0.06 X10^3/uL; Eosinophils% 1.3 % (0-5); Hematocrit 40.8 % (37-47); Hemoglobin 14.3 g/dL (12.0-15.0); Lymphocyte # 1.63 X10^3/ul (0.83-4.51); Lymphocyte % 35.6 % (19-41); Mean Corpuscular Hgb 32.4 pg (27.0-32.0); Mean Corpuscular Volume 92.3 fL (81-99); Mean Platelet Vol. 11.3 fl (6.2-12.0); Monocyte# 0.42 X10^3/uL; Monocyte% 9.2 % (0-10); NRBC Flagged by Analyzer 0 % (0-5); Neutrophil # 2.41 X10^3/uL (2.7-7.7); Neutrophil % 52.6 % (47-70); Platelet Count 187 K/mm3 (150-450); RBC Distribution Width CV 11.9 % (11.6-14.6); Red Blood Count 4.42 M/mm3 (4.2-5.4); White Blood Count 4.6 K/mm3 (4.4-11.0)
[2022-04-04 14:46] LABS: Vitamin D,25 Hydroxy 24.9 ng/mL
[2022-04-04 14:55] LABS: AST(SGOT) 20 U/L (15-37); Alanine Aminotransfer ALT/SGPT 16 U/L (13-56); Albumin, Serum 3.6 g/dL (3.2-5.0); Alkaline Phosphatase 91 U/L (45-117); Anion Gap 4 (5-15); BUN 10 mg/dL (7-18); Calcium,Total 8.8 mg/dL (8.5-10.1); Chloride 109 mmol/L (98-107); Creatinine, Serum 0.77 mg/dL (0.55-1.02); EST Glomerular Filtration Rate 78 mL/min (>60); Est Glom Filt Rate - Afr Amer 94 mL/min (>60); Globulin 3.5 g/dL (2.2-4.2); Glucose 84 mg/dL (74-106); Potassium 3.6 mmol/L (3.5-5.1); Protein, Total 7.1 g/dL (6.4-8.2); Sodium Level 143 mmol/L (136-145); Thyroid Stim Hormone (TSH) 4.55 uIU/mL (0.358-3.74)
== END | disposition home or self-care (01) ==
LOC: POLAB3 13:02
PROVIDERS: PCP Family Medicine Geriatric Medicine; Visit Provider Family Medicine Geriatric Medicine
DX: E11.9 Type 2 diabetes mellitus without complications (principal); E55.9 Vitamin D deficiency, unspecified; I10 Essential (primary) hypertension
CPT/HCPCS: 36415; 80053; 82306; 84443; 85025

== ENCOUNTER → 2022-04-08 | Outpatient (CLI) | payer MEDICARE, OTHER, SELFPAY ==
[2022-04-08] MEDS: 0.9% NaCl Peripheral Flush Adult/Peds IV (12:45)
[2022-04-08] MEDS: 0.9% NaCl IVPB Med Flush (250 mL) 15 ML IV (12:46)
[2022-04-08] MEDS: Acetaminophen 325 MG Tablet 650 MG PO (12:50)
[2022-04-08] MEDS: DiphenhydrAMINE 50 MG/ML Syringe 25 MG IV (12:50)
[2022-04-08 12:57] VITALS: BP 187/86; PULSE 81; RESP 16; TEMP 37.2; O2SAT 100
[2022-04-08] MEDS: Immune Globulin 10 gm Premixed Solution 27.5 BAG IV (13:25)
== END | disposition home or self-care (01) ==
LOC: MEDOUTP 12:29
PROVIDERS: PCP Family Medicine Geriatric Medicine; Referring Provider Family Medicine Geriatric Medicine; Visit Provider Family Medicine Geriatric Medicine
DX: D80.0 Hereditary hypogammaglobulinemia (principal)
CPT/HCPCS: 96365; 96366; 96375; J7050; A4216; J1568

== ENCOUNTER → 2022-05-11 | Outpatient (CLI) | payer MEDICARE, OTHER, SELFPAY ==
[2022-05-11] MEDS: Acetaminophen 325 MG Tablet 650 MG PO (12:37)
[2022-05-11] MEDS: 0.9% NaCl IVPB Med Flush (250 mL) 15 ML IV (12:37)
[2022-05-11] MEDS: 0.9% NaCl Peripheral Flush Adult/Peds IV (12:37)
[2022-05-11] MEDS: DiphenhydrAMINE 50 MG/ML Syringe 25 MG IV (12:42)
[2022-05-11 12:49] VITALS: BP 188/79; PULSE 94; RESP 14; TEMP 37.2; O2SAT 98; BMI 23.3
[2022-05-11] MEDS: Immune Globulin 10 gm Premixed Solution 27.5 BAG IV (13:03)
== END | disposition home or self-care (01) ==
LOC: MEDOUTP 12:23
PROVIDERS: PCP Family Medicine Geriatric Medicine; Referring Provider Family Medicine Geriatric Medicine; Visit Provider Family Medicine Geriatric Medicine
DX: D80.0 Hereditary hypogammaglobulinemia (principal)
CPT/HCPCS: 96365; 96366; 96375; J7050; A4216; J1568

== ENCOUNTER → 2022-06-10 | Outpatient (CLI) | payer MEDICARE, OTHER, SELFPAY ==
[2022-06-10 12:30] VITALS: BP 177/76; PULSE 93; RESP 16; TEMP 37.1; O2SAT 100
[2022-06-10] MEDS: 0.9% NaCl Peripheral Flush Adult/Peds IV (12:35)
[2022-06-10] MEDS: Acetaminophen 325 MG Tablet 650 MG PO (12:44)
[2022-06-10] MEDS: DiphenhydrAMINE 50 MG/ML Syringe 25 MG IV (12:45)
[2022-06-10] MEDS: 0.9% NaCl IVPB Med Flush (250 mL) 15 ML IV (12:45)
[2022-06-10] MEDS: Immune Globulin 10 gm Premixed Solution 27.5 BAG IV (13:11)
== END | disposition home or self-care (01) ==
LOC: MEDOUTP 12:25
PROVIDERS: PCP Family Medicine Geriatric Medicine; Referring Provider Family Medicine Geriatric Medicine; Visit Provider Family Medicine Geriatric Medicine
DX: D80.0 Hereditary hypogammaglobulinemia (principal)
CPT/HCPCS: 96372; J7050; A4216; J1568

== ENCOUNTER 2022-07-08 11:52 | Outpatient (CLI) | payer MEDICARE, OTHER, SELFPAY ==
[2022-07-08 12:02] VITALS: BP 163/73; PULSE 93; RESP 16; TEMP 36.2; O2SAT 97; BMI 24.0
[2022-07-08] MEDS: Acetaminophen 325 MG Tablet 650 MG PO (12:23)
[2022-07-08] MEDS: 0.9% NaCl IVPB Med Flush (250 mL) 15 ML IV (12:30)
[2022-07-08] MEDS: DiphenhydrAMINE 50 MG/ML Syringe 25 MG IV (12:30)
[2022-07-08] MEDS: Immune Globulin 10 gm Premixed Solution 27.5 BAG IV (13:00)
== END 2022-07-08 23:59 | disposition home or self-care (01) ==
LOC: MEDOUTP 11:53
PROVIDERS: PCP Family Medicine Geriatric Medicine; Referring Provider Family Medicine Geriatric Medicine; Visit Provider Family Medicine Geriatric Medicine
DX: D80.0 Hereditary hypogammaglobulinemia (principal)
CPT/HCPCS: 96365; 96366; 96372; J7050; J1568

== ENCOUNTER 2022-08-05 11:53 | Outpatient (CLI) | payer MEDICARE, OTHER, SELFPAY ==
[2022-08-05 12:26] VITALS: BP 158/63; PULSE 94; RESP 16; TEMP 36.5; O2SAT 99; BMI 23.0
[2022-08-05] MEDS: Acetaminophen 325 MG Tablet 650 MG PO (12:31)
[2022-08-05] MEDS: 0.9% NaCl IVPB Med Flush (250 mL) 15 ML IV (12:43)
[2022-08-05] MEDS: 0.9% NaCl Peripheral Flush Adult/Peds IV (12:43)
[2022-08-05] MEDS: DiphenhydrAMINE 50 MG/ML Syringe 25 MG IV (12:43)
[2022-08-05] MEDS: Immune Globulin 10 gm Premixed Solution 27.5 BAG IV (13:22)
== END 2022-08-05 23:59 | disposition home or self-care (01) ==
LOC: MEDOUTP 11:53
PROVIDERS: PCP Family Medicine Geriatric Medicine; Referring Provider Family Medicine Geriatric Medicine; Visit Provider Family Medicine Geriatric Medicine
DX: D80.0 Hereditary hypogammaglobulinemia (principal)
CPT/HCPCS: 96365; 96375; J7050; A4216; J1568

== ENCOUNTER → 2022-09-16 | Outpatient (CLI) | payer MEDICARE, OTHER, SELFPAY ==
[2022-09-16] MEDS: Acetaminophen 325 MG Tablet 650 MG PO (12:52)
[2022-09-16] MEDS: DiphenhydrAMINE 50 MG/ML Syringe 25 MG IV (12:59)
[2022-09-16] MEDS: 0.9% NaCl Peripheral Flush Adult/Peds IV (12:59)
[2022-09-16] MEDS: 0.9% NaCl IVPB Med Flush (250 mL) 15 ML IV (13:02)
[2022-09-16 13:03] VITALS: BP 148/68; PULSE 90; RESP 16; TEMP 36.3; O2SAT 98; BMI 23.0
[2022-09-16] MEDS: Immune Globulin 10 gm Premixed Solution 27.5 BAG IV (13:25)
== END | disposition home or self-care (01) ==
PROVIDERS: PCP Family Medicine Geriatric Medicine; Referring Provider Family Medicine Geriatric Medicine; Visit Provider Family Medicine Geriatric Medicine
DX: D80.0 Hereditary hypogammaglobulinemia (principal)
CPT/HCPCS: 96365; 96375; J7050; A4216; J1568

== ENCOUNTER → 2022-10-10 | Outpatient (CLI) | payer MEDICARE, OTHER, SELFPAY ==
[2022-10-10 18:05] LABS: Absolute Lymphocyte Count 1.93 X10^3/uL (0.83-4.51); Absolute Neutrophil Count 3.1 X10^3/uL (2.0-7.7); Basophil# 0.02 X10^3/uL; Basophil% 0.4 % (0-1); Eosinophil# 0.04 X10^3/uL; Eosinophils% 0.7 % (0-5); Hematocrit 43.5 % (37-47); Hemoglobin 14.3 g/dL (12.0-15.0); Lymphocyte # 1.93 X10^3/ul (0.83-4.51); Lymphocyte % 34.8 % (19-41); Mean Corp Hgb Conc 32.9 g/dL (32-36); Mean Corpuscular Hgb 31.6 pg (27.0-32.0); Mean Corpuscular Volume 96.2 fL (81-99); Monocyte# 0.42 X10^3/uL; Monocyte% 7.6 % (0-10); NRBC Flagged by Analyzer 0 % (0-5); Neutrophil # 3.11 X10^3/uL (2.7-7.7); Neutrophil % 56.1 % (47-70); Platelet Count 195 K/mm3 (150-450); RBC Distribution Width CV 12.3 % (11.6-14.6); RBC Distribution Width SD 43.7 fl (35.1-43.9); Red Blood Count 4.52 M/mm3 (4.2-5.4); White Blood Count 5.5 K/mm3 (4.4-11.0)
[2022-10-10 18:29] LABS: ALB/GLOB Ratio 1.1 RATIO (0.9-2.4); AST(SGOT) 24 U/L (15-37); Alanine Aminotransfer ALT/SGPT 24 U/L (13-56); Albumin, Serum 3.8 g/dL (3.2-5.0); Alkaline Phosphatase 81 U/L (45-117); Anion Gap 7 (5-15); BUN 11 mg/dL (7-18); Calcium,Total 8.9 mg/dL (8.5-10.1); Chloride 107 mmol/L (98-107); Creatinine, Serum 0.69 mg/dL (0.55-1.02); EST Glomerular Filtration Rate 88 mL/min (>60); Est Glom Filt Rate - Afr Amer 107 mL/min (>60); Globulin 3.5 g/dL (2.2-4.2); Glucose 73 mg/dL (74-106); Potassium 3.5 mmol/L (3.5-5.1); Protein, Total 7.3 g/dL (6.4-8.2); Sodium Level 142 mmol/L (136-145); Thyroid Stim Hormone (TSH) 4.46 uIU/mL (0.358-3.74)
== END | disposition home or self-care (01) ==
LOC: POLAB3 13:21
PROVIDERS: PCP Family Medicine Geriatric Medicine; Visit Provider Family Medicine Geriatric Medicine
DX: I10 Essential (primary) hypertension (principal); E55.9 Vitamin D deficiency, unspecified
CPT/HCPCS: 36415; 80053; 82306; 84443; 85025

== ENCOUNTER 2022-10-14 12:26 | Outpatient (CLI) | payer MEDICARE, OTHER, SELFPAY ==
[2022-10-14] MEDS: 0.9% NaCl Peripheral Flush Adult/Peds IV (12:58)
[2022-10-14 13:04] VITALS: BP 157/70; PULSE 88; RESP 16; TEMP 36; O2SAT 99
[2022-10-14] MEDS: 0.9% NaCl IVPB Med Flush (250 mL) 15 ML IV (13:14)
[2022-10-14] MEDS: DiphenhydrAMINE 50 MG/ML Syringe 25 MG IV (13:14)
[2022-10-14] MEDS: Acetaminophen 325 MG Tablet 650 MG PO (13:15)
[2022-10-14] MEDS: Immune Globulin 10 gm Premixed Solution 27.5 BAG IV (13:48)
== END 2022-10-14 12:27 | disposition home or self-care (01) ==
LOC: MEDOUTP 12:26
PROVIDERS: PCP Family Medicine Geriatric Medicine; Referring Provider Family Medicine Geriatric Medicine; Visit Provider Family Medicine Geriatric Medicine
DX: D80.0 Hereditary hypogammaglobulinemia (principal)
CPT/HCPCS: 96365; 96366; 96375; J7050; A4216; J1568

== ENCOUNTER 2022-11-11 12:25 | Outpatient (CLI) | payer MEDICARE, OTHER, SELFPAY ==
[2022-11-11] MEDS: Acetaminophen 325 MG Tablet 650 MG PO (12:47)
[2022-11-11] MEDS: 0.9% NaCl Peripheral Flush Adult/Peds IV (12:47)
[2022-11-11] MEDS: 0.9% NaCl IVPB Med Flush (250 mL) 15 ML IV (12:48)
[2022-11-11] MEDS: DiphenhydrAMINE 50 MG/ML Syringe 25 MG IV (12:48)
[2022-11-11] MEDS: Immune Globulin 10 gm Premixed Solution 27.5 BAG IV (13:08)
== END 2022-11-11 12:26 | disposition home or self-care (01) ==
LOC: MEDOUTP 12:25
PROVIDERS: PCP Family Medicine Geriatric Medicine; Referring Provider Family Medicine Geriatric Medicine; Visit Provider Family Medicine Geriatric Medicine
DX: D80.0 Hereditary hypogammaglobulinemia (principal)
CPT/HCPCS: 96365; 96366; 96375; J7050; A4216; J1568

== ENCOUNTER 2022-12-09 11:55 | Outpatient (CLI) | payer MEDICARE, OTHER, SELFPAY ==
[2022-12-09 12:04] VITALS: BP 176/80; PULSE 87; RESP 16; TEMP 36.8; O2SAT 99; BMI 22.8
[2022-12-09] MEDS: 0.9% NaCl Peripheral Flush Adult/Peds IV (12:14)
[2022-12-09] MEDS: 0.9% NaCl IVPB Med Flush (250 mL) 15 ML IV (12:19)
[2022-12-09] MEDS: Acetaminophen 325 MG Tablet 650 MG PO (12:19)
[2022-12-09] MEDS: DiphenhydrAMINE 50 MG/ML Syringe 25 MG IV (12:19)
[2022-12-09] MEDS: Immune Globulin 10 gm Premixed Solution 27.5 BAG IV (12:54)
== END 2022-12-09 11:56 | disposition home or self-care (01) ==
LOC: MEDOUTP 11:56
PROVIDERS: PCP Family Medicine Geriatric Medicine; Referring Provider Family Medicine Geriatric Medicine; Visit Provider Family Medicine Geriatric Medicine
DX: D80.0 Hereditary hypogammaglobulinemia (principal)
CPT/HCPCS: 96365; 96366; 96375; J7050; A4216; J1568

== ENCOUNTER 2023-01-06 11:58 | Outpatient (CLI) | payer MEDICARE, OTHER, SELFPAY ==
[2023-01-06 12:13] VITALS: BP 178/84; PULSE 78; RESP 16; TEMP 36.9; O2SAT 100; BMI 23.1
[2023-01-06] MEDS: 0.9% NaCl Peripheral Flush Adult/Peds IV (12:21)
[2023-01-06] MEDS: Acetaminophen 325 MG Tablet 650 MG PO (12:32)
[2023-01-06] MEDS: DiphenhydrAMINE 50 MG/ML Syringe 25 MG IV (12:32)
[2023-01-06] MEDS: 0.9% NaCl IVPB Med Flush (250 mL) 15 ML IV (12:33)
[2023-01-06] MEDS: Immune Globulin 10 gm Premixed Solution 27.5 BAG IV (13:06)
== END 2023-01-06 11:59 | disposition home or self-care (01) ==
LOC: MEDOUTP 11:58
PROVIDERS: PCP Family Medicine Geriatric Medicine; Referring Provider Family Medicine Geriatric Medicine; Visit Provider Family Medicine Geriatric Medicine
DX: D80.0 Hereditary hypogammaglobulinemia (principal)
CPT/HCPCS: 96365; 96366; 96375; J7050; A4216; J1568

== ENCOUNTER 2023-02-03 11:55 | Outpatient (CLI) | payer MEDICARE, OTHER, SELFPAY ==
[2023-02-03] MEDS: 0.9% NaCl IVPB Med Flush (250 mL) 15 ML IV (12:19)
[2023-02-03] MEDS: 0.9% NaCl Peripheral Flush Adult/Peds IV (12:19)
[2023-02-03] MEDS: Acetaminophen 325 MG Tablet 650 MG PO (12:21)
[2023-02-03] MEDS: DiphenhydrAMINE 50 MG/ML Syringe 25 MG IV (12:22)
[2023-02-03 12:30] VITALS: BP 154/65; PULSE 88; RESP 16; TEMP 36.9
[2023-02-03] MEDS: Immune Globulin 10 gm Premixed Solution 27.5 BAG IV (12:47)
[2023-02-03 14:37] VITALS: BP 151/55; RESP 16
== END 2023-02-03 11:56 | disposition home or self-care (01) ==
LOC: MEDOUTP 11:56
PROVIDERS: PCP Family Medicine Geriatric Medicine; Referring Provider Family Medicine Geriatric Medicine; Visit Provider Family Medicine Geriatric Medicine
DX: D80.0 Hereditary hypogammaglobulinemia (principal)
CPT/HCPCS: 96365; 96366; 96375; J7050; A4216; J1568

== ENCOUNTER → 2023-02-13 | Outpatient (CLI) | payer MEDICARE, OTHER, SELFPAY ==
[2023-02-13 15:10] LABS: Anion Gap 4 (5-15); BUN 10 mg/dL (7-18); BUN/Creat Ratio 12.7 RATIO (10-20); Calcium,Total 8.9 mg/dL (8.5-10.1); Chloride 109 mmol/L (98-107); Creatinine, Serum 0.79 mg/dL (0.55-1.02); EST Glomerular Filtration Rate 75 mL/min (>60); Est Glom Filt Rate - Afr Amer 91 mL/min (>60); Glucose 90 mg/dL (74-106); Potassium 3.7 mmol/L (3.5-5.1); Sodium Level 142 mmol/L (136-145)
== END | disposition home or self-care (01) ==
PROVIDERS: PCP Family Medicine Geriatric Medicine; Visit Provider Family Medicine Geriatric Medicine
DX: I10 Essential (primary) hypertension (principal)
CPT/HCPCS: 36415; 80048

== ENCOUNTER 2023-03-03 12:24 | Outpatient (CLI) | payer MEDICARE, OTHER, SELFPAY ==
[2023-03-03 13:01] VITALS: BP 113/57; PULSE 89; RESP 16; TEMP 36.3; O2SAT 99; BMI 23.1
[2023-03-03] MEDS: 0.9% NaCl Peripheral Flush Adult/Peds IV (13:12)
[2023-03-03] MEDS: DiphenhydrAMINE 50 MG/ML Syringe 25 MG IV (13:13)
[2023-03-03] MEDS: 0.9% NaCl IVPB Med Flush (250 mL) 15 ML IV (13:13)
[2023-03-03] MEDS: Acetaminophen 325 MG Tablet 650 MG PO (13:13)
[2023-03-03] MEDS: Immune Globulin 10 gm Premixed Solution 27.5 BAG IV (13:45)
== END 2023-03-03 12:25 | disposition home or self-care (01) ==
LOC: MEDOUTP 12:24
PROVIDERS: PCP Family Medicine Geriatric Medicine; Referring Provider Family Medicine Geriatric Medicine; Visit Provider Family Medicine Geriatric Medicine
DX: D80.0 Hereditary hypogammaglobulinemia (principal)
CPT/HCPCS: 96365; 96366; 96375; J7050; A4216; J1568

== ENCOUNTER 2023-03-31 12:25 | Outpatient (CLI) | payer MEDICARE, OTHER, SELFPAY ==
[2023-03-31 12:44] VITALS: RESP 16
[2023-03-31] MEDS: 0.9% NaCl Peripheral Flush Adult/Peds IV (12:46)
[2023-03-31] MEDS: Acetaminophen 325 MG Tablet 650 MG PO (12:52)
[2023-03-31] MEDS: DiphenhydrAMINE 50 MG/ML Syringe 25 MG IV (12:58)
[2023-03-31] MEDS: Immune Globulin 10 gm Premixed Solution 27.5 BAG IV (13:15)
[2023-03-31] MEDS: 0.9% NaCl IVPB Med Flush (250 mL) 15 ML IV (14:59)
== END 2023-03-31 12:26 | disposition home or self-care (01) ==
LOC: MEDOUTP 12:25
PROVIDERS: PCP Family Medicine Geriatric Medicine; Referring Provider Family Medicine Geriatric Medicine; Visit Provider Family Medicine Geriatric Medicine
DX: D80.0 Hereditary hypogammaglobulinemia (principal)
CPT/HCPCS: 96365; 96375; 96366; J7050; A4216; J1568

== ENCOUNTER → 2023-04-18 | Outpatient (CLI) | payer MEDICARE, OTHER, SELFPAY ==
[2023-04-18 17:23] LABS: Absolute Lymphocyte Count 1.13 X10^3/uL (0.83-4.51); Basophil# 0.03 X10^3/uL; Basophil% 0.7 % (0-1); Eosinophil# 0.02 X10^3/uL; Eosinophils% 0.4 % (0-5); Hematocrit 42.6 % (37-47); Hemoglobin 14.1 g/dL (12.0-15.0); Lymphocyte # 1.13 X10^3/ul (0.83-4.51); Lymphocyte % 24.9 % (19-41); Mean Corp Hgb Conc 33.1 g/dL (32-36); Mean Corpuscular Hgb 31.5 pg (27.0-32.0); Mean Corpuscular Volume 95.1 fL (81-99); Mean Platelet Vol. 11.5 fl (6.2-12.0); Monocyte# 0.32 X10^3/uL; Monocyte% 7.1 % (0-10); NRBC Flagged by Analyzer 0 % (0-5); Neutrophil # 3.02 X10^3/uL (2.7-7.7); Neutrophil % 66.7 % (47-70); Platelet Count 188 K/mm3 (150-450); RBC Distribution Width CV 11.9 % (11.6-14.6); RBC Distribution Width SD 41.4 fl (35.1-43.9); Red Blood Count 4.48 M/mm3 (4.2-5.4); White Blood Count 4.5 K/mm3 (4.4-11.0)
[2023-04-18 17:43] LABS: Vitamin D,25 Hydroxy 29.5 ng/mL
[2023-04-18 17:51] LABS: ALB/GLOB Ratio 1.1 RATIO (0.9-2.4); AST(SGOT) 20 U/L (15-37); Alanine Aminotransfer ALT/SGPT 17 U/L (13-56); Albumin, Serum 3.8 g/dL (3.2-5.0); Alkaline Phosphatase 70 U/L (45-117); Anion Gap 5 (5-15); BUN 10 mg/dL (7-18); BUN/Creat Ratio 12.2 RATIO (10-20); Calcium,Total 8.6 mg/dL (8.5-10.1); Chloride 106 mmol/L (98-107); Creatinine, Serum 0.82 mg/dL (0.55-1.02); EST Glomerular Filtration Rate 72 mL/min (>60); Est Glom Filt Rate - Afr Amer 87 mL/min (>60); Globulin 3.6 g/dL (2.2-4.2); Glucose 123 mg/dL (74-106); Potassium 3.7 mmol/L (3.5-5.1); Protein, Total 7.4 g/dL (6.4-8.2); Sodium Level 140 mmol/L (136-145); Thyroid Stim Hormone (TSH) 1.86 uIU/mL (0.358-3.74)
== END | disposition home or self-care (01) ==
LOC: POLAB3 15:18
PROVIDERS: PCP Family Medicine Geriatric Medicine; Visit Provider Family Medicine Geriatric Medicine
DX: I10 Essential (primary) hypertension (principal); E55.9 Vitamin D deficiency, unspecified
CPT/HCPCS: 36415; 80053; 82306; 84443; 85025

== ENCOUNTER 2023-04-28 12:27 | Outpatient (CLI) | payer MEDICARE, OTHER, SELFPAY ==
[2023-04-28] MEDS: 0.9% NaCl Peripheral Flush Adult/Peds IV (12:43)
[2023-04-28] MEDS: 0.9% NaCl IVPB Med Flush (250 mL) 15 ML IV (12:44)
[2023-04-28] MEDS: Acetaminophen 325 MG Tablet 650 MG PO (12:44)
[2023-04-28] MEDS: DiphenhydrAMINE 50 MG/ML Syringe 25 MG IV (12:44)
[2023-04-28 12:55] VITALS: BP 152/64; PULSE 94; RESP 16; TEMP 36.2; O2SAT 99; BMI 23.0
[2023-04-28] MEDS: Immune Globulin 10 gm Premixed Solution 27.5 BAG IV (13:14)
== END 2023-04-28 12:28 | disposition home or self-care (01) ==
LOC: MEDOUTP 12:27
PROVIDERS: PCP Family Medicine Geriatric Medicine; Referring Provider Family Medicine Geriatric Medicine; Visit Provider Family Medicine Geriatric Medicine
DX: D80.0 Hereditary hypogammaglobulinemia (principal)
CPT/HCPCS: 96365; 96366; 96375; J7050; A4216; J1568

== ENCOUNTER 2023-05-26 12:15 | Outpatient (CLI) | payer MEDICARE, OTHER, SELFPAY ==
[2023-05-26] MEDS: 0.9% NaCl Peripheral Flush Adult/Peds IV (12:29)
[2023-05-26 12:38] VITALS: BP 148/66; PULSE 87; RESP 16; TEMP 36.9; O2SAT 100; BMI 22.8
[2023-05-26] MEDS: 0.9% NaCl IVPB Med Flush (250 mL) 15 ML IV (12:59)
[2023-05-26] MEDS: DiphenhydrAMINE 50 MG/ML Syringe 25 MG IV (13:04)
[2023-05-26] MEDS: Acetaminophen 325 MG Tablet 650 MG PO (13:04)
[2023-05-26] MEDS: Immune Globulin 10 gm Premixed Solution 27.5 BAG IV (13:24)
== END 2023-05-26 12:16 | disposition home or self-care (01) ==
LOC: MEDOUTP 12:15
PROVIDERS: PCP Family Medicine Geriatric Medicine; Referring Provider Family Medicine Geriatric Medicine; Visit Provider Family Medicine Geriatric Medicine
DX: D80.0 Hereditary hypogammaglobulinemia (principal)
CPT/HCPCS: 96365; 96366; 96375; J7050; A4216; J1568

== ENCOUNTER 2023-06-30 11:32 | Outpatient (CLI) | payer MEDICARE, OTHER, SELFPAY ==
--- OUTSIDE RECORDS SUMMARY | 2023-06-30 11:56 | XMS RPT_ITS | CCD ---
Author Name Unknown Address [facility] [address] [place] [address] Organization [facility] Care Team Providers Care Bee Rancher Name Role Phone Isa Woodard Unavailable ADEOLA PACHECO Referring Unavailable ISA WOODARD Primary Care Unavailable JUAN MEDINA CHI Referring Unavailable CAROL JUAN CHI Primary Care Unavailable BIANKA OLMOS Attending Unavailable ELIANISA RUSSO Primary Care Unavailable CARLITOS VALENCIA Admitting Unavailable CARLITOS VALENCIA Attending Unavailable Allergies Allergy Classification Reported Allergen(s) Allergy Type Date of Onset Reaction(s) Facility (2 sources) Adhesive agent; Translations: [ADHESIVE] Propensity to adverse reactions to drug (disorder) 8 [facility] (2 sources) Chocolate; Translations: [CHOCOLATE] Propensity to adverse reactions to food (disorder) 3 [facility] (2 sources) Lactase; Translations: [LACTASE] Drug Allergy 3 [facility] (2 sources) tree nut, unspecified; Translations: [TREE NUTS] Propensity to adverse reactions to food (disorder) 3 [facility] Problems Problem Classification Problem Date Documented Da te Episodic/Chronic Acquired foot deformities (20 sources) Hallux valgus; Translations: [Hallux valgus (acquired)] Chronic Acute cerebrovascular disease (2 sources) Other cerebral infarction; Translations: [Other cerebral infarction (CMS/HCC)] Onset: 05-20-2023 Chronic Conditions associated with dizziness or vertigo (2 sources) Dizziness and giddiness; Translations: [Dizziness and giddiness] Onset: 05-20-2023 Episodic Late effects of cerebrovascular disease (2 sources) Other sequelae of cerebral infarction; Translations: [Other sequelae of cerebral infarction] Onset: 05-20-2023 Chronic Other and ill-defined cerebrovascular disease (1 source) Cerebral aneurysm, nonruptured; Translations: [Nonruptured cerebral aneurysm] Onset: 06-01-2023 Chronic Other circulatory disease (2 sources) Other specified symptoms and signs involving the circulatory and respiratory systems; Translations: [Other specified symptoms and signs involving the circulatory and respiratory systems] Onset: 05-20-2023 Episodic Other connective tissue disease (10 sources) Foot pain; Translations: [Pain in limb] Episodic Other connective tissue disease (10 sources) Muscle weakness; Translations: [Muscle weakness (generalized)] Episodic Other nervous system disorders (10 sources) Finding related to ability to move; Translations: [Abnormality of gait] Episodic Other non-traumatic joint disorders (10 sources) Decreased range of ankle movement; Translations: [Stiffness of joint, not elsewhere classified, ankle and foot] Episodic Transient cerebral ischemia (2 sources) Transient cerebral ischemic attack, unspecified; Translations: [Transient cerebral ischemic attack, unspecified] Onset: 05-20-2023 Chronic Results Test Name Value Interpretation Reference Range Facil ity Encounters Encounter Date Encounter Type Care Provider Facility Start: 06-01-2023 End: 06-01-2023 ambulatory JUAN CHI CAROL Facility:[facility] Start: 05-27-2023 ambulatory [facility] Start: 05-20-2023 End: 05-23-2023 Evaluation and management of inpatient [facility] Start: 10-27-2021 Patient encounter procedure Isa Woodard Work Phone: [facility] Work Phone: Start: 10-13-2021 Patient encounter procedure Isa Woodard Work Phone: [facility] Work Phone: Start: 09-24-2021 Patient encounter procedure [facility] Work Phone: Start: 09-24-2021 REINA, Provider : Veda Renner, Status: Pen, Time: 2:00 PM Isa Woodard Work Phone: [facility] Work Phone: Start: 09-14-2021 Patient encounter procedure Isa Woodard Work Phone: [facility] Work Phone: Start: 09-10-2021 Patient encounter procedure Isa Woodard Work Phone: [facility] Work Phone: Start: 09-07-2021 Patient encounter procedure Isa Woodard Work Phone: [facility] Work Phone: Start: 09-03-2021 Patient encounter procedure Isa Woodard Work Phone: [facility] Work Phone: Start: 08-31-2021 Patient encounter procedure Isa Woodard Work Phone: [facility] Work Phone: Start: 08-27-2021 Patient encounter procedure Isa Woodard Work Phone: [facility] Work Phone: Start: 08-18-2021 Patient encounter procedure Isa Woodard Work Phone: [facility] Work Phone: Procedures Date Procedure Procedure Detail Performing Clinician Start: 05-23-2023 DISCHARGE PATIENT ISA WOODARD Start: 05-23-2023 DISCHARGE ACTIVITY SHAMIKA WOODARD Start: 05-23-2023 DISCHARGE INSTRUCTIONS ISA WOODARD Start: 05-23-2023 FOLLOW UP PRIMARY PHYSICIAN ISA WOODARD Start: 05-23-2023 ADULT DISCHARGE DIET EARLE WOODARD Start: 05-23-2023 NOTIFY PROVIDER (DO NOT PROMPT FOR PARAMETERS) ISA WOODARD Start: 05-23-2023 ADULT DISCHARGE DIET EARLE SEQUEIRA ELIAN Start: 05-23-2023 DISCHARGE ACTIVITY SHAMIKA N ELIAN Start: 05-23-2023 DISCHARGE INSTRUCTIONS ISA WOODARD Start: 05-23-2023 FOLLOW UP PRIMARY PHYSICIAN ISA ELIAN Start: 05-23-2023 NOTIFY PROVIDER (DO NOT PROMPT FOR PARAMETERS) ISA ELIAN Start: 05-23-2023 Basic metabolic 2000 panel - Serum or Plasma ISA ELIAN Start: 05-23-2023 CBC panel - Blood by Automated count ISA ELIAN Start: 05-22-2023 ADMIT TO INPATIENT HELE N ELIAN Start: 05-22-2023 CT ANGIO HEAD AND NE CK W AND WO IV CONTRAST ISA ELIAN Start: 05-22-2023 TRANSTHORACIC ECHO ( TTE) COMPLETE ISA WOODARD Start: 05-22-2023 INITIATE REQUEST TO ANOTHER FACILITY ISA WOODARD Start: 05-22-2023 MR ANGIO HEAD WO IV CONTRAST ISA ELIAN Start: 05-22-2023 MR BRAIN WO IV CONTRAST ISA ELIAN Start: 05-22-2023 VASC US CAROTID VITOR RY DUPLEX BILATERAL ISA ELIAN Start: 05-22-2023 Basic metabolic 2000 panel - Serum or Plasma ISA ELIAN Start: 05-22-2023 CBC panel - Blood by Automated count ISA WOODARD Start: 05-22-2023 Hepatic function 200 0 panel - Serum or Plasma ISA MUNOZOK Start: 05-22-2023 Natriuretic peptide B [Mass/volume] in Blood ISA WOODARD Start: 05-21-2023 REASON FOR NO DVT CA OPHYLAXIS - HOSPITAL ADMISSION - MEDICATIONS ISA WOODARD Start: 05-21-2023 TELEMETRY MONITORING EARLE WOODARD Start: 05-21-2023 NURSING SWALLOW ASSESSMENT ISA WOODARD Start: 05-21-2023 PT EVAL AND TREAT ISA WOODARD Start: 05-20-2023 FULL CODE ISA DIAS K Start: 05-20-2023 MEASURE HEIGHT ISA TO ROK Start: 05-20-2023 WEIGH PATIENT ISA TOR OK Start: 05-20-2023 MEASURE HEIGHT ISA TO ROK Start: 05-20-2023 NURSING COMMUNICATION H SEVERINO WOODARD Start: 05-20-2023 WEIGH PATIENT ISA RUSSO Start: 05-20-2023 ECG 12-LEAD ISA DIAS K Start: 05-20-2023 ED TO FLOOR BED REQUEST ISA WOODARD Start: 05-20-2023 INITIATE OBSERVATION STATUS ISA WOODARD Start: 05-20-2023 INITIATE REQUEST TO ANOTHER FACILITY ISA WOODARD Start: 05-20-2023 EXTRA TUBES ISA DIAS K Start: 05-20-2023 SINGH TOP ISAOMEGA MUNOZO K Start: 05-20-2023 SST TOP ISAOMEGA MUNOZO K Start: 05-20-2023 aPTT in Blood by Coa gulation assay ISA WOODARD Start: 05-20-2023 CBC W Auto Different ial panel - Blood ISA WOODARD Start: 05-20-2023 Comprehensive metabo lic 2000 panel - Serum or Plasma ISA WOODARD Start: 05-20-2023 Hemoglobin A1c/Hemoglobin.total in Blood ISA WOODARD Start: 05-20-2023 Lipid panel ISA DIAS K Start: 05-20-2023 PROTIME-INR ISA Hernandez Start: 05-20-2023 TROPONIN I, HIGH SENSITIVITY ISA WOODARD Start: 05-20-2023 CT BRAIN ATTACK HEAD WO IV CONTRAST ISA MUNOZOK Start: 05-20-2023 INSERT PERIPHERAL IV HE FABBY ELIAN Start: 05-20-2023 NURSING COMMUNICATION H SEVERINO ELIAN Start: 05-20-2023 NURSING SWALLOW ASSESSMENT ISA WOODARD Start: 05-20-2023 PULSE OXIMETRY, CONTINUOUS ISA WOODARD Start: 05-20-2023 POCT GLUCOSE METER SHAMIKA MUNOZOK Plan of Treatment Date Care Activity Detail Author Start: 10-13-2021 REINA, Provider : Veda Renner, Status: Pen, Time: 4:45 PM REINA, Provider: Veda Renner, Status: Pen, Time: 4:45 PM [facility] Work Phone: Start: 09-24-2021 REINA, Provider : Veda Renner, Status: Pen, Time: 2:00 PM REINA, Provider: Veda Renner, Status: Pen, Time: 2:00 PM [facility] Work [facility]: Start: 09-21-2021 [email or web address], Provider : Veda Renner, Status: Pen, Time: 2:00 PM PTFUADULT4, Provider: Veda Renner, Status: Pen, Time: 2:00 PM [facility] Work Phone: Start: 09-21-2021 PTFUADULT4, Provider : Pepito Glasgow, Status: Pen, Time: 2:00 PM PTFUADULT4, Provider: Pepito Glasgow, Status: Pen, Time: 2:00 PM [facility] Work Phone: Start: 09-17-2021 PTFUADULT4, Provider : Veda Renner, Status: Pen, Time: 2:00 PM PTFUADULT4, Provider: Veda Renner, Status: Pen, Time: 2:00 PM [facility] Work Phone: Start: 09-14-2021 PTFUADULT4, Provider : Pepito Glasgow, Status: Pen, Time: 2:00 PM PTFUADULT4, Provider: Pepito Glasgow, Status: Pen, Time: 2:00 PM [facility] Work Phone: Start: 09-14-2021 PTFUADULT4, Provider : Gisela Medina, Status: Pen, Time: 2:00 PM PTFUADULT4, Provider: Gisela Medina, Status: Pen, Time: 2:00 PM [facility] Work Phone: Start: 09-10-2021 PTFUADULT4, Provider : Farideh Goncalves, Status: Pen, Time: 2:00 PM PTFUADULT4, Provider: Farideh Goncalves, Status: Pen, Time: 2:00 PM [facility] Work Phone: Start: 09-07-2021 PTFUADULT4, Provider : Briana Bowers, Status: Pen, Time: 2:00 PM PTFUADULT4, Provider: Briana Bowers, Status: Pen, Time: 2:00 PM [facility] Work Phone: Start: 09-07-2021 PTFUADULT4, Provider : Pepito Glasgow, Status: Pen, Time: 2:00 PM PTFUADULT4, Provider: Pepito Glasgow, Status: Pen, Time: 2:00 PM [facility] Work Phone: Start: 09-03-2021 PTFUADULT4, Provider : Farideh Goncalves, Status: Pen, Time: 2:00 PM PTFUADULT4, Provider: Farideh Goncalves, Status: Pen, Time: [facility] Start: 08-31-2021 PTFUADULT4, Provider : Veda Renner, Status: Pen, Time: 2:00 PM PTFUADULT4, Provider: Veda Renner, Status: Pen, Time: 2:00 PM [facility] Work Phone: Payers Date Payer Category Payer Unknown [id number] 2011 Medicare [id number] 1945 Unknown [id number] 1945 Unknown [id number] Unknown Progress note 06-01-2023 Note Date & Type Note Facility 06-01-2023 Note HNO ID: [id number] Author: Bianka Olmos APRN.LINE STAKER Service: ? Author Type: Nurse Practitioner Type: Progress Notes Filed: 06/01/2023 1:07 PM Note Text: [facility] Initial Visit Patient consents to this virtual visit using MyChart Zoom Video Visit. The visit required patient-provider interaction for the medical decision making as documented below. I have communicated my name and active licensure. The patient's identity and physical location were verified at the time of this visit. Either the patient or their legal enrollment eligibility representative has been informed of the risks and benefits of -- and alternatives to -- treatment through a remote evaluation and consents to proceed with the evaluation remotely. [address] [facility]#: [id number] Date of Service: 06/01/2023 Primary Care Provider: Juan Medina MD The patient was referred by Juan Medina Chi, MD for opinion regarding incidental small ACOM aneurysm. I will provide a written report of my findings to the referring through letter, e communication, or epic. OUTPATIENT CONSULTATION Reason for Visit: 78 year old female with significant past medical history of breast cancer status post chemotherapy and radiation, hypertension, hyperlipidemia, and recent stroke 05/20/2023 who initially presented to outside hospital with left-sided weakness. She was found to have acute right basal ganglia infarct. 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 She underwent evaluation by inpatient team and had virtual consultation during her hospitalization. She reports surgery was recommended but has been waiting to hear back from the neurosurgery team for further recommendations. She presents today via virtual visit to discuss management options and plan of care. She reports left facial drooping, left arm/leg weakness and vision loss secondary to her stroke that has mostly resolved. She notes difficulty with fine motor skills such as buttoning a shirt. She remains on aspirin and clopidogrel without ill effects. She has a history of hypertension on antihypertensives, last BP ~135/64. She is a never smoker. No known family history of brain aneurysms, stroke or brain hemorrhage. She notes mother with history of stomach aneurysm that was monitored. She denies family history of polycystic kidney disease or connective tissue disorders. 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) Acute Sinusitis, Unspecified Cough Other Nonthrombocytopenic Purpuras Other Malaise and Fatigue Unspecified Sinusitis (Chronic) Other and Unspecified Coagulation Defects Unspecified Hypothyroidism Contact Dermatitis and Other Eczema, Due to Unspecified Cause Vitamin D Deficiency PAST SURGICAL HISTORY Procedure Laterality Date IDENTIFY SENTINEL NODE 09-22-06 right MASTEC,MOD RADICAL 09-22-06 right REMOVAL GALLBLADDER Cholecystectomy REMOVAL OF TONSILS,<12 Y/O Tonsillectomy STEREO LOC FOR CORE BRST BX RT 08-30-06 right THYROIDECTOMY right TUNNEL VAD W SUB Q PORT >=5 10-27-06 left Allergies: No Known Allergies Medications: Current Outpatient Medications Medication Sig ergocalciferol, vitamin D2, (DRISDOL) 50,000 unit capsule TAKE ONE CAPSULE BY MOUTH ONCE A WEEK methotrexate 2.5 mg tablet Take 6 tablets by mouth once weekly. predniSONE (DELTASONE) 10 mg tablet Take one tablet by mouth every day as needed, take for 3-5 days with flare ups. leucovorin (LEUCOVORIN) 15 mg tablet Take 15 mg by mouth once each week. folic acid 1 mg tablet Take two tablets by mouth once daily. levothyroxine (SYNTHROID) 75 mcg tablet Take 75 mcg by mouth once daily. lisinopril-hydrochlorothiazide (PRINZIDE,ZESTORETIC) 20-12.5 mg per tablet Take 1 tablet by mouth once daily. potassium chloride ER (K-DUR, KLOR-CON) 20 mEq tablet Take 20 mEq by mouth twice daily. CRESTOR 10 mg tablet Take 10 mg by mouth once daily. traZODone (DESYREL) 100 mg tablet Take 100 mg by mouth daily at bedtime. citalopram 20 mg ORAL tablet 3 tabs daily alprazolam(XANAX 0.5 MG TAB) Take one(1) tablet two or three times daily. No current facility-administered medications for this visit. Social History Tobacco Use Smoking status: Never Smokeless tobacco: Never Substance Use Topics Alcohol use: Yes Comment: occassion Drug use: No Family History: Subarachnoid hemorrhage: None Aneurysms: Yes, mother with abdominal aneurysm Stroke: None Vascular malformations: None Other neurologic diseases: None Review of Systems Constitutional: Negative. HENT: Negative. Eyes: Negative for double vision and vision loss. Neurological: Positive for weakness. Negative for headaches. Patient Entered Questionnaires Health Status Impact by Stroke or CVD 05/31/2023 Impact Very little PROMIS/NeuroQoL Score Percentil (more content not included)... [facility] History of Present illness Narrative 06-18-2021 Note Date & Type Note Facility 06-18-2021 History of Present illness Narrative [address], a 76 year old female, arrives to outpatient PT s/p L bunioectomy on 06/18/2021. Pt presents with the following impairments: deficits in AROM in L ankle and 1st MTP, strength deficits of L foot/ankle and knee musculature, gait deficits, L foot pain especially noted with motion, and decreased functional mobility per LEFS score. These impairments contribute to difficulty in activity limitations and participation restrictions including ambulation, ADL/iADL completion such as bathing, and household management that requires standing. The pt will benefit from skilled PT services 2x/week for 5 weeks to address the above stated impairments and functional limitations to maximize participation and ease in household and social related activities The pt has a fair prognosis when considering positive factors including motivation to participate in skilled therapy with barriers such as increasing hallux valgus following procedure, immobilization in CAM boot, and current restrictions with weightbearing. Good tolerance to therapeutic exercise with improved ROM following PROM. Decreased 2nd toe mobility d/t surgery. HEP review and education regarding 1st MTP and ankle mobility with patient verbalizing understanding. The pt verbalized understanding and agreement to goals and POC. Thank you for this referral and please call [phone] with any questions or concerns.Clinical Presentation: Stable and/or uncomplicated characteristics.Level of Complexity: lowProblem List: activity limitations, ADLs/IADLs/self care skills, balance, decreased knowledge of HEP, fall risk, gait/locomotion, pain, participation restrictions, range of motion/joint mobility and strength. [facility] Work Phone: History of Present illness Narrative Note Date & Type Note Facility History of Present illness Narrative Verbal cues needed with TE/ROM this date. Fair tolerance without increased sx.'s. PROM applied to great toe for ext/flex. Trial STM to top of foot and laterally along the incision, relief following session.Response to treatment: decreased pain. [facility] Work Phone: History of Present illness Narrative Note Date & Type Note Facility History of Present illness Narrative Fair tolerance to progressions in therapeutic exercise with no exacerbation of pain throughout. Increased restriction of extensor retinaculum and 1st MTP. Verbal cues with WB to only match 30% WB with good understanding. Patient WBs mostly through L heel.Response to treatment: decreased pain. [facility] Work Phone: History of Present illness Narrative Note Date & Type Note Facility History of Present illness Narrative Fair tolerance with exercises/stretches. Fatigue noted with isometrics for IR/ER. Tenderness noted with PROM to the great toe. STM applied with decrease in sx.'s.Response to treatment: decreased pain.Patient was able to complete today's treatment with some difficulty. [facility] Work [facility]: History of Present illness Narrative Note Date & Type Note Facility History of Present illness Narrative Pt. continues with a lot of swelling with left foot as compared to her right foot. Progressed to ankle 4-ways with thera band (watch placement of band). No c/o increased sx.'s. Trial small balance board with patient in sitting for ROM. Decreased sx.'s noted following STM.Response to treatment: decreased pain.Patient was able to complete today's treatment with some difficulty. [facility] Work [facility]: History of Present illness Narrative Note Date & Type Note Facility History of Present illness Narrative Patient tolerated treatment without increased discomfort. wearing walking boot on left LE. Patient has good form/understanding with ther-ex and reports compliance with HEP. Patient able to don/doff walking boot/brace indepentently. Continue with left foot strength, ROM to decrease discomfort and improve ambulation. [facility] Work [facility]: History of Present illness Narrative Note Date & Type Note Facility History of Present illness Narrative Patient identified by name & . Patient wore a mask during treatment d/t Covid-19 precautions. Treatment consisted of ther ex's forL ankle ROM and strengthening, gait and manual therapy.Patient ambulating with FWW with WBAT and not 30%, she was not using UE to take weight off L LE. Patient's walker up too high and she was unable to put weight through UE's to take weight of L LE. Decreased height of walker and patient with improved ability to perform 30% WB'ing status. Pain level the same pre and post treatment. [facility] Work [facility]: History of Present illness Narrative Note Date & Type Note Facility History of Present illness Narrative [address] is progressing fairly through their POC s/p L bunionectomy. The pt demonstrates and verbalizes improvements in L foot/1MTP pain, improved AROM of L ankle and 1 MTP, increased strength of L ankle and knee musculature strength, and improved functional mobility per LEFS score. This contributes to greater ease with ambulation however pt is still experiencing difficulty with deficits in L ankle and 1 MTP AROM as well as current weight bearing restrictions. Patient is partially meeting all therapy goals and compliant in current HEP.The pt will benefit from reassessment in 2 weeks to progress HEP and address remaining impairments. HEP including AROM exercises for L ankle and 1st MTP with isometrics provided d/t current weight bearing restrictions. Thank you for this referral and please call [phone] with any questions or concerns.Response to treatment: no change in pain. [facility] Work Phone: Reason for visit Narrative Note Date & Type Note Facility Reason for visit Narrative Initial Evalu ation . L bunionectomy.Referred by: Radha Khan DPM [facility] Work Phone: Summary Purpose Family History No Family History Records FoundNo Family History Records FoundNo Family History Records FoundNo Family History Records FoundNo Family History Records Found Advance Directives No Advanced Directives Records FoundNo Advanced Directives Records FoundNo Advanced Directives Records FoundNo Advanced Directives Records FoundNo Advanced Directives Records Found Additional Source Comments INFORMATION SOURCE (unrecogn ized section and content) DATE CREATED AUTHOR AUTHOR'S ORGANIZ ATION 05/28/2023 [facility] DATE CREATED AUTHOR AUTHOR'S ORGANIZ ATION 06/03/2023 [facility] DATE CREATED AUTHOR AUTHOR'S ORGANIZ ATION 06/03/2023 [facility] DATE CREATED AUTHOR AUTHOR'S ORGANIZ ATION 06/28/2023 [facility] FOR RECORDS PERTAINING TO PATIENTS WHO ARE OR HAVE BEEN ENROLLED IN A CHEMICAL DEPENDENCY/SUBSTANCEABUSE PROGRAM, SOME INFORMATION MAY BE OMITTED. This clinical summary was aggregated from multiple sources. Caution should be exercised in using it in the provision of clinical care. This summary normalizes information from multiple sources, and as a consequence, information in this document may materially change the coding, format and clinical context of patient data. In addition, data may be omitted in some cases. CLINICAL DECISIONS SHOULD BE BASED ON THE PRIMARY CLINICAL RECORDS. [facility] [employer] [facility]. provides no warranty or guarantee of the accuracy or completeness of information in this document.
[2023-06-30 11:58] VITALS: BP 139/62; PULSE 99; RESP 16; TEMP 36.6; O2SAT 97; BMI 22.8
[2023-06-30] MEDS: 0.9% NaCl IVPB Med Flush (250 mL) 15 ML IV (12:10)
[2023-06-30] MEDS: 0.9% NaCl Peripheral Flush Adult/Peds IV (12:10)
[2023-06-30] MEDS: Acetaminophen 325 MG Tablet 650 MG PO (12:12)
[2023-06-30] MEDS: DiphenhydrAMINE 50 MG/ML Syringe 25 MG IV (12:13)
[2023-06-30] MEDS: Immune Globulin 10 gm Premixed Solution 27.5 BAG IV (12:39)
== END 2023-06-30 11:33 | disposition home or self-care (01) ==
LOC: MEDOUTP 11:34
PROVIDERS: PCP Family Medicine Geriatric Medicine; Referring Provider Family Medicine Geriatric Medicine; Visit Provider Family Medicine Geriatric Medicine
DX: D80.0 Hereditary hypogammaglobulinemia (principal)
CPT/HCPCS: 96365; 96366; 96375; J7050; A4216; J1568

== ENCOUNTER 2023-07-28 10:28 | Outpatient (CLI) | payer MEDICARE, OTHER, SELFPAY ==
[2023-07-28 10:36] VITALS: BP 154/96; PULSE 96; RESP 16; TEMP 37.1
[2023-07-28] MEDS: 0.9% NaCl IVPB Med Flush (250 mL) 15 ML IV (10:44)
[2023-07-28] MEDS: 0.9% NaCl Peripheral Flush Adult/Peds IV (10:44)
[2023-07-28] MEDS: DiphenhydrAMINE 50 MG/ML Syringe 25 MG IV (10:52)
[2023-07-28] MEDS: Acetaminophen 325 MG Tablet 650 MG PO (10:52)
--- OUTSIDE RECORDS SUMMARY | 2023-07-28 10:53 | XMS RPT_ITS | CCD ---
Author Name Unknown Address [address] [place] [address] Organization [facility] Care Team Providers Care Corporate Director Of Human Resources Name Role Phone Isa Woodard Unavailable JUAN MEDINA CHI Referring Unavailable JUAN MEDINA CHI Primary Care Unavailable BIANKA OLMOS Attending Unavailable ELIAN ISAOMEGA ACEVEDO Primary Care Unavailable CARLITOS VALENCIA Admitting Unavailable CARLITOS VALENCIA Attending Unavailable ADEOLA PACHECO Referring Unavailable ELIAN ISA CURTIS Primary Care Unavailable Allergies Allergy Classification Reported Allergen(s) Allergy Type Date of Onset Reaction(s) Facility (2 sources) Adhesive agent; Translations: [ADHESIVE] Propensity to adverse reactions to drug (disorder) 8 [facility] 2 Repository (2 sources) Chocolate; Translations: [CHOCOLATE] Propensity to adverse reactions to food (disorder) 3 [facility] 2 Repository (2 sources) Lactase; Translations: [LACTASE] Drug Allergy 3 [facility] 2 Repository (2 sources) tree nut, unspecified; Translations: [TREE NUTS] Propensity to adverse reactions to food (disorder) 3 [facility] 2 Repository Problems Problem Classification Problem Date Documented Da [...] Provider Facility Start: 06-01-2023 End: 06-01-2023 [facility] Start: 05-27-2023 End: 07-05-2023 ambulatory [facility] Start: 05-20-2023 End: 05-23-2023 Evaluation and management of inpatient [facility] Start: 10-27-2021 Patient encounter procedure Isa Woodard Work Phone: [facility] Work Phone: Start: 10-13-2021 Patient encounter procedure Isa Woodard Work Phone: [facility] Work Phone: Start: 09-24-2021 [facility] encounter procedure [facility] Start: 09-24-2021 REINA, Provider : Veda Renner, Status: Pen, Time: 2:00 PM Isa Woodard Work Phone: [facility] Work Phone: Start: 09-14-2021 Patient encounter procedure Isa Woodard Work Phone: [facility] Work Phone: Start: 09-10-2021 Patient encounter procedure Isa Woodard Work Phone: [facility] Work Phone: Start: 09-07-2021 Patient encounter procedure Isa Woodard Work Phone: [facility] Work Phone: Start: 09-03-2021 Patient encounter procedure Isa Woodard Work Phone: [facility] Work Phone: Start: 08-31-2021 Patient encounter procedure Isa Woodard Work Phone: [facility] Work Phone: Start: 08-27-2021 Patient encounter procedure Isa Woodard Work Phone: [facility] Work Phone: Start: 08-18-2021 Patient encounter procedure Isa Woodard Work Phone: [facility] Work Phone: Procedures Date Procedure Procedure Detail [...] WOODARD Start: 05-21-2023 REASON FOR NO DVT WA OPHYLAXIS - HOSPITAL ADMISSION - MEDICATIONS ISA [...] Start: 05-20-2023 Hemoglobin A1c/Hemoglobin.total in Blood ISA WOODRAD Start: 05-20-2023 Lipid panel ISA DIAS K [...] Renner, Status: Pen, Time: 4:45 PM [facility] Work Phone: Start: 09-24-2021 REINA, Provider : Veda Renner, Status: Pen, Time: 2:00 PM REINA, Provider: Veda Renner, Status: Pen, Time: 2:00 PM [facility] Start: 09-21-2021 PTFUADULT4, Provider : Veda Renner, Status: Pen, Time: 2:00 PM [facility]FU[facility]ULT[facility], Provider: Veda Renner, Status: Pen, Time: 2:00 PM [facility] Start: 09-21-2021 PTFUADULT4, Provider : Pepito Glasgow, Status: Pen, Time: 2:00 PM [facility]FUADULT[facility], Provider: Pepito Glasgow, Status: Pen, Time: 2:00 PM [facility] Start: 09-17-2021 PTFUADULT4, Provider : Veda Renner, Status: Pen, Time: 2:00 PM PTFUADULT4, Provider: Veda Renner, Status: Pen, Time: 2:00 PM [facility] Start: 09-14-2021 PTFUADULT4, Provider : Pepito Glasgow, Status: Pen, Time: 2:00 PM PTFUADULT4, Provider: Pepito Glasgow, Status: Pen, Time: 2:00 PM [facility] Start: 09-14-2021 PTFUADULT4, Provider : Gisela Medina, Status: Pen, Time: 2:00 PM [facility]FUADULT[facility], Provider: Gisela Medina, Status: Pen, Time: 2:00 PM [facility] Start: 09-10-2021 PTFUADULT4, Provider : Farideh Goncalves, Status: Pen, Time: 2:00 PM [facility]FUADULT4, Provider: Farideh Goncalves, Status: Pen, Time: 2:00 PM [facility] Start: 09-07-2021 PTFUADULT4, Provider : Briana Bowers, Status: Pen, Time: 2:00 PM PTFUADULT4, Provider: Briana Bowers, Status: Pen, Time: 2:00 PM [facility] Start: 09-07-2021 PTFUADULT4, Provider : Pepito Glasgow, Status: Pen, Time: 2:00 PM PTFUADULT4, Provider: Pepito Glasgow, Status: Pen, Time: 2:00 PM [facility] Start: 09-03-2021 PTFUADULT4, Provider : Farideh Goncalves, Status: Pen, Time: 2:00 PM PTFUADULT4, Provider: Farideh Goncalves, Status: Pen, Time: 2:00 PM [facility] Start: 08-31-2021 PTFUADULT4, Provider : Veda Renner, Status: Pen, Time: 2:00 PM PTFUADULT4, Provider: Veda Renner, Status: Pen, Time: 2:00 PM [facility] Work Phone: Payers Date Payer Category Payer Unknown [id number] 2011 Medicare [id number] 1945 Unknown [id number] 1945 Unknown [id number] Unknown Progress note 06-01-2023 Note Date & Type Note Facility 06-01-2023 Note HNO ID: [id number] Author: Bianka Olmos APRN.[employer] OPERATOR Service: ? Author Type: Nurse Practitioner Type: Progress Notes Filed: 06/01/2023 1:07 PM Note Text: [facility] Initial Visit Patient consents to this virtual visit using [employer] Video Visit. The visit required patient-provider interaction for the medical decision making as documented below. I have communicated my name and active licensure. The patient's identity and physical location were verified at the time of this visit. Either the patient or their legal loan representative has been informed of the risks and benefits of -- and alternatives to -- treatment through a remote evaluation and consents to proceed with the evaluation remotely. [address] [facility]#: [id number] Date of Service: 06/01/2023 Primary Care Provider: [...] PROMIS/NeuroQoL Score Percentil (more content not included)... [facility] History of Present illness Narrative [...] you for this referral and please call [phone] with any questions or concerns.Clinical Presentation: Stable and/or uncomplicated characteristics.Level of Complexity: lowProblem List: activity limitations, ADLs/IADLs/self care skills, balance, decreased knowledge of HEP, fall risk, gait/locomotion, pain, participation restrictions, range of motion/joint mobility and strength. [facility] Work Phone: History of Present illness Narrative Note Date & Type Note Facility History of Present illness Narrative Verbal cues needed with TE/ROM this date. Fair tolerance without increased sx.'s. PROM applied to great toe for ext/flex. Trial STM to top of foot and laterally along the incision, relief following session.Response to treatment: decreased pain. [facility] Work Phone: History of Present illness Narrative Note Date & Type Note Facility History of Present illness Narrative Fair tolerance to progressions in therapeutic exercise with no exacerbation of pain throughout. Increased restriction of extensor retinaculum and 1st MTP. Verbal cues with WB to only match 30% WB with good understanding. Patient WBs mostly through L heel.Response to treatment: decreased pain. [facility] Work Phone: History of Present illness Narrative Note Date & Type Note Facility History of Present illness Narrative Fair tolerance with exercises/stretches. Fatigue noted with isometrics for IR/ER. Tenderness noted with PROM to the great toe. STM applied with decrease in sx.'s.Response to treatment: decreased pain.Patient was able to complete today's treatment with some difficulty. [facility] Work Phone: History of Present illness [...] to complete today's treatment with some difficulty. [facility] Work Phone: History of Present illness Narrative Note Date & Type Note Facility History of Present illness Narrative Patient tolerated treatment without increased discomfort. wearing walking boot on left LE. Patient has good form/understanding with ther-ex and reports compliance with HEP. Patient able to don/doff walking boot/brace indepentently. Continue with left foot strength, ROM to decrease discomfort and improve ambulation. [facility] Work Phone: History of Present illness [...] level the same pre and post treatment. [facility] Work Phone: History of Present illness [...] you for this referral and please call [phone] with any questions or concerns.Response to treatment: no change in pain. [facility] Work Phone: Reason for visit Narrative Note Date & Type Note Facility Reason for visit Narrative Initial Evalu ation . L bunionectomy.Referred by: Radha Khan DPEarl [facility] Work Phone: Summary Purpose Family History No [...] content) DATE CREATED AUTHOR AUTHOR'S ORGANIZ ATION 06/03/2023 [facility] DATE CREATED AUTHOR AUTHOR'S ORGANIZ ATION 06/03/2023 [facility] DATE CREATED AUTHOR AUTHOR'S ORGANIZ ATION 06/28/2023 [facility] DATE CREATED AUTHOR AUTHOR'S ORGANIZ ATION 07/09/2023 [facility] FOR RECORDS PERTAINING TO PATIENTS WHO ARE [...] BE BASED ON THE PRIMARY CLINICAL RECORDS. [facility] [employer] [facility]. provides no warranty or guarantee of the accuracy or completeness of information in this document.
[2023-07-28] MEDS: Immune Globulin 10 gm Premixed Solution 27.5 BAG IV (11:27)
== END 2023-07-28 10:29 | disposition home or self-care (01) ==
LOC: MEDOUTP 10:28
PROVIDERS: PCP Family Medicine Geriatric Medicine; Referring Provider Family Medicine Geriatric Medicine; Visit Provider Family Medicine Geriatric Medicine
DX: D80.0 Hereditary hypogammaglobulinemia (principal)
CPT/HCPCS: 96365; 96366; 96375; J7050; A4216; J1568

== ENCOUNTER 2023-08-25 10:26 | Outpatient (CLI) | payer MEDICARE, OTHER, SELFPAY ==
[2023-08-25] MEDS: Acetaminophen 325 MG Tablet 650 MG PO (10:58)
[2023-08-25] MEDS: 0.9% NaCl Peripheral Flush Adult/Peds IV (10:58)
[2023-08-25] MEDS: DiphenhydrAMINE 50 MG/ML Syringe 25 MG IV (10:58)
[2023-08-25] MEDS: 0.9% NaCl IVPB Med Flush (250 mL) 15 ML IV (10:59)
[2023-08-25 11:03] VITALS: BP 122/55; PULSE 78; RESP 16; TEMP 36.3; O2SAT 100; BMI 22.8
[2023-08-25] MEDS: Immune Globulin 10 gm Premixed Solution 27.5 BAG IV (11:21)
== END 2023-08-25 10:27 | disposition home or self-care (01) ==
LOC: MEDOUTP 10:26
PROVIDERS: PCP Family Medicine Geriatric Medicine; Referring Provider Family Medicine Geriatric Medicine; Visit Provider Family Medicine Geriatric Medicine
DX: D80.0 Hereditary hypogammaglobulinemia (principal)
CPT/HCPCS: 96365; 96366; 96375; J7050; A4216; J1568

== ENCOUNTER 2023-09-22 10:22 | Outpatient (CLI) | payer MEDICARE, OTHER, SELFPAY ==
[2023-09-22] MEDS: 0.9% NaCl Peripheral Flush Adult/Peds IV (10:37)
[2023-09-22] MEDS: Acetaminophen 325 MG Tablet 650 MG PO (10:44)
[2023-09-22] MEDS: DiphenhydrAMINE 50 MG/ML Syringe 25 MG IV (10:45)
[2023-09-22 10:53] VITALS: BP 165/71; PULSE 83; RESP 16; TEMP 37.1; O2SAT 94; BMI 23.5
[2023-09-22] MEDS: Immune Globulin 10 gm Premixed Solution 27.5 BAG IV (11:07)
== END 2023-09-22 10:23 | disposition home or self-care (01) ==
LOC: MEDOUTP 10:22
PROVIDERS: PCP Family Medicine Geriatric Medicine; Referring Provider Family Medicine Geriatric Medicine; Visit Provider Family Medicine Geriatric Medicine
DX: D80.0 Hereditary hypogammaglobulinemia (principal)
CPT/HCPCS: 96365; 96366; 96375; A4216; J1568

== ENCOUNTER → 2023-10-17 | Outpatient (CLI) | payer MEDICARE, OTHER, SELFPAY ==
[2023-10-17 16:48] LABS: Absolute Lymphocyte Count 1.94 X10^3/uL (0.83-4.51); Absolute Neutrophil Count 2.7 X10^3/uL (2.0-7.7); Basophil# 0.03 X10^3/uL; Basophil% 0.6 % (0-1); Eosinophil# 0.05 X10^3/uL; Hematocrit 42.4 % (37-47); Hemoglobin 14.1 g/dL (12.0-15.0); Lymphocyte # 1.94 X10^3/ul (0.83-4.51); Lymphocyte % 38.4 % (19-41); Mean Corp Hgb Conc 33.3 g/dL (32-36); Mean Corpuscular Hgb 31.3 pg (27.0-32.0); Mean Platelet Vol. 11.2 fl (6.2-12.0); Monocyte# 0.37 X10^3/uL; Monocyte% 7.3 % (0-10); NRBC Flagged by Analyzer 0 % (0-5); Neutrophil # 2.66 X10^3/uL (2.7-7.7); Neutrophil % 52.7 % (47-70); Platelet Count 165 K/mm3 (150-450); RBC Distribution Width SD 41.8 fl (35.1-43.9); Red Blood Count 4.51 M/mm3 (4.2-5.4); White Blood Count 5.1 K/mm3 (4.4-11.0)
[2023-10-17 17:08] LABS: Vitamin D,25 Hydroxy 28.2 ng/mL
[2023-10-17 17:45] LABS: ALB/GLOB Ratio 1.1 RATIO (0.9-2.4); AST(SGOT) 25 U/L (15-37); Alanine Aminotransfer ALT/SGPT 28 U/L (13-56); Albumin, Serum 3.9 g/dL (3.2-5.0); Alkaline Phosphatase 84 U/L (45-117); Anion Gap 1 (5-15); BUN 9 mg/dL (7-18); BUN/Creat Ratio 10.9 RATIO (10-20); Calcium,Total 8.9 mg/dL (8.5-10.1); Chloride 109 mmol/L (98-107); Creatinine, Serum 0.82 mg/dL (0.55-1.02); EST Glomerular Filtration Rate 71 mL/min (>60); Est Glom Filt Rate - Afr Amer 86 mL/min (>60); Globulin 3.5 g/dL (2.2-4.2); Glucose 95 mg/dL (74-106); Potassium 3.8 mmol/L (3.5-5.1); Protein, Total 7.4 g/dL (6.4-8.2); Sodium Level 140 mmol/L (136-145); Thyroid Stim Hormone (TSH) 2.57 uIU/mL (0.358-3.74)
== END | disposition home or self-care (01) ==
LOC: LAB 16:13
PROVIDERS: PCP Family Medicine Geriatric Medicine; Referring Provider Family Medicine Geriatric Medicine; Visit Provider Family Medicine Geriatric Medicine
DX: I10 Essential (primary) hypertension (principal); E55.9 Vitamin D deficiency, unspecified
CPT/HCPCS: 36415; 80053; 82306; 84443; 85025

== ENCOUNTER 2023-10-20 10:28 | Outpatient (CLI) | payer MEDICARE, OTHER, SELFPAY ==
[2023-10-20] MEDS: 0.9% NaCl Peripheral Flush Adult/Peds IV (11:12)
[2023-10-20] MEDS: Acetaminophen 325 MG Tablet 650 MG PO (11:15)
[2023-10-20] MEDS: DiphenhydrAMINE 50 MG/ML Syringe 25 MG IV (11:16)
[2023-10-20 11:21] VITALS: BP 160/72; PULSE 84; RESP 16; TEMP 36.5; BMI 23.3
[2023-10-20] MEDS: PREMIXED IV ×2 (11:40→12:31)
[2023-10-20] MEDS: IMMUNE GLOBULIN IV ×2 (11:40→12:31)
== END 2023-10-20 23:59 | disposition home or self-care (01) ==
LOC: MEDOUTP 10:28
PROVIDERS: PCP Family Medicine Geriatric Medicine; Referring Provider Family Medicine Geriatric Medicine; Visit Provider Family Medicine Geriatric Medicine
DX: D80.0 Hereditary hypogammaglobulinemia (principal)
CPT/HCPCS: 96365; 96375; 96366; J7050; A4216; J1568

== ENCOUNTER 2023-11-17 10:34 | Outpatient (CLI) | payer MEDICARE, OTHER, SELFPAY ==
[2023-11-17] MEDS: Acetaminophen 325 MG Tablet 650 MG PO (10:53)
[2023-11-17] MEDS: DiphenhydrAMINE 50 MG/ML Syringe 25 MG IV (10:53)
[2023-11-17] MEDS: 0.9% NaCl IVPB Med Flush (250 mL) 15 ML IV (11:00)
[2023-11-17] MEDS: 0.9% NaCl Peripheral Flush Adult/Peds IV ×2 (11:00→13:10)
[2023-11-17 11:02] VITALS: BP 156/119; PULSE 91; RESP 16; TEMP 36.8; O2SAT 97; BMI 23.6
[2023-11-17] MEDS: Immune Globulin 10 gm 10 GM/100 ML VIAL IV (11:28)
== END 2023-11-17 23:59 | disposition home or self-care (01) ==
LOC: MEDOUTP 10:35
PROVIDERS: PCP Family Medicine Geriatric Medicine; Referring Provider Family Medicine Geriatric Medicine; Visit Provider Family Medicine Geriatric Medicine
DX: D80.0 Hereditary hypogammaglobulinemia (principal)
CPT/HCPCS: 96365; 96366; J7050; A4216; J1568

== ENCOUNTER 2023-12-15 10:24 | Outpatient (CLI) | payer MEDICARE, OTHER, SELFPAY ==
[2023-12-15 10:37] VITALS: BP 153/72; PULSE 91; RESP 16; TEMP 36.6; O2SAT 100; BMI 23.8
[2023-12-15] MEDS: 0.9% NaCl Peripheral Flush Adult/Peds IV (10:49)
[2023-12-15] MEDS: DiphenhydrAMINE 50 MG/ML Syringe 25 MG IV (10:49)
[2023-12-15] MEDS: Acetaminophen 325 MG Tablet 650 MG PO (10:50)
[2023-12-15] MEDS: 0.9% Normal Saline (100mL Bag) 100 ML 15 ML IV (10:50)
[2023-12-15] MEDS: Immune Globulin 10 gm 10 GM/100 ML VIAL IV (11:25)
== END 2023-12-15 23:59 | disposition home or self-care (01) ==
LOC: MEDOUTP 10:25
PROVIDERS: PCP Family Medicine Geriatric Medicine; Referring Provider Family Medicine Geriatric Medicine; Visit Provider Family Medicine Geriatric Medicine
DX: D80.0 Hereditary hypogammaglobulinemia (principal)
CPT/HCPCS: 96365; 96366; 96375; 96361; A4216; J1568

== ENCOUNTER 2024-01-26 10:23 | Outpatient (CLI) | payer MEDICARE, OTHER, SELFPAY ==
[2024-01-26 10:31] VITALS: BP 146/86; PULSE 80; RESP 16; TEMP 36.2; O2SAT 96
[2024-01-26] MEDS: 0.9% NaCl Peripheral Flush Adult/Peds IV (10:38)
[2024-01-26] MEDS: Acetaminophen 325 MG Tablet 650 MG PO (10:47)
[2024-01-26] MEDS: DiphenhydrAMINE 50 MG/ML Syringe 25 MG IV (10:47)
[2024-01-26] MEDS: Immune Globulin 10 gm 10 GM/100 ML VIAL IV (11:10)
== END 2024-01-26 23:59 | disposition home or self-care (01) ==
LOC: MEDOUTP 10:24
PROVIDERS: PCP Family Medicine Geriatric Medicine; Referring Provider Family Medicine Geriatric Medicine; Visit Provider Family Medicine Geriatric Medicine
DX: D80.0 Hereditary hypogammaglobulinemia (principal)
CPT/HCPCS: 96365; 96366; 96375; A4216; J1568

== ENCOUNTER 2024-02-23 10:19 | Outpatient (CLI) | payer MEDICARE, OTHER, SELFPAY ==
[2024-02-23] MEDS: 0.9% NaCl IVPB Med Flush (250 mL) 15 ML IV (10:40)
[2024-02-23] MEDS: Acetaminophen 325 MG Tablet 650 MG PO (10:40)
[2024-02-23] MEDS: 0.9% NaCl Peripheral Flush Adult/Peds IV (10:40)
[2024-02-23] MEDS: DiphenhydrAMINE 50 MG/ML Syringe 25 MG IV (10:42)
[2024-02-23 10:48] VITALS: BP 136/69; PULSE 85; RESP 16
[2024-02-23] MEDS: Immune Globulin 10 gm 10 GM/100 ML VIAL IV (11:03)
== END 2024-02-23 23:59 | disposition home or self-care (01) ==
LOC: MEDOUTP 10:19
PROVIDERS: PCP Family Medicine Geriatric Medicine; Referring Provider Family Medicine Geriatric Medicine; Visit Provider Family Medicine Geriatric Medicine
DX: D80.0 Hereditary hypogammaglobulinemia (principal)
CPT/HCPCS: 96365; 96375; 96366; J7050; A4216; J1568

== ENCOUNTER 2024-03-22 10:22 | Outpatient (CLI) | payer MEDICARE, OTHER, SELFPAY ==
[2024-03-22 10:44] VITALS: BP 143/63; PULSE 89; RESP 16; TEMP 36.6; O2SAT 100; BMI 24.3
[2024-03-22] MEDS: DiphenhydrAMINE 50 MG/ML Syringe 25 MG IV (10:55)
[2024-03-22] MEDS: 0.9% NaCl Peripheral Flush Adult/Peds IV ×2 (10:55→10:56)
[2024-03-22] MEDS: Acetaminophen 325 MG Tablet 650 MG PO (10:55)
[2024-03-22] MEDS: Immune Globulin 10 gm 10 GM/100 ML VIAL IV (11:23)
== END 2024-03-22 23:59 | disposition home or self-care (01) ==
LOC: MEDOUTP 10:23
PROVIDERS: PCP Family Medicine Geriatric Medicine; Referring Provider Family Medicine Geriatric Medicine; Visit Provider Family Medicine Geriatric Medicine
DX: D80.0 Hereditary hypogammaglobulinemia (principal)
CPT/HCPCS: 96365; 96366; 96375; A4216; J1568

== ENCOUNTER 2024-04-19 10:30 | Outpatient (CLI) | payer MEDICARE, OTHER, SELFPAY ==
[2024-04-19 11:03] VITALS: BP 155/66; PULSE 99; RESP 16; TEMP 36.5; O2SAT 100; BMI 24.3
[2024-04-19] MEDS: Acetaminophen 325 MG Tablet 650 MG PO (11:54)
[2024-04-19] MEDS: DiphenhydrAMINE 50 MG/ML Syringe 25 MG IV (11:54)
[2024-04-19] MEDS: 0.9% NaCl Peripheral Flush Adult/Peds IV ×3 (11:55→12:01)
[2024-04-19] MEDS: Immune Globulin 10 gm 10 GM/100 ML VIAL IV (12:12)
== END 2024-04-19 23:59 | disposition home or self-care (01) ==
LOC: MEDOUTP 10:30
PROVIDERS: PCP Family Medicine Geriatric Medicine; Referring Provider Family Medicine Geriatric Medicine; Visit Provider Family Medicine Geriatric Medicine
DX: D80.0 Hereditary hypogammaglobulinemia (principal)
CPT/HCPCS: 96365; 96366; 96375; A4216; J1568

== ENCOUNTER → 2024-04-22 | Outpatient (CLI) | payer MEDICARE, OTHER, SELFPAY ==
[2024-04-22 13:37] LABS: Absolute Lymphocyte Count 1.54 X10^3/uL (0.83-4.51); Basophil# 0.02 X10^3/uL; Basophil% 0.4 % (0-1); Eosinophil# 0.04 X10^3/uL; Eosinophils% 0.8 % (0-5); Hematocrit 44.3 % (37-47); Hemoglobin 14.6 g/dL (12.0-15.0); Lymphocyte # 1.54 X10^3/ul (0.83-4.51); Lymphocyte % 30.5 % (19-41); Mean Corpuscular Hgb 30.9 pg (27.0-32.0); Mean Corpuscular Volume 93.9 fL (81-99); Mean Platelet Vol. 11.3 fl (6.2-12.0); Monocyte# 0.44 X10^3/uL; Monocyte% 8.7 % (0-10); NRBC Flagged by Analyzer 0 % (0-5); Neutrophil % 59.4 % (47-70); Platelet Count 203 K/mm3 (150-450); RBC Distribution Width CV 11.8 % (11.6-14.6); RBC Distribution Width SD 40.9 fl (35.1-43.9); Red Blood Count 4.72 M/mm3 (4.2-5.4); White Blood Count 5.1 K/mm3 (4.4-11.0)
[2024-04-22 14:05] LABS: Vitamin D,25 Hydroxy 15.4 ng/mL
[2024-04-22 14:11] LABS: ALB/GLOB Ratio 1.1 RATIO (0.9-2.4); AST(SGOT) 33 U/L (15-37); Alanine Aminotransfer ALT/SGPT 29 U/L (13-56); Albumin, Serum 4.1 g/dL (3.2-5.0); Alkaline Phosphatase 79 U/L (45-117); Anion Gap 5 (5-15); BUN 15 mg/dL (7-18); BUN/Creat Ratio 16.4 RATIO (10-20); Calcium,Total 9.3 mg/dL (8.5-10.1); Chloride 104 mmol/L (98-107); Creatinine, Serum 0.92 mg/dL (0.55-1.02); EST Glomerular Filtration Rate 63 mL/min (>60); Est Glom Filt Rate - Afr Amer 76 mL/min (>60); Globulin 3.8 g/dL (2.2-4.2); Glucose 137 mg/dL (74-106); Potassium 3.4 mmol/L (3.5-5.1); Protein, Total 7.9 g/dL (6.4-8.2); Sodium Level 139 mmol/L (136-145)
[2024-04-23 11:12] LABS: Hemoglobin A1c 5.2 % (3.8-5.6)
== END | disposition home or self-care (01) ==
LOC: POLAB3 13:04
PROVIDERS: PCP Family Medicine Geriatric Medicine; Visit Provider Family Medicine Geriatric Medicine
DX: I10 Essential (primary) hypertension (principal); E55.9 Vitamin D deficiency, unspecified; R73.09 Other abnormal glucose
CPT/HCPCS: 36415; 80053; 82306; 83036; 84443; 85025

== ENCOUNTER 2024-05-17 11:43 | Outpatient (CLI) | payer MEDICARE, OTHER, SELFPAY ==
[2024-05-17] MEDS: Acetaminophen 325 MG Tablet 650 MG PO (11:55)
[2024-05-17] MEDS: DiphenhydrAMINE 50 MG/ML Syringe 25 MG IV (12:00)
[2024-05-17 12:08] VITALS: BP 151/69; PULSE 66; RESP 16; TEMP 36.3; O2SAT 99
[2024-05-17] MEDS: Immune Globulin 10 gm 10 GM/100 ML VIAL IV (12:19)
[2024-05-17] MEDS: 0.9% NaCl Peripheral Flush Adult/Peds IV (12:23)
[2024-05-17] MEDS: 0.9% NaCl IVPB Med Flush (250 mL) 15 ML IV (12:23)
== END 2024-05-17 23:59 | disposition home or self-care (01) ==
LOC: MEDOUTP 11:43
PROVIDERS: PCP Family Medicine Geriatric Medicine; Referring Provider Family Medicine Geriatric Medicine; Visit Provider Family Medicine Geriatric Medicine
DX: D80.0 Hereditary hypogammaglobulinemia (principal)
CPT/HCPCS: 96365; 96366; 96375; A4216; J1568

== ENCOUNTER 2024-06-14 10:23 | Outpatient (CLI) | payer MEDICARE, OTHER, SELFPAY ==
[2024-06-14 10:58] VITALS: BP 166/80; PULSE 71; RESP 16; TEMP 36.6
[2024-06-14] MEDS: Acetaminophen 325 MG Tablet 650 MG PO (11:00)
[2024-06-14] MEDS: 0.9% NaCl Peripheral Flush Adult/Peds IV (11:00)
[2024-06-14] MEDS: 0.9% Normal Saline (100mL Bag) 100 ML 15 ML IV (11:01)
[2024-06-14] MEDS: DiphenhydrAMINE 50 MG/ML Syringe 25 MG IV (11:06)
[2024-06-14] MEDS: Immune Globulin 10 gm 10 GM/100 ML VIAL IV (11:28)
== END 2024-06-14 23:59 | disposition home or self-care (01) ==
LOC: MEDOUTP 10:25
PROVIDERS: PCP Family Medicine Geriatric Medicine; Referring Provider Family Medicine Geriatric Medicine; Visit Provider Family Medicine Geriatric Medicine
DX: D80.0 Hereditary hypogammaglobulinemia (principal)
CPT/HCPCS: 96365; 96366; 96375; A4216; J1568

== ENCOUNTER 2024-07-12 10:58 | Outpatient (CLI) | payer MEDICARE, OTHER, SELFPAY ==
[2024-07-12 11:12] VITALS: BP 168/70; PULSE 70; RESP 16; TEMP 36.5; O2SAT 100
[2024-07-12] MEDS: DiphenhydrAMINE 50 MG/ML Syringe 25 MG IV (12:11)
[2024-07-12] MEDS: Acetaminophen 325 MG Tablet 650 MG PO (12:11)
[2024-07-12] MEDS: 0.9% NaCl Peripheral Flush Adult/Peds IV (12:12)
[2024-07-12] MEDS: 0.9% Normal Saline (100mL Bag) 100 ML 15 ML IV (12:12)
[2024-07-12] MEDS: Immune Globulin 10 gm 10 GM/100 ML VIAL IV (12:43)
== END 2024-07-12 23:59 | disposition home or self-care (01) ==
LOC: MEDOUTP 10:58
PROVIDERS: PCP Family Medicine Geriatric Medicine; Referring Provider Family Medicine Geriatric Medicine; Visit Provider Family Medicine Geriatric Medicine
DX: D80.0 Hereditary hypogammaglobulinemia (principal)
CPT/HCPCS: 96365; 96366; 96375; A4216; J1568

== ENCOUNTER 2024-08-09 10:23 | Outpatient (CLI) | payer MEDICARE, OTHER, SELFPAY ==
[2024-08-09] MEDS: Acetaminophen 325 MG Tablet 650 MG PO (10:49)
[2024-08-09] MEDS: DiphenhydrAMINE 50 MG/ML Syringe 25 MG IV (10:49)
[2024-08-09 10:56] VITALS: BP 175/65; PULSE 63; RESP 16; TEMP 36.4; O2SAT 99; BMI 24.5
[2024-08-09] MEDS: Immune Globulin 10 gm 10 GM/100 ML VIAL IV (11:23)
== END 2024-08-09 23:59 | disposition home or self-care (01) ==
LOC: MEDOUTP 10:23
PROVIDERS: PCP Family Medicine Geriatric Medicine; Referring Provider Family Medicine Geriatric Medicine; Visit Provider Family Medicine Geriatric Medicine
DX: D80.0 Hereditary hypogammaglobulinemia (principal)
CPT/HCPCS: 96365; 96366; 96375; J1568

== ENCOUNTER 2024-09-06 10:25 | Outpatient (CLI) | payer MEDICARE, OTHER, SELFPAY ==
[2024-09-06 10:38] VITALS: BP 166/66; PULSE 62; RESP 16; TEMP 36.6; O2SAT 100; BMI 24.9
[2024-09-06] MEDS: DiphenhydrAMINE 50 MG/ML Syringe 25 MG IV (11:03)
[2024-09-06] MEDS: Acetaminophen 325 MG Tablet 650 MG PO (11:03)
[2024-09-06] MEDS: 0.9% NaCl IVPB Med Flush (100mL) 15 ML IV (11:06)
[2024-09-06] MEDS: Immune Globulin 10 gm 10 GM/100 ML VIAL IV (11:26)
== END 2024-09-06 23:59 | disposition home or self-care (01) ==
LOC: MEDOUTP 10:25
PROVIDERS: PCP Family Medicine Geriatric Medicine; Referring Provider Family Medicine Geriatric Medicine; Visit Provider Family Medicine Geriatric Medicine
DX: D80.0 Hereditary hypogammaglobulinemia (principal)
CPT/HCPCS: 96365; 96367; 96375; A4216; J1568

== ENCOUNTER 2024-10-04 10:36 | Outpatient (CLI) | payer MEDICARE, OTHER, SELFPAY ==
[2024-10-04 11:02] VITALS: BP 148/67; PULSE 74; RESP 16; TEMP 35.9; O2SAT 100; BMI 24.9
[2024-10-04] MEDS: 0.9% NaCl Peripheral Flush Adult IV (11:08)
[2024-10-04] MEDS: DiphenhydrAMINE 50 MG/ML Syringe 25 MG IV (11:09)
[2024-10-04] MEDS: Acetaminophen 325 MG Tablet 650 MG PO (11:09)
[2024-10-04] MEDS: Immune Globulin 10 gm 10 GM/100 ML VIAL IV (11:44)
== END 2024-10-04 23:59 | disposition home or self-care (01) ==
LOC: MEDOUTP 10:37
PROVIDERS: PCP Family Medicine Geriatric Medicine; Referring Provider Family Medicine Geriatric Medicine; Visit Provider Family Medicine Geriatric Medicine
DX: D80.0 Hereditary hypogammaglobulinemia (principal)
CPT/HCPCS: 96365; 96366; A4216; J1568

== ENCOUNTER 2024-11-01 10:27 | Outpatient (CLI) | payer MEDICARE, OTHER, SELFPAY ==
[2024-11-01] MEDS: DiphenhydrAMINE 50 MG/ML Syringe 25 MG IV (10:51)
[2024-11-01] MEDS: Acetaminophen 325 MG Tablet 650 MG PO (10:51)
[2024-11-01] MEDS: 0.9% NaCl IVPB Med Flush (100mL) 15 ML IV (10:53)
[2024-11-01] MEDS: 0.9% NaCl Peripheral Flush Adult IV (10:53)
[2024-11-01 10:59] VITALS: BP 151/83; PULSE 70; RESP 16; TEMP 36.1; O2SAT 98; BMI 24.6
[2024-11-01] MEDS: Immune Globulin 10 gm 10 GM/100 ML VIAL IV (11:25)
== END 2024-11-01 23:59 | disposition home or self-care (01) ==
LOC: MEDOUTP 10:27
PROVIDERS: PCP Family Medicine Geriatric Medicine; Referring Provider Family Medicine Geriatric Medicine; Visit Provider Family Medicine Geriatric Medicine
DX: D80.0 Hereditary hypogammaglobulinemia (principal)
CPT/HCPCS: 96365; 96366; A4216; J1568

== ENCOUNTER 2024-11-05 16:36 | Outpatient (CLI) | payer MEDICARE, OTHER, SELFPAY | END 2024-11-05 23:59 | disposition home or self-care (01) | LOC: LABSPEC 16:37 | PROVIDERS: PCP Family Medicine Geriatric Medicine; Referring Provider Family Medicine Geriatric Medicine; Visit Provider Family Medicine Geriatric Medicine | DX: R05.9 Cough, unspecified (principal) | CPT/HCPCS: 87631 ==

== ENCOUNTER 2024-11-29 10:08 | Outpatient (CLI) | payer MEDICARE, OTHER, SELFPAY ==
[2024-11-29] MEDS: 0.9% NaCl IVPB Med Flush (250 mL) 15 ML IV (10:45)
[2024-11-29] MEDS: 0.9% NaCl Peripheral Flush Adult IV (10:48)
[2024-11-29] MEDS: Acetaminophen 325 MG Tablet 650 MG PO (10:48)
[2024-11-29] MEDS: DiphenhydrAMINE 50 MG/ML Syringe 25 MG IV (10:49)
[2024-11-29 10:55] VITALS: BP 144/74; PULSE 70; RESP 16; TEMP 35.9; O2SAT 100
[2024-11-29] MEDS: Immune Globulin 10 gm 10 GM/100 ML VIAL IV (11:10)
== END 2024-11-29 23:59 | disposition home or self-care (01) ==
LOC: MEDOUTP 10:08
PROVIDERS: PCP Family Medicine Geriatric Medicine; Referring Provider Family Medicine Geriatric Medicine; Visit Provider Family Medicine Geriatric Medicine
DX: D80.0 Hereditary hypogammaglobulinemia (principal)
CPT/HCPCS: 96365; 96366; 96375; A4216; J1568

== ENCOUNTER 2024-12-27 09:54 | Outpatient (CLI) | payer MEDICARE, OTHER, SELFPAY ==
[2024-12-27 10:26] VITALS: PULSE 73; RESP 16; TEMP 37.1; O2SAT 99; BMI 24.0
[2024-12-27] MEDS: 0.9% NaCl Peripheral Flush Adult IV (11:06)
[2024-12-27] MEDS: DiphenhydrAMINE 50 MG/ML Syringe 25 MG IV (11:08)
[2024-12-27] MEDS: Immune Globulin 10 gm 10 GM/100 ML VIAL IV (11:45)
== END 2024-12-27 23:59 | disposition home or self-care (01) ==
PROVIDERS: PCP Family Medicine Geriatric Medicine; Referring Provider Family Medicine Geriatric Medicine; Visit Provider Family Medicine Geriatric Medicine
DX: D80.0 Hereditary hypogammaglobulinemia (principal)
CPT/HCPCS: 96365; 96366; 96375; A4216; J1568

== ENCOUNTER 2025-01-24 10:19 | Outpatient (CLI) | payer MEDICARE, OTHER, SELFPAY ==
[2025-01-24] MEDS: DiphenhydrAMINE 50 MG/ML Syringe 25 MG IV (10:46)
[2025-01-24 10:51] VITALS: BP 158/84; PULSE 66; RESP 16; TEMP 36.7; O2SAT 100
[2025-01-24] MEDS: 0.9% NaCl Peripheral Flush Adult IV (10:53)
[2025-01-24] MEDS: Immune Globulin 10 gm 10 GM/100 ML VIAL IV (11:10)
== END 2025-01-24 23:59 | disposition home or self-care (01) ==
LOC: MEDOUTP 10:20
PROVIDERS: PCP Family Medicine Geriatric Medicine; Referring Provider Family Medicine Geriatric Medicine; Visit Provider Family Medicine Geriatric Medicine
DX: D80.0 Hereditary hypogammaglobulinemia (principal)
CPT/HCPCS: 96365; 96366; 96375; A4216; J1568

== ENCOUNTER 2025-02-21 10:24 | Outpatient (CLI) | payer MEDICARE, OTHER, SELFPAY ==
[2025-02-21] MEDS: DiphenhydrAMINE 50 MG/ML Syringe 25 MG IV (11:09)
[2025-02-21 11:18] VITALS: BP 137/71; PULSE 66; RESP 16; O2SAT 95
[2025-02-21] MEDS: Immune Globulin 10 gm 10 GM/100 ML VIAL IV (11:30)
== END 2025-02-21 23:59 | disposition home or self-care (01) ==
LOC: MEDOUTP 10:25
PROVIDERS: PCP Family Medicine Geriatric Medicine; Referring Provider Family Medicine Geriatric Medicine; Visit Provider Family Medicine Geriatric Medicine
DX: D80.0 Hereditary hypogammaglobulinemia (principal)
CPT/HCPCS: 96365; 96366; 96375; A4216; J1568

== ENCOUNTER 2025-03-21 10:25 | Outpatient (CLI) | payer MEDICARE, OTHER, SELFPAY ==
[2025-03-21 10:47] VITALS: BP 161/66; PULSE 70; RESP 16; TEMP 36.2; O2SAT 100; BMI 25.0
[2025-03-21] MEDS: 0.9% NaCl Peripheral Flush Adult IV (10:51)
[2025-03-21] MEDS: DiphenhydrAMINE 50 MG/ML Syringe 25 MG IV (11:17)
[2025-03-21] MEDS: Immune Globulin 10 gm 10 GM/100 ML VIAL IV (11:54)
== END 2025-03-21 23:59 | disposition home or self-care (01) ==
LOC: MEDOUTP 10:25
PROVIDERS: PCP Family Medicine Geriatric Medicine; Referring Provider Family Medicine Geriatric Medicine; Visit Provider Family Medicine Geriatric Medicine
DX: D80.0 Hereditary hypogammaglobulinemia (principal)
CPT/HCPCS: 96365; 96366; 96375; A4216; J1568

== ENCOUNTER 2025-04-18 10:23 | Outpatient (CLI) | payer MEDICARE, OTHER, SELFPAY ==
[2025-04-18] MEDS: 0.9% NaCl Peripheral Flush Adult IV (11:11)
[2025-04-18] MEDS: DiphenhydrAMINE 50 MG/ML Syringe 25 MG IV (11:12)
[2025-04-18] MEDS: 0.9% NaCl IVPB Med Flush (100mL) 15 ML IV (11:12)
[2025-04-18 11:22] VITALS: BP 168/74; PULSE 70; RESP 16; TEMP 36; O2SAT 98; BMI 25.4
[2025-04-18] MEDS: Immune Globulin 10 gm 10 GM/100 ML VIAL IV (11:45)
== END 2025-04-18 23:59 | disposition home or self-care (01) ==
LOC: MEDOUTP 10:23
PROVIDERS: PCP Family Medicine Geriatric Medicine; Referring Provider Family Medicine Geriatric Medicine; Visit Provider Family Medicine Geriatric Medicine
DX: D80.0 Hereditary hypogammaglobulinemia (principal)
CPT/HCPCS: 96365; 96366; 96375; A4216; J1568

== ENCOUNTER → 2025-04-23 | Outpatient (CLI) | payer MEDICARE, OTHER, SELFPAY ==
[2025-04-23 13:59] LABS: Hematocrit 42.4 % (37-47); Hemoglobin 14.3 g/dL (12.0-15.0); Immature Granulocytes Count 0.010 X10^3/uL (0.0-0.0); Mean Corp Hgb Conc 33.7 g/dL (32-36); Mean Corpuscular Volume 96.4 fL (81-99); Mean Platelet Vol. 11.7 fl (6.2-12.0); NRBC Flagged by Analyzer 0 % (0-5); Platelet Count 174 K/mm3 (150-450); RBC Distribution Width CV 11.9 % (11.6-14.6); RBC Distribution Width SD 42.5 fl (35.1-43.9); Red Blood Count 4.40 M/mm3 (4.2-5.4); White Blood Count 5.1 K/mm3 (4.4-11.0)
[2025-04-23 15:06] LABS: AST(SGOT) 40 U/L (<=31); Alanine Aminotransfer ALT/SGPT 27 U/L (<=34); Albumin, Serum 4.2 g/dL (3.4-4.8); Alkaline Phosphatase 66 U/L (35-104); Anion Gap 7 (5-15); BUN 9 mg/dL (4-19); BUN/Creat Ratio 10.6 RATIO (10-20); Calcium,Total 9.1 mg/dL (7.6-11.0); Carbon Dioxide 25.5 mmol/L (21.0-32.0); Chloride 106 mmol/L (98-108); Globulin 3.0 g/dL (2.2-4.2); Glucose 91 mg/dL (70-99); Potassium 4.2 mmol/L (3.3-5.1); Vitamin D,25 Hydroxy 14.1 ng/mL (30-100)
[2025-04-23 21:09] LABS: Xtra Tube Kwok EXTRA TUBE
== END | disposition home or self-care (01) ==
LOC: POLAB3 13:09
PROVIDERS: PCP Family Medicine Geriatric Medicine; Visit Provider Family Medicine Geriatric Medicine
DX: I10 Essential (primary) hypertension (principal); E55.9 Vitamin D deficiency, unspecified
CPT/HCPCS: 36415; 80053; 82306; 84443; 85025

== ENCOUNTER 2025-05-16 10:21 | Outpatient (CLI) | payer MEDICARE, OTHER, SELFPAY ==
[2025-05-16 10:35] VITALS: BP 160/82; PULSE 72; RESP 16; TEMP 35.9; O2SAT 98; BMI 25.0
--- OUTSIDE RECORDS SUMMARY | 2025-05-16 10:46 | XMS RPT_ITS | CCD ---
Author Organization [facility] Care Team Providers Care Human Resources Advisor Name Role Phone Isa Woodard Unavailable ADEOLA PACHECO Referring Unavailable ELIANISA Primary Care Unavailable Ari Medina Chi Primary Care Provider Ari Medina Chi Unavailable ISA WOODARD Primary Care Unavailable CARLITOS VALENCIA Admitting Unavailable CARLITOS VALENCIA Attending Unavailable Sánchez LOTT, Dr. Ari Lucero Primary Care Provider [phone] Sánchez LOTT, Dr. Ari Lucero Attending Provider [phone] Sánchez LOTT, Dr. Ari Lucero Referring Provider [phone] Sánchez LOTT, Dr. Ari Lucero Primary Care Provider [phone] Sánchez LOTT, Dr. Ari Lucero Attending Provider [phone] Sánchez LOTT, Dr. Ari Lucero Referring Provider [phone] Sánchez LOTT, Dr. Ari Lucero Primary Care Provider [phone] Sánchez LOTT, Dr. Ari Lucero Attending Provider [phone] Sánchez LOTT, Dr. Ari Lucero Referring Provider Sánchez LOTT, Dr. Ari Lucero Primary Care Provider [phone] Sánchez LOTT, Dr. Ari Lucero Attending Provider [phone] Sánchez LOTT, Dr. Ari Lucero Referring Provider ARI MEDINA CHI Primary Care Unavailable BIANKA OLMOS Attending Unavailable ARI MEDINA CHI Primary Care Unavailable SELF Referring Unavailable BIANKA OLMOS Attending Unavailable Sánchez LOTT, Dr. Ari Lucero Primary Care Provider [phone] Sánchez LOTT, Dr. Ari Lucero Attending Provider Dr. Ari Medina MD, Chi Referring Provider Sánchez LOTT, Dr. Ari Lucero Primary Care Provider Sánchez LOTT, Dr. Ari Lucero Attending Provider Dr. Ari Medina MD, Chi Referring Provider SÁNCHEZ, ARI CHI Primary Care Unavailable SLEIK, KHALED MELOUD Referring Unavailable SLEIK, KHALED MELOUD Attending Unavailable SÁNCHEZ, ARI CHI Primary Care Unavailable MICHAEL, LORETTA Referring Unavailable SÁNCHEZ, ARI CHI Primary Care Unavailable SLEIK, KHALED MELOUD Referring Unavailable SLEIK, KHALED MELOUD Attending Unavailable MIKULA, BIANKA Referring Unavailable SÁNCHEZ, ARI CHI Primary Care Unavailable SLEIK, KHALED MELOUD Attending Unavailable Sánchez LOTT, Dr. Ari Lucero Primary Care Physician Sánchez LOTT, Dr. Ari Lucero Attending Physician Dr. Ari Medina MD, Chi Referring Provider Sánchez LOTT, Dr. Ari Lucero Primary Care Physician Sánchez LOTT, Dr. Ari Lucero Attending Physician Dr. Ari Medina MD, Chi Referring Provider Sánchez, Ari Chi Attending Unavailable Sánchez, Ari Chi Primary Care Unavailable Sánchez, Ari Chi Referring Unavailable Sánchez, Ari Chi Primary Care Unavailable Sánchez, Ari Chi Attending Unavailable Sánchez, Ari Chi Referring Unavailable Sánchez, Ari Chi Referring Unavailable Sánchez, Ari Chi Primary Care Unavailable Sánchez, Ari Chi Attending Unavailable Sánchez, Ari Chi Referring Unavailable Sánchez, Ari Chi Primary Care Unavailable Sánchez, Ari Chi Attending Unavailable Sánchez, Ari Chi Referring Unavailable Sánchez, Ari Chi Primary Care Unavailable Sánchez, Ari Chi Attending Unavailable Sánchez, Ari Chi Attending Unavailable Sánchez, [...] Unavailable Sánchez, Ari Chi Primary Care Unavailable Snáchez, Ari Chi Attending Unavailable Sánchez, Ari Chi Referring Unavailable Sánchez, Ari Chi Primary Care Unavailable Sánchez, Ari Chi Attending Unavailable Sánchez, Ari Chi Referring Unavailable Sánchez, Ari Chi Primary Care Unavailable Sánchez, Ari Chi Referring Unavailable Sánchez, Ari Chi Primary Care Unavailable Sánchez, Ari Chi Attending Unavailable Sánchez, Ari Chi Attending Unavailable Sánchez, Ari Chi Referring Unavailable Sánchez, Ari Chi Primary Care Unavailable Sánchez, Ari Chi Attending Unavailable Sánchez, Ari Chi Primary Care Unavailable Sánchez, Ari Chi Referring Unavailable Sánchez, Ari Chi Attending Unavailable Sánchez, Ari Chi Primary Care Unavailable Sánchez, Ari Chi Referring Unavailable Allergies Allergy Classification Reported Allergen(s) Allergy Type Date of Onset Reaction(s) Facility (2 sources) Adhesive agent; Translations: [ADHESIVE] Propensity to adverse reactions to drug (disorder) 8 [facility] (12 sources) Chocolate; Translations: [CHOCOLATE] Propensity to adverse reactions to food (disorder) 3 [facility] (2 sources) Lactase; Translations: [LACTASE] Drug Allergy 3 [facility] (2 sources) tree nut, unspecified; Translations: [TREE NUTS] Propensity to adverse reactions to food (disorder) 3 [facility] (10 sources) nut - unspecified; Translations: [nut - unspecified] Allergy to substance 5 [facility] Medications Current Medications Medication Drug Class(es) Dates Sig (Normalized) Sig (Original) acetaminophen 300 mg / HYDROcodone bitartrate 5 mg oral tablet (12 sources) Opioid Agonist Start: 11-11-2021 take 1 tablet by mouth every eight hours Hydrocodone-Aceta minophen Active 1 TABLET PO Q8H 21 November 11, 2021 Start: 06-27-2021 take 1 tablet by luisa th every six hours Hydrocodone-Acetaminophen Active 1 TABLE T PO EVERY 6 HOURS 20 June 27, 2021 3:16pm Start: 06-17-2021 take 1 tablet by luisa th every four hours Hydrocodone-Acetaminophen Active 1 TABLE T PO Q4H 42 June 17, 2021 3:01pm aspirin 81 mg delayed release oral tablet (20 sources) Platelet Aggregation Inhibitor, Nonsteroidal Anti-inflammatory Drug Start: 06-01-2023 take 1 tablet by mouth once daily aspirin, enteric coated (ADULT LOW DOSE ASPIRIN) 81 mg EC tablet Take 1 tablet by mouth once daily. 06/01/2023 Active Start: 05-26-2023 take 1 capsule by mouth once d aily atorvastatin 40 mg oral tablet (20 sources) HMG-CoA Reductase Inhibitor Start: 05-26-2023 take 1 tablet by mouth once daily citalopram 40 mg oral tablet (9 sources) Serotonin Reuptake Inhibitor Start: 12-02-2014 take 1 tablet by mouth once daily Citalopram (Celexa) 40 MG tablet Active 40 MG PO DAILY December 01, 2014 11:00pm hydroCHLOROthiazide 12.5 mg / lisinopril 20 mg oral tablet (9 sources) Thiazide Diuretic, Angiotensin Converting Enzyme Inhibitor Start: 03-15-2019 take 1 tablet by mouth once daily Lisinopril-Hydr ochlorothiazide Active 1 TAB PO DAILY March 14, 2019 11:00pm levothyroxine sodium 0.025 mg oral tablet (20 sources) l-Thyroxine Start: 05-11-2022 take 1 tablet by mouth once daily Start: 12-02-2014 take 100 ug by mouth once daily Levothyroxine Active 100 MCG PO DAILY December 01, 2014 11:00pm linaclotide 0.145 mg oral capsule (20 sources) Guanylate Cyclase-C Agonist Start: 05-11-2022 take 1 capsule by mouth once daily as needed for constipation losartan potassium 25 mg oral tablet (20 sources) Angiotensin 2 Receptor Katharine Start: 06-01-2023 take 1 tablet by mouth once daily losartan (COZAAR) 25 mg tablet Take 1 tablet by mouth once daily. 06/01/2023 Active Start: 02-03-2023 take 1 tablet by mouth once da margot Magnesium (9 sources) Start: 12-15-2023 take 1 tablet by mouth once da margot Start: 12-15-2023 take 1 tablet by luisa th once daily Magnesium 250 mg tablet Active 250 mg PO DAILY December 15, 2023 12:00am Complies with drug therapy Start: 12-15-2023 take 1 tablet by luisa th once daily Magnesium 250 mg tablet Active 250 mg PO DAILY December 15, 2023 12:00am Start: 12-15-2023 take 1 tablet by luisa th once daily Magnesium 250 mg tablet Active 250 mg PO DAILY December 14, 2023 11:00pm magnesium oxide 500 mg oral tablet (1 source) Start: 12-26-2024 take 1.5 tablets by mouth once daily Magnesium Oxide 500 mg magnesium tab Take 1.5 tablets by mouth once daily. 12/26/2024 Active metoprolol tartrate 25 mg oral tablet (6 sources) beta-Adrenergic Katharine Start: 04-29-2024 End: 05-27-2024 take 1 tablet by mouth twice daily metoprolol tartrate, short acting, (LOPRESSOR) 25 mg tablet take 1 tablet by mouth twice a day 180 tablet 3 05/27/2024 Active microencapsulated potassium chloride 20 meq extended release oral tablet (20 sources) Start: 05-08-2017 take 1 tablet by mouth twice daily traZODone hydrochloride 100 mg oral tablet (20 sources) Serotonin Reuptake Inhibitor Start: 12-02-2014 take 1 tablet by mouth at bedtime Completed/Discontinued Medications Medication Drug Class(es) Dates Sig (Normalized) Sig (Original) clopidogrel 75 mg oral tablet (16 sources) P2Y12 Platelet Inhibitor Start: 05-26-2023 End: 01-18-2024 take 1 tablet by mouth once daily Clopidogrel (Plavix) 75 mg tablet Discontinued 75 mg PO DAILY May 26, 2023 12:00am November 17, 2023 9:46am Problems Active Problems Problem Classification Problem Date Documented Da te Episodic/Chronic Acquired foot deformities (20 sources) Hallux valgus; Translations: [Hallux valgus (acquired)] Chronic Acute cerebrovascular disease (4 sources) Ischemic stroke; Translations: [Cerebral infarction, unspecified] Onset: 05-20-2023 01-18-2024 Chronic Cancer of breast (11 sources) Malignant neoplasm of female breast; Translations: [Malignant neoplasm of unspecified site of unspecified female breast] Onset: 10-18-2006 05-31-2021 Chronic Cardiac dysrhythmias (11 sources) Ventricular tachycardia; Translations: [Ventricular tachycardia (HCC)] Onset: 04-29-2024 02-09-2024 Chronic Coagulation and hemorrhagic disorders (11 sources) Blood coagulation disorder; Translations: [Coagulation defect, unspecified] Onset: 08-24-2007 08-24-2007 Chronic Diseases of white blood cells (11 sources) Other drug-induced agranulocytosis; Translations: [Drug induced neutropenia] Onset: 02-26-2007 02-26-2007 Chronic Disorders of lipid metabolism (6 sources) Pure hypercholesterolemi a; Translations: [Pure hypercholesterolemi a, unspecified] Onset: 04-29-2024 04-29-2024 Chronic Essential hypertension (4 sources) Essential hypertension; Translations: [Essential (primary) hypertension] Onset: 05-23-2024 01-18-2024 Chronic Immunity disorders (1 source) Hereditary hypogammaglobulinem ia; Translations: [Hereditary hypogammaglobulinem ia] Onset: 04-02-2025 Chronic Late effects of cerebrovascular disease (2 sources) Other sequelae of cerebral infarction; Translations: [Other sequelae of cerebral infarction] Onset: 05-20-2023 Chronic Nutritional deficiencies (11 sources) Vitamin D deficiency; Translations: [Vitamin D deficiency, unspecified] Onset: 07-24-2012 07-24-2012 Chronic Other and ill-defined cerebrovascular disease (5 sources) Cerebral arterial aneurysm; Translations: [Cerebral aneurysm, nonruptured] 11-21-2023 Chronic Other and ill-defined cerebrovascular disease (1 source) Intracranial aneurysm; Translations: [Cerebral aneurysm, nonruptured] 01-18-2024 Chronic Other and ill-defined cerebrovascular disease (1 source) Cerebral aneurysm, nonruptured; Translations: [Nonruptured cerebral aneurysm (HCC)] Onset: 12-19-2024 Chronic Other connective tissue disease (20 sources) Foot pain; Translations: [Pain in limb] 06-18-2021 Episodic Other connective tissue disease (10 sources) Muscle weakness; Translations: [Muscle weakness (generalized)] Episodic Other connective tissue disease (4 sources) Pain in left foot; Translations: [Pain in limb] Episodic Other connective tissue disease (20 sources) Capsulitis; Translations: [Other enthesopathies, not elsewhere classified] 11-12-2021 Episodic Other connective tissue disease (1 source) Other enthesopathies, not elsewhere classified; Translations: [Enthesopathy of ankle and tarsus, unspecified] Episodic Other connective tissue disease (2 sources) Pain in left foot; Translations: [Pain in left foot] 06-18-2021 Episodic Other nervous system disorders (10 sources) Finding related to ability to move; Translations: [Abnormality of gait] Episodic Other non-traumatic joint disorders (10 sources) Decreased range of ankle movement; Translations: [Stiffness of joint, not elsewhere classified, ankle and foot] Episodic Other upper respiratory infections (11 sources) Chronic sinusitis; Translations: [Chronic sinusitis, unspecified] Onset: 08-23-2007 08-23-2007 Chronic Thyroid disorders (11 sources) Hypothyroidism; Translations: [Hypothyroidism, unspecified] Onset: 09-18-2007 09-18-2007 Chronic Transient cerebral ischemia (2 sources) Transient cerebral ischemic attack, unspecified; Translations: [Transient cerebral ischemic attack, unspecified] Onset: 05-20-2023 Chronic Unclassified (1 source) Cough, unspecified; Translations: [Cough, unspecified] Onset: 12-02-2024 Past or Other Problems Problem Classification Problem Date Documented Date Episodic/Chronic Allergic reactions (20 sources) Generalized skin eruption due to drugs and medicaments taken internally; Translations: [Dermatitis due to drugs and medicines taken internally] Onset: 7 12-08-2006 Episodic Coagulation and hemorrhagic disorders (11 sources) Non-thrombocytopenic purpura; Translations: [Other nonthrombocytopenic purpura] Onset: 8 08-23-2007 Episodic Conditions associated with dizziness or vertigo (2 sources) Dizziness and giddiness; Translations: [Dizziness and giddiness] Onset: 3 Episodic Malaise and fatigue (11 sources) Malaise and fatigue; Translations: [Other malaise] Onset: 8 08-23-2007 Episodic Other circulatory disease (2 sources) Other specified symptoms and signs involving the circulatory and respiratory systems; Translations: [Other specified symptoms and signs involving the circulatory and respiratory systems] Onset: 3 Episodic Other lower respiratory disease (11 sources) Cough; Translations: [Cough] Onset: 7 04-16-2007 Episodic Other screening for suspected conditions (not mental disorders or infectious disease) (6 sources) Patient encounter status; Translations: [Encounter for screening for cardiovascular disorders] Onset: 4 04-29-2024 Episodic Other upper respiratory infections (11 sources) Acute sinusitis; Translations: [Acute sinusitis, unspecified] Onset: 7 04-12-2007 Episodic Results Test Name Value Interpretation Reference Range Facility [facility] 03-17-2025 CNOV Office Visit (CARDWS) ---- [address] ([id number]) 1945 F [place] Date Time Provider Department 03/17/25 1:00 PM LEROY BARRAGAN During your visit today, we recorded the following information about you: Pulse Blood pressure Weight 73/minute 160/95 63.6 kg Leroy Barragan MD 03/17/2025 1:59 PM Signed Leroy Barragan MD General Cardiology [address] [place] [address] [phone] Chief Complaint No chief complaint on file. HISTORY OF PRESENT ILLNESS: Mrs. Street is a 79-year-old female with a history of hyperlipidemia, ischemic stroke, and SVT, presenting for follow-up. The patient has a history of ischemic stroke with left-sided weakness, previously treated with tPA, and has since regained most of her function. She was evaluated six months ago for an abnormal Holter monitor, which revealed SVT. She remains asymptomatic with recurrent episodes of SVT and no evidence of atrial fibrillation on the monitor today. She denies palpitations, chest pain, or dyspnea but reports feeling more easily fatigued than previously, attributing this to her age. She describes a recent episode occurring a few nights ago at 4 a.m., characterized by a stinging sensation that necessitated shallow breathing for several minutes before resolving. She is uncertain if this episode is cardiac-related. She has two cerebral aneurysms currently under observation without active intervention. She does not monitor her blood pressure at home and is unsure why it was elevated during today's visit, noting that she had been sitting in her car for an extended period before the appointment. She is currently taking low-dose aspirin, atorvastatin 40 mg, losartan 25 mg, and metoprolol 25 mg. 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, not stated as uncontrolled (HCC) Unspecified hypothyroidism PAST SURGICAL HISTORY Procedure Laterality Date CHOLECYSTECTOMY Cholecystectomy INJ RADIOACTIVE TRACER FOR ID OF SENTINEL NODE 09-22-06 right INSJ TUNNELED CTR VAD W/SUBQ PORT AGE 5 YR/> 10-27-06 left MASTEC,MOD RADICAL 09-22-06 right STEREO LOC FOR CORE BRST BX RT 08-30-06 right THYROIDECTOMY TOTAL/COMPLETE right TONSILLECTOMY PRIMARY/SECONDARY Tonsillectomy FAMILY HISTORY Problem Relation Age of Onset Cancer Mother esophagus, lymph nodes Hypertension Mother Psychiatry Mother Cancer Father bladder, lung Coronary Artery Disease Father Ischemic Heart Disease Father Hypertension Father Stroke Father 70 Psychiatry Sister Diabetes Maternal Grandfather Stroke Paternal Grandmother Stroke Paternal Grandfather 80 SOCIAL HISTORY[1] ALLERGIES Allergen Reactions No Known Allergies Medications: Current Outpatient Medications Medication Sig Dispense Refill Magnesium Oxide 500 mg magnesium tab Take 1.5 tablets by mouth once daily. metoprolol tartrate, short acting, (LOPRESSOR) 25 mg tablet take 1 tablet by mouth twice a day 180 tablet 3 aspirin, enteric coated (ADULT LOW DOSE ASPIRIN) 81 mg EC tablet Take 1 tablet by mouth once daily. atorvastatin (LIPITOR) 40 mg tablet Take 1 tablet by mouth once daily. levothyroxine (SYNTHROID) 25 mcg tablet Take 1 tablet by mouth once daily. losartan (COZAAR) 25 mg tablet Take 1 tablet by mouth once daily. potassium chloride ER (KLOR-CON M20) 20 mEq tablet Take 1 tablet by mouth two times a day. traZODone (DESYREL) 100 mg tablet Take 100 mg by mouth daily at bedtime. No current facility-administer ed medications for this visit. Review of Systems Constitutional: Negative for chills, diaphoresis, fever, malaise/fatigue and weight loss. HENT: Negative for congestion, ear discharge, ear pain, hearing loss, nosebleeds, sinus pain, sore throat and tinnitus. Eyes: Negative for blurred vision, double vision, photophobia, pain, discharge and redness. Respiratory: Negative for cough, hemoptysis, sputum production, shortness of breath, wheezing and stridor. Cardiovascular: Negative for chest pain, palpitations, orthopnea, claudication, leg swelling and PND. Gastrointestinal: Negative for abdominal pain, blood in stool, constipation, diarrhea, heartburn, melena, nausea and vomiting. Genitourinary: Negative for dysuria, flank pain, frequency, hematuria and urgency. Musculoskeletal: Negative for back pain, falls, joint pain, myalgias and neck pain. Skin: Negative for itching and rash. Neurological: Negative for dizziness, tingling, tremors, sensory change (more content not included)... Normal [facility] MRA BRAIN WO IVCONon 025 MRA BRAIN WO IVCON * * *Final Report* * * DATE OF EXAM: Dec 19 2024 3:31PM [facility] [id number] - MRA BRAIN WO IVCON / PROCEDURE REASON: Nonruptured cerebral aneurysm (HCC) * * * * Physician Interpretation * * * * EXAMINATION: MRA BRAIN WO IVCON CLINICAL HISTORY: Nonruptured cerebral aneurysm (HCC) TECHNIQUE: Intracranial 3D [id number] MRA with post-processing performed at the modality and 2D multiplanar and 3D maximum intensity projections were created, reviewed and archived. MQ: MRAB_4 COMPARISON: MRA 11/21/2023.. RESULT: INTRACRANIAL MRA: No significant change in size of the 3-4 mm saccular aneurysm along the anterior commuting artery/left A1-A2 segments LASHONDA when compared to most recent prior MRI of 11/21/2023. No significant interval change in 2 mm focal outpouching of the of the right MCA bifurcation, likely representing a small aneurysm, compared to most recent prior MRI of 11/21/2023. No intracranial arterial stenosis, other aneurysm, or other lesion is identified. The left posterior communicating arteries within the limits. The right posterior communicating artery is not visualized. The intracranial internal carotid arteries and the proximal anterior, middle and posterior cerebral arteries otherwise appear normal. The left vertebral artery is dominant. The intracranial vertebral arteries and the basilar artery appear normal. The visualized predominantly proximal segments of the PICAs, AICAs and SCAs appear normal. IMPRESSION: No significant change in MR findings of the brain since 11/21/2023. Mitten Stitcher: MORTEZA Transcribe Date/Time: Dec 19 2024 3:42P Dictated by : BRYON ROCK MD This examination was interpreted and the report reviewed and electronically signed by: BRYON ROCK MD on Dec 19 2024 3:52PM EST [id number] Normal [facility] MRA Head vessels WO contrast on 12-19-2024 IMPRESSION: No significant change in MR findings of the brain since 11/21/2023. Mitten Stitcher: MORTEZA Transcribe Date/Time: Dec 19 2024 3:42P Dictated by : BRYON ROCK MD This examination was interpreted and the report reviewed and electronically signed by: BRYON ROCK MD on Dec 19 2024 3:52PM EST DIVISION OF RADIOLOGY * * *Final Report* * * DATE OF EXAM: Dec 19 2024 3:31PM [id number] [id number] - MRA BRAIN WO IVCON / PROCEDURE REASON: Nonruptured cerebral aneurysm (HCC) * * * * Physician Interpretation * * * * EXAMINATION: MRA BRAIN WO IVCON CLINICAL HISTORY: Nonruptured cerebral aneurysm (HCC) TECHNIQUE: Intracranial 3D [id number] MRA with post-processing performed at the modality and 2D multiplanar and 3D maximum intensity projections were created, reviewed and archived. MQ: MRAB_4 COMPARISON: MRA 11/21/2023.. RESULT: INTRACRANIAL MRA: No significant change in size of the 3-4 mm saccular aneurysm along the anterior commuting artery/left A1-A2 segments LASHONDA when compared to most recent prior MRI of 11/21/2023. No significant interval change in 2 mm focal outpouching of the of the right MCA bifurcation, likely representing a small aneurysm, compared to most recent prior MRI of 11/21/2023. No intracranial arterial stenosis, other aneurysm, or other lesion is identified. The left posterior communicating arteries within the limits. The right posterior communicating artery is not visualized. The intracranial internal carotid arteries and the proximal anterior, middle and posterior cerebral arteries otherwise appear normal. The left vertebral artery is dominant. The intracranial vertebral arteries and the basilar artery appear normal. The visualized predominantly proximal segments of the PICAs, AICAs and SCAs appear normal. DIVISION OF RADIOLOGY Provider, [facility] [place] [facility] - 12/19/2024 * * *Final Report* * * DATE OF EXAM: Dec 19 2024 3:31PM [facility] [id number] - MRA BRAIN WO IVCON / PROCEDURE REASON: Nonruptured cerebral aneurysm (HCC) * * * * Physician Interpretation * * * * EXAMINATION: MRA BRAIN WO IVCON CLINICAL HISTORY: Nonruptured cerebral aneurysm (HCC) TECHNIQUE: Intracranial 3D [id number] MRA with post-processing performed at the modality and 2D multiplanar and 3D maximum intensity projections were created, reviewed and archived. MQ: MRAB_4 COMPARISON: MRA 11/21/2023.. RESULT: INTRACRANIAL MRA: No significant change in size of the 3-4 mm saccular aneurysm along the anterior commuting artery/left A1-A2 segments LASHONDA when compared to most recent prior MRI of 11/21/2023. No significant interval change in 2 mm focal outpouching of the of the right MCA bifurcation, likely representing a small aneurysm, compared to most recent prior MRI of 11/21/2023. No intracranial arterial stenosis, other aneurysm, or other lesion is identified. The left posterior communicating arteries within the limits. The right posterior communicating artery is not visualized. The intracranial internal carotid arteries and the proximal anterior, middle and posterior cerebral arteries otherwise appear normal. The left vertebral artery is dominant. The intracranial vertebral arteries and the basilar artery appear normal. The visualized predominantly proximal segments of the PICAs, AICAs and SCAs appear normal. IMPRESSION IMPRESSION: No significant change in MR findings of the brain since 11/21/2023. Mitten Stitcher: [facility] Transcribe Date/Time: Dec 19 2024 3:42P Dictated by : BRYON ROCK MD This examination was interpreted and the report reviewed and electronically signed by: BRYON ROCK MD on Dec 19 2024 3:52PM EST [facility] Radiology Study observation (narrative) [facility] MRA Head vessels WO contrast Ordered By: [facility] Provider on 12-19-2024 [facility] Influenza virus A and B and SARS-CoV-2 (COVID-19) and Respiratory syncytial virus RNAOrdered By: Ari Medina on 11-05-2024 SARS-CoV-2 (COVID-19) RNA GISSELLE+probe Ql (Unsp spec) [facility] M100.678on 11-05-2024 M100.678 Pending SARS-CoV-2 (COVID 19) Negative INFLUENZA A Negative INFLUENZA B Negative RSV PCR Negative Normal [facility] Comment on above: Performed By: #### M 100.678 #### [facility] [place] [place], [address] CNOVon 08-19-2024 CNOV Office Visit (CARDWS) ---- [address] ([id number]) 1945 F UPA Date Time Provider Department 08/19/24 11:40 AM LEROY BARRAGAN During your visit today, we recorded the following information about you: Pulse Respiration Blood pressure Weight 63/minute 12/minute 134/76 66.2 kg Height 1.6 m Leroy Barragan MD 08/19/2024 12:09 PM Signed Leroy Barragan MD Interventional Cardiology [address] [place] [id number] [phone] Chief Complaint Patient presents with: Follow Up: 3 month follow up HISTORY OF PRESENT ILLNESS: Ms. 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 been monitored Zio patch for 14-day shows no evidence of atrial fibrillation just supraventricular Deny palpitation 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, not stated as uncontrolled (HCC) Unspecified hypothyroidism PAST SURGICAL HISTORY Procedure Laterality Date CHOLECYSTECTOMY Cholecystectomy INJ RADIOACTIVE TRACER FOR ID OF SENTINEL NODE 09-22-06 right INSJ TUNNELED CTR VAD W/SUBQ PORT AGE 5 YR/> 10-27-06 left MASTEC,MOD RADICAL 09-22-06 right STEREO LOC FOR CORE BRST BX RT 08-30-06 right THYROIDECTOMY TOTAL/COMPLETE right TONSILLECTOMY PRIMARY/SECONDARY Tonsillectomy FAMILY HISTORY Problem Relation Age of Onset Cancer Mother esophagus, lymph nodes Hypertension Mother Psychiatry Mother Cancer Father bladder, lung Coronary Artery Disease Father Ischemic Heart Disease Father Hypertension Father Stroke Father 70 Psychiatry Sister Diabetes Maternal Grandfather Stroke Paternal Grandmother Stroke Paternal Grandfather 80 Social History Tobacco Use Smoking status: Never Smokeless tobacco: Never Substance Use Topics Alcohol use: Yes Comment: occassion Drug use: No ALLERGIES Allergen Reactions No Known Allergies Medications: Current Outpatient Medications Medication Sig Dispense Refill metoprolol tartrate, short acting, (LOPRESSOR) 25 mg tablet take 1 tablet by mouth twice a day 180 tablet 3 aspirin, enteric coated (ADULT LOW DOSE ASPIRIN) 81 mg EC tablet Take 1 tablet by mouth once daily. atorvastatin (LIPITOR) 40 mg tablet Take 1 tablet by mouth once daily. levothyroxine (SYNTHROID) 25 mcg tablet Take 1 tablet by mouth once daily. losartan (COZAAR) 25 mg tablet Take 1 tablet by mouth once daily. potassium chloride ER (KLOR-CON M20) 20 mEq tablet Take 1 tablet by mouth two times a day. traZODone (DESYREL) 100 mg tablet Take 100 mg by mouth daily at bedtime. No current facility-administer ed medications for this visit. Review of Systems Constitutional: Negative for chills, diaphoresis, fever, malaise/fatigue and weight loss. HENT: Negative for congestion, ear discharge, ear pain, hearing loss, nosebleeds, sinus pain, sore throat and tinnitus. Eyes: Negative for blurred vision, double vision, photophobia, pain, discharge and redness. Respiratory: Negative for cough, hemoptysis, sputum production, shortness of breath, wheezing and stridor. Cardiovascular: Negative for chest pain, palpitations, orthopnea, claudication, leg swelling and PND. Gastrointestinal: Negative for abdominal pain, blood in stool, constipation, diarrhea, heartburn, melena, nausea and vomiting. Genitourinary: Negative for dysuria, flank pain, frequency, hematuria and urgency. Musculoskeletal: Negative for back pain, falls, joint pain, myalgias and neck pain. Skin: Negative for itching and rash. Neurological: Negative for dizziness, tingling, tremors, sensory change, speech change, focal weakness, seizures, loss of consciousness, weakness and headaches. Endo/Heme/Allergies : Negative for environmental allergies and polydipsia. Does not bruise/bleed easily. Psychiatric/Behavio ral: Negative for depression, hallucinations, memory loss, substance abuse and suicidal ideas. The patient is not nervous/anxious and does not have insomnia. Physical Examination: Vitals:BP 134/76 Pulse 63 Resp 12 Ht 5' 3 (1.60m) Wt 146 lb (66.2kg) SpO2 98% BMI 25.87 kg/(m2). BP w/Orthostatic Vitals Date and Time Orthostatic BP Or (more content not included)... Normal [facility] CNOVon 04-29-2024 CNOV Office Visit (CAWSTR) ---- [address] ([id number]) 1945 F UPA Date Time Provider Department 04/29/24 3:00 PM LEROY BARRAGAN CAWSTR During your visit today, we recorded the following information about you: Pulse Blood pressure Weight 108/minute 128/82 64.9 kg Leroy Barragan MD 04/29/2024 4:04 PM Signed Leroy Barragan MD Interventional Cardiology [address] [place] [phone] Chief Complaint Patient presents with: New Patient HISTORY OF PRESENT ILLNESS: Ms. 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 Denies chest pain or shortness of breath no angina no signs or symptoms of congestive heart failure 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, not stated as uncontrolled (HCC) Unspecified hypothyroidism PAST SURGICAL HISTORY Procedure Laterality Date CHOLECYSTECTOMY Cholecystectomy INJ RADIOACTIVE TRACER FOR ID OF SENTINEL NODE 09-22-06 right INSJ TUNNELED CTR VAD W/SUBQ PORT AGE 5 YR/> 10-27-06 left MASTEC,MOD RADICAL 09-22-06 right STEREO LOC FOR CORE BRST BX RT 08-30-06 right THYROIDECTOMY TOTAL/COMPLETE right TONSILLECTOMY PRIMARY/SECONDARY Tonsillectomy FAMILY HISTORY Problem Relation Age of Onset Cancer Mother esophagus, lymph nodes Hypertension Mother Psychiatry Mother Cancer Father bladder, lung Coronary Artery Disease Father Ischemic Heart Disease Father Hypertension Father Stroke Father 70 Psychiatry Sister Diabetes Maternal Grandfather Stroke Paternal Grandmother Stroke Paternal Grandfather 80 Social History Tobacco Use Smoking status: Never Smokeless tobacco: Never Substance Use Topics Alcohol use: Yes Comment: occassion Drug use: No ALLERGIES Allergen Reactions No Known Allergies Medications: Current Outpatient Medications Medication Sig Dispense Refill aspirin, enteric coated (ADULT LOW DOSE ASPIRIN) 81 mg EC tablet Take 1 tablet by mouth once daily. atorvastatin (LIPITOR) 40 mg tablet Take 1 tablet by mouth once daily. levothyroxine (SYNTHROID) 25 mcg tablet Take 1 tablet by mouth once daily. losartan (COZAAR) 25 mg tablet Take 1 tablet by mouth once daily. potassium chloride ER (KLOR-CON M20) 20 mEq tablet Take 1 tablet by mouth two times a day. traZODone (DESYREL) 100 mg tablet Take 100 mg by mouth daily at bedtime. metoprolol tartrate, short acting, (LOPRESSOR) 25 mg tablet Take 1 tablet by mouth two times a day. 60 tablet 3 No current facility-administer ed medications for this visit. Review of Systems Constitutional: Negative for chills, diaphoresis, fever, malaise/fatigue and weight loss. HENT: Negative for congestion, ear discharge, ear pain, hearing loss, nosebleeds, sinus pain, sore throat and tinnitus. Eyes: Negative for blurred vision, double vision, photophobia, pain, discharge and redness. Respiratory: Negative for cough, hemoptysis, sputum production, shortness of breath, wheezing and stridor. Cardiovascular: Negative for chest pain, palpitations, orthopnea, claudication, leg swelling and PND. Gastrointestinal: Negative for abdominal pain, blood in stool, constipation, diarrhea, heartburn, melena, nausea and vomiting. Genitourinary: Negative for dysuria, flank pain, frequency, hematuria and urgency. Musculoskeletal: Negative for back pain, falls, joint pain, myalgias and neck pain. Skin: Negative for itching and rash. Neurological: Negative for dizziness, tingling, tremors, sensory change, speech change, focal weakness, seizures, loss of consciousness, weakness and headaches. Endo/Heme/Allergies : Negative for environmental allergies and polydipsia. Does not bruise/bleed easily. Psychiatric/Behavio ral: Negative for depression, hallucinations, memory loss, substance abuse and suicidal ideas. The patient is not nervous/anxious and does not have insomnia. Physical Examination: Vitals:BP 128/82 Pulse 108 Wt 143 lb (64.9kg) SpO2 98% BP (more content not included)... Normal [facility] ECG COMPLETEon 04-29-2024 ECG COMPLETE Ventricular Rate : 95 BPM Atrial Rate : 95 BPM P-R Interval : 152 ms QRS Duration : 76 ms Q-T Interval : 378 ms QTC Calculation(Bazett) : 475 ms Calculated P Marion : 36 degrees Calculated R Marion : 14 degrees Calculated T Marion : 60 degrees NORMAL SINUS RHYTHM NORMAL ECG Confirmed by MD WRIGHT GREGORY () on 05/01/2024 12:59:22 PM NAME : [address] PID : [id number] : 1945 Gender : Female Race : ORD : [id number] Procedure Date : Apr 29 2024 15:08:52 Edit Date : May 01 2024 12:59:25 Diagnosis: NORMAL SINUS RHYTHM NORMAL ECG Confirmed by MD WRIGHT GREGORY () on 05/01/2024 12:59:22 PM Test Reason : Location : [facility] : [facility] Overread By : MD WRIGHT GREGORY Edited By : MD WRIGHT GREGORY Referred By : BIANKA OLMOS Acquired by : lh, Normal [facility] Hemoglobin A1con 04-23-2024 HbA1c (Bld) [Mass fraction] 5.2 % Normal 3.8-5.6 [facility] Comment on above: Order Comment: ADD O N FROM LABS DRAWN ON 04/22/24 *[id number] Result Comment: Norm al < 5.7 % Prediabetic 5.7 - 6.4 % Diabetic >or= 6.5 % Please note range changes. Performed By: #### L 501.9985, L500.4050, L501.9520, L100.0100, L506.1000 #### [facility] [address] [place], [address] [id number] DOrdered By: Mela Medina on 04-22-2024 Vitamin D 25-Hydroxy 15.4 ng/mL [facility] Comment on above: Vitamin D 25(OH) Sta tus Range Deficiency <20 ng/mL (50nmol/L) Insufficiency 20 - 30 ng/mL (50 - 75 nmol/L) Sufficiency 30 - 100 ng/mL (75 - 250 nmol/L) Toxicity >100 ng/mL (>250 nmol/L) Absolute neutrophil countOrd ered By: Ari Medina on 04-22-2024 Neutrophils (Bld) [#/Vol] 3.0 10*3/uL 2.0-7.7 [facility] Albumin to globulin ratioOrd ered By: Ari Medina on 04-22-2024 Albumin/Globulin [Mass ratio] 1.1 {ratio} 0.9-2.4 [facility] Basophil percentageOrdered B y: Ari Medina on 04-22-2024 Basophils/100 WBC (Bld) 0.4 % 0-1 [facility] Bilirubin, totalOrdered By: Ari Medina on 04-22-2024 Bilirubin [Mass/Vol] 0.70 mg/dL 0.20-1.00 [facility] Comment on above: For patients on eltr ombopag therapy, use of Dimension [place] TBIL is not recommended. Blood urea nitrogen (BUN)/cr eatinine ratioOrdered By: Ari Medina on 04-22-2024 Urea nitrogen/Creatinine [Mass ratio] 16.4 mg/mg 03-24 [facility] CBC W/Diff, Automatedon 04-05 Absolute Lymph 1.54 X10 3/uL Normal 0.83-4.51 [facility] Comment on above: Performed By: #### L 501.9985, L500.4050, L501.9520, L100.0100, L506.1000 #### [facility] [address] [place], [address] Absolute Neut 3.0 X10 3/uL Normal 2.0-7.7 [facility] Comment on above: Performed By: #### L 501.9985, L500.4050, L501.9520, L100.0100, L506.1000 #### [facility] [address] [place], [address] Basophils/100 WBC (Bld) 0.4 % Normal 0-1 [facility] Comment on above: Performed By: #### L 501.9985, L500.4050, L501.9520, L100.0100, L506.1000 #### [facility] [address] [place], [address] Eosinophils/100 WBC (Bld) 0.8 % Normal 0-5 [facility] Comment on above: Performed By: #### L 501.9985, L500.4050, L501.9520, L100.0100, L506.1000 #### [facility] [address] [place], [address] Erythrocyte distribution width (RBC) [Ratio] 11.8 % Normal 11.6-14.6 [facility] Comment on above: Performed By: #### L 501.9985, L500.4050, L501.9520, L100.0100, L506.1000 #### [facility] [address] [place], [address] Hematocrit (Bld) [Volume fraction] 44.3 % Normal 37-47 [facility] Comment on above: Performed By: #### L 501.9985, L500.4050, L501.9520, L100.0100, L506.1000 #### [facility] [address] [place], [address] Hemoglobin (Bld) [Mass/Vol] 14.6 g/dL Normal 12.0-15.0 [facility] Comment on above: Performed By: #### L 501.9985, L500.4050, L501.9520, L100.0100, L506.1000 #### [facility] [address] [place], [address] IG% 0.200 Normal 0.0-0.9 [facility] Comment on above: Result Comment: IG% - Immature Granulocytes (promyelocytes, myelocytes and metamyelocytes) > 1% indicates that a LEFT SHIFT is Present. Performed By: #### L 501.9985, L500.4050, L501.9520, L100.0100, L506.1000 #### [facility] [address] [place], [address] Lymphocytes/100 WBC (Bld) 30.5 % Normal 19-41 [facility] Comment on above: Performed By: #### L 501.9985, L500.4050, L501.9520, L100.0100, L506.1000 #### [facility] [address] [place], [address] MCH (RBC) [Entitic mass] 30.9 pg Normal 27.0-32.0 [facility] Comment on above: Performed By: #### L 501.9985, L500.4050, L501.9520, L100.0100, L506.1000 #### [facility] [address] [place], [address] MCHC (RBC) [Mass/Vol] 33.0 g/dL Normal 32-36 [facility] Comment on above: Performed By: #### L 501.9985, L500.4050, L501.9520, L100.0100, L506.1000 #### [facility] [address] [place], [address] MCV (RBC) [Entitic vol] 93.9 fL Normal 81-99 [facility] Comment on above: Performed By: #### L 501.9985, L500.4050, L501.9520, L100.0100, L506.1000 #### [facility] [address] [place], [address] Monocytes/100 WBC (Bld) 8.7 % Normal 0-10 [facility] Comment on above: Performed By: #### L 501.9985, L500.4050, L501.9520, L100.0100, L506.1000 #### [facility] [address] [place], [address] Neutrophils/100 WBC (Bld) 59.4 % Normal 47-70 [facility] Comment on above: Performed By: #### L 501.9985, L500.4050, L501.9520, L100.0100, L506.1000 #### [facility] [address] [place], [address] Nucleated RBC (Bld) [#/Vol] 0 10*3/uL Normal 0-5 [facility] Comment on above: Performed By: #### L 501.9985, L500.4050, L501.9520, L100.0100, L506.1000 #### [facility] [address] [place], [address] Platelet mean volume (Bld) [Entitic vol] 11.3 fL Normal 6.2-12.0 [facility] Comment on above: Performed By: #### L 501.9985, L500.4050, L501.9520, L100.0100, L506.1000 #### [facility] [address] [place], [address] Platelets (Bld) [#/Vol] 203 10*3/uL Normal 150-450 [facility] Comment on above: Performed By: #### L 501.9985, L500.4050, L501.9520, L100.0100, L506.1000 #### [facility] [address] [place], [address] RBC (Bld) [#/Vol] 4.72 10*6/uL Normal 4.2-5.4 [facility] Comment on above: Performed By: #### L 501.9985, L500.4050, L501.9520, L100.0100, L506.1000 #### [facility] [address] [place], [address] RDW SD 40.9 fl Normal 35.1-43.9 [facility] Comment on above: Performed By: #### L 501.9985, L500.4050, L501.9520, L100.0100, L506.1000 #### [facility] [address] [place], [address] WBC (Bld) [#/Vol] 5.1 10*3/uL Normal 4.4-11.0 [facility] Comment on above: Performed By: #### L 501.9985, L500.4050, L501.9520, L100.0100, L506.1000 #### [facility] [address] [place], [address] Carbon dioxide measurementOr dered By: Ari Medina on 04-22-2024 CO2 [Moles/Vol] 29.0 mmol/L 21.0-32.0 [facility] Chloride measurementOrdered By: Ari Medina on 04-22-2024 Chloride [Moles/Vol] 104 mmol/L 98-107 [facility] Comprehensive Metabolic Prof ilon 04-22-2024 Albumin [Mass/Vol] 4.1 g/dL Normal 3.2-5.0 [facility] Comment on above: Performed By: #### L 501.9985, L500.4050, L501.9520, L100.0100, L506.1000 #### [facility] [address] [place], [address] Albumin/Globulin [Mass ratio] 1.1 {ratio} Normal 0.9-2.4 [facility] Comment on above: Performed By: #### L 501.9985, L500.4050, L501.9520, L100.0100, L506.1000 #### [facility] [address] [place], [address] ALK P 79 U/L Normal 45-117 [facility] Comment on above: Performed By: #### L 501.9985, L500.4050, L501.9520, L100.0100, L506.1000 #### [facility] [address] [place], [address] ALT [Catalytic activity/Vol] 29 U/L Normal 13-56 [facility] Comment on above: Performed By: #### L 501.9985, L500.4050, L501.9520, L100.0100, L506.1000 #### [facility] [address] [place], [address] AST [Catalytic activity/Vol] 33 U/L Normal 15-37 [facility] Comment on above: Performed By: #### L 501.9985, L500.4050, L501.9520, L100.0100, L506.1000 #### [facility] [address] [place], [address] Bilirubin [Mass/Vol] 0.70 mg/dL Normal 0.20-1.00 [facility] Comment on above: Result Comment: For patients on eltrombopag therapy, use of Dimension [place] TBIL is not recommended. Performed By: #### L 501.9985, L500.4050, L501.9520, L100.0100, L506.1000 #### [facility] [address] [place], [address] BUN/CRE 16.4 RATIO Normal 10-20 [facility] Comment on above: Performed By: #### L 501.9985, L500.4050, L501.9520, L100.0100, L506.1000 #### [facility] [address] [place], [address] CA,Total 9.3 mg/dL Normal 8.5-10.1 [facility] Comment on above: Performed By: #### L 501.9985, L500.4050, L501.9520, L100.0100, L506.1000 #### [facility] [address] [place], [address] Chloride [Moles/Vol] 104 mmol/L Normal 98-107 [facility] Comment on above: Performed By: #### L 501.9985, L500.4050, L501.9520, L100.0100, L506.1000 #### [facility] [address] [place], [address] CO2 [Moles/Vol] 29.0 mmol/L Normal 21.0-32.0 [facility] Comment on above: Performed By: #### L 501.9985, L500.4050, L501.9520, L100.0100, L506.1000 #### [facility] [address] [place], [address] Creatinine [Mass/Vol] 0.92 mg/dL Normal 0.55-1.02 [facility] Comment on above: Result Comment: The validity of the calculated GFR GFRAA in patients over 70 years has not been determined. Clinical correlation is essential. Performed By: #### L 501.9985, L500.4050, L501.9520, L100.0100, L506.1000 #### [facility] [address] [place], [address] EST GFR - AA 76 mL/min Normal >60 [facility] Comment on above: Result Comment: Afri can Montserratian GFR Calc Performed By: #### L 501.9985, L500.4050, L501.9520, L100.0100, L506.1000 #### [facility] [address] [place], [address] GAP 5 Normal 5-15 [facility] Comment on above: Performed By: #### L 501.9985, L500.4050, L501.9520, L100.0100, L506.1000 #### [facility] [address] [place], [address] GFR/1.73 sq M.predicted among non-blacks MDRD (S/P/Bld) [Vol rate/Area] 63 mL/min/{1.73_m2} Normal >60 [facility] Comment on above: Result Comment: Non- GFR Calc Performed By: #### L 501.9985, L500.4050, L501.9520, L100.0100, L506.1000 #### [facility] [address] [place], [address] Globulin (S) [Mass/Vol] 3.8 g/dL Normal 2.2-4.2 [facility] Comment on above: Performed By: #### L 501.9985, L500.4050, L501.9520, L100.0100, L506.1000 #### [facility] [address] [place], [address] Glucose [Mass/Vol] 137 mg/dL High 74-106 [facility] Comment on above: Result Comment: Fast ing Glucose result greater than or equal to 126 mg/dL suggests DIABETES MELLITUS per A.D.A. criteria. Performed By: #### L 501.9985, L500.4050, L501.9520, L100.0100, L506.1000 #### [facility] [address] [place], [address] Potassium [Moles/Vol] 3.4 mmol/L Low 3.5-5.1 [facility] Comment on above: Performed By: #### L 501.9985, L500.4050, L501.9520, L100.0100, L506.1000 #### [facility] [address] [place], [address] Sodium [Moles/Vol] 139 mmol/L Normal 136-145 [facility] Comment on above: Performed By: #### L 501.9985, L500.4050, L501.9520, L100.0100, L506.1000 #### [facility] [address] [place], [address] T PROT 7.9 g/dL Normal 6.4-8.2 [facility] Comment on above: Performed By: #### L 501.9985, L500.4050, L501.9520, L100.0100, L506.1000 #### [facility] [address] [place], [address] Urea nitrogen [Mass/Vol] 15 mg/dL Normal 7-18 [facility] Comment on above: Performed By: #### L 501.9985, L500.4050, L501.9520, L100.0100, L506.1000 #### [facility] [address] [place], [address] Eosinophil percentageOrdered By: Ari Medina on 04-22-2024 Eosinophils/100 WBC (Bld) 0.8 % 0-5 [facility] Erythrocyte distribution wid th ratioOrdered By: Ari Sánchez on 04-22-2024 Erythrocyte distribution width (RBC) [Ratio] 11.8 % 11.6-14.6 [facility] Erythrocyte distribution wid th standard deviationOrdered By: [facility] on 04-22-2024 Erythrocyte distribution width (RBC) [Entitic vol] 40.9 fL 35.1-43.9 [facility] Estimated glomerular filtrat ion rate (GFR) AmericanOrdered By: Ari Medina on 04-22-2024 Estimated GFR (MDRD) Amer 76 mL/min >60 [facility] Comment on above: GFR Calc Glomerular filtration rate ( GFR) estimationOrdered By: Ari Medina on 04-22-2024 Estimated GFR (MDRD) Non-Af Amer 63 mL/min >60 [facility] Comment on above: Non- GFR Calc Glucose measurementOrdered B y: Ari Medina on 04-22-2024 Glucose [Mass/Vol] 137 mg/dL High 74-106 [facility] Comment on above: Fasting Glucose resu lt greater than or equal to 126 mg/dL suggests DIABETES MELLITUS per A.D.A. criteria. Hematocrit Auto (Bld) [Volum e fraction]Ordered By: [facility] 04-22-2024 Hematocrit (Bld) [Volume fraction] 44.3 % 37-47 [facility] Hemoglobin A1c percentageOrd ered By: [facility] 04-22-2024 HbA1c (Bld) [Mass fraction] 5.2 % 3.8-5.6 [facility] Comment on above: Normal < 5.7 % Predi abetic 5.7 - 6.4 % Diabetic >or= 6.5 % Please note range changes. Hemoglobin measurementOrdere d By: Ari Medina 04-22-2024 Hemoglobin (Bld) [Mass/Vol] 14.6 g/dL 12.0-15.0 [facility] Immature granulocytes/100 WB C Auto (Bld)Ordered By: Ari Ásnchez 04-22-2024 Immature granulocytes/100 WBC (Bld) 0.200 % 0.0-0.9 [facility] Comment on above: IG% - Immature Granu locytes (promyelocytes, myelocytes and metamyelocytes) > 1% indicates that a LEFT SHIFT is Present. Laboratory - Chemistry and C hemistry - challengeOrdered By: Ari Medina on 04-22-2024 AST [Catalytic activity/Vol] 33 U/L 15-37 [facility] Lymphocytes Auto (Unsp spec) [#/Vol]Ordered By: Ari Medina on 04-22-2024 Lymphocytes (Bld) [#/Vol] 1.54 10*3/uL 0.83-4.51 [facility] Lymphocytes/100 WBC Auto (Un sp spec)Ordered By: Ari Medina on 04-22-2024 Lymphocytes/100 WBC (Bld) 30.5 % 19-41 [facility] MCV (mean corpuscular volume ) determinationOrdered By: Ari Medina on 04-22-2024 MCV (RBC) [Entitic vol] 93.9 fL 81-99 [facility] Mean corpuscular hemoglobin (MCH) determinationOrdered By: Ari Medina on 04-22-2024 MCH (RBC) [Entitic mass] 30.9 pg 27.0-32.0 [facility] Mean corpuscular hemoglobin concentration (MCHC) determinationOrdered By: Ari Medina on 04-22-2024 MCHC (RBC) [Mass/Vol] 33.0 g/dL 32-36 [facility] Mean platelet volume determi nationOrdered By: Ari Medina on 04-22-2024 Platelet mean volume (Bld) [Entitic vol] 11.3 fL 6.2-12.0 [facility] Monocyte percentageOrdered B y: Ari Medina on 04-22-2024 Monocytes/100 WBC (Bld) 8.7 % 0-10 [facility] Neutrophil percentageOrdered By: Ari Medina on 04-22-2024 Neutrophils/100 WBC (Bld) 59.4 % 47-70 [facility] Nucleated red blood cell per centageOrdered By: Ari Medina on 04-22-2024 Nucleated RBC/100 WBC (Bld) [Ratio] 0 % 0-5 [facility] Platelet countOrdered By: Ar Medina on 04-22-2024 Platelets (Bld) [#/Vol] 203 10*3/uL 150-450 [facility] Potassium measurementOrdered By: Ari Medina on 04-22-2024 Potassium [Moles/Vol] 3.4 mmol/L Low 3.5-5.1 [facility] RBC Auto (Bld) [#/Vol]Ordere d By: Ari Medina on 04-22-2024 RBC (Bld) [#/Vol] 4.72 10*6/uL 4.2-5.4 [facility] Serum anion gap measurementO rdered By: Ari Medina 04-22-2024 Anion gap [Moles/Vol] 5 mmol/L 5-15 [facility] Serum globulin measurementOr dered By: Ari Medina 04-22-2024 Globulin (S) [Mass/Vol] 3.8 g/dL 2.2-4.2 [facility] Serum or plasma alanine cantor otransferase (ALT) measurementOrdered By: Ari Medina 04-22-2024 ALT [Catalytic activity/Vol] 29 U/L 13-56 [facility] Serum or plasma albumin luzma urement (mass/volume)Ordered By: Ari Medina 04-22-2024 Albumin [Mass/Vol] 4.1 g/dL 3.2-5.0 [facility] Serum or plasma alkaline shasha sphatase measurementOrdered By: Ari Medina 04-22-2024 ALP [Catalytic activity/Vol] 79 U/L 45-117 [facility] Serum or plasma calcium luzma urement (mass/volume)Ordered By: Ari Medina 04-22-2024 Calcium [Mass/Vol] 9.3 mg/dL 8.5-10.1 [facility] Serum or plasma creatinine m easurement (mass/volume)Ordered By: Ari Medina 04-22-2024 Creatinine [Mass/Vol] 0.92 mg/dL 0.55-1.02 [facility] Comment on above: The validity of the calculated GFR & GFRAA in patients over 70 years has not been determined. Clinical correlation is essential. Serum or plasma urea nitroge n measurement (mass/volume)Ordered By: Ari Medina 04-22-2024 Urea nitrogen [Mass/Vol] 15 mg/dL 7-18 [facility] Sodium levelOrdered By: Ari Medina 04-22-2024 Sodium [Moles/Vol] 139 mmol/L 136-145 [facility] TSH QnOrdered By: Ari Medina o n 04-22-2024 Thyroid Stimulating Hormone (TSH) 2.700 uIU/mL 0.358-3.740 [facility] Thyroid Stim Hormone (TSH)on 04-22-2024 TSH 2.700 uIU/mL Normal 0.358-3.740 [facility] Comment on above: Performed By: #### L 501.9985, L500.4050, L501.9520, L100.0100, L506.1000 #### [facility] [address] [place], [address] Total proteinOrdered By: Ari Medina on 04-22-2024 Protein [Mass/Vol] 7.9 g/dL 6.4-8.2 [facility] Vitamin D,25 Hydroxyon 04-22 Vitamin D 25-OH 15.4 ng/mL Normal [facility] Comment on above: Result Comment: Priya min D 25(OH) Status Range Deficiency <20 ng/mL (50nmol/L) Insufficiency 20 - 30 ng/mL (50 - 75 nmol/L) Sufficiency 30 - 100 ng/mL (75 - 250 nmol/L) Toxicity >100 ng/mL (>250 nmol/L) Performed By: #### L 501.9985, L500.4050, L501.9520, L100.0100, L506.1000 #### [facility] [address] [place], [address] White blood cell (WBC) count Ordered By: Ari Medina on 04-22-2024 WBC (Bld) [#/Vol] 5.1 10*3/uL 4.4-11.0 [facility] MRA Head vessels WO contrast on 11-21-2023 IMPRESSION: Similar size of 3 to 4 mm aneurysm along the junction of the anterior communicating artery and the left A1 and A2 LASHONDA segments. Unchanged 3 to 4 mm aneurysm arising along the right MCA trifurcation incorporating the origins of two M2 MCA branches. Mitten Stitcher: MORTEZA Transcribe Date/Time: Nov 21 2023 1:49P Dictated by : SAI MCCRAY MD This examination was interpreted and the report reviewed and electronically signed by: SAI MCCRAY MD on Nov 21 2023 1:58PM [facility] DIVISION OF RADIOLOGY * * *Final Report* * * DATE OF EXAM: Nov 21 2023 1:15PM [facility] 0272 - MRA BRAIN WO IVCON / PROCEDURE REASON: Nonruptured cerebral aneurysm * * * * Physician Interpretation * * * * EXAMINATION: MRA BRAIN WO IVCON CLINICAL HISTORY: Cerebral aneurysm TECHNIQUE: Intracranial 3D [id number] MRA with post-processing performed at the modality and 2D multiplanar and 3D maximum intensity projections were created, reviewed and archived. COMPARISON: External facility CTA of the head and neck 05/22/2023 RESULT: Anterior circulation: Similar size of 3 to 4 mm aneurysm along the junction of the anterior communicating artery and the left A1 and A2 LASHONDA segments. Unchanged 3 to 4 mm aneurysm arising along the right MCA trifurcation incorporating the origins of two M2 MCA branches. No evidence of flow-limiting stenosis or occlusion. Posterior circulation: No evidence of flow-limiting stenosis or occlusion. No evidence of aneurysm. Large left posterior communicating artery. DIVISION OF RADIOLOGY Provider, [facility] - 11/21/2023 * * *Final Report* * * DATE OF EXAM: Nov 21 2023 1:15PM [facility] 0272 - MRA BRAIN WO IVCON / PROCEDURE REASON: Nonruptured cerebral aneurysm * * * * Physician Interpretation * * * * EXAMINATION: MRA BRAIN WO IVCON CLINICAL HISTORY: Cerebral aneurysm TECHNIQUE: Intracranial 3D [id number] MRA with post-processing performed at the modality and 2D multiplanar and 3D maximum intensity projections were created, reviewed and archived. COMPARISON: External facility CTA of the head and neck 05/22/2023 RESULT: Anterior circulation: Similar size of 3 to 4 mm aneurysm along the junction of the anterior communicating artery and the left A1 and A2 LASHONDA segments. Unchanged 3 to 4 mm aneurysm arising along the right MCA trifurcation incorporating the origins of two M2 MCA branches. No evidence of flow-limiting stenosis or occlusion. Posterior circulation: No evidence of flow-limiting stenosis or occlusion. No evidence of aneurysm. Large left posterior communicating artery. IMPRESSION IMPRESSION: Similar size of 3 to 4 mm aneurysm along the junction of the anterior communicating artery and the left A1 and A2 LASHONDA segments. Unchanged 3 to 4 mm aneurysm arising along the right MCA trifurcation incorporating the origins of two M2 MCA branches. Mitten Stitcher: PSCB Transcribe Date/Time: Nov 21 2023 1:49P Dictated by : SAI MCCRAY MD This examination was interpreted and the report reviewed and electronically signed by: SAI MCCRAY MD on Nov 21 2023 1:58PM EST [facility] Rad[facility] MRA Head vessels WO contrast Ordered By: [facility] Provider on 11-21-2023 [facility] Basic metabolic 2000 panelon 05-23-2023 Anion gap [Moles/Vol] 13 mmol/L Normal 10-20 [facility] Comment on above: Performed By: #### 5 7021-8 #### JESÚS MERINO ([id number]) [facility] ([facility]) [address] [place] [address] 97839 Calcium [Mass/Vol] 8.9 mg/dL Normal 8.6-10.3 [facility] Comment on above: Performed By: #### 5 7021-8 #### JESÚS MERINO ([id number]) [facility] ([facility]) [address] [place] [address] 01651 Chloride [Moles/Vol] 106 mmol/L Normal 98-107 [facility] Comment on above: Performed By: #### 5 7021-8 #### JESÚS MERINO ([id number]) [facility] ([facility]) [address] [place] [address] 33328 CO2 [Moles/Vol] 23 mmol/L Normal 21-32 [facility] Comment on above: Performed By: #### 5 7021-8 #### JESÚS MERINO ([id number]) [facility] ([facility]) [address] [place] [address] 39504 Creatinine [Mass/Vol] 0.85 mg/dL Normal 0.50-1.05 [facility] Comment on above: Performed By: #### 5 7021-8 #### JESÚS MERINO ([id number]) [facility] ([facility]) [address] [place] [address] 21128 GFR/1.73 sq M.predicted MDRD (S/P/Bld) [Vol rate/Area] 71 mL/min/1.73m*2 Normal >60 [facility] Comment on above: Result Comment: Calc ulations of estimated GFR are performed using the 2020 CKD-EPI Study Refit equation without the race variable for the IDMS-Traceable creatinine methods. https://jasn.asnjournals.org/content/early//ASN.822 4018479 Performed By: #### 5 7021-8 #### JEÚSS MERINO ([id number]) [facility] ([facility]) [address] [place] [address] 53982 Glucose [Mass/Vol] 116 mg/dL High 74-99 [facility] Comment on above: Performed By: #### 5 7021-8 #### JESÚS MERINO ([id number]) [facility] ([facility]) [address] [place] [address] 62999 Potassium [Moles/Vol] 4.1 mmol/L Normal 3.5-5.3 [facility] Comment on above: Performed By: #### 5 7021-8 #### JESÚS MERINO ([id number]) [facility] ([facility]) [address] [place] [address] 47166 Sodium [Moles/Vol] 138 mmol/L Normal 136-145 [facility] Comment on above: Performed By: #### 5 7021-8 #### JESÚS MERINO ([id number]) [facility] ([facility]) [address] [place] [address] 73956 Urea nitrogen [Mass/Vol] 15 mg/dL Normal 6-23 [facility] Comment on above: Performed By: #### 5 7021-8 #### JESÚS MERINO ([id number]) [facility] ([facility]) [address] [place] [address] 19442 CBC panel Auto (Bld)on 05-23 Erythrocyte distribution width (RBC) [Ratio] 11.7 % Normal 11.5-14.5 [facility] Comment on above: Performed By: #### 5 7021-8 #### JESÚS MERINO ([id number]) [facility] ([facility]) [address] [place] [address] 99463 Hematocrit (Bld) [Volume fraction] 41.4 % Normal 36.0-46.0 [facility] Comment on above: Performed By: #### 7021-8 #### JESÚS MERINO ([id number]) [facility] ([facility]) [address] [place] [address] 48576 Hemoglobin (Bld) [Mass/Vol] 14.1 g/dL Normal 12.0-16.0 [facility] Comment on above: Performed By: #### 5 7021-8 #### JESÚS MERINO ([id number]) [facility] ([facility]) [address] [place] [address] 38697 MCH (RBC) [Entitic mass] 32.0 pg Normal 26.0-34.0 [facility] Comment on above: Performed By: #### 7021-8 #### JESÚS MERINO ([id number]) [facility] ([facility]) [address] [place] [address] 29302 MCHC (RBC) [Mass/Vol] 34.1 g/dL Normal 32.0-36.0 [facility] Comment on above: Performed By: #### 5 7021-8 #### JESÚS MERINO ([id number]) [facility] ([facility]) [address] [place] [address] 35601 MCV (RBC) [Entitic vol] 94 fL Normal 80-100 [facility] Comment on above: Performed By: #### 5 7021-8 #### JESÚS MERINO ([id number]) [facility] ([facility]) [address] [place] [address] 39887 Nucleated RBC/100 WBC (Bld) [Ratio] 0.0 /100 WBCs Normal 0.0-0.0 [facility] Comment on above: Performed By: #### 5 7021-8 #### JESÚS MERINO ([id number]) [facility] ([facility]) [address] [place] [address] Platelets (Bld) [#/Vol] 210 x10*3/uL Normal 150-450 [facility] Comment on above: Performed By: #### 5 7021-8 #### JESÚS MERINO ([id number]) [facility] ([facility]) [address] [place] [address] RBC (Bld) [#/Vol] 4.40 x10*6/uL Normal 4.00-5.20 [facility] Comment on above: Performed By: #### 5 7021-8 #### JESÚS MERINO ([id number]) [facility] ([facility]) [address] [place], [place] [address] WBC (Bld) [#/Vol] 6.2 x10*3/uL Normal 4.4-11.[address] [facility] Comment on above: Performed By: #### 5 7021-8 #### JESÚS MERINO ([id number]) [facility] ([facility]) [address] [place] [address] 33884 Basic metabolic 2000 panelon 05-22-2023 Anion gap [Moles/Vol] 8 mmol/L Low 10-20 [facility] Comment on above: Performed By: #### 2 4321-2 #### JESÚS MERINO ([id number]) [facility] ([facility]) [address] [place] [address] 62274 Calcium [Mass/Vol] 8.7 mg/dL Normal 8.6-10.3 [facility] Comment on above: Performed By: #### 2 4321-2 #### JESÚS MERINO ([id number]) [facility] ([facility]) [address] [place] [address] 54883 Chloride [Moles/Vol] 110 mmol/L High 98-107 [facility] Comment on above: Performed By: #### 2 4321-2 #### JESÚS MERINO ([id number]) [facility] ([facility]) [address] [place] [address] 29647 CO2 [Moles/Vol] 26 mmol/L Normal 21-32 [facility] Comment on above: Performed By: #### 2 4321-2 #### JESÚS MERINO ([id number]) [facility] ([facility]) [facility] [place] [address] Creatinine [Mass/Vol] 0.80 mg/dL Normal 0.50-1.05 [facility] Comment on above: Performed By: #### 2 4321-2 #### JESÚS MERINO ([id number]) [facility] ([facility]) [address] [place] [address] 68520 GFR/1.73 sq M.predicted MDRD (S/P/Bld) [Vol rate/Area] 76 mL/min/1.73m*2 Normal >60 [facility] Comment on above: Result Comment: Calc ulations of estimated GFR are performed using the 2020 CKD-EPI Study Refit equation without the race variable for the IDMS-Traceable creatinine methods. https://jasn.asnjournals.org/content/early//ASN.071 7135286 Performed By: #### 2 4321-2 #### JESÚS MERINO ([id number]) [facility] ([facility]) [address] [place] [address] 06458 Glucose [Mass/Vol] 109 mg/dL High 74-99 [facility] Comment on above: Performed By: #### 2 4321-2 #### JESÚS MERINO ([id number]) [facility] ([facility]) [address] [place] [address] 36682 Potassium [Moles/Vol] 4.1 mmol/L Normal 3.5-5.3 [facility] Comment on above: Performed By: #### 2 4321-2 #### JESÚS MERINO ([id number]) [facility] ([facility]) [facility] [place] [address] Sodium [Moles/Vol] 140 mmol/L Normal 136-145 [facility] Comment on above: Performed By: #### 2 4321-2 #### JESÚS MERINO ([id number]) [facility] ([facility]) [address] [place] [address] 32141 Urea nitrogen [Mass/Vol] 14 mg/dL Normal 6-23 [facility] Comment on above: Performed By: #### 2 4321-2 #### JESÚS MERINO ([id number]) [facility] ([facility]) [address] [place] [address] CBC panel Auto (Bld)on 05-22 Erythrocyte distribution width (RBC) [Ratio] 11.9 % Normal 11.5-14.5 [facility] Comment on above: Performed By: #### 5 8410-2 #### JESÚS MERINO ([id number]) [facility] ([facility]) [address] [place] [address] Hematocrit (Bld) [Volume fraction] 39.0 % Normal 36.0-46.0 [facility] Comment on above: Performed By: #### 5 8410-2 #### JESÚS MERINO ([id number]) [facility] ([facility]) [address] [place] [address] Hemoglobin (Bld) [Mass/Vol] 13.4 g/dL Normal 12.0-16.0 [facility] Comment on above: Performed By: #### 5 8410-2 #### JESÚS MERINO ([id number]) [facility] ([facility]) [address] [place] [address] 32976 MCH (RBC) [Entitic mass] 32.0 pg Normal 26.0-34.0 [facility] Comment on above: Performed By: #### 5 8410-2 #### JESÚS MERINO ([id number]) [facility] ([facility]) [address] [place] [address] 17215 MCHC (RBC) [Mass/Vol] 34.4 g/dL Normal 32.0-36.0 [facility] Comment on above: Performed By: #### 5 8410-2 #### JESÚS MERINO ([id number]) [facility] ([facility]) [address] [place] [address] MCV (RBC) [Entitic vol] 93 fL Normal 80-100 [facility] Comment on above: Performed By: #### 5 8410-2 #### JESÚS MERINO ([id number]) [facility] ([facility]) [address] [place] [address] 23793 Nucleated RBC/100 WBC (Bld) [Ratio] 0.0 /100 WBCs Normal 0.0-0.0 [facility] Comment on above: Performed By: #### 5 8410-2 #### JESÚS MERINO ([id number]) [facility] ([facility]) [address] [place] [address] 01118 Platelets (Bld) [#/Vol] 183 x10*3/uL Normal 150-450 [facility] Comment on above: Performed By: #### 5 8410-2 #### JESÚS MERINO ([id number]) [facility] ([facility]) [address] [place] [address] 63961 RBC (Bld) [#/Vol] 4.19 x10*6/uL Normal 4.00-5.20 [facility] Comment on above: Performed By: #### 5 8410-2 #### JESÚS MERINO ([id number]) [facility] ([facility]) [address] [place] [address] 96908 WBC (Bld) [#/Vol] 5.2 x10*3/uL Normal 4.4-11.[address] [facility] Comment on above: Performed By: #### 5 8410-2 #### JESÚS MERINO ([id number]) [facility] ([facility]) [address] [place] [address] ANGIO HEAD AND NECK W AND WO IV CONTRASTon 05-22-2023 CT ANGIO HEAD AND NECK W AND WO IV CONTRAST Interpreted By: Klarissa May, STUDY: CT ANGIO HEAD AND NECK W AND WO IV CONTRAST; 05/22/2023 3:41 pm INDICATION: Signs/Symptoms:CVA. COMPARISON: MRI brain, MR angiogram of head from 05/22/2023 ACCESSION NUMBER(S): [id number] ORDERING CLINICIAN: LA SHRESTHA TECHNIQUE: Unenhanced CT images of the head were obtained. Subsequently, iodinated contrast was administered intravenously and axial images of the head and neck were acquired. Coronal, sagittal, and 3-D reconstructions were provided for review. FINDINGS: Noncontrast CT scan of head demonstrates ill-defined hypodensity in the region of the acute infarcts seen on recent MRI scan. Remainder of the singh-white differentiation is intact. There is no acute intracranial hemorrhage. CTA HEAD FINDINGS: Anterior circulation: Minimal atherosclerotic calcifications of bilateral carotid siphons are noted. There is no evidence of significant stenosis. Bilateral proximal middle cerebral arteries are unremarkable. There is a small inferiorly projecting outpouching arising from the left A1 A2 junction which measures 2 mm by 2 mm and is concerning for an aneurysm. Otherwise bilateral A2 segments are unremarkable. The right A1 segment is hypoplastic. There is a patent anterior communicating artery. Posterior circulation: Bilateral intracranial vertebral arteries, vertebrobasilar junction, basilar artery and proximal posterior cerebral arteries are normal. There is origin of left posterior cerebral artery. CTA NECK FINDINGS: The aortic arch is partially included in the field of view. Right carotid vessels: The common carotid artery is normal. The carotid bifurcation is normal. There is minimal atherosclerotic calcification involving the proximal internal carotid artery without focal stenosis. There is 0% stenosis . Left carotid vessels: The common carotid artery is normal. The carotid bifurcation is normal. The internal carotid artery in the neck is normal. There is 0% stenosis . Vertebral vessels: The visualized segments of the cervical vertebral arteries are normal in caliber. IMPRESSION: A 2 x 2 inferiorly projecting outpouching is seen from the left A1 A2 junction of the anterior cerebral artery and is concerning for a small aneurysm. No evidence of major vessel cut off or hemodynamically significant stenosis is noted. MACRO: None Signed by: Klarissa May 05/22/2023 5:01 PM Dictation workstation: [id number] Normal [facility] Hepatic function 2000 panelo n 05-22-2023 Albumin BCP dye [Mass/Vol] 3.7 g/dL Normal 3.4-5.0 [facility] Comment on above: Order Comment: Plasm a/Serum Separator. Clinician Instructions: If not done in ED. Performed By: #### 5 7021-8 #### JESÚS MERINO ([id number]) [facility] ([facility]) [address] [place] [address] ALP [Catalytic activity/Vol] 53 U/L Normal 33-136 [facility] Comment on above: Order Comment: Plasm a/Serum Separator. Clinician Instructions: If not done in ED. Performed By: #### 5 7021-8 #### JESÚS MERINO ([id number]) [facility] ([facility]) [address] [place] [address] ALT With P-5'-P [Catalytic activity/Vol] 9 U/L Normal 7-45 [facility] Comment on above: Order Comment: Plasm a/Serum Separator. Clinician Instructions: If not done in ED. Result Comment: Tenisha ents treated with Sulfasalazine may generate falsely decreased results for ALT. Performed By: #### 5 7021-8 #### JESÚS MERINO ([id number]) [facility] ([facility]) [address] [place] [address] AST With P-5'-P [Catalytic activity/Vol] 15 U/L Normal 9-39 [facility] Comment on above: Order Comment: Plasm a/Serum Separator. Clinician Instructions: If not done in ED. Performed By: #### 5 7021-8 #### JESÚS MERINO ([id number]) [facility] ([facility]) [address] [place] [address] Bilirubin [Mass/Vol] 0.6 mg/dL Normal 0.0-1.2 [facility] Comment on above: Order Comment: Plasm a/Serum Separator. Clinician Instructions: If not done in ED. Performed By: #### 5 7021-8 #### JESÚS MERINO ([id number]) [facility] ([facility]) [address] [place] [address] 54483 Bilirubin.direct [Mass/Vol] 0.1 mg/dL Normal 0.0-0.3 [facility] Comment on above: Order Comment: Plasm a/Serum Separator. Clinician Instructions: If not done in ED. Performed By: #### 5 7021-8 #### JESÚS MERINO ([id number]) [facility] ([facility]) [address] [place] [address] 82303 Protein [Mass/Vol] 6.1 g/dL Low 6.4-8.2 [facility] Comment on above: Order Comment: Plasm a/Serum Separator. Clinician Instructions: If not done in ED. Performed By: #### 5 7021-8 #### JESÚS MERINO ([id number]) [facility] ([facility]) [address] [place] [address] 80869 Natriuretic peptide B [Mass/ Vol]on 05-22-2023 Natriuretic peptide B (Bld) [Mass/Vol] 166 pg/mL High 0-99 [facility] Comment on above: Order Comment: Draw separate tube. Clinician Instructions: If not done in ED. <100 pg/mL - Heart failure ommvdlia837-868 pg/mL - Intermediate probability of acute heart failure exacerbation. Correlate with clinical context and patient history. >=300 pg/mL - Heart Failure likely. Correlate with clinical context and patient history.BNP testing is performed using different testing methodology at [facility] than at other [facility]. Direct result comparisons should only be made within the same method. 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 Study Detail: The following Echo studies were performed: 2D, M-Mode, Doppler and color flow. Definity used as a contrast agent for endocardial border definition and agitated saline used as a contrast agent for intraseptal flow evaluation. Total contrast used for this procedure was 1 mL via IV push. The patient was awake. PHYSICIAN INTERPRETATION: Left Ventricle: Left ventricular systolic function is normal, with an estimated ejection fraction of 55%. There are no regional wall motion abnormalities. The left ventricular cavity size is normal. Spectral Doppler shows an impaired relaxation pattern of left ventricular diastolic filling. Left Atrium: The left atrium is normal in size. A bubble study using agitated saline was performed. Bubble study is negative. Right Ventricle: The right ventricle is normal in size. There is normal right ventricular global systolic function. Right Atrium: The right atrium is normal in size. Aortic Valve: The aortic valve is probably trileaflet. There is no evidence of aortic valve regurgitation. The peak instantaneous gradient of the aortic valve is 4.5 mmHg. The mean gradient of the aortic valve is 3.0 mmHg. Mitral Valve: The mitral valve is normal in structure. There is mild mitral valve regurgitation. Tricuspid Valve: The tricuspid valve is structurally normal. No evidence of tricuspid regurgitation. Pulmonic Valve: The pulmonic valve is not well visualized. There is no indication of pulmonic valve regurgitation. Pericardium: There is a small pericardial effusion. There is a pericardial fat pad present. Aorta: The aortic root is normal. Systemic Veins: The inferior vena cava appears to be of normal size. There is IVC inspiratory collapse greater than 50%. CONCLUSIONS: 1. Left ventricular systolic function is normal with a 55% estimated ejection fraction. 2. Spectral Doppler shows an impaired relaxation pattern of left ventricular diastolic filling. 3. Small Pericardial effusion with no evidence of hemodynamic compromise. QUANTITATIVE DATA SUMMARY: 2D MEASUREMENTS: Normal Ranges: Ao Root d: 2.80 cm (2.0-3.7cm) LAs: 2.60 cm (2.7-4.0cm) IVSd: 1.18 cm (0.6-1.1cm) LVPWd: 1.03 cm (0.6-1.1cm) LVIDd: 4.06 cm (3.9-5.9cm) LVIDs: 2.75 cm LV Mass Index: 91.5 g/m2 LV % FS 32.3 % LA VOLUME: Normal Ranges: LA Vol A4C: 21.3 ml (22+/-6mL/m2) LA Vol A2C: 40.9 ml LA Vol BP: 30.8 ml LA Vol Index A4C: 13.0ml/m2 LA Vol Index A2C: 25.0 ml/m2 LA Vol Index BP: 18.8 ml/m2 LA Area A4C: 10.7 cm2 LA Area A2C: 14.2 cm2 LA Major Marion A4C: 4.6 cm LA Major Marion A2C: 4.2 cm LA Volume Index: 22.1 ml/m2 LA Vol A4C: 21.1 ml LA Vol A2C: 36.3 ml M-MODE MEASUREMENTS: Normal Ranges: AoV Exc: 2.10 cm (1.5-2.5cm) AORTA MEASUREMENTS: Normal Ranges: AoV Exc: 2.10 cm (1.5-2.5cm) LV SYSTOLIC FUNCTION BY 2D PLANIMETRY (MOD): Normal Ranges: EF-A4C View: 58.0 % (>=55%) EF-A2C View: 63.0 % EF-Biplane: 61.9 % LV DIASTOLIC FUNCTION: Normal Ranges: MV Peak E: 0.54 m/s (0.7-1.2 m/s) MV Peak A: 0.85 m/s (0.42-0.7 m/s) E/A Ratio: 0.64 (1.0-2.2) MV e' 0.05 m/s (>8.0) MV lateral e' 0.08 m/s MV medial e' 0.06 m/s E/e' Ratio: 10.86 (<8.0) MITRAL VALVE: Normal Ranges: MV DT: 257 msec (150-240msec) MITRAL INSUFFICIENCY: Normal Ranges: MR Vmax: 419.00 cm/s AORTIC VALVE: Normal Ranges: AoV Vmax: 1.06 m/s (<=1.7m/s) AoV Peak P.5 mmHg (<20mmHg) AoV Mean P.0 mmHg (1.7-11.5mmHg) LVOT Max Aristides: 0.78 m/s (<=1.1m/s) AoV VTI: 22.60 cm (18-25cm) LVOT VTI: 15.90 cm LVOT Diameter: 2.20 cm (1.8-2.4cm) AoV Area, VTI: 2.67 cm2 (2.5-5.5cm2) AoV Area,Vmax: 2.81 cm2 (2.5-4.5cm2) AoV Dimensionless Index: 0.70 RIGHT VENTRICLE: RV Basal 2.66 cm RV Mid 1.94 cm RV Major 5.0 cm TAPSE: 14.3 mm TRICUSPID VALVE/RVSP: Normal Ranges: Peak TR Velocity: 1.88 m/s RV Syst Pressure: 17.1 mmHg (< 30mmHg) PULMONIC VALVE: Normal Ranges: PV Accel Time: 60 msec (>120ms) PV Max Aristides: 0.8 m/s (0.6-0.9m/s) PV Max P.8 mmHg [id number] Tim Melendrez (more content not included)... Normal [facility] US CAROTID ARTERY DUPLE X BILATERALon 05-22-2023 [facility] US CAROTID [place] [address] [phone], Vascular Lab Report [facility] US CAROTID ARTERY DUPLEX BILATERAL Patient Name: GLADIS Brown Physician: [id number] Palmer MD Study Date: 05/22/2023 Ordering Provider: [id number] SHABNAM LEÓN MRN/PID: [id number] Fellow: Technologist: Cande Krause RVT/ Date of /Age: 11 1945 / years Technologist 2: Gender: F Admission Status: Inpatient Location Performed: [facility] Diagnosis/ICD: Other specified symptoms and signs involving the circulatory and respiratory systems-R09.89 CONCLUSIONS: Right Carotid: Findings are consistent with less than 50% stenosis of the right proximal internal carotid artery. Laminar flow seen by color Doppler. Right external carotid artery appears patent with no evidence of stenosis. The right vertebral artery is patent with antegrade flow. No evidence of hemodynamically significant stenosis in the right subclavian artery. Left Carotid: Findings are consistent with less than 50% stenosis of the left proximal internal carotid artery. Left external carotid artery appears patent with no evidence of stenosis. The left vertebral artery is patent with antegrade flow. No evidence of hemodynamically significant stenosis in the left subclavian artery. Imaging & Doppler Findings: Right Plaque Morph: The proximal right internal carotid artery demonstrates calcified plaque. The right carotid bulb demonstrates calcified plaque. Left Plaque Morph: No plaque identified in the left carotid artery. Right Left PSV EDV PSV EDV 96 cm/s 16 cm/s CCA P 107 cm/s 17 cm/s 93 cm/s 19 cm/s CCA D 86 cm/s 25 cm/s 59 cm/s 16 cm/s ICA P 136 cm/s 29 cm/s 93 cm/s 25 cm/s ICA D 140 cm/s 40 cm/s 88 cm/s 7 cm/s ECA 89 cm/s 7 cm/s 62 cm/s 12 cm/s Vertebral 56 cm/s 13 cm/s Right Left PSV Waveform PSV Waveform 132 cm/s Subclavian Proximal 124 cm/s Right Left ICA/CCA Ratio 0.6 1.6 17700 Earnest Palmer MD Final Normal [facility] CBC W Auto Differential pane l (Bld)on 05-20-2023 Basophils (Bld) [#/Vol] 0.03 x10*3/uL Normal 0.00-0.10 [facility] Comment on above: Performed By: #### 5 7021-8 #### JESÚS MERINO ([id number]) [facility] ([facility]) [address] [place] [address]52 Basophils/100 WBC (Bld) 0.7 % Normal 0.0-2.0 [facility] Comment on above: Performed By: #### 5 7021-8 #### JESÚS MERINO ([id number]) [facility] ([facility]) [address] [place] [address] 91370 Eosinophils (Bld) [#/Vol] 0.03 x10*3/uL Normal 0.00-0.40 [facility] Comment on above: Performed By: #### 5 7021-8 #### JESÚS MERINO ([id number]) [facility] ([facility]) [address] [place] [address] 97381 Eosinophils/100 WBC (Bld) 0.7 % Normal 0.0-6.0 [facility] Comment on above: Performed By: #### 7021-8 #### JESÚS MERINO ([id number]) [facility] ([facility]) [address] [place] [address] 76732 Erythrocyte distribution width (RBC) [Ratio] 11.5 % Normal 11.5-14.5 [facility] Comment on above: Performed By: #### 5 7021-8 #### JESÚS MERINO ([id number]) [facility] ([facility]) [address] [place] [address] 05431 Hematocrit (Bld) [Volume fraction] 40.5 % Normal 36.0-46.0 [facility] Comment on above: Performed By: #### 5 7021-8 #### JESÚS MERINO ([id number]) [facility] ([facility]) [address] [place] [address] 13276 Hemoglobin (Bld) [Mass/Vol] 14.0 g/dL Normal 12.0-16.0 [facility] Comment on above: Performed By: #### 5 7021-8 #### JESÚS MERINO ([id number]) [facility] ([facility]) [address] [place] [address] 60727 Immature granulocytes (Bld) [#/Vol] 0.01 x10*3/uL Normal 0.00-0.50 [facility] Comment on above: Performed By: #### 5 7021-8 #### JESÚS MERINO ([id number]) [facility] ([facility]) [address] [place] [address] 57131 Immature granulocytes/100 WBC (Bld) 0.2 % Normal 0.0-0.9 [facility] Comment on above: Result Comment: Jacey ture Granulocyte Count (IG) includes promyelocytes, myelocytes and metamyelocytes but does not include bands. Percent differential counts (%) should be interpreted in the context of the absolute cell counts (cells/UL). Performed By: #### 5 7021-8 #### JESÚS MERINO ([id number]) [facility] ([facility]) [address] [place] [address] Lymphocytes (Bld) [#/Vol] 1.96 x10*3/uL Normal 0.80-3.00 [facility] Comment on above: Performed By: #### 5 7021-8 #### JESSÚ MERINO ([id number]) [facility] ([facility]) [address] [place] [address] Lymphocytes/100 WBC (Bld) 46.1 % Normal 13.0-44.0 [facility] Comment on above: Performed By: #### 5 7021-8 #### JESÚS MERINO ([id number]) [facility] ([facility]) [address] [place] [address] MCH (RBC) [Entitic mass] 31.9 pg Normal 26.0-34.0 [facility] Comment on above: Performed By: #### 5 7021-8 #### JESÚS MERINO ([id number]) [facility] ([facility]) [address] [place] [address] MCHC (RBC) [Mass/Vol] 34.6 g/dL Normal 32.0-36.0 [facility] Comment on above: Performed By: #### 5 7021-8 #### JESÚS MERINO ([id number]) [facility] ([facility]) [address] [place] [address] MCV (RBC) [Entitic vol] 92 fL Normal 80-100 U [facility] Comment on above: Performed By: #### 5 7021-8 #### JESÚS MERINO ([id number]) [facility] ([facility]) [address] [place] [address] 19733 Monocytes (Bld) [#/Vol] 0.39 x10*3/uL Normal 0.05-0.80 [facility] Comment on above: Performed By: #### 5 7021-8 #### JESÚS MERINO ([id number]) [facility] ([facility]) [address] [place] [address] 49015 Monocytes/100 WBC (Bld) 9.2 % Normal 2.0-10.[address] [facility] Comment on above: Performed By: #### 5 7021-8 #### JESÚS MERINO ([id number]) [facility] ([facility]) [address] [place] [address] 24400 Neutrophils (Bld) [#/Vol] 1.83 x10*3/uL Normal 1.60-5.50 [facility] Comment on above: Result Comment: Perc ent differential counts (%) should be interpreted in the context of the absolute cell counts (cells/uL). Performed By: #### 5 7021-8 #### JESÚS MERINO ([id number]) [facility] ([facility]) [address] [place] [address] 17862 Neutrophils/100 WBC (Bld) 43.1 % Normal 40.0-80.0 [facility] Comment on above: Performed By: #### 5 7021-8 #### JESÚS MERINO ([id number]) [facility] ([facility]) [address] [place] [address] 94431 Nucleated RBC/100 WBC (Bld) [Ratio] 0.0 /100 WBCs Normal 0.0-0.0 [facility] Comment on above: Performed By: #### 5 7021-8 #### JESÚS MERINO ([id number]) [facility] ([facility]) [address] [place] [address] 47842 Platelets (Bld) [#/Vol] 183 x10*3/uL Normal 150-450 [facility] Comment on above: Performed By: #### 5 7021-8 #### JESÚS MERINO ([id number]) [facility] ([facility]) [address] [place] [address] RBC (Bld) [#/Vol] 4.39 x10*6/uL Normal 4.00-5.20 [facility] Comment on above: Performed By: #### 5 7021-8 #### JESÚS MERINO ([id number]) [facility] ([facility]) [facility] [place] [phone] WBC (Bld) [#/Vol] 4.3 x10*3/uL Low 4.4-11.[address] [facility] Comment on above: Performed By: #### 5 7021-8 #### JESÚS MERINO ([id number]) [facility] ([facility]) [address] [place] [address] CT BRAIN ATTACK HEAD WO IV C ONTRASTon 05-20-2023 CT BRAIN ATTACK HEAD WO IV CONTRAST Interpreted By: Storm Mercado, STUDY: CT BRAIN ATTACK HEAD WO IV CONTRAST; 05/20/2023 4:51 pm INDICATION: Signs/Symptoms:Stro ke Evaluation. COMPARISON: None. ACCESSION NUMBER(S): [id number] ORDERING CLINICIAN: MAYUR JEWELL TECHNIQUE: Noncontrast axial CT scan of head was performed. Angled reformats in brain and bone windows were generated. The images were reviewed in bone, brain, blood and soft tissue windows. FINDINGS: CSF Spaces: The ventricles, sulci and basal cisterns are within normal limits. There is no extraaxial fluid collection. Parenchyma: The donovan-white differentiation is intact. There is no mass effect or midline shift. There is no intracranial hemorrhage. Calvarium: The calvarium is unremarkable. Paranasal sinuses and mastoids: Visualized paranasal sinuses and mastoids are clear. IMPRESSION: No evidence of acute cortical infarct or intracranial hemorrhage. MACRO: Storm Mercado discussed the significance and urgency of this critical finding via [employer] secure chat with MAYUR JEWELL on 05/20/2023 at 5:00 pm. (-RCF-) Findings: See findings. Signed by: Storm Mercado 05/20/2023 5:01 PM Dictation workstation: [id number] [facility] Coagulation surface inducedo n 05-20-2023 aPTT Coag (PPP) [Time] 30 s Normal 27-38 [facility] Comment on above: Order Comment: The A PTT is no longer used for monitoring Unfractionated Heparin Therapy. For monitoring Heparin Therapy, use the Heparin Assay. Performed By: #### 1 4979-9 #### JESÚS MERINO ([id number]) [facility] ([facility]) [address] [place], [place] [phone] Coagulation tissue factor in ducedon 05-20-2023 PT Coag (PPP) [Time] 11.5 s Normal 9.8-12.8 [facility] Comment on above: Performed By: #### 5 902-2 #### JESÚS MERINO ([id number]) [facility] ([facility]) [address] [place] [address] 92510 Comprehensive metabolic 2000 panelon 05-20-2023 Albumin BCP dye [Mass/Vol] 4.3 g/dL Normal 3.4-5.0 [facility] Comment on above: Performed By: #### 2 4323-8 #### JESÚS MERINO ([id number]) [facility] ([facility]) [address] [place] [address] 35226 ALP [Catalytic activity/Vol] 70 U/L Normal 33-136 [facility] Comment on above: Performed By: #### 2 4323-8 #### JESÚS MERINO ([id number]) [facility] ([facility]) [address] [place] [address] 77773 ALT With P-5'-P [Catalytic activity/Vol] 12 U/L Normal 7-45 [facility] Comment on above: Result Comment: Tenisha ents treated with Sulfasalazine may generate falsely decreased results for ALT. Performed By: #### 2 4323-8 #### JESÚS MERINO ([id number]) [facility] ([facility]) [address] [place] [address] 57947 Anion gap [Moles/Vol] 13 mmol/L Normal 10-20 [facility] Comment on above: Performed By: #### 2 4323-8 #### JESÚS MERINO ([id number]) [facility] ([facility]) [address] [place] [address] AST With P-5'-P [Catalytic activity/Vol] 21 U/L Normal 9-39 [facility] Comment on above: Performed By: #### 2 432-8 #### JESÚS MERINO ([id number]) [facility] ([facility]) [address] [place] [address] Bilirubin [Mass/Vol] 0.5 mg/dL Normal 0.0-1.2 [facility] Comment on above: Performed By: #### 2 4322-8 #### JESÚS MERINO ([id number]) [facility] ([facility]) [address] [place] [address] 46547 Calcium [Mass/Vol] 9.0 mg/dL Normal 8.6-10.3 [facility] Comment on above: Performed By: #### 2 4322-8 #### JESÚS MERINO ([id number]) [facility] ([facility]) [address] [place] [address] Chloride [Moles/Vol] 105 mmol/L Normal 98-107 [facility] Comment on above: Performed By: #### 2 4322-8 #### JESÚS MERINO ([id number]) [facility] ([facility]) [address] [place] [address] CO2 [Moles/Vol] 27 mmol/L Normal 21-32 [facility] Comment on above: Performed By: #### 2 4322-8 #### JESÚS MERINO ([id number]) [facility] ([facility]) [address] [place] [address] Creatinine [Mass/Vol] 0.71 mg/dL Normal 0.50-1.05 [facility] Comment on above: Performed By: #### 2 432-8 #### JESÚS MERINO ([id number]) [facility] ([facility]) [address] [place] [address] GFR/1.73 sq M.predicted MDRD (S/P/Bld) [Vol rate/Area] 88 mL/min/1.73m*2 Normal >60 [facility] Comment on above: Result Comment: Calc ulations of estimated GFR are performed using the 2020 CKD-EPI Study Refit equation without the race variable for the IDMS-Traceable creatinine methods. https://jasn.asnjournals.org/content///ASN.795 6353617 Performed By: #### 2 4323-8 #### JESÚS MERINO ([id number]) [facility] ([facility]) [address] [place] [address] 39727 Glucose [Mass/Vol] 96 mg/dL Normal 74-99 [facility] Comment on above: Performed By: #### 2 4323-8 #### JESÚS MERINO ([id number]) [facility] ([facility]) [address] [place] [address] 10296 Potassium [Moles/Vol] 3.6 mmol/L Normal 3.5-5.3 [facility] Comment on above: Performed By: #### 2 4323-8 #### JESÚS MERINO ([id number]) [facility] ([facility]) [address] [place] [address] 39209 Protein [Mass/Vol] 7.0 g/dL Normal 6.4-8.2 [facility] Comment on above: Performed By: #### 2 4323-8 #### JESÚS MERINO ([id number]) [facility] ([facility]) [address] [place] [address] 50007 Sodium [Moles/Vol] 141 mmol/L Normal 136-145 [facility] Comment on above: Performed By: #### 2 4323-8 #### JESÚS MERINO ([id number]) [facility] ([facility]) [address] [place] [address] 65506 Urea nitrogen [Mass/Vol] 9 mg/dL Normal 6-23 [facility] Comment on above: Performed By: #### 2 4323-8 #### JESÚS MERINO ([id number]) [facility] ([facility]) [address] [place] [id number] HbA1c (Bld) [Mass fraction]o n 05-20-2023 Average glucose Estimated from glycated hemoglobin (Bld) [Mass/Vol] 97 mg/dL Normal Not Established [facility] Comment on above: Order Comment: Diagn osis of Diabetes-Adults Non-Diabetic: < or = 5.6% Increased risk for developing diabetes: 5.7-6.4% Diagnostic of diabetes: > or = 6.5% Monitoring of Diabetes Age (y)....................... Therapeutic Goal (%) Adults: >18.........................<7.0 Pediatrics: 13-18...................<7.5 Pediatrics: 7-12....................<8.0 Pediatrics: 0-6..................... 7.5-8.5 [place]. Diabetes Care 33(S1), Jun 2009 Performed By: #### 4 548-4 #### ESPINOSA WILBER ([id number]) [facility] ([facility]) [address] [place] [address] Hemoglobin A1c/Hemoglobin.to haley 05-20-2023 HbA1c (Bld) [Mass fraction] 5.0 % Normal see below [facility] Comment on above: Order Comment: Diagn osis of Diabetes-Adults Non-Diabetic: < or = 5.6% Increased risk for developing diabetes: 5.7-6.4% Diagnostic of diabetes: > or = 6.5% Monitoring of Diabetes Age (y)....................... Therapeutic Goal (%) Adults: >18.........................<7.0 Pediatrics: 13-18...................<7.5 Pediatrics: 7-12....................<8.0 Pediatrics: 0-6..................... 7.5-8.5 [place]. Diabetes Care 33(S1), Jun 2009 Performed By: #### 4 548-4 #### JESÚS MERINO ([id number]) [facility] ([facility]) [address] [place] [address] Lipid 1996 panelon 3 Cholesterol [Mass/Vol] 167 mg/dL Normal 0-199 [facility] Comment on above: Result Comment: Age Desirable Borderline High High 0-19 Y 0 - 169 170 - 199 >/= 200 20-24 Y 0 - 189 190 - 224 >/= 225 >24 Y 0 - 199 200 - 239 >/= 240 All ranges are based on fasting samples. Specific therapeutic targets will vary based on patient-specific cardiac risk. Pediatric guidelines reference:Pediatrics 2011, 128(S5).Adult guidelines reference: NCEP ATPIII Guidelines,BE 2001, 258:2486-97 Venipuncture immediately after or during the administration of Metamizole may lead to falsely low results. Testing should be performed immediately prior to Metamizole dosing. Performed By: #### 2 4331-1 #### JESÚS MERINO ([id number]) [facility] ([facility]) [facility] [place] [address] Cholesterol in HDL [Mass/Vol] 48.0 mg/dL Normal [facility] Comment on above: Result Comment: Age Very Low Low Normal High 0-19 Y < 35 < 40 40-45 ---- 20-24 Y ---- < 40 >45 ---- >24 Y ---- < 40 40-60 >60 Performed By: #### 2 4331-1 #### JESÚS MERINO ([id number]) [facility] ([facility]) [facility] [place] [address] Cholesterol in LDL [Mass/Vol] 102 mg/dL High <=99 [facility] Comment on above: Result Comment: Near Borderline AGE Desirable Optimal High High Very High 0-19 Y 0 - 109 --- 110-129 >/= 130 ---- 20-24 Y 0 - 119 --- 120-159 >/= 160 ---- >24 Y 0 - 99 100-129 130-159 160-189 >/=190 Performed By: #### 2 4331-1 #### JESÚS MERINO ([id number]) [facility] ([facility]) [address] [place] [address] Cholesterol in VLDL [Mass/Vol] 17 mg/dL Normal 0-40 [facility] Comment on above: Performed By: #### 2 4331-1 #### JESÚS MERINO ([id number]) [facility] ([facility]) [facility] [place] [address] CHOLESTEROL/HDL RATIO 3.5 Normal [facility] Comment on above: Result Comment: Ref Values Desirable < 3.4 High Risk > 5.0 Performed By: #### 2 4331-1 #### JESÚS MERINO ([id number]) [facility] ([facility]) [address] [place] [address] NON HDL CHOLESTEROL 119 mg/dL Normal 0-[address] [facility] Comment on above: Result Comment: Age Desirable Borderline High High Very High 0-19 Y 0 - 119 120 - 144 >/= 145 >/= 160 20-24 Y 0 - 149 150 - 189 >/= 190 ---- >24 Y 30 mg/dL above LDL Cholesterol goal Performed By: #### 2 4331-1 #### JESÚS MERINO ([id number]) [facility] ([facility]) [address] [place] [address] Triglyceride [Mass/Vol] 83 mg/dL Normal 0-149 [facility] Comment on above: Result Comment: Age Desirable Borderline High High Very High 0 D-90 D 19 - 174 ---- ---- ---- 91 D- 9 Y 0 - 74 75 - 99 >/= 100 ---- 10-19 Y 0 - 89 90 - 129 >/= 130 ---- 20-24 Y 0 - 114 115 - 149 >/= 150 ---- >24 Y 0 - 149 150 - 199 200- 499 >/= 500 Venipuncture immediately after or during the administration of Metamizole may lead to falsely low results. Testing should be performed immediately prior to Metamizole dosing. Performed By: #### 2 4331-1 #### ESPINOSA WILBER ([id number]) [facility] ([facility]) [facility] [place] [address] MR ANGIO HEAD WO IV CONTRAST on 05-20-2023 MR ANGIO HEAD WO IV CONTRAST Interpreted By: Baldomero Dickinson, STUDY: MR BRAIN WO IV CONTRAST; MR ANGIO HEAD WO IV CONTRAST; 05/22/2023 11:08 am INDICATION: Signs/Symptoms:tia. left sided weakness. COMPARISON: None. ACCESSION NUMBER(S): [id number]; [id number] ORDERING CLINICIAN: SHABNAM LEÓN TECHNIQUE: The brain was studied in the sagittal axial and coronal planes utilizing FLAIR, T1 and T2 weighted images FINDINGS: There is slight prominence of the cortical sulci and sylvian fissures. There is mild ventricular dilatation. There are a few scattered foci of abnormal signal within the basal ganglia and subcortical white matter bilaterally. These are compatible with minimal small vessel ischemic changes. These nonspecific findings could also be produced by a demyelinating or post inflammatory process. The visualized skull base paranasal sinuses and orbital structures are unremarkable. Diffusion weighted images of the brain and associated ADC maps demonstrate acute lacunar infarction in the right lentiform nuclei and posterior limb of the right internal capsule. Gradient echo T2 weighted images fail to demonstrate hemosiderin deposition or other evidence of hemorrhage. Magnetic resonance angiography of the intracranial vessels was performed utilizing 3-D mlvx-lb-lvdmch imaging with 3-D reconstruction. The examination fails to reveal the presence of focal narrowing or branch occlusion. There is no evidence of aneurysm or vascular malformation. IMPRESSION * Acute lacunar infarction right basal ganglia and internal capsule without hemorrhage or mass effect *No evidence of intracranial mass or extra-axial collection. MACRO: Baldomero Dickinson discussed the significance and urgency of this critical finding by telephone with SHABNAM LEÓN on 05/22/2023 at 12:52 pm. (-RCF-) Findings: See findings. Signed by: Baldomero Dickinson 05/22/2023 1:10 PM Dictation workstation: [id number] [facility] MR BRAIN WO IV CONTRASTon MR BRAIN WO IV CONTRAST Interpreted By: Baldomero Dickinson, STUDY: MR BRAIN WO IV CONTRAST; MR ANGIO HEAD WO IV CONTRAST; 05/22/2023 11:08 am INDICATION: Signs/Symptoms:tia. left sided weakness. COMPARISON: None. ACCESSION NUMBER(S): [id number]; [id number] ORDERING CLINICIAN: SHABNAM LEÓN TECHNIQUE: The brain was studied in the sagittal axial and coronal planes utilizing FLAIR, T1 and T2 weighted images FINDINGS: There is slight prominence of the cortical sulci and sylvian fissures. There is mild ventricular dilatation. There are a few scattered foci of abnormal signal within the basal ganglia and subcortical white matter bilaterally. These are compatible with minimal small vessel ischemic changes. These nonspecific findings could also be produced by a demyelinating or post inflammatory process. The visualized skull base paranasal sinuses and orbital structures are unremarkable. Diffusion weighted images of the brain and associated ADC maps demonstrate acute lacunar infarction in the right lentiform nuclei and posterior limb of the right internal capsule. Gradient echo T2 weighted images fail to demonstrate hemosiderin deposition or other evidence of hemorrhage. Magnetic resonance angiography of the intracranial vessels was performed utilizing 3-D ahue-cx-wvtxll imaging with 3-D reconstruction. The examination fails to reveal the presence of focal narrowing or branch occlusion. There is no evidence of aneurysm or vascular malformation. IMPRESSION * Acute lacunar infarction right basal ganglia and internal capsule without hemorrhage or mass effect *No evidence of intracranial mass or extra-axial collection. MACRO: Baldomero Dickinson discussed the significance and urgency of this critical finding by telephone with SHABNAM LEÓN on 05/22/2023 at 12:52 pm. (-RCF-) Findings: See findings. Signed by: Baldomero Dickinson 05/22/2023 1:10 PM Dictation workstation: [id number] [facility] PT Coag (PPP) [Time]on 05-20 INR Coag (PPP) [Relative time] 1.0 Normal 0.9-1.1 [facility] Comment on above: Performed By: #### 5 902-2 #### ESPINOSA WILBER ([id number]) [facility] ([facility]) [address] [place] [id number] Troponin I.cardiac panelon 1 07-21-2022 Tropinin I.cardiac panel High sensitivity method 6 ng/L Normal 0-13 [facility] Comment on above: Order Comment: Less than 99th percentile of normal range cutoff- Female and children under 18 years old <14 ng/L; Male <21 ng/L: Negative Repeat testing should be performed if clinically indicated. Female and children under 18 years old 14-50 ng/L; Male 21-50 ng/L: Consistent with possible cardiac damage and possible increased clinical risk. Serial measurements may help to assess extent of myocardial damage. >50 ng/L: Consistent with cardiac damage, increased clinical risk and myocardial infarction. Serial measurements may help assess extent of myocardial damage. NOTE: Children less than 1 year old may have higher baseline troponin levels and results should be interpreted in conjunction with the overall clinical context. NOTE: Troponin I testing is performed using a different testing methodology at [facility] than at other [facility]. Direct result comparisons should only be made within the same method. Performed By: #### 8 9577-1 #### ESPINOSA WILBER ([id number]) [facility] ([facility]) [facility] [place] [id number] Absolute lymphocyte countOrd ered By: Ari Medina on 04-18-2023 Lymphocytes Auto (Unsp spec) [#/Vol] 1.13 10*3/uL 0.83-4.51 [facility] Basophil percentageOrdered B y: Ari Medina on 04-18-2023 Basophils/100 WBC (Bld) 0.7 % 0-1 [facility] Bilirubin [Mass/Vol] 0.50 mg/dL 0.20-1.00 [facility] Comment on above: For patients on eltr ombopag therapy, use of Dimension [place] TBIL is not recommended. Chloride [Moles/Vol] 106 mmol/L 98-107 [facility] Eosinophils/100 WBC (Bld) 0.4 % 0-5 [facility] Glucose [Mass/Vol] 123 mg/dL 74-106 [facility] Comment on above: Fasting Glucose resu lt from 100 to 125 mg/dL suggests IMPAIRED HOMEOSTASIS per A.D.A. criteria. Neutrophils (Bld) [#/Vol] 3.0 10*3/uL 2.0-7.7 [facility] Neutrophils/100 WBC (Bld) 66.7 % 47-70 [facility] Potassium [Moles/Vol] 3.7 mmol/L 3.5-5.1 [facility] Protein [Mass/Vol] 7.4 g/dL 6.4-8.2 [facility] Sodium [Moles/Vol] 140 mmol/L 136-145 [facility] WBC (Bld) [#/Vol] 4.5 10*3/uL 4.4-11.0 [facility] Blood erythrocytes count (nu mber/volume)Ordered By: Ari Medina on 04-18-2023 RBC (Bld) [#/Vol] 4.48 10*6/uL 4.2-5.4 [facility] Blood hemoglobin measurement (mass/volume)Ordered By: Ari Medina on 04-18-2023 Hemoglobin (Bld) [Mass/Vol] 14.1 g/dL 12.0-15.0 [facility] Blood lymphocytes/100 leukoc ytesOrdered By: Ari Medina on 04-18-2023 Lymphocytes/100 WBC (Bld) 24.9 % 19-41 [facility] Blood monocytes/100 leukocyt esOrdered By: Ari Medina on 04-18-2023 Monocytes/100 WBC (Bld) 7.1 % 0-10 [facility] Blood platelet mean volumeOr dered By: Ari Medina on 04-18-2023 Platelet mean volume (Bld) [Entitic vol] 11.5 fL 6.2-12.0 [facility] Determination of erythrocyte mean corpuscular volume (MCV)Ordered By: Ari Medina on 04-18-2023 MCV (RBC) [Entitic vol] 95.1 fL 81-99 [facility] Hematocrit Auto (Bld) [Volum e fraction]Ordered By: Ari Medina on 04-18-2023 Hematocrit (Bld) [Volume fraction] 42.6 % 37-47 [facility] Laboratory - Chemistry and C hemistry - challengeOrdered By: Ari Medina on 04-18-2023 ALP [Catalytic activity/Vol] 70 U/L 45-117 [facility] ALT [Catalytic activity/Vol] 17 U/L 13-56 [facility] CO2 [Moles/Vol] 29.0 mmol/L 21.0-32.0 [facility] Globulin (S) [Mass/Vol] 3.6 g/dL 2.2-4.2 [facility] Urea nitrogen/Creatinine [Mass ratio] 12.2 mg/mg 10-20 [facility] - Hematology and Cell countsOrdered By: Ari Medina on 04-18-2023 Erythrocyte distribution width (RBC) [Entitic vol] 41.4 fL 35.1-43.9 [facility] Erythrocyte distribution width (RBC) [Ratio] 11.9 % 11.6-14.6 [facility] Immature granulocytes/100 WBC (Bld) 0.200 % 0.0-0.9 [facility] Comment on above: IG% - Immature Granu locytes (promyelocytes, myelocytes and metamyelocytes) > 1% indicates that a LEFT SHIFT is Present. MCH (RBC) [Entitic mass] 31.5 pg 27.0-32.0 [facility] Nucleated RBC/100 WBC (Bld) [Ratio] 0 % 0-5 [facility] MCHC Auto (RBC) [Mass/Vol]Or dered By: Ari Medina on 04-18-2023 MCHC (RBC) [Mass/Vol] 33.1 g/dL 32-36 [facility] No Panel InformationOrdered By: Ari Medina on 04-18-2023 Estimated GFR (MDRD) Amer 87 mL/min >60 [facility] Comment on above: GFR Calc Estimated GFR (MDRD) Non-Af Amer 72 mL/min >60 [facility] Comment on above: Non- GFR Calc Thyroid Stimulating Hormone (TSH) 1.86 uIU/mL 0.358-3.74 [facility] Vitamin D 25-Hydroxy 29.5 ng/mL [facility] Comment on above: Vitamin D 25(OH) Sta tus Range Deficiency <20 ng/mL (50nmol/L) Insufficiency 20 - 30 ng/mL (50 - 75 nmol/L) Sufficiency 30 - 100 ng/mL (75 - 250 nmol/L) Toxicity >100 ng/mL (>250 nmol/L) Platelets bldOrdered By: Ari Medina on 04-18-2023 Platelets (Bld) [#/Vol] 188 10*3/uL 150-450 [facility] Serum or plasma albumin luzma urement (mass/volume)Ordered By: Ari Medina on 04-18-2023 Albumin [Mass/Vol] 3.8 g/dL 3.2-5.0 [facility] Serum or plasma albumin/glob ulin mass ratioOrdered By: Ari Medina on 04-18-2023 Albumin/Globulin [Mass ratio] 1.1 {ratio} 0.9-2.4 [facility] Serum or plasma calcium luzma urement (mass/volume)Ordered By: Ari Medina on 04-18-2023 Calcium [Mass/Vol] 8.6 mg/dL 8.5-10.1 [facility] Serum or plasma creatinine m easurement (mass/volume)Ordered By: Ari Medina 04-18-2023 Creatinine [Mass/Vol] 0.82 mg/dL 0.55-1.02 [facility] Comment on above: The validity of the calculated GFR & GFRAA in patients over 70 years has not been determined. Clinical correlation is essential. Serum or plasma urea nitroge n measurement (mass/volume)Ordered By: Ari Medina on 04-18-2023 Urea nitrogen [Mass/Vol] 10 mg/dL 7-18 [facility] Thin prep Papanicolaou smear with manual screeningOrdered By: Ari Medina 04-18-2023 Thin prep Papanicolaou smear with manual screening 20 U/L 15-37 [facility] Thin prep Papanicolaou smear with manual screening 5 5-15 [facility] Basophil percentageOrdered B y: Ari Medina on 02-13-2023 Chloride [Moles/Vol] 109 mmol/L 98-107 [facility] Glucose [Mass/Vol] 90 mg/dL 74-106 [facility] Potassium [Moles/Vol] 3.7 mmol/L 3.5-5.1 [facility] Sodium [Moles/Vol] 142 mmol/L 136-145 [facility] Laboratory - Chemistry and C hemistry - challengeOrdered By: Ari Medina on 02-13-2023 CO2 [Moles/Vol] 29.0 mmol/L 21.0-32.0 [facility] Urea nitrogen/Creatinine [Mass ratio] 12.7 mg/mg 10-20 [facility] No Panel InformationOrdered By: Ari Medina on 02-13-2023 Estimated GFR (MDRD) Amer 91 mL/min >60 [facility] Comment on above: GFR Calc Estimated GFR (MDRD) Non-Af Amer 75 mL/min >60 [facility] Comment on above: Non- GFR Calc Serum or plasma calcium luzma urement (mass/volume)Ordered By: Ari Medina on 02-13-2023 Calcium [Mass/Vol] 8.9 mg/dL 8.5-10.1 [facility] Serum or plasma creatinine m easurement (mass/volume)Ordered By: Ari Medina on 02-13-2023 Creatinine [Mass/Vol] 0.79 mg/dL 0.55-1.02 [facility] Comment on above: The validity of the calculated GFR & GFRAA in patients over 70 years has not been determined. Clinical correlation is essential. Serum or plasma urea nitroge n measurement (mass/volume)Ordered By: Ari Medina on 02-13-2023 Urea nitrogen [Mass/Vol] 10 mg/dL 7-18 [facility] Thin prep Papanicolaou smear with manual screeningOrdered By: Ari Medina on 02-13-2023 Thin prep Papanicolaou smear with manual screening 4 5-15 [facility] Absolute lymphocyte countOrd ered By: Dr. Medina on 10-10-2022 Lymphocytes Auto (Unsp spec) [#/Vol] 1.93 10*3/uL 0.83-4.51 [facility] Basophil percentageOrdered B y: Dr. Medina on 10-10-2022 Basophils/100 WBC (Bld) 0.4 % 0-1 [facility] Bilirubin [Mass/Vol] 0.50 mg/dL 0.20-1.00 [facility] Comment on above: For patients on eltr ombopag therapy, use of Dimension [place] TBIL is not recommended. Chloride [Moles/Vol] 107 mmol/L 98-107 [facility] Eosinophils/100 WBC (Bld) 0.7 % 0-5 [facility] Glucose [Mass/Vol] 73 mg/dL 74-106 [facility] Neutrophils (Bld) [#/Vol] 3.1 10*3/uL 2.0-7.7 [facility] Neutrophils/100 WBC (Bld) 56.1 % 47-70 [facility] Potassium [Moles/Vol] 3.5 mmol/L 3.5-5.1 [facility] Protein [Mass/Vol] 7.3 g/dL 6.4-8.2 [facility] Sodium [Moles/Vol] 142 mmol/L 136-145 [facility] WBC (Bld) [#/Vol] 5.5 10*3/uL 4.4-11.0 [facility] Blood erythrocytes count (nu mber/volume)Ordered By: Dr. Medina on 10-10-2022 RBC (Bld) [#/Vol] 4.52 10*6/uL 4.2-5.4 [facility] Blood hemoglobin measurement (mass/volume)Ordered By: Dr. Medina on 10-10-2022 Hemoglobin (Bld) [Mass/Vol] 14.3 g/dL 12.0-15.0 [facility] Blood lymphocytes/100 leukoc ytesOrdered By: Dr. Medina on 10-10-2022 Lymphocytes/100 WBC (Bld) 34.8 % 19-41 [facility] Blood monocytes/100 leukocyt esOrdered By: Dr. Medina on 10-10-2022 Monocytes/100 WBC (Bld) 7.6 % 0-10 [facility] Blood platelet mean volumeOr dered By: Dr. Medina on 10-10-2022 Platelet mean volume (Bld) [Entitic vol] 12.0 fL 6.2-12.0 [facility] Determination of erythrocyte mean corpuscular volume (MCV)Ordered By: Dr. Medina on 10-10-2022 MCV (RBC) [Entitic vol] 96.2 fL 81-99 [facility] Hematocrit Auto (Bld) [Volum e fraction]Ordered By: Dr. Medina on 10-10-2022 Hematocrit (Bld) [Volume fraction] 43.5 % 37-47 [facility] Laboratory - Chemistry and C hemistry - challengeOrdered By: Dr. Medina on 10-10-2022 ALP [Catalytic activity/Vol] 81 U/L 45-117 [facility] ALT [Catalytic activity/Vol] 24 U/L 13-56 [facility] CO2 [Moles/Vol] 28.0 mmol/L 21.0-32.0 [facility] Globulin (S) [Mass/Vol] 3.5 g/dL 2.2-4.2 [facility] Urea nitrogen/Creatinine [Mass ratio] 16.0 mg/mg 10-20 [facility] Laboratory - Hematology and Cell countsOrdered By: Dr. Medina on 10-10-2022 Erythrocyte distribution width (RBC) [Entitic vol] 43.7 fL 35.1-43.9 [facility] Erythrocyte distribution width (RBC) [Ratio] 12.3 % 11.6-14.6 [facility] Immature granulocytes/100 WBC (Bld) 0.400 % 0.0-0.9 [facility] Comment on above: IG% - Immature Granu locytes (promyelocytes, myelocytes and metamyelocytes) > 1% indicates that a LEFT SHIFT is Present. MCH (RBC) [Entitic mass] 31.6 pg 27.0-32.0 [facility] Nucleated RBC/100 WBC (Bld) [Ratio] 0 % 0-5 [facility] MCHC Auto (RBC) [Mass/Vol]Or dered By: Dr. Medina on 10-10-2022 MCHC (RBC) [Mass/Vol] 32.9 g/dL 32-36 [facility] No Panel InformationOrdered By: Dr. Medina on 10-10-2022 Estimated GFR (MDRD) Amer 107 mL/min >60 [facility] Comment on above: GFR Calc Estimated GFR (MDRD) Non-Af Amer 88 mL/min >60 [facility] Comment on above: Non- GFR Calc Thyroid Stimulating Hormone (TSH) 4.46 uIU/mL 0.358-3.74 [facility] Vitamin D 25-Hydroxy 34.0 ng/mL [facility] Comment on above: Vitamin D 25(OH) Sta tus Range Deficiency <20 ng/mL (50nmol/L) Insufficiency 20 - 30 ng/mL (50 - 75 nmol/L) Sufficiency 30 - 100 ng/mL (75 - 250 nmol/L) Toxicity >100 ng/mL (>250 nmol/L) Platelets bldOrdered By: Dr. Medina on 10-10-2022 Platelets (Bld) [#/Vol] 195 10*3/uL 150-450 [facility] Serum or plasma albumin luzma urement (mass/volume)Ordered By: Dr. Medina on 10-10-2022 Albumin [Mass/Vol] 3.8 g/dL 3.2-5.0 [facility] Serum or plasma albumin/glob ulin mass ratioOrdered By: Dr. Medina on 10-10-2022 Albumin/Globulin [Mass ratio] 1.1 {ratio} 0.9-2.4 [facility] Serum or plasma calcium luzma urement (mass/volume)Ordered By: Dr. Medina on 10-10-2022 Calcium [Mass/Vol] 8.9 mg/dL 8.5-10.1 [facility] Serum or plasma creatinine m easurement (mass/volume)Ordered By: Dr. Medina on 10-10-2022 Creatinine [Mass/Vol] 0.69 mg/dL 0.55-1.02 [facility] Comment on above: The validity of the calculated GFR & GFRAA in patients over 70 years has not been determined. Clinical correlation is essential. Serum or plasma urea nitroge n measurement (mass/volume)Ordered By: Dr. Medina on 10-10-2022 Urea nitrogen [Mass/Vol] 11 mg/dL 7-18 [facility] Thin prep Papanicolaou smear with manual screeningOrdered By: Dr. Medina on 10-10-2022 Thin prep Papanicolaou smear with manual screening 24 U/L 15-37 [facility] Thin prep Papanicolaou smear with manual screening 7 5-15 [facility] Absolute lymphocyte countOrd ered By: Dr. Medina on 04-04-2022 Lymphocytes Auto (Unsp spec) [#/Vol] 1.63 10*3/uL 0.83-4.51 [facility] Basophil percentageOrdered B y: Dr. Medina on 04-04-2022 Basophils/100 WBC (Bld) 1.1 % 0-1 [facility] Bilirubin [Mass/Vol] 0.40 mg/dL 0.20-1.00 [facility] Comment on above: For patients on eltr ombopag therapy, use of Dimension [place] TBIL is not recommended. Chloride [Moles/Vol] 109 mmol/L 98-107 [facility] Eosinophils/100 WBC (Bld) 1.3 % 0-5 [facility] Glucose [Mass/Vol] 84 mg/dL 74-106 [facility] Neutrophils (Bld) [#/Vol] 2.4 10*3/uL 2.0-7.7 [facility] Neutrophils/100 WBC (Bld) 52.6 % 47-70 [facility] Potassium [Moles/Vol] 3.6 mmol/L 3.5-5.1 [facility] Protein [Mass/Vol] 7.1 g/dL 6.4-8.2 [facility] Sodium [Moles/Vol] 143 mmol/L 136-145 [facility] WBC (Bld) [#/Vol] 4.6 10*3/uL 4.4-11.0 [facility] Blood erythrocytes count (nu mber/volume)Ordered By: Dr. Medina on 04-04-2022 RBC (Bld) [#/Vol] 4.42 10*6/uL 4.2-5.4 [facility] Blood hemoglobin measurement (mass/volume)Ordered By: Dr. Medina on 04-04-2022 Hemoglobin (Bld) [Mass/Vol] 14.3 g/dL 12.0-15.0 [facility] Blood lymphocytes/100 leukoc ytesOrdered By: Dr. Medina on 04-04-2022 Lymphocytes/100 WBC (Bld) 35.6 % 19-41 [facility] Blood monocytes/100 leukocyt esOrdered By: Dr. Medina on 04-04-2022 Monocytes/100 WBC (Bld) 9.2 % 0-10 [facility] Blood platelet mean volumeOr dered By: Dr. Medina on 04-04-2022 Platelet mean volume (Bld) [Entitic vol] 11.3 fL 6.2-12.0 [facility] Determination of erythrocyte mean corpuscular volume (MCV)Ordered By: Dr. Medina on 04-04-2022 MCV (RBC) [Entitic vol] 92.3 fL 81-99 [facility] Hematocrit Auto (Bld) [Volum e fraction]Ordered By: Dr. Medina on 04-04-2022 Hematocrit (Bld) [Volume fraction] 40.8 % 37-47 [facility] Laboratory - Chemistry and C hemistry - challengeOrdered By: Dr. Medina on 04-04-2022 ALP [Catalytic activity/Vol] 91 U/L 45-117 [facility] ALT [Catalytic activity/Vol] 16 U/L 13-56 [facility] CO2 [Moles/Vol] 30.0 mmol/L 21.0-32.0 [facility] Globulin (S) [Mass/Vol] 3.5 g/dL 2.2-4.2 [facility] Urea nitrogen/Creatinine [Mass ratio] 13.0 mg/mg 10-20 [facility] Laboratory - Hematology and Cell countsOrdered By: Dr. Medina on 04-04-2022 Erythrocyte distribution width (RBC) [Entitic vol] 40.0 fL 35.1-43.9 [facility] Erythrocyte distribution width (RBC) [Ratio] 11.9 % 11.6-14.6 [facility] Immature granulocytes/100 WBC (Bld) 0.200 % 0.0-0.9 [facility] Comment on above: IG% - Immature Granu locytes (promyelocytes, myelocytes and metamyelocytes) > 1% indicates that a LEFT SHIFT is Present. MCH (RBC) [Entitic mass] 32.4 pg 27.0-32.0 [facility] Nucleated RBC/100 WBC (Bld) [Ratio] 0 % 0-5 [facility] MCHC Auto (RBC) [Mass/Vol]Or dered By: Dr. Medina on 04-04-2022 MCHC (RBC) [Mass/Vol] 35.0 g/dL 32-36 [facility] No Panel InformationOrdered By: Dr. Medina on 04-04-2022 Estimated GFR (MDRD) Amer 94 mL/min >60 [facility] Comment on above: GFR Calc Estimated GFR (MDRD) Non-Af Amer 78 mL/min >60 [facility] Comment on above: Non- GFR Calc Thyroid Stimulating Hormone (TSH) 4.55 uIU/mL 0.358-3.74 [facility] Vitamin D 25-Hydroxy 24.9 ng/mL [facility] Comment on above: Vitamin D 25(OH) Sta tus Range Deficiency <20 ng/mL (50nmol/L) Insufficiency 20 - 30 ng/mL (50 - 75 nmol/L) Sufficiency 30 - 100 ng/mL (75 - 250 nmol/L) Toxicity >100 ng/mL (>250 nmol/L) Platelets bldOrdered By: Dr. Medina on 04-04-2022 Platelets (Bld) [#/Vol] 187 10*3/uL 150-450 [facility] Serum or plasma albumin luzma urement (mass/volume)Ordered By: Dr. [place] on 04-04-2022 Albumin [Mass/Vol] 3.6 g/dL 3.2-5.0 [facility] Serum or plasma albumin/glob ulin mass ratioOrdered By: Dr. Medina on 04-04-2022 Albumin/Globulin [Mass ratio] 1.0 {ratio} 0.9-2.4 [facility] Serum or plasma calcium luzma urement (mass/volume)Ordered By: Dr. Medina on 04-04-2022 Calcium [Mass/Vol] 8.8 mg/dL 8.5-10.1 [facility] Serum or plasma creatinine m easurement (mass/volume)Ordered By: Dr. Medina on 04-04-2022 Creatinine [Mass/Vol] 0.77 mg/dL 0.55-1.02 [facility] Comment on above: The validity of the calculated GFR & GFRAA in patients over 70 years has not been determined. Clinical correlation is essential. Serum or plasma urea nitroge n measurement (mass/volume)Ordered By: Dr. Medina on 04-04-2022 Urea nitrogen [Mass/Vol] 10 mg/dL 7-18 [facility] Thin prep Papanicolaou smear with manual screeningOrdered By: Dr. Medina on 04-04-2022 Thin prep Papanicolaou smear with manual screening 20 U/L 15-37 [facility] Thin prep Papanicolaou smear with manual screening 4 5-15 [facility] Absolute lymphocyte counton 11-03-2021 Lymphocytes Auto (Unsp spec) [#/Vol] 1.77 10*3/uL 0.83-4.51 [facility] Work Phone: Basophil percentageon 2021 Basophils/100 WBC (Bld) 0.7 % 0-1 [facility] Work Phone: [phone] Bilirubin [Mass/Vol] 0.60 mg/dL 0.20-1.00 [facility] Work Phone: Comment on above: For patients on eltr ombopag therapy, use of Dim[employer] [place] TBIL is not recommended. Chloride [Moles/Vol] 106 mmol/L 98-107 [facility] Work Phone: [phone] Eosinophils/100 WBC (Bld) 0.9 % 0-5 [facility] Work Phone: [phone] Glucose [Mass/Vol] 96 mg/dL 74-106 [facility] Work Phone: [phone] Neutrophils (Bld) [#/Vol] 3.2 10*3/uL 2.0-7.7 [facility] Work Phone: Neutrophils/100 WBC (Bld) 57.6 % 47-70 [facility] Work Phone: [phone] Potassium [Moles/Vol] 3.3 mmol/L 3.5-5.1 [facility] Work Phone: [phone] Protein [Mass/Vol] 7.5 g/dL 6.4-8.2 [facility] Work Phone: Sodium [Moles/Vol] 142 mmol/L 136-145 [facility] Work Phone: WBC (Bld) [#/Vol] 5.5 10*3/uL 4.4-11.0 [facility] Work Phone: [phone] Blood erythrocytes count (nu mber/volume)on 11-03-2021 RBC (Bld) [#/Vol] 4.66 10*6/uL 4.2-5.4 [facility] Work Phone: Blood hemoglobin measurement (mass/volume)on 11-03-2021 Hemoglobin (Bld) [Mass/Vol] 14.6 g/dL 12.0-15.0 [facility] Work Phone: Blood lymphocytes/100 leukoc yteson 11-03-2021 Lymphocytes/100 WBC (Bld) 31.9 % 19-41 [facility] Work Phone: Blood monocytes/100 leukocyt eson 11-03-2021 Monocytes/100 WBC (Bld) 8.7 % 0-10 [facility] Work Phone: Blood platelet mean volumeon 11-03-2021 Platelet mean volume (Bld) [Entitic vol] 11.5 fL 6.2-12.0 [facility] Work Phone: Determination of erythrocyte mean corpuscular volume (MCV)on 11-03-2021 MCV (RBC) [Entitic vol] 92.5 fL 81-99 [facility] Work Phone: Hematocrit Auto (Bld) [Volum e fraction]on 11-03-2021 Hematocrit (Bld) [Volume fraction] 43.1 % 37-47 [facility] Work Phone: Laboratory - Chemistry and C hemistry - challengeon 11-03-2021 ALP [Catalytic activity/Vol] 85 U/L 45-117 [facility] Work Phone: ALT [Catalytic activity/Vol] 22 U/L 13-56 [facility] Work Phone: CO2 [Moles/Vol] 25.0 mmol/L 21.0-32.0 [facility] Work Phone: Globulin (S) [Mass/Vol] 3.7 g/dL 2.2-4.2 [facility] Work Phone: Urea nitrogen/Creatinine [Mass ratio] 8.8 mg/mg 10-20 [facility] Work Phone: Laboratory - Hematology and Cell countson 11-03-2021 Erythrocyte distribution width (RBC) [Entitic vol] 40.3 fL 35.1-43.9 [facility] Work Phone: Erythrocyte distribution width (RBC) [Ratio] 11.9 % 11.6-14.6 [facility] Work Phone: Immature granulocytes/100 WBC (Bld) 0.200 % 0.0-0.9 [facility] Work Phone: Comment on above: IG% - Immature Granu locytes (promyelocytes, myelocytes and metamyelocytes) > 1% indicates that a LEFT SHIFT is Present. MCH (RBC) [Entitic mass] 31.3 pg 27.0-32.0 [facility] Work Phone: Nucleated RBC/100 WBC (Bld) [Ratio] 0 % 0-5 [facility] Work Phone: MCHC Auto (RBC) [Mass/Vol]on 11-03-2021 MCHC (RBC) [Mass/Vol] 33.9 g/dL 32-36 [facility] Work Phone: No Panel Informationon 11-03 Estimated GFR (MDRD) Amer 78 mL/min >60 [facility] Work Phone: Comment on above: GFR Calc Estimated GFR (MDRD) Non-Af Amer 65 mL/min >60 [facility] Work Phone: Comment on above: Non- GFR Calc Thyroid Stimulating Hormone (TSH) 3.60 uIU/mL 0.358-3.74 [facility] Work Phone: Platelets bldon 11-03-2021 Platelets (Bld) [#/Vol] 204 10*3/uL 150-450 [facility] Work Phone: Serum or plasma albumin luzma urement (mass/volume)on 11-03-2021 Albumin [Mass/Vol] 3.8 g/dL 3.2-5.0 [facility] Work Phone: Serum or plasma albumin/glob ulin mass ratioon 11-03-2021 Albumin/Globulin [Mass ratio] 1.0 {ratio} 0.9-2.4 [facility] Work Phone: Serum or plasma calcium luzma urement (mass/volume)on 11-03-2021 Calcium [Mass/Vol] 9.2 mg/dL 8.5-10.1 [facility] Work Phone: Serum or plasma creatinine m easurement (mass/volume)on 11-03-2021 Creatinine [Mass/Vol] 0.90 mg/dL 0.55-1.02 [facility] Work Phone: Comment on above: The validity of the calculated GFR & GFRAA in patients over 70 years has not been determined. Clinical correlation is essential. Serum or plasma urea nitroge n measurement (mass/volume)on 11-03-2021 Urea nitrogen [Mass/Vol] 8 mg/dL 7-18 [facility] Work Phone: Thin prep Papanicolaou smear with manual screeningon 11-03-2021 Thin prep Papanicolaou smear with manual screening 26 U/L 15-37 [facility] Work Phone: Thin prep Papanicolaou smear with manual screening 11 5-15 [facility] Work Phone: Therapy Communicationon 10-04 Therapy Communication Message [address] was (D/C)- last seen: 09/24/2021. Patient to be D/C from skilled physical therapy at this time to follow-up with referring provider. Patient last seen >=30 days ago. Please refer to previous re-evaluation to see functional baseline. Signatures Electronically signed by : Veda Renner PT; Oct 27 2021 11:36AM EST (Author) Normal [facility] Absolute lymphocyte counton 10-15-2021 Lymphocytes Auto (Unsp spec) [#/Vol] 1.64 10*3/uL 0.83-4.51 [facility] Work Phone: Basophil percentageon 2021 Basophils/100 WBC (Bld) 0.6 % 0-1 [facility] Work Phone: [phone] Bilirubin [Mass/Vol] 0.50 mg/dL 0.20-1.00 [facility] Work Phone: [phone] Comment on above: For patients on eltr ombopag therapy, use of [employer] [place] TBIL is not recommended. Chloride [Moles/Vol] 111 mmol/L 98-107 [facility] Work Phone: [phone] Eosinophils/100 WBC (Bld) 2.0 % 0-5 [facility] Work Phone: [phone] Glucose [Mass/Vol] 86 mg/dL 74-106 [facility] Work Phone: [phone] Neutrophils (Bld) [#/Vol] 2.8 10*3/uL 2.0-7.7 [facility] Work Phone: Neutrophils/100 WBC (Bld) 56.6 % 47-70 [facility] Work Phone: [phone] Potassium [Moles/Vol] 4.1 mmol/L 3.5-5.1 [facility] Work Phone: [phone] Protein [Mass/Vol] 7.1 g/dL 6.4-8.2 [facility] Work Phone: Sodium [Moles/Vol] 142 mmol/L 136-145 [facility] Work Phone: [phone] WBC (Bld) [#/Vol] 5.0 10*3/uL 4.4-11.0 [facility] Work Phone: [phone] Blood erythrocytes count (nu mber/volume)on 10-15-2021 RBC (Bld) [#/Vol] 4.05 10*6/uL 4.2-5.4 [facility] Work Phone: Blood hemoglobin measurement (mass/volume)on 10-15-2021 Hemoglobin (Bld) [Mass/Vol] 13.0 g/dL 12.0-15.0 [facility] Work Phone: Blood lymphocytes/100 leukoc yteson 10-15-2021 Lymphocytes/100 WBC (Bld) 33.1 % 19-41 [facility] Work Phone: Blood monocytes/100 leukocyt eson 10-15-2021 Monocytes/100 WBC (Bld) 7.5 % 0-10 [facility] Work Phone: Blood platelet mean volumeon 10-15-2021 Platelet mean volume (Bld) [Entitic vol] 11.9 fL 6.2-12.0 [facility] Work Phone: Determination of erythrocyte mean corpuscular volume (MCV)on 10-15-2021 MCV (RBC) [Entitic vol] 92.1 fL 81-99 [facility] Work Phone: Hematocrit Auto (Bld) [Volum e fraction]on 10-15-2021 Hematocrit (Bld) [Volume fraction] 37.3 % 37-47 [facility] Work Phone: INR in Blood by Coagulation assayon 10-15-2021 INR Coag (Bld) [Relative time] 1.0 {INR} [facility] Work Phone: Laboratory - Chemistry and C hemistry - challengeon 10-15-2021 ALP [Catalytic activity/Vol] 86 U/L 45-117 [facility] Work Phone: ALT [Catalytic activity/Vol] 19 U/L 13-56 [facility] Work Phone: CO2 [Moles/Vol] 26.0 mmol/L 21.0-32.0 [facility] Work Phone: Globulin (S) [Mass/Vol] 3.4 g/dL 2.2-4.2 [facility] Work Phone: Urea nitrogen/Creatinine [Mass ratio] 16.4 mg/mg 10-20 [facility] Work Phone: Laboratory - Coagulationon 0 10-15-2021 PT Coag (PPP) [Time] 13.2 s 11.7-14.9 [facility] Work Phone: Laboratory - Hematology and Cell countson 10-15-2021 Erythrocyte distribution width (RBC) [Entitic vol] 41.2 fL 35.1-43.9 [facility] Work Phone: Erythrocyte distribution width (RBC) [Ratio] 12.0 % 11.6-14.6 [facility] Work Phone: Immature granulocytes/100 WBC (Bld) 0.200 % 0.0-0.9 [facility] Work Phone: Comment on above: IG% - Immature Granu locytes (promyelocytes, myelocytes and metamyelocytes) > 1% indicates that a LEFT SHIFT is Present. MCH (RBC) [Entitic mass] 32.1 pg 27.0-32.0 [facility] Work Phone: Nucleated RBC/100 WBC (Bld) [Ratio] 0 % 0-5 [facility] Work Phone: MCHC Auto (RBC) [Mass/Vol]on 10-15-2021 MCHC (RBC) [Mass/Vol] 34.9 g/dL 32-36 [facility] Work Phone: No Panel Informationon 10-15 Estimated Creatinine Clearance Calc 41.97 ml/min [facility] Work Phone: Estimated GFR (MDRD) Amer 91 mL/min >60 [facility] Work Phone: Comment on above: GFR Calc Estimated GFR (MDRD) Non-Af Amer 75 mL/min >60 [facility] Work Phone: Comment on above: Non- GFR Calc Vitamin D 25-Hydroxy 43.1 ng/mL [facility] Work Phone: Comment on above: Vitamin D 25(OH) Sta tus Range Deficiency <20 ng/mL (50nmol/L) Insufficiency 20 - 30 ng/mL (50 - 75 nmol/L) Sufficiency 30 - 100 ng/mL (75 - 250 nmol/L) Toxicity >100 ng/mL (>250 nmol/L) Platelets bldon 10-15-2021 Platelets (Bld) [#/Vol] 153 10*3/uL 150-450 [facility] Work Phone: Serum or plasma albumin luzma urement (mass/volume)on 10-15-2021 Albumin [Mass/Vol] 3.7 g/dL 3.2-5.0 [facility] Work Phone: Serum or plasma albumin/glob ulin mass ratioon 10-15-2021 Albumin/Globulin [Mass ratio] 1.1 {ratio} 0.9-2.4 [facility] Work Phone: Serum or plasma calcium luzma urement (mass/volume)on 10-15-2021 Calcium [Mass/Vol] 9.1 mg/dL 8.5-10.1 [facility] Work Phone: Serum or plasma creatinine m easurement (mass/volume)on 10-15-2021 Creatinine [Mass/Vol] 0.79 mg/dL 0.55-1.02 [facility] Work Phone: Comment on above: The validity of the calculated GFR & GFRAA in patients over 70 years has not been determined. Clinical correlation is essential. Serum or plasma urea nitroge n measurement (mass/volume)on 10-15-2021 Urea nitrogen [Mass/Vol] 13 mg/dL 7-18 [facility] Work Phone: Thin prep Papanicolaou smear with manual screeningon 10-15-2021 Thin prep Papanicolaou smear with manual screening 23 U/L 15-37 [facility] Work Phone: Thin prep Papanicolaou smear with manual screening 5 5-15 [facility] Work Phone: Therapy Communicationon 10-03 Therapy Communication Message [address] canceled today . Patient had left message to cancel and appointment not cancelled in error by therapist. Patient is following up with surgeon and will be having a second surgery in November. Signatures Electronically signed by : Veda Renner, PT; Oct 14 2021 7:22PM EST (Author) Normal [facility] Absolute lymphocyte counton 09-27-2021 Lymphocytes Auto (Unsp spec) [#/Vol] 1.82 10*3/uL 0.83-4.51 [facility] Work Phone: Basophil percentageon 2021 Basophils/100 WBC (Bld) 0.8 % 0-1 [facility] Work Phone: Bilirubin [Mass/Vol] 0.60 mg/dL 0.20-1.00 [facility] Work Phone: Comment on above: For patients on eltr ombopag therapy, use of [employer] [place] TBIL is not recommended. Chloride [Moles/Vol] 108 mmol/L 98-107 [facility] Work Phone: Eosinophils/100 WBC (Bld) 1.3 % 0-5 [facility] Work Phone: Glucose [Mass/Vol] 87 mg/dL 74-106 [facility] Work Phone: Neutrophils (Bld) [#/Vol] 2.9 10*3/uL 2.0-7.7 [facility] Work Phone: Neutrophils/100 WBC (Bld) 55.1 % 47-70 [facility] Work Phone: Potassium [Moles/Vol] 3.6 mmol/L 3.5-5.1 [facility] Work Phone: Protein [Mass/Vol] 7.2 g/dL 6.4-8.2 [facility] Work Phone: Sodium [Moles/Vol] 140 mmol/L 136-145 [facility] Work Phone: WBC (Bld) [#/Vol] 5.3 10*3/uL 4.4-11.0 [facility]: Blood erythrocytes count (nu mber/volume)on 09-27-2021 RBC (Bld) [#/Vol] 4.17 10*6/uL 4.2-5.4 [facility] Work Phone: Blood hemoglobin measurement (mass/volume)on 09-27-2021 Hemoglobin (Bld) [Mass/Vol] 13.2 g/dL 12.0-15.0 [facility] Work Phone: Blood lymphocytes/100 leukoc yteson 09-27-2021 Lymphocytes/100 WBC (Bld) 34.5 % 19-41 [facility] Work Phone: Blood monocytes/100 leukocyt eson 09-27-2021 Monocytes/100 WBC (Bld) 8.1 % 0-10 [facility] Work Phone: Blood platelet mean volumeon 09-27-2021 Platelet mean volume (Bld) [Entitic vol] 11.5 fL 6.2-12.0 [facility] Work Phone: Determination of erythrocyte mean corpuscular volume (MCV)on 09-27-2021 MCV (RBC) [Entitic vol] 92.6 fL 81-99 [facility] Work Phone: Hematocrit Auto (Bld) [Volum e fraction]on 09-27-2021 Hematocrit (Bld) [Volume fraction] 38.6 % 37-47 [facility] Work Phone: Laboratory - Chemistry and C hemistry - challengeon 09-27-2021 ALP [Catalytic activity/Vol] 85 U/L 45-117 [facility] Work Phone: ALT [Catalytic activity/Vol] 21 U/L 13-56 [facility] Work Phone: CO2 [Moles/Vol] 27.0 mmol/L 21.0-32.0 [facility] Work Phone: Globulin (S) [Mass/Vol] 3.5 g/dL 2.2-4.2 [facility] Work Phone: Urea nitrogen/Creatinine [Mass ratio] 15.2 mg/mg 10-20 [facility] Work Phone: Laboratory - Hematology and Cell countson 09-27-2021 Erythrocyte distribution width (RBC) [Entitic vol] 41.1 fL 35.1-43.9 [facility] Work Phone: Erythrocyte distribution width (RBC) [Ratio] 12.2 % 11.6-14.6 [facility] Work Phone: Immature granulocytes/100 WBC (Bld) 0.200 % 0.0-0.9 [facility] Work Phone: Comment on above: IG% - Immature Granu locytes (promyelocytes, myelocytes and metamyelocytes) > 1% indicates that a LEFT SHIFT is Present. MCH (RBC) [Entitic mass] 31.7 pg 27.0-32.0 [facility] Work Phone: Nucleated RBC/100 WBC (Bld) [Ratio] 0 % 0-5 [facility] Work Phone: MCHC Auto (RBC) [Mass/Vol]on 09-27-2021 MCHC (RBC) [Mass/Vol] 34.2 g/dL 32-36 [facility] Work Phone: No Panel Informationon 09-27 Estimated GFR (MDRD) Amer 76 mL/min >60 [facility] Work Phone: Comment on above: GFR Calc Estimated GFR (MDRD) Non-Af Amer 63 mL/min >60 [facility] Work Phone: Comment on above: Non- GFR Calc Thyroid Stimulating Hormone (TSH) 1.97 uIU/mL 0.358-3.74 [facility] Work Phone: Vitamin D 25-Hydroxy 49.8 ng/mL [facility] Work Phone: Comment on above: Vitamin D 25(OH) Sta tus Range Deficiency <20 ng/mL (50nmol/L) Insufficiency 20 - 30 ng/mL (50 - 75 nmol/L) Sufficiency 30 - 100 ng/mL (75 - 250 nmol/L) Toxicity >100 ng/mL (>250 nmol/L) Platelets bldon 09-27-2021 Platelets (Bld) [#/Vol] 239 10*3/uL 150-450 [facility] Work Phone: Serum or plasma albumin luzma urement (mass/volume)on 09-27-2021 Albumin [Mass/Vol] 3.7 g/dL 3.2-5.0 [facility] Work Phone: Serum or plasma albumin/glob ulin mass ratioon 09-27-2021 Albumin/Globulin [Mass ratio] 1.1 {ratio} 0.9-2.4 [facility] Work Phone: Serum or plasma calcium luzma urement (mass/volume)on 09-27-2021 Calcium [Mass/Vol] 8.7 mg/dL 8.5-10.1 [facility] Work Phone: Serum or plasma creatinine m easurement (mass/volume)on 09-27-2021 Creatinine [Mass/Vol] 0.92 mg/dL 0.55-1.02 [facility] Work Phone: Comment on above: The validity of the calculated GFR & GFRAA in patients over 70 years has not been determined. Clinical correlation is essential. Serum or plasma urea nitroge n measurement (mass/volume)on 09-27-2021 Urea nitrogen [Mass/Vol] 14 mg/dL 7-18 [facility] Work Phone: Thin prep Papanicolaou smear with manual screeningon 09-27-2021 Thin prep Papanicolaou smear with manual screening 26 U/L 15-37 [facility] Work Phone: Thin prep Papanicolaou smear with manual screening 5 5-15 [facility] Work Phone: PT Progress Noteon 2 PT Progress Note Therapy Diagnosis Assessed Other abnormalities of gait and mobility (781.2) (R26.89) Decreased range of motion of left ankle (719.57) (M25.672) Hallux valgus (735.0) (M20.10) Left foot pain (729.5) (M79.672) Muscle weakness (728.87) (M62.81) Other hammer toe(s) (acquired), left foot (735.4) (M20.42) Plan Goals: Goals set and discussed today. Activity Limitation: Improved LEFS score to at least 38 points or greater to demonstrate increased functional mobility of L foot for ambulation and household management.-PARTIAL LY MET, by week 4 Pain: 0/10 pain with L first metatarsal flexion 0-45 degs to improve mobility of foot for ambulation at home- PARTIALLY MET, by week 4 Range Of Motion/Joint Mobility: Improved L ankle DF: 10 deg, INV: 30 deg, EV: 10 deg and first MTP 0-45 deg to demonstrate improved L ankle and foot mobility for ambulation and ADL/iADL completion-PARTIALL Y MET, by week 4 Strength: Improved gross L ankle/knee musculature strength at 4+/5 MMT to improve stability and strength for ambulation and household management.-PARTIAL LY MET, by week 4 HEP, Patient will demonstrate compliance in their home exercise program in order to promote independence in self management of functional mobility.-MET, by week 2 Planned interventions include: cryotherapy, education/instructi on, electrical stimulation, gait training, home program, manual therapy, neuromuscular re-education, therapeutic activities, therapeutic exercises and iastm/cupping. Frequency and duration: 2 time(s) a week, for 5 weeks, for 10 visits. Potential to achieve rehab goals is fair: Continue with left foor ROM/strength to improve ambulation. Progress with POC, as tolerated. Assessment [address] is progressing fairly through their POC [...] all therapy goals and compliant in current HEP. The pt will benefit from reassessment in 2 weeks to progress HEP and address remaining impairments. HEP including AROM exercises for L ankle and 1st MTP with isometrics provided d/t current weight bearing restrictions. Thank you for this referral and please call [phone] with any questions or concerns. Response to treatment: no change in pain. Adult Risk Screening There are no spiritual/cultural practices/values/ne eds that are important to know Initial Fall Risk Screening: GLADIS has not fallen in the last 6 months. Her fall did not result in injury. GLADIS does not have a fear of falling. She needs assistance with RW. Does not need assistance walking in her home. She does not need assistance in an unfamiliar setting. The patient is using an assistive device. Fall Risk Screening: Patient is identified as a fall risk. Care Plan: Moderate Risk: Low risk interventions plus: do not leave patient on exam table unattended, supervised activity, educate patient/family on falls prevention, review safety initiatives with patient/family, family at bedside as allowed, yellow falls risk band, focus rounding attention, locate patient in area of high visibility, wheelchair, bed, or personal alarm, bedside commode, elevated toilet seat and pharmacy consult for medication concerns. Moderate: unsteady gait/ use of assistive device/apparent weakness or functionally challenged. Please identify location of pain: discomfort. The pain makes it hard for the patient to do these things: walking, exercise, house work and self-care (bathing, dressing, eating). Domestic Violence Screen: Does not feel threatened or abused physically, emotionally or sexually. Do you feel UNSAFE? The patient feels safe in the home. Depression/Suicide Screening: During the past 2 weeks, the patient has not felt down, depressed or hopeless. During the past 2 weeks, the patient has not felt little interest or pleasure in doing things. Insurance Insurance reviewed Visit number: 8 Authorization not required after evaluation Insurance: Medicare Evaluating therapist: Veda Renner, PT, DPT PT dx: M25.672,M62.81,R26. 89, M79.672 Med dx: M20.10, M20.42 Precautions: Follow orders in chart; 30% WB through L LE Onset Date: 2021 Medicare Certification Period: Beginnin2021 Endin2021 Subjective Patient reports:. Patient confirmed name and date of this session. Patient reporting that per provider, she is able to 50% WB through L LE with use of boot. Patient states that she has been performing exercises provided at initial evaluation. 0/10 pain currently just discomfort. She is unsure if they are pursuing another surgery to correct hallux va (more content not included)... Normal [facility] Therapy Re-eval Noteon 09-24 Therapy Re-eval Note Therapy Diagnosis Assessed 1. Other abnormalities of gait and mobility (781.2) (R26.89) 2. Decreased range of motion of left ankle (719.57) (M25.672) 3. Hallux valgus (735.0) (M20.10) 4. Left foot pain (729.5) (M79.672) 5. Muscle weakness (728.87) (M62.81) 6. Other hammer toe(s) (acquired), left foot (735.4) (M20.42) Plan Goals: Goals set and discussed today. Activity Limitation: Improved LEFS score to at least 38 points or greater to demonstrate increased functional mobility of L foot for ambulation and household management.-PARTIAL LY MET, by week 4 Pain: 0/10 pain with L first metatarsal flexion 0-45 degs to improve mobility of foot for ambulation at home- PARTIALLY MET, by week 4 Range Of Motion/Joint Mobility: Improved L ankle DF: 10 deg, INV: 30 deg, EV: 10 deg and first MTP 0-45 deg to demonstrate improved L ankle and foot mobility for ambulation and ADL/iADL completion-PARTIALL Y MET, by week 4 Strength: Improved gross L ankle/knee musculature strength at 4+/5 MMT to improve stability and strength for ambulation and household management.-PARTIAL LY MET, by week 4 HEP, Patient will demonstrate compliance in their home exercise program in order to promote independence in self management of functional mobility.-MET, by week 2 Planned interventions include: cryotherapy, education/instructi on, electrical stimulation, gait training, home program, manual therapy, neuromuscular re-education, therapeutic activities, therapeutic exercises and iastm/cupping. Frequency and duration: 2 time(s) a week, for 5 weeks, for 10 visits. Potential to achieve rehab goals is fair: Continue with left foor ROM/strength to improve ambulation. Progress with POC, as tolerated. Assessment [address] is progressing fairly through their POC [...] all therapy goals and compliant in current HEP. The pt will benefit from reassessment in 2 weeks to progress HEP and address remaining impairments. HEP including AROM exercises for L ankle and 1st MTP with isometrics provided d/t current weight bearing restrictions. Thank you for this referral and please call [phone] with any questions or concerns. Response to treatment: no change in pain. Adult Risk Screening There are no spiritual/cultural practices/values/ne eds that are important to know Initial Fall Risk Screening: GLADIS has not fallen in the last 6 months. Her fall did not result in injury. GLADIS does not have a fear of falling. She needs assistance with RW. Does not need assistance walking in her home. She does not need assistance in an unfamiliar setting. The patient is using an assistive device. Fall Risk Screening: Patient is identified as a fall risk. Care Plan: Moderate Risk: Low risk interventions plus: do not leave patient on exam table unattended, supervised activity, educate patient/family on falls prevention, review safety initiatives with patient/family, family at bedside as allowed, yellow falls risk band, focus rounding attention, locate patient in area of high visibility, wheelchair, bed, or personal alarm, bedside commode, elevated toilet seat and pharmacy consult for medication concerns. Moderate: unsteady gait/ use of assistive device/apparent weakness or functionally challenged. Please identify location of pain: discomfort. The pain makes it hard for the patient to do these things: walking, exercise, house work and self-care (bathing, dressing, eating). Domestic Violence Screen: Does not feel threatened or abused physically, emotionally or sexually. Do you feel UNSAFE? The patient feels safe in the home. Depression/Suicide Screening: During the past 2 weeks, the patient has not felt down, depressed or hopeless. During the past 2 weeks, the patient has not felt little interest or pleasure in doing things. Insurance Insurance reviewed Visit number: 8 Authorization not required after evaluation Insurance: Medicare Evaluating therapist: Veda Renner PT, DPT PT dx: M25.672,M62.81,R26. 89, M79.672 Med dx: M20.10, M20.42 Precautions: Follow orders in chart; 30% WB through L LE Onset Date: 2021 Medicare Certification Period: Beginnin2021 Endin2021 Subjective Patient reports:. Patient confirmed name and date of this session. Patient reporting that per provider, she is able to 50% WB through L LE with use of boot. Patient states that she has been performing exercises provided at initial evaluation. 0/10 pain currently just discomfort. She is unsure if they are pursuing another surgery to (more content not included)... Normal [facility] PT Progress Noteon 2 PT Progress Note No report was sent Normal [facility] Therapy Communicationon 09-03 Therapy Communication [address] canceled today . Patient cancelled appointment this date d/t weather/transportat ion. Signatures Electronically signed by : Veda Renner PT; Sep 21 2021 1:36PM EST (Author) Normal [facility] PT Progress Noteon 2 PT Progress Note Therapy Diagnosis Assessed Left foot pain (729.5) (M79.672) Other abnormalities of gait and mobility (781.2) (R26.89) Decreased range of motion of left ankle (719.57) (M25.672) Hallux valgus (735.0) (M20.10) Muscle weakness (728.87) (M62.81) Plan Goals: Goals set and discussed today. Activity Limitation: Improved LEFS score to at least 38 points or greater to demonstrate increased functional mobility of L foot for ambulation and household management., by week 4 Pain: 0/10 pain with L first metatarsal flexion 0-45 degs to improve mobility of foot for ambulation at home, by week 4 Range Of Motion/Joint Mobility: Improved L ankle DF: 10 deg, INV: 30 deg, EV: 10 deg and first MTP 0-45 deg to demonstrate improved L ankle and foot mobility for ambulation and ADL/iADL completion, by week 4 Strength: Improved gross L ankle/knee musculature strength at 4+/5 MMT to improve stability and strength for ambulation and household management., by week 4 HEP, Patient will demonstrate compliance in their home exercise program in order to promote independence in self management of functional mobility., by week 2 Planned interventions include: cryotherapy, education/instructi on, electrical stimulation, gait training, home program, manual therapy, neuromuscular re-education, therapeutic activities, therapeutic exercises and iastm/cupping. Frequency and duration: 2 time(s) a week, for 5 weeks, for 10 visits. Potential to achieve rehab goals is fair: Continue with left foor ROM/strength to improve ambulation. Progress with POC, as tolerated. Assessment Patient tolerated treatment without increased discomfort. wearing walking boot on left LE. Patient has good form/understanding with ther-ex and reports compliance with HEP. Patient able to don/doff walking boot/brace indepentently. Continue with left foot strength, ROM to decrease discomfort and improve ambulation. Adult Risk Screening There are no spiritual/cultural practices/values/ne eds that are important to know Initial Fall Risk Screening: GLADIS has not fallen in the last 6 months. Her fall did not result in injury. GLADIS does not have a fear of falling. She needs assistance with RW. Does not need assistance walking in her home. She does not need assistance in an unfamiliar setting. The patient is using an assistive device. Fall Risk Screening: Patient is identified as a fall risk. Care Plan: Moderate Risk: Low risk interventions plus: do not leave patient on exam table unattended, supervised activity, educate patient/family on falls prevention, review safety initiatives with patient/family, family at bedside as allowed, yellow falls risk band, focus rounding attention, locate patient in area of high visibility, wheelchair, bed, or personal alarm, bedside commode, elevated toilet seat and pharmacy consult for medication concerns. Moderate: unsteady gait/ use of assistive device/apparent weakness or functionally challenged. Please identify location of pain: discomfort. The pain makes it hard for the patient to do these things: walking, exercise, house work and self-care (bathing, dressing, eating). Domestic Violence Screen: Does not feel threatened or abused physically, emotionally or sexually. Do you feel UNSAFE? The patient feels safe in the home. Depression/Suicide Screening: During the past 2 weeks, the patient has not felt down, depressed or hopeless. During the past 2 weeks, the patient has not felt little interest or pleasure in doing things. Insurance Insurance reviewed Visit number: 7 Authorization not required after evaluation Insurance: Medicare Evaluating therapist: Veda Renner, PT, DPT PT dx: M25.672,M62.81,R26. 89, M79.672 Med dx: M20.10, M20.42 Precautions: Follow orders in chart; 30% WB through L LE Onset Date: 2021 Medicare Certification Period: Beginnin2021 Endin2021 Subjective Patient reports:. Patient reports no falls and no to all covid questions. Patient reports pain of 0/10, discomfort not Pain in left foot. Precautions: Fall Risk: moderate Follow orders within chart: L bunionectomy 30% WB with use of RW until further x-rays performed. Gloves with manual therapy d/t possible fungal infection. Per patient report no side to side motion of first metatarsal of L foot. PMHx: breast cancer 14 years ago, thyroid disorder. Treatment Time in clinic started at 2:00 pm Time in clinic ended at 2:45 pm Total time in clinic is 45 minutes. Total timed code time is 38 minutes. Therapeutic exercise (39154): timed minutes 28, units 2 . Seated AP 2 x 10 (P) x12 isometric L ankle EV/INV/DF manual pressure in long sitting orange thera band x10 EV/INV/DF/PF (N) seated, small balance board, IN/EV/DF/PF x10 each (N) 2 cycle L ankle ABC in long sitting DF stretch 3x20 seconds L ankle AAROM inversion/eversion with BOSU strap x20 reps L ankle towel scrunch inv/ev x10 each direction WB through scale at 30% (more content not included)... Normal [facility] PT Progress Noteon 2 PT Progress Note Therapy Diagnosis Assessed Decreased range of motion of left ankle (719.57) (M25.672) Hallux valgus (735.0) (M20.10) Left foot pain (729.5) (M79.672) Muscle weakness (728.87) (M62.81) Other abnormalities of gait and mobility (781.2) (R26.89) Other hammer toe(s) (acquired), left foot (735.4) (M20.42) Plan Goals: Goals set and discussed today. Activity Limitation: Improved LEFS score to at least 38 points or greater to demonstrate increased functional mobility of L foot for ambulation and household management., by week 4 Pain: 0/10 pain with L first metatarsal flexion 0-45 degs to improve mobility of foot for ambulation at home, by week 4 Range Of Motion/Joint Mobility: Improved L ankle DF: 10 deg, INV: 30 deg, EV: 10 deg and first MTP 0-45 deg to demonstrate improved L ankle and foot mobility for ambulation and ADL/iADL completion, by week 4 Strength: Improved gross L ankle/knee musculature strength at 4+/5 MMT to improve stability and strength for ambulation and household management., by week 4 HEP, Patient will demonstrate compliance in their home exercise program in order to promote independence in self management of functional mobility., by week 2 Planned interventions include: cryotherapy, education/instructi on, electrical stimulation, gait training, home program, manual therapy, neuromuscular re-education, therapeutic activities, therapeutic exercises and iastm/cupping. Frequency and duration: 2 time(s) a week, for 5 weeks, for 10 visits. Potential to achieve rehab goals is fair: Plan to continue to with ex's and ROM of L ankle for ease of gait and maintaining WB ing status. Assessment Pt. continues with a lot of swelling with left foot as compared to her right foot. Progressed to ankle 4-ways with thera band (watch placement of band). No c/o increased sx.'s. Trial small balance board with patient in sitting for ROM. Decreased sx.'s noted following STM. Response to treatment: decreased pain. Patient was able to complete today's treatment with some difficulty. Adult Risk Screening There are no spiritual/cultural practices/values/ne eds that are important to know Initial Fall Risk Screening: GLADIS has not fallen in the last 6 months. Her fall did not result in injury. GLADIS does not have a fear of falling. She needs assistance with RW. Does not need assistance walking in her home. She does not need assistance in an unfamiliar setting. The patient is using an assistive device. Fall Risk Screening: Patient is identified as a fall risk. Care Plan: Moderate Risk: Low risk interventions plus: do not leave patient on exam table unattended, supervised activity, educate patient/family on falls prevention, review safety initiatives with patient/family, family at bedside as allowed, yellow falls risk band, focus rounding attention, locate patient in area of high visibility, wheelchair, bed, or personal alarm, bedside commode, elevated toilet seat and pharmacy consult for medication concerns. Moderate: unsteady gait/ use of assistive device/apparent weakness or functionally challenged. Please identify location of pain: discomfort. The pain makes it hard for the patient to do these things: walking, exercise, house work and self-care (bathing, dressing, eating). Domestic Violence Screen: Does not feel threatened or abused physically, emotionally or sexually. Do you feel UNSAFE? The patient feels safe in the home. Depression/Suicide Screening: During the past 2 weeks, the patient has not felt down, depressed or hopeless. During the past 2 weeks, the patient has not felt little interest or pleasure in doing things. Insurance Insurance reviewed Visit number: 6 Authorization not required after evaluation Insurance: Medicare Evaluating therapist: Veda Renner, PT, DPT PT dx: M25.672,M62.81,R26. 89, M79.672 Med dx: M20.10, M20.42 Precautions: Follow orders in chart; 30% WB through L LE Onset Date: 2021 Medicare Certification Period: Beginnin2021 Endin2021 Subjective Patient reports:. Pt. reports normal discomfort with foot but not pain, 08/12. Pt. sees on 09/20/21. Home program performing as directed: Yes. Precautions: Fall Risk: moderate Follow orders within chart: L bunionectomy 30% WB with use of RW until further x-rays performed. Gloves with manual therapy d/t possible fungal infection. Per patient report no side to side motion of first metatarsal of L foot. PMHx: breast cancer 14 years ago, thyroid disorder. Treatment Time in clinic started at 2:00 pm Time in clinic ended at 2:43 pm Total time in clinic is 43 minutes. Total timed code time is 38 minutes. Therapeutic exercise (85954): timed minutes 28, units 2 . Seated AP 2 x 10 (P) x12 isometric L ankle EV/INV/DF manual pressure in long sitting orange thera band x10 EV/INV/DF/PF (N) seated, small balance board, IN/EV/DF/PF x10 each (N) 2 cycle L ankle ABC in long sitting DF stretch 3x20 seco (more content not included)... Normal [facility] PT Progress Noteon 2 PT Progress Note Therapy Diagnosis Assessed Decreased range of motion of left ankle (719.57) (M25.672) Muscle weakness (728.87) (M62.81) Other abnormalities of gait and mobility (781.2) (R26.89) Left foot pain (729.5) (M79.672) Hallux valgus (735.0) (M20.10) Other hammer toe(s) (acquired), left foot (735.4) (M20.42) Plan Goals: Goals set and discussed today. Activity Limitation: Improved LEFS score to at least 38 points or greater to demonstrate increased functional mobility of L foot for ambulation and household management., by week 4 Pain: 0/10 pain with L first metatarsal flexion 0-45 degs to improve mobility of foot for ambulation at home, by week 4 Range Of Motion/Joint Mobility: Improved L ankle DF: 10 deg, INV: 30 deg, EV: 10 deg and first MTP 0-45 deg to demonstrate improved L ankle and foot mobility for ambulation and ADL/iADL completion, by week 4 Strength: Improved gross L ankle/knee musculature strength at 4+/5 MMT to improve stability and strength for ambulation and household management., by week 4 HEP, Patient will demonstrate compliance in their home exercise program in order to promote independence in self management of functional mobility., by week 2 Planned interventions include: cryotherapy, education/instructi on, electrical stimulation, gait training, home program, manual therapy, neuromuscular re-education, therapeutic activities, therapeutic exercises and iastm/cupping. Frequency and duration: 2 time(s) a week, for 5 weeks, for 10 visits. Potential to achieve rehab goals is fair: Plan to continue to with ex's and ROM of L ankle for ease of gait and maintaining WB ing status. - NORMA. Assessment Patient identified by name AND . Patient wore a mask during treatment d/t Covid-19 precautions. Treatment consisted of ther ex's forL ankle ROM and strengthening, gait and manual therapy. Patient ambulating with FWW with WBAT and not 30%, she was not using UE to take weight off L LE. Patient's walker up too high and she was unable to put weight through UE's to take weight of L LE. Decreased height of walker and patient with improved ability to perform 30% WB'ing status. Pain level the same pre and post treatment. Adult Risk Screening There are no spiritual/cultural practices/values/ne eds that are important to know Initial Fall Risk Screening: GLADIS has not fallen in the last 6 months. Her fall did not result in injury. GLADIS does not have a fear of falling. She needs assistance with RW. Does not need assistance walking in her home. She does not need assistance in an unfamiliar setting. The patient is using an assistive device. Fall Risk Screening: Patient is identified as a fall risk. Care Plan: Moderate Risk: Low risk interventions plus: do not leave patient on exam table unattended, supervised activity, educate patient/family on falls prevention, review safety initiatives with patient/family, family at bedside as allowed, yellow falls risk band, focus rounding attention, locate patient in area of high visibility, wheelchair, bed, or personal alarm, bedside commode, elevated toilet seat and pharmacy consult for medication concerns. Moderate: unsteady gait/ use of assistive device/apparent weakness or functionally challenged. Pain Scale: On a scale of 0 to 10, the patient rates the pain at 0. Please identify location of pain: discomfort. The pain makes it hard for the patient to do these things: walking, exercise, house work and self-care (bathing, dressing, eating). Domestic Violence Screen: Does not feel threatened or abused physically, emotionally or sexually. Do you feel UNSAFE? The patient feels safe in the home. Depression/Suicide Screening: During the past 2 weeks, the patient has not felt down, depressed or hopeless. During the past 2 weeks, the patient has not felt little interest or pleasure in doing things. Insurance Insurance reviewed Visit number: 5 Authorization not required after evaluation Insurance: Medicare Evaluating therapist: Veda Renner, PT, DPT PT dx: M25.672,M62.81,R26. 89, M79.672 Med dx: M20.10, M20.42 Precautions: Follow orders in chart; 30% WB through L LE Onset Date: 2021 Medicare Certification Period: Beginnin2021 Endin2021 Subjective Patient reports:. States she is 30% WB on her L LE, but she is having difficulty doing this. States she does not have pain, but has discomfort in the whole left foot @ 3/10. Pain level the same post treatment. Home program performing as directed: Yes. Precautions: Fall Risk: moderate Follow orders within chart: L bunionectomy 30% WB with use of RW until further x-rays performed. Gloves with manual therapy d/t possible fungal infection. Per patient report no side to side motion of first metatarsal of L foot. PMHx: breast cancer 14 years ago, thyroid disorder. Treatment Time in clinic started at 2:00 pm Time in clinic ended at 2:45 pm Total time in clinic is 45 minutes. Total timed code time (more content not included)... Normal [facility] PT Progress Noteon 2 PT Progress Note Therapy Diagnosis Assessed Decreased range of motion of left ankle (719.57) (M25.672) Hallux valgus (735.0) (M20.10) Left foot pain (729.5) (M79.672) Muscle weakness (728.87) (M62.81) Other abnormalities of gait and mobility (781.2) (R26.89) Other hammer toe(s) (acquired), left foot (735.4) (M20.42) Plan Goals: Goals set and discussed today. Activity Limitation: Improved LEFS score to at least 38 points or greater to demonstrate increased functional mobility of L foot for ambulation and household management., by week 4 Pain: 0/10 pain with L first metatarsal flexion 0-45 degs to improve mobility of foot for ambulation at home, by week 4 Range Of Motion/Joint Mobility: Improved L ankle DF: 10 deg, INV: 30 deg, EV: 10 deg and first MTP 0-45 deg to demonstrate improved L ankle and foot mobility for ambulation and ADL/iADL completion, by week 4 Strength: Improved gross L ankle/knee musculature strength at 4+/5 MMT to improve stability and strength for ambulation and household management., by week 4 HEP, Patient will demonstrate compliance in their home exercise program in order to promote independence in self management of functional mobility., by week 2 Planned interventions include: cryotherapy, education/instructi on, electrical stimulation, gait training, home program, manual therapy, neuromuscular re-education, therapeutic activities, therapeutic exercises and iastm/cupping. Frequency and duration: 2 time(s) a week, for 5 weeks, for 10 visits. Potential to achieve rehab goals is fair: Continue with plan as tolerated to improve ankle ROM and stability. Assessment Fair tolerance with exercises/stretches . Fatigue noted with isometrics for IR/ER. Tenderness noted with PROM to the great toe. STM applied with decrease in sx.'s. Response to treatment: decreased pain. Patient was able to complete today's treatment with some difficulty. Adult Risk Screening There are no spiritual/cultural practices/values/ne eds that are important to know Initial Fall Risk Screening: GLADIS has not fallen in the last 6 months. Her fall did not result in injury. GLADIS does not have a fear of falling. She needs assistance with RW. Does not need assistance walking in her home. She does not need assistance in an unfamiliar setting. The patient is using an assistive device. Fall Risk Screening: Patient is identified as a fall risk. Care Plan: Moderate Risk: Low risk interventions plus: do not leave patient on exam table unattended, supervised activity, educate patient/family on falls prevention, review safety initiatives with patient/family, family at bedside as allowed, yellow falls risk band, focus rounding attention, locate patient in area of high visibility, wheelchair, bed, or personal alarm, bedside commode, elevated toilet seat and pharmacy consult for medication concerns. Moderate: unsteady gait/ use of assistive device/apparent weakness or functionally challenged. Please identify location of pain: When present, toe of L foot. Pain Quality: sharp. Domestic Violence Screen: Does not feel threatened or abused physically, emotionally or sexually. Do you feel UNSAFE? The patient feels safe in the home. Depression/Suicide Screening: During the past 2 weeks, the patient has not felt down, depressed or hopeless. During the past 2 weeks, the patient has not felt little interest or pleasure in doing things. Insurance Insurance reviewed Visit number: 4 Authorization not required after evaluation Insurance: Medicare Evaluating therapist: Veda Renner, PT, DPT PT dx: M25.672,M62.81,R26. 89, M79.672 Med dx: M20.10, M20.42 Precautions: Follow orders in chart; 30% WB through L LE Onset Date: 2021 Medicare Certification Period: Beginnin2021 Endin2021 Subjective Patient reports:. 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 Pt. c/o discomfort with foot but not pain. Pt. continues to wear boot at this time. Home program performing as directed: Yes. Precautions: Fall Risk: moderate Follow orders within chart: L bunionectomy 30% WB with use of RW until further x-rays performed. Gloves with manual therapy d/t possible fungal infection. Per patient report no side to side motion of first metatarsal of L foot. PMHx: breast cancer 14 years ago, thyroid disorder. Treatment Time in clinic started at 2:00 pm Time in clinic ended at 2:43 pm Total time in clinic is 43 minutes. Total timed code time is 42 minutes. Therapeutic exercise (47600): timed minutes 32, units 2 . AP x15 x12 isometric L ankle EV/INV/DF manual pressure 2 cycle L ankle ABC DF stretch 3x20 seconds L ankle PROM inversion/eversion with bed sheet x20 reps L ankle towel scrunch inv/ev x10 each WB through scale at 30%. Manual Therapy (91639): timed minutes 10, units 1 . PROM of 1st MTP Ankle PROM STM top of foot and laterally along incision. 'Scores and Scales' Signatures Electronically signed by : Farideh (more content not included)... Normal [employer] PT Progress Noteon 2 PT Progress Note Therapy Diagnosis Assessed Decreased range of motion of left ankle (719.57) (M25.672) Other abnormalities of gait and mobility (781.2) (R26.89) Muscle weakness (728.87) (M62.81) Left foot pain (729.5) (M79.672) Hallux valgus (735.0) (M20.10) Other hammer toe(s) (acquired), left foot (735.4) (M20.42) Plan Goals: Goals set and discussed today. Activity Limitation: Improved LEFS score to at least 38 points or greater to demonstrate increased functional mobility of L foot for ambulation and household management., by week 4 Pain: 0/10 pain with L first metatarsal flexion 0-45 degs to improve mobility of foot for ambulation at home, by week 4 Range Of Motion/Joint Mobility: Improved L ankle DF: 10 deg, INV: 30 deg, EV: 10 deg and first MTP 0-45 deg to demonstrate improved L ankle and foot mobility for ambulation and ADL/iADL completion, by week 4 Strength: Improved gross L ankle/knee musculature strength at 4+/5 MMT to improve stability and strength for ambulation and household management., by week 4 HEP, Patient will demonstrate compliance in their home exercise program in order to promote independence in self management of functional mobility., by week 2 Planned interventions include: cryotherapy, education/instructi on, electrical stimulation, gait training, home program, manual therapy, neuromuscular re-education, therapeutic activities, therapeutic exercises and iastm/cupping. Frequency and duration: 2 time(s) a week, for 5 weeks, for 10 visits. Potential to achieve rehab goals is fair: Continue with POC to improve ROM and strength of L ankle within 30% WB restriction . Progress with POC, as tolerated. Assessment Fair tolerance to progressions in therapeutic exercise with no exacerbation of pain throughout. Increased restriction of extensor retinaculum and 1st MTP. Verbal cues with WB to only match 30% WB with good understanding. Patient WBs mostly through L heel. Response to treatment: decreased pain. Adult Risk Screening There are no spiritual/cultural practices/values/ne eds that are important to know Initial Fall Risk Screening: GLADIS has not fallen in the last 6 months. Her fall did not result in injury. GLADIS does not have a fear of falling. She needs assistance with RW. Does not need assistance walking in her home. She does not need assistance in an unfamiliar setting. The patient is using an assistive device. Fall Risk Screening: Patient is identified as a fall risk. Care Plan: Moderate Risk: Low risk interventions plus: do not leave patient on exam table unattended, supervised activity, educate patient/family on falls prevention, review safety initiatives with patient/family, family at bedside as allowed, yellow falls risk band, focus rounding attention, locate patient in area of high visibility, wheelchair, bed, or personal alarm, bedside commode, elevated toilet seat and pharmacy consult for medication concerns. Moderate: unsteady gait/ use of assistive device/apparent weakness or functionally challenged. Please identify location of pain: When present, toe of L foot. Pain Quality: sharp. Domestic Violence Screen: Does not feel threatened or abused physically, emotionally or sexually. Do you feel UNSAFE? The patient feels safe in the home. Depression/Suicide Screening: During the past 2 weeks, the patient has not felt down, depressed or hopeless. During the past 2 weeks, the patient has not felt little interest or pleasure in doing things. Insurance Insurance reviewed Visit number: 3 Authorization not required after evaluation Insurance: Medicare Evaluating therapist: Veda Renner, PT, DPT PT dx: M25.672,M62.81,R26. 89, M79.672 Med dx: M20.10, M20.42 Precautions: Follow orders in chart; 30% WB through L LE Onset Date: 2021 Medicare Certification Period: Beginnin2021 Endin2021 Subjective Patient reports:. Patient confirmed name and date of this session. Patient donning boot and ambulating with forward wheeled walker. No discomfort but does note a restriction above L lateral malleolus which does not hurt. No reports of falls or changes in medical status. 0/10 pain currently. Home program performing as directed: Yes. Precautions: Fall Risk: moderate Follow orders within chart: L bunionectomy 30% WB with use of RW until further x-rays performed. Gloves with manual therapy d/t possible fungal infection. Per patient report no side to side motion of first metatarsal of L foot. PMHx: breast cancer 14 years ago, thyroid disorder. Treatment Time in clinic started at 2:00 pm Time in clinic ended at 2:44 pm Total time in clinic is 44 minutes. Total timed code time is 42 minutes. Therapeutic exercise (98366): timed minutes 32, units 2 . AP x15 x12 isometric L ankle EV/INV/DF manual pressure 2 cycle L ankle ABC P DF stretch 3x20 seconds P L ankle PROM inversion/eversion with bed sheet x20 reps N L ankle towel scrunch inv/ev x10 each N (more content not included)... Normal [facility] PT Progress Noteon 2 PT Progress Note Therapy Diagnosis Assessed Decreased range of motion of left ankle (719.57) (M25.672) Hallux valgus (735.0) (M20.10) Left foot pain (729.5) (M79.672) Muscle weakness (728.87) (M62.81) Other abnormalities of gait and mobility (781.2) (R26.89) Other hammer toe(s) (acquired), left foot (735.4) (M20.42) Plan Goals: Goals set and discussed today. Activity Limitation: Improved LEFS score to at least 38 points or greater to demonstrate increased functional mobility of L foot for ambulation and household management., by week 4 Pain: 0/10 pain with L first metatarsal flexion 0-45 degs to improve mobility of foot for ambulation at home, by week 4 Range Of Motion/Joint Mobility: Improved L ankle DF: 10 deg, INV: 30 deg, EV: 10 deg and first MTP 0-45 deg to demonstrate improved L ankle and foot mobility for ambulation and ADL/iADL completion, by week 4 Strength: Improved gross L ankle/knee musculature strength at 4+/5 MMT to improve stability and strength for ambulation and household management., by week 4 HEP, Patient will demonstrate compliance in their home exercise program in order to promote independence in self management of functional mobility., by week 2 Planned interventions include: cryotherapy, education/instructi on, electrical stimulation, gait training, home program, manual therapy, neuromuscular re-education, therapeutic activities, therapeutic exercises and iastm/cupping. Frequency and duration: 2 time(s) a week, for 5 weeks, for 10 visits. Potential to achieve rehab goals is fair: Continue with POC to improve ROM and strength with ambulation. Waiting on update on weight bearing restrictions. Assessment Verbal cues needed with TE/ROM this date. Fair tolerance without increased sx.'s. PROM applied to great toe for ext/flex. Trial STM to top of foot and laterally along the incision, relief following session. Response to treatment: decreased pain. Adult Risk Screening There are no spiritual/cultural practices/values/ne eds that are important to know Initial Fall Risk Screening: GLADIS has not fallen in the last 6 months. Her fall did not result in injury. GLADIS does not have a fear of falling. She needs assistance with RW. Does not need assistance walking in her home. She does not need assistance in an unfamiliar setting. The patient is using an assistive device. Fall Risk Screening: Patient is identified as a fall risk. Care Plan: Moderate Risk: Low risk interventions plus: do not leave patient on exam table unattended, supervised activity, educate patient/family on falls prevention, review safety initiatives with patient/family, family at bedside as allowed, yellow falls risk band, focus rounding attention, locate patient in area of high visibility, wheelchair, bed, or personal alarm, bedside commode, elevated toilet seat and pharmacy consult for medication concerns. Moderate: unsteady gait/ use of assistive device/apparent weakness or functionally challenged. Please identify location of pain: When present, toe of L foot. Pain Quality: sharp. Domestic Violence Screen: Does not feel threatened or abused physically, emotionally or sexually. Do you feel UNSAFE? The patient feels safe in the home. Depression/Suicide Screening: During the past 2 weeks, the patient has not felt down, depressed or hopeless. During the past 2 weeks, the patient has not felt little interest or pleasure in doing things. Insurance Insurance reviewed Visit number: 2 Authorization not required after evaluation Insurance: Medicare Evaluating therapist: Veda Renner, PT, DPT PT dx: M25.672,M62.81,R26. 89, M79.672 Med dx: M20.10, M20.42 Precautions: Follow orders in chart; 30% WB through L LE Onset Date: 2021 Medicare Certification Period: Beginnin2021 Endin2021 Subjective Patient reports:. Pt. states she not really have pain with foot but does feel an achy feeling. Pt is wearing a boot and has a walker to ambulate with. Waiting on weight bearing restrictions, patient is at 30% wb at this time. Home program performing as directed: Yes. Precautions: Fall Risk: moderate Follow orders within chart: L bunionectomy 30% WB with use of RW until further x-rays performed. Gloves with manual therapy d/t possible fungal infection. Per patient report no side to side motion of first metatarsal of L foot. PMHx: breast cancer 14 years ago, thyroid disorder. Treatment Time in clinic started at 2:00 pm Time in clinic ended at 2:41 pm Total time in clinic is 41 minutes. Total timed code time is 38 minutes. Therapeutic exercise (82599): timed minutes 30, units 2 . deficits in AROM in L ankle and 1st MTP, strength deficits of L foot/ankle and knee musculature, gait deficits, L foot pain especially noted with motion, and decreased functional mobility AP x10 (N) x10 isometric L ankle EV/INV/DF manual pressure 1 cycle L ankle ABC DF stretch x10 5hold (N) PROM of 1st MTP. Manual Therapy (9 (more content not included)... Normal [facility] PT Initial Evaluationon 08-03 PT Initial Evaluation Therapy Diagnosis Assessed Decreased range of motion of left ankle (719.57) (M25.672) Muscle weakness (728.87) (M62.81) Other abnormalities of gait and mobility (781.2) (R26.89) Left foot pain (729.5) (M79.672) Hallux valgus (735.0) (M20.10) Other hammer toe(s) (acquired), left foot (735.4) (M20.42) Plan of Care Goals: Goals set and discussed today. Activity Limitation: Improved LEFS score to at least 38 points or greater to demonstrate increased functional mobility of L foot for ambulation and household management., by week 4 Pain: 0/10 pain with L first metatarsal flexion 0-45 degs to improve mobility of foot for ambulation at home, by week 4 Range Of Motion/Joint Mobility: Improved L ankle DF: 10 deg, INV: 30 deg, EV: 10 deg and first MTP 0-45 deg to demonstrate improved L ankle and foot mobility for ambulation and ADL/iADL completion, by week 4 Strength: Improved gross L ankle/knee musculature strength at 4+/5 MMT to improve stability and strength for ambulation and household management., by week 4 HEP, Patient will demonstrate compliance in their home exercise program in order to promote independence in self management of functional mobility., by week 2 Planned interventions include: cryotherapy, education/instructi on, electrical stimulation, gait training, home program, manual therapy, neuromuscular re-education, therapeutic activities, therapeutic exercises and iastm/cupping. Frequency and duration: 2 time(s) a week, for 5 weeks, for 10 visits. Potential to achieve rehab goals is fair: Plan of care was developed with input and agreement by the patient. Assessment Gladis Street, a 76 year old female, arrives [...] you for this referral and please call [phone] with any questions or concerns. Clinical Presentation: Stable and/or uncomplicated characteristics. Level of Complexity: low Problem List: activity limitations, ADLs/IADLs/self care skills, balance, decreased knowledge of HEP, fall risk, gait/locomotion, pain, participation restrictions, range of motion/joint mobility and strength. Reason For Visit Initial Evaluation . L bunionectomy. Referred by: Radha Khan DPM Adult Risk Screening There are no spiritual/cultural practices/values/ne eds that are important to know Initial Fall Risk Screening: GLADIS has not fallen in the last 6 months. Her fall did not result in injury. GLADIS does not have a fear of falling. She needs assistance with RW. Does not need assistance walking in her home. She does not need assistance in an unfamiliar setting. The patient is using an assistive device. Fall Risk Screening: Patient is identified as a fall risk. Care Plan: Moderate Risk: Low risk interventions plus: do not leave patient on exam table unattended, supervised activity, educate patient/family on falls prevention, review safety initiatives with patient/family, family at bedside as allowed, yellow falls risk band, focus rounding attention, locate patient in area of high visibility, wheelchair, bed, or personal alarm, bedside commode, elevated toilet seat and pharmacy consult for medication concerns. Moderate: unsteady gait/ use of assistive device/apparent weakness or functionally challenged. Pain Scale: On a scale of 0 to 10, the patient rates the pain at 0. Please identify location of pain: When present, toe of L foot. Pain Quality: sharp. Domestic Violence Screen: Does not feel threatened or abused physically, emotionally or sexually. Do you feel UNSAFE? The patient feels safe in the home. Depression/Suicide Screening: During the past 2 weeks, the patient has not felt down, depressed or hopeless. During the past 2 weeks, the patient has not felt little interest or pleasure in doing things. (more content not included)... Normal [facility] Absolute lymphocyte counton 05-27-2021 Lymphocytes Auto (Unsp spec) [#/Vol] 1.34 10*3/uL 0.83-4.51 [facility] Work Phone: Basophil percentageon 2020 Bilirubin [Mass/Vol] 0.50 mg/dL 0.20-1.00 [facility] Work Phone: Comment on above: For patients on eltr ombopag therapy, use of [employer] [place] TBIL is not recommended. Chloride [Moles/Vol] 114 mmol/L 98-107 [facility] Work Phone: Eosinophils/100 WBC (Bld) 0.8 % 0-5 [facility] Work Phone: Glucose [Mass/Vol] 91 mg/dL 74-106 [facility] Work Phone: Comment on above: Please note revised GLUCOSE reference range effective 2017. Neutrophils (Bld) [#/Vol] 3.0 10*3/uL 2.0-7.7 [facility] Work Phone: [phone] Potassium [Moles/Vol] 4.2 mmol/L 3.5-5.1 [facility] Work Phone: Protein [Mass/Vol] 7.2 g/dL 6.4-8.2 [facility] Work Phone: Sodium [Moles/Vol] 143 mmol/L 136-145 [facility] Work Phone: WBC (Bld) [#/Vol] 4.9 10*3/uL 4.4-11.0 [facility] Work Phone: Blood erythrocytes count (nu mber/volume)on 05-27-2021 RBC (Bld) [#/Vol] 4.23 10*6/uL 4.2-5.4 [facility] Work Phone: Blood hemoglobin measurement (mass/volume)on 05-27-2021 Hemoglobin (Bld) [Mass/Vol] 13.6 g/dL 12.0-15.0 [facility] Work Phone: Blood lymphocytes/100 leukoc yteson 05-27-2021 Lymphocytes/100 WBC (Bld) 27.6 % 19-41 [facility] Work Phone: Blood monocytes/100 leukocyt eson 05-27-2021 Monocytes/100 WBC (Bld) 8.6 % 0-10 [facility] Work Phone: Blood platelet mean volumeon 05-27-2021 Platelet mean volume (Bld) [Entitic vol] 11.5 fL 6.2-12.0 [facility] Work Phone: Determination of erythrocyte mean corpuscular volume (MCV)on 05-27-2021 MCV (RBC) [Entitic vol] 94.3 fL 81-99 [facility] Work Phone: Hematocrit Auto (Bld) [Volum e fraction]on 05-27-2021 Hematocrit (Bld) [Volume fraction] 39.9 % 37-47 [facility] Work Phone: Laboratory - Chemistry and C hemistry - challengeon 05-27-2021 ALP [Catalytic activity/Vol] 88 U/L 45-117 [facility] Work Phone: ALT [Catalytic activity/Vol] 23 U/L 13-56 [facility] Work Phone: [phone] CO2 [Moles/Vol] 25.0 mmol/L 21.0-32.0 [facility] Work Phone: [phone] Globulin (S) [Mass/Vol] 3.6 g/dL 2.2-4.2 [facility] Work Phone: Urea nitrogen/Creatinine [Mass ratio] 22.1 mg/mg 10-20 [facility] Work Phone: Laboratory - Hematology and Cell countson 05-27-2021 Basophils/100 WBC (Unsp spec) 0.6 % 0-1 [facility] Work Phone: Erythrocyte distribution width (RBC) [Entitic vol] 43.2 fL 35.1-43.9 [facility] Work Phone: Erythrocyte distribution width (RBC) [Ratio] 12.5 % 11.6-14.6 [facility] Work Phone: Immature granulocytes/100 WBC (Bld) 0.200 % 0.0-0.9 [facility] Work Phone: [phone] Comment on above: IG% - Immature Granu locytes (promyelocytes, myelocytes and metamyelocytes) > 1% indicates that a LEFT SHIFT is Present. MCH (RBC) [Entitic mass] 32.2 pg 27.0-32.0 [facility] Work Phone: Neutrophils/100 WBC (Bld) 62.2 % 47-70 [facility] Work Phone: Nucleated RBC/100 WBC (Bld) [Ratio] 0.4 % 0-5 [facility] Work Phone: MCHC Auto (RBC) [Mass/Vol]on 05-27-2021 MCHC (RBC) [Mass/Vol] 34.1 g/dL 32-36 [facility] Work Phone: No Panel Informationon 05-27 Estimated GFR (MDRD) Amer 83 mL/min >60 [facility] Work Phone: Comment on above: GFR Calc Estimated GFR (MDRD) Non-Af Amer 68 mL/min >60 [facility] Work Phone: Comment on above: Non- GFR Calc Vitamin D 25-Hydroxy 21.6 ng/mL [facility] Work Phone: Comment on above: Vitamin D 25(OH) Sta tus Range Deficiency <20 ng/mL (50nmol/L) Insufficiency 20 - 30 ng/mL (50 - 75 nmol/L) Sufficiency 30 - 100 ng/mL (75 - 250 nmol/L) Toxicity >100 ng/mL (>250 nmol/L) Platelets bldon 05-27-2021 Platelets (Bld) [#/Vol] 189 10*3/uL 150-450 [facility] Work Phone: Serum or plasma albumin luzma urement (mass/volume)on 05-27-2021 Albumin [Mass/Vol] 3.6 g/dL 3.2-5.0 [facility] Work Phone: Serum or plasma albumin/glob ulin mass ratioon 05-27-2021 Albumin/Globulin [Mass ratio] 1.0 {ratio} 0.9-2.4 [facility] Work Phone: Serum or plasma calcium luzma urement (mass/volume)on 05-27-2021 Calcium [Mass/Vol] 9.0 mg/dL 8.5-10.1 [facility] Work Phone: Serum or plasma creatinine m easurement (mass/volume)on 05-27-2021 Creatinine [Mass/Vol] 0.86 mg/dL 0.55-1.02 [facility] Work Phone: Comment on above: The validity of the calculated GFR & GFRAA in patients over 70 years has not been determined. Clinical correlation is essential. Serum or plasma urea nitroge n measurement (mass/volume)on 05-27-2021 Urea nitrogen [Mass/Vol] 19 mg/dL 7-18 [facility] Work Phone: Thin prep Papanicolaou smear with manual screeningon 05-27-2021 Thin prep Papanicolaou smear with manual screening 24 U/L 15-37 [facility] Work Phone: Thin prep Papanicolaou smear with manual screening 4 5-15 [facility] Work Phone: Vital Signs Date Time Vital Sign Value Performing Clinician Faci lity 03-21-2025 10:47-0400 Body height 162.[address] Ari Medina MD Work Phone: [facility] 03-21-2025 10:47-0400 Body mass index (BMI) [Ratio] 25 kg/m2 Dr. Ari Medina MD Work Phone: [facility] 03-21-2025 10:47-0400 Body temperature 97.1 [degF] Dr. Ari Medina MD Work Phone: [facility] 03-21-2025 10:47-0400 Body weight 66.[address] Ari Medina MD Work Phone: [facility] 03-21-2025 10:47-0400 Diastolic blood pressure 66 mm[Hg] Dr. Ari Medina MD Work Phone: [facility] 03-21-2025 10:47-0400 Heart rate 70 /min Dr. Ari Medina MD Work Phone: [facility] 03-21-2025 10:47-0400 Respiratory rate 16 /min Dr. Ari Medina MD Work Phone: 5(711)159-442747 [place] [address] 03-21-2025 10:47-0400 SaO2% (BldA) [Mass fraction] 100 % Dr. Ari Medina MD Work Phone: 7(842)788-037447 [place] [address] 03-21-2025 10:47-0400 Systolic blood pressure 161 mm[Hg] Dr. Ari Medina MD Work Phone: 1(870)487-879647 [place] [address] 02-21-2025 11:18-0400 Body height 162.[address] Ari Medina MD Work Phone: 2(841)320-997847 [place] [address] 02-21-2025 11:18-0400 Diastolic blood pressure 71 mm[Hg] Dr. Ari Medina MD Work Phone: 0(388)858-262847 [place] [address] 02-21-2025 11:18-0400 Heart rate 66 /min Dr. Ari Medina MD Work Phone: 1(014)801-614547 [place] [address] 02-21-2025 11:18-0400 Respiratory rate 16 /min Dr. Ari Medina MD Work Phone: 3(647)430-230247 [place] [address] 02-21-2025 11:18-0400 SaO2% (BldA) [Mass fraction] 95 % Dr. Ari Medina MD Work Phone: 3(680)155-613547 [place] [address] 02-21-2025 11:18-0400 Systolic blood pressure 137 mm[Hg] Dr. Ari Medina MD Work Phone: 4(130)954-427047 [place] [address] 01-24-2025 10:51-0400 Body height 162.[address] Ari Medina MD Work Phone: 2(729)695-174547 [place] [address] 01-24-2025 10:51-0400 Body temperature 98.1 [degF] Dr. Ari Medina MD Work Phone: 1(667)088-619747 [place] [address] 01-24-2025 10:51-0400 Diastolic blood pressure 84 mm[Hg] Dr. Ari Medina MD Work Phone: 2(527)139-394447 [place] [address] 01-24-2025 10:51-0400 Heart rate 66 /min Dr. Ari Medina MD Work Phone: 8(336)958-193547 [place] [address] 01-24-2025 10:51-0400 Respiratory rate 16 /min Dr. Ari Medina MD Work Phone: 1(862)489-672639 [place] [address] 01-24-2025 10:51-0400 SaO2% (BldA) [Mass fraction] 100 % Dr. Ari Medina MD Work Phone: 0(949)391-013139 [place] [address] 01-24-2025 10:51-0400 Systolic blood pressure 158 mm[Hg] Dr. Ari Medina MD Work Phone: 3(745)457-619647 [place] [address] 12-27-2024 10:26-0400 Body height 163.[address] Ari Medina MD Work Phone: 7(242)501-436147 [place] [address] 12-27-2024 10:26-0400 Body mass index (BMI) [Ratio] 24 kg/m2 Dr. Ari Medina MD Work Phone: 9(959)231-241347 [place] [address] 12-27-2024 10:26-0400 Body temperature 98.7 [degF] Dr. Ari Medina MD Work Phone: 5(095)485-310247 [place] [address] 12-27-2024 10:26-0400 Body weight 64.[address] Ari Medina MD Work Phone: 5(775)958-869047 [place] [address] 12-27-2024 10:26-0400 Heart rate 73 /min Dr. Ari Medina MD Work Phone: 1(805)367-683147 [place] [address] 12-27-2024 10:26-0400 Respiratory rate 16 /min Dr. Ari Medina MD Work Phone: 1(772)636-070039 [place] [address] 12-27-2024 10:26-0400 SaO2% (BldA) [Mass fraction] 99 % Dr. Ari Medina MD Work Phone: 8(485)975-441139 [place] [address] 11-29-2024 10:55-0400 Body height 163.[address] Ari Medina MD Work Phone: 9(968)030-006739 [place] [address] 11-29-2024 10:55-0400 Body temperature 96.6 [degF] Dr. Ari Medina MD Work Phone: 9(260)708-238739 [place] [address] 11-29-2024 10:55-0400 Diastolic blood pressure 74 mm[Hg] Dr. Ari Medina MD Work Phone: [facility] 11-29-2024 10:55-0400 Heart rate 70 /min Dr. Ari Medina MD Work Phone: [facility] 11-29-2024 10:55-0400 Respiratory rate 16 /min Dr. Ari Medina MD Work Phone: 6(550)455-955739 [place] [address] 11-29-2024 10:55-0400 SaO2% (BldA) [Mass fraction] 100 % Dr. Ari Medina MD Work Phone: 1(474)936-221739 [place] [address] 11-29-2024 10:55-0400 Systolic blood pressure 144 mm[Hg] Dr. Ari Medina MD Work Phone: 9(313)020-815647 [place] [address] 11-01-2024 10:59-0400 Body height 163.[address] Ari Medina MD Work Phone: 8(355)660-101647 [place] [address] 11-01-2024 10:59-0400 Body mass index (BMI) [Ratio] 24.6 kg/m2 Dr. Ari Medina MD Work Phone: 0(984)621-925947 [place] [address] 11-01-2024 10:59-0400 Body temperature 97 [degF] Dr. Ari Medina MD Work Phone: 7(222)845-728139 [place] [address] 11-01-2024 10:59-0400 Body weight 66.[address] Ari Medina MD Work Phone: 2(412)411-571839 [place] [address] 11-01-2024 10:59-0400 Diastolic blood pressure 83 mm[Hg] Dr. Ari Medina MD Work Phone: 5(877)887-025739 [place] [address] 11-01-2024 10:59-0400 Heart rate 70 /min Dr. Ari Medina MD Work Phone: 0(524)627-888939 [place] [address] 11-01-2024 10:59-0400 Respiratory rate 16 /min Dr. Ari Medina MD Work Phone: 9(551)064-270539 [place] [address] 11-01-2024 10:59-0400 SaO2% (BldA) [Mass fraction] 98 % Dr. Ari Medina MD Work Phone: [facility] 11-01-2024 10:59-0400 Systolic blood pressure 151 mm[Hg] Dr. Ari Medina MD Work Phone: 8(597)503-217139 [place] [address] 10-04-2024 11:02-0400 Body mass index (BMI) [Ratio] 24.9 kg/m2 Dr. Ari Medina MD Work Phone: 7(831)567-001439 [place] [address] 10-04-2024 11:02-0400 Body temperature 96.7 [degF] Dr. Ari Medina MD Work Phone: 2(910)755-832639 [place] [address] 10-04-2024 11:02-0400 Body weight 65.[address] Ari Medina MD Work Phone: 7(777)046-946039 [place] [address] 10-04-2024 11:02-0400 Diastolic blood pressure 67 mm[Hg] Dr. Ari Medina MD Work Phone: 1(937)793-080339 [place] [address] 10-04-2024 11:02-0400 Heart rate 74 /min Dr. Ari Medina MD Work Phone: 5(885)088-002239 [place] [address] 10-04-2024 11:02-0400 Respiratory rate 16 /min Dr. Ari Medina MD Work Phone: 7(313)553-076139 [place] [address] 10-04-2024 11:02-0400 SaO2% (BldA) [Mass fraction] 100 % Dr. Ari Medina MD Work Phone: 6(073)204-519539 [place] [address] 10-04-2024 11:02-0400 Systolic blood pressure 148 mm[Hg] Dr. Ari Medina MD Work Phone: 9(920)147-601739 [place] [address] 09-06-2024 10:38-0400 Body height 162.[address] Ari Medina MD Work Phone: 1(828)576-604839 [place] [address] 09-06-2024 10:38-0400 Body mass index (BMI) [Ratio] 24.9 kg/m2 Dr. Ari Medina MD Work Phone: 0(327)042-237439 [place] [address] 09-06-2024 10:38-0400 Body temperature 97.8 [degF] Dr. Ari Medina MD Work Phone: [facility] 09-06-2024 10:38-0400 Body weight 65.[address] Ari Medina MD Work Phone: [facility] 09-06-2024 10:38-0400 Diastolic blood pressure 66 mm[Hg] Dr. Ari Medina MD Work Phone: [facility] 09-06-2024 10:38-0400 Heart rate 62 /min Dr. Ari Medina MD Work Phone: [facility] 09-06-2024 10:38-0400 Respiratory rate 16 /min Dr. Ari Medina MD Work Phone: [facility] 09-06-2024 10:38-0400 SaO2% (BldA) [Mass fraction] 100 % Dr. Ari Medina MD Work Phone: [facility] 09-06-2024 10:38-0400 Systolic blood pressure 166 mm[Hg] Dr. Ari Medina MD Work Phone: [facility] 08-19-2024 11:46-0400 Body height 160 cm Leroy Barragan MD Work Phone: [facility] 08-19-2024 11:46-0400 Body mass index (BMI) [Ratio] 25.86 kg/m2 Leroy Barragan MD Work Phone: [facility] 08-19-2024 11:46-0400 Body weight 66.22 kg Leroy Barragan MD Work Phone: [facility] 08-19-2024 11:46-0400 Diastolic blood pressure 76 mm[Hg] Leroy Barragan MD Work Phone: [facility] 08-19-2024 11:46-0400 Heart rate 63 /min Leroy Barragan MD Work Phone: [facility] 08-19-2024 11:46-0400 Respiratory rate 12 /min Leroy Barragan MD Work Phone: [facility] 08-19-2024 11:46-0400 SaO2% (BldA) [Mass fraction] 98 % Leroy Barragan MD Work Phone: [facility] 08-19-2024 11:46-0400 Systolic blood pressure 134 mm[Hg] Leroy Barragan MD Work Phone: [facility] 08-09-2024 10:56-0500 Body height 162.[address] Ari Medina MD Work Phone: [facility] 08-09-2024 10:56-0500 Body mass index (BMI) [Ratio] 24.5 kg/m2 Dr. Ari Medina MD Work Phone: [facility] 08-09-2024 10:56-0500 Body temperature 97.5 [degF] Dr. Ari Medina MD Work Phone: [facility] 08-09-2024 10:56-0500 Body weight 64.[address] Ari Medina MD Work Phone: [facility] 08-09-2024 10:56-0500 Diastolic blood pressure 65 mm[Hg] Dr. Ari Medina MD Work Phone: [facility] 08-09-2024 10:56-0500 Heart rate 63 /min Dr. Ari Medina MD Work Phone: [facility] 08-09-2024 10:56-0500 Respiratory rate 16 /min Dr. Ari Medina MD Work Phone: [facility] 08-09-2024 10:56-0500 SaO2% (BldA) [Mass fraction] 99 % Dr. Ari Medina MD Work Phone: [facility] 08-09-2024 10:56-0500 Systolic blood pressure 175 mm[Hg] Dr. Ari Medina MD Work Phone: [facility] 07-12-2024 11:12-0500 Body temperature 97.7 [degF] Dr. Ari Medina MD Work Phone: 3(091)576-327898 [place] [address] 07-12-2024 11:12-0500 Diastolic blood pressure 70 mm[Hg] Dr. Ari Medina MD Work Phone: 5(367)631-367139 [place] [address] 07-12-2024 11:12-0500 Heart rate 70 /min Dr. Ari Medina MD Work Phone: 4(004)906-081039 [place] [address] 07-12-2024 11:12-0500 Respiratory rate 16 /min Dr. Ari Medina MD Work Phone: 2(345)318-206439 [place] [address] 07-12-2024 11:12-0500 SaO2% (BldA) [Mass fraction] 100 % Dr. Ari Medina MD Work Phone: 2(041)268-247339 [place] [address] 07-12-2024 11:12-0500 Systolic blood pressure 168 mm[Hg] Dr. Ari Medina MD Work Phone: 4(231)625-381347 [place] [address] 06-14-2024 10:58-0500 Body temperature 97.8 [degF] Dr. Ari Medina MD Work Phone: 8(255)835-813847 [place] [address] 06-14-2024 10:58-0500 Diastolic blood pressure 80 mm[Hg] Dr. Ari Medina MD Work Phone: 7(419)491-233347 [place] [address] 06-14-2024 10:58-0500 Heart rate 71 /min Dr. Ari Medina MD Work Phone: 2(790)516-342747 [place] [address] 06-14-2024 10:58-0500 Respiratory rate 16 /min Dr. Ari Medina MD Work Phone: 6(614)747-696439 [place] [address] 06-14-2024 10:58-0500 Systolic blood pressure 166 mm[Hg] Dr. Ari Medina MD Work Phone: 4(930)188-548139 [place] [address] 05-17-2024 12:08-0500 Body temperature 97.4 [degF] Dr. Ari Medina MD Work Phone: 4(349)666-941139 [place] [address] 05-17-2024 12:08-0500 Diastolic blood pressure 69 mm[Hg] Dr. Ari Medina MD Work Phone: 3(609)157-644439 [place] [address] 05-17-2024 12:08-0500 Heart rate 66 /min Dr. Ari Medina MD Work Phone: [facility] 05-17-2024 12:08-0500 Respiratory rate 16 /min Dr. Ari Medina MD Work Phone: [facility] 05-17-2024 12:08-0500 SaO2% (BldA) [Mass fraction] 99 % Dr. Ari Medina MD Work Phone: [facility] 05-17-2024 12:08-0500 Systolic blood pressure 151 mm[Hg] Dr. Ari Medina MD Work Phone: [facility] 04-29-2024 15:02-0500 Body mass index (BMI) [Ratio] 25.13 kg/m2 Leroy Barragan MD Work Phone: [facility] 04-29-2024 15:02-0500 Body weight 64.86 kg Leroy Barragan MD Work Phone: [facility] 04-29-2024 15:02-0500 Diastolic blood pressure 82 mm[Hg] Leroy Barragan MD Work Phone: [facility] 04-29-2024 15:02-0500 Heart rate 108 /min Leroy Barragan MD Work Phone: [facility] 04-29-2024 15:02-0500 SaO2% (BldA) [Mass fraction] 98 % Leroy Barragan MD Work Phone: [facility] 04-29-2024 15:02-0500 Systolic blood pressure 128 mm[Hg] Leroy Barragan MD Work Phone: [facility] 04-19-2024 11:03-0500 Body mass index (BMI) [Ratio] 24.3 kg/m2 Dr. Ari Medina MD Work Phone: [facility] 04-19-2024 11:03-0500 Body temperature 97.7 [degF] Dr. Ari Medina MD Work Phone: [facility] 04-19-2024 11:03-0500 Body weight 65.[address] Ari Medina MD Work Phone: [facility] 04-19-2024 11:03-0500 Diastolic blood pressure 66 mm[Hg] Dr. Ari Medina MD Work Phone: [facility] 04-19-2024 11:03-0500 Heart rate 99 /min Dr. Ari Medina MD Work Phone: [facility] 04-19-2024 11:03-0500 Respiratory rate 16 /min Dr. Ari Medina MD Work Phone: [facility] 04-19-2024 11:03-0500 SaO2% (BldA) [Mass fraction] 100 % Dr. Ari Medina MD Work Phone: [facility] 04-19-2024 11:03-0500 Systolic blood pressure 155 mm[Hg] Dr. Ari Medina MD Work Phone: [facility] 09-22-2023 10:53-0400 Body height 162.56 cm [facility] 09-22-2023 10:53-0400 Body mass index (BMI) [Ratio] 23.5 kg/m2 [facility] 09-22-2023 10:53-0400 Body temperature 98.7 [degF] [facility] 09-22-2023 10:53-0400 Body weight 62.14 kg [facility] 09-22-2023 10:53-0400 Diastolic blood pressure 71 mm[Hg] [facility] 09-22-2023 10:53-0400 Heart rate 83 /min [facility] 09-22-2023 10:53-0400 Respiratory rate 16 /min [facility] 09-22-2023 10:53-0400 SaO2% (BldA) [Mass fraction] 94 % [facility] 09-22-2023 10:53-0400 Systolic blood pressure 165 mm[Hg] [facility] 08-25-2023 11:03-0400 Body height 162.56 cm [facility] 08-25-2023 11:03-0400 Body mass index (BMI) [Ratio] 22.8 kg/m2 [facility] 08-25-2023 11:03-0400 Body temperature 97.4 [degF] [facility] 08-25-2023 11:03-0400 Body weight 60.32 kg [facility] 08-25-2023 11:03-0400 Diastolic blood pressure 55 mm[Hg] [facility] 08-25-2023 11:03-0400 Heart rate 78 /min [facility] 08-25-2023 11:03-0400 Respiratory rate 16 /min [facility] 08-25-2023 11:03-0400 SaO2% (BldA) [Mass fraction] 100 % [facility] 08-25-2023 11:03-0400 Systolic blood pressure 122 mm[Hg] [facility] 07-28-2023 10:36-0500 Body height 162.56 cm [facility] 07-28-2023 10:36-0500 Body temperature 98.7 [degF] [facility] 07-28-2023 10:36-0500 Diastolic blood pressure 96 mm[Hg] [facility] 07-28-2023 10:36-0500 Heart rate 96 /min [facility] 07-28-2023 10:36-0500 Respiratory rate 16 /min [facility] 07-28-2023 10:36-0500 Systolic blood pressure 154 mm[Hg] [facility] 06-30-2023 11:58-0500 Body mass index (BMI) [Ratio] 22.8 kg/m2 [facility] 06-30-2023 11:58-0500 Body temperature 97.9 [degF] [facility] 06-30-2023 11:58-0500 Body weight 60.32 kg [facility] 06-30-2023 11:58-0500 Diastolic blood pressure 62 mm[Hg] [facility] 06-30-2023 11:58-0500 Heart rate 99 /min [facility] 06-30-2023 11:58-0500 Respiratory rate 16 /min [facility] 06-30-2023 11:58-0500 SaO2% (BldA) [Mass fraction] 97 % [facility] 06-30-2023 11:58-0500 Systolic blood pressure 139 mm[Hg] [facility] 05-26-2023 12:38-0500 Body height 162.56 cm [facility] 05-26-2023 12:38-0500 Body mass index (BMI) [Ratio] 22.8 kg/m2 [facility] 05-26-2023 12:38-0500 Body temperature 98.5 [degF] [facility] 05-26-2023 12:38-0500 Body weight 60.32 kg [facility] 05-26-2023 12:38-0500 Diastolic blood pressure 66 mm[Hg] [facility] 05-26-2023 12:38-0500 Heart rate 87 /min [facility] 05-26-2023 12:38-0500 Respiratory rate 16 /min [facility] 05-26-2023 12:38-0500 SaO2% (BldA) [Mass fraction] 100 % [facility] 05-26-2023 12:38-0500 Systolic blood pressure 148 mm[Hg] [facility] 04-28-2023 12:55-0500 Body height 162.56 cm [facility] 04-28-2023 12:55-0500 Body mass index (BMI) [Ratio] 23 kg/m2 [facility] 04-28-2023 12:55-0500 Body temperature 97.1 [degF] [facility] 04-28-2023 12:55-0500 Body weight 60.78 kg [facility] 04-28-2023 12:55-0500 Diastolic blood pressure 64 mm[Hg] [facility] 04-28-2023 12:55-0500 Heart rate 94 /min [facility] 04-28-2023 12:55-0500 Respiratory rate 16 /min [facility] 04-28-2023 12:55-0500 SaO2% (BldA) [Mass fraction] 99 % [facility] 04-28-2023 12:55-0500 Systolic blood pressure 152 mm[Hg] [facility] 03-31-2023 12:44-0400 Body height 162.56 cm [facility] 03-31-2023 12:44-0400 Respiratory rate 16 /min [facility] 03-03-2023 13:01-0400 Body height 162.56 cm [facility] 03-03-2023 13:01-0400 Body mass index (BMI) [Ratio] 23.1 kg/m2 [facility] 03-03-2023 13:01-0400 Body temperature 97.4 [degF] [facility] 03-03-2023 13:01-0400 Body weight 61.23 kg [facility] 03-03-2023 13:01-0400 Diastolic blood pressure 57 mm[Hg] [facility] 03-03-2023 13:01-0400 Heart rate 89 /min [facility] 03-03-2023 13:01-0400 Respiratory rate 16 /min [facility] 03-03-2023 13:01-0400 SaO2% (BldA) [Mass fraction] 99 % [facility] 03-03-2023 13:01-0400 Systolic blood pressure 113 mm[Hg] [facility] 02-03-2023 14:37-0400 Diastolic blood pressure 55 mm[Hg] [facility] 02-03-2023 14:37-0400 Respiratory rate 16 /min [facility] 02-03-2023 14:37-0400 Systolic blood pressure 151 mm[Hg] [facility] 02-03-2023 12:30-0400 Body height 162.56 cm [facility] 02-03-2023 12:30-0400 Body temperature 98.4 [degF] [facility] 02-03-2023 12:30-0400 Heart rate 88 /min [facility] 01-06-2023 12:13-0400 Body height 162.56 cm [facility] 01-06-2023 12:13-0400 Body mass index (BMI) [Ratio] 23.1 kg/m2 [facility] 01-06-2023 12:13-0400 Body temperature 98.5 [degF] [facility] 01-06-2023 12:13-0400 Body weight 61.23 kg [facility] 01-06-2023 12:13-0400 Diastolic blood pressure 84 mm[Hg] [facility] 01-06-2023 12:13-0400 Heart rate 78 /min [facility] 01-06-2023 12:13-0400 Respiratory rate 16 /min [facility] 01-06-2023 12:13-0400 SaO2% (BldA) [Mass fraction] 100 % [facility] 01-06-2023 12:13-0400 Systolic blood pressure 178 mm[Hg] [facility] 12-09-2022 12:04-0400 Body height 162.56 cm [facility] 12-09-2022 12:04-0400 Body mass index (BMI) [Ratio] 22.8 kg/m2 [facility] 12-09-2022 12:04-0400 Body temperature 98.3 [degF] [facility] 12-09-2022 12:04-0400 Body weight 60.55 kg [facility] 12-09-2022 12:04-0400 Diastolic blood pressure 80 mm[Hg] [facility] 12-09-2022 12:04-0400 Heart rate 87 /min [facility] 12-09-2022 12:04-0400 Respiratory rate 16 /min [facility] 12-09-2022 12:04-0400 SaO2% (BldA) [Mass fraction] 99 % [facility] 12-09-2022 12:04-0400 Systolic blood pressure 176 mm[Hg] [facility] 10-14-2022 13:04-0400 Body height 162.56 cm [facility] 10-14-2022 13:04-0400 Body temperature 96.8 [degF] [facility] 10-14-2022 13:04-0400 Diastolic blood pressure 70 mm[Hg] [facility] 10-14-2022 13:04-0400 Heart rate 88 /min [facility] 10-14-2022 13:04-0400 Respiratory rate 16 /min [facility] 10-14-2022 13:04-0400 SaO2% (BldA) [Mass fraction] 99 % [facility] 10-14-2022 13:04-0400 Systolic blood pressure 157 mm[Hg] [facility] 09-16-2022 13:03-0400 Body height 162.56 cm [facility] 09-16-2022 13:03-0400 Body mass index (BMI) [Ratio] 23 kg/m2 [facility] 09-16-2022 13:03-0400 Body temperature 97.4 [degF] [facility] 09-16-2022 13:03-0400 Body weight 60.78 kg [facility] 09-16-2022 13:03-0400 Diastolic blood pressure 68 mm[Hg] [facility] 09-16-2022 13:03-0400 Heart rate 90 /min [facility] 09-16-2022 13:03-0400 Respiratory rate 16 /min [facility] 09-16-2022 13:03-0400 SaO2% (BldA) [Mass fraction] 98 % [facility] 09-16-2022 13:03-0400 Systolic blood pressure 148 mm[Hg] [facility] 08-05-2022 12:26-0500 Body height 162.56 cm [facility] 08-05-2022 12:26-0500 Body mass index (BMI) [Ratio] 23 kg/m2 [facility] 08-05-2022 12:26-0500 Body temperature 97.7 [degF] [facility] 08-05-2022 12:26-0500 Body weight 60.78 kg [facility] 08-05-2022 12:26-0500 Diastolic blood pressure 63 mm[Hg] [facility] 08-05-2022 12:26-0500 Heart rate 94 /min [facility] 08-05-2022 12:26-0500 Respiratory rate 16 /min [facility] 08-05-2022 12:26-0500 SaO2% (BldA) [Mass fraction] 99 % [facility] 08-05-2022 12:26-0500 Systolic blood pressure 158 mm[Hg] [facility] 07-08-2022 12:02-0500 Body height 162.56 cm [facility] 07-08-2022 12:02-0500 Body mass index (BMI) [Ratio] 24 kg/m2 [facility] 07-08-2022 12:02-0500 Body temperature 97.1 [degF] [facility] 07-08-2022 12:02-0500 Body weight 63.5 kg [facility] 07-08-2022 12:02-0500 Diastolic blood pressure 73 mm[Hg] [facility] 07-08-2022 12:02-0500 Heart rate 93 /min [facility] 07-08-2022 12:02-0500 Respiratory rate 16 /min [facility] 07-08-2022 12:02-0500 SaO2% (BldA) [Mass fraction] 97 % [facility] 07-08-2022 12:02-0500 Systolic blood pressure 163 mm[Hg] [facility] 06-10-2022 12:30-0500 Body temperature 98.7 [degF] [facility] 06-10-2022 12:30-0500 Diastolic blood pressure 76 mm[Hg] [facility] 06-10-2022 12:30-0500 Heart rate 93 /min [facility] 06-10-2022 12:30-0500 Respiratory rate 16 /min [facility] 06-10-2022 12:30-0500 SaO2% (BldA) [Mass fraction] 100 % [facility] 06-10-2022 12:30-0500 Systolic blood pressure 177 mm[Hg] [facility] 05-11-2022 12:49-0500 Body height 162.56 cm [facility] Work Phone: 05-11-2022 12:49-0500 Body mass index (BMI) [Ratio] 23.3 kg/m2 [facility] 05-11-2022 12:49-0500 Body temperature 99 [degF] [facility] 05-11-2022 12:49-0500 Body weight 61.77 kg [facility] 05-11-2022 12:49-0500 Diastolic blood pressure 79 mm[Hg] [facility] 05-11-2022 12:49-0500 Heart rate 94 /min [facility] 05-11-2022 12:49-0500 Respiratory rate 14 /min [facility] 05-11-2022 12:49-0500 SaO2% (BldA) [Mass fraction] 98 % [facility] 05-11-2022 12:49-0500 Systolic blood pressure 188 mm[Hg] [facility] 04-08-2022 12:57-0400 Body height 163.83 cm [facility] Work Phone: 04-08-2022 12:57-0400 Body temperature 99 [degF] [facility] 04-08-2022 12:57-0400 Diastolic blood pressure 86 mm[Hg] [facility] 04-08-2022 12:57-0400 Heart rate 81 /min [facility] 04-08-2022 12:57-0400 Respiratory rate 16 /min [facility] 04-08-2022 12:57-0400 SaO2% (BldA) [Mass fraction] 100 % [facility] 04-08-2022 12:57-0400 Systolic blood pressure 187 mm[Hg] [facility] 03-11-2022 13:07-0400 Body height 163.83 cm [facility] Work Phone: 03-11-2022 13:07-0400 Body mass index (BMI) [Ratio] 23.5 kg/m2 [facility] Work Phone: 03-11-2022 13:07-0400 Body temperature 97.2 [degF] [facility] Work Phone: 03-11-2022 13:07-0400 Body weight 63.04 kg [facility] Work Phone: 03-11-2022 13:07-0400 Heart rate 86 /min [facility] Work Phone: 03-11-2022 13:07-0400 Respiratory rate 16 /min [facility] Work Phone: 03-11-2022 13:07-0400 SaO2% (BldA) [Mass fraction] 100 % [facility] Work Phone: 11-12-2021 14:16-0400 Body temperature 98.8 [degF] [facility] Work Phone: 11-12-2021 14:16-0400 Diastolic blood pressure 85 mm[Hg] [facility] Work Phone: 11-12-2021 14:16-0400 Heart rate 68 /min [facility] Work Phone: 11-12-2021 14:16-0400 Respiratory rate 16 /min [facility] Work Phone: 11-12-2021 14:16-0400 SaO2% (BldA) [Mass fraction] 100 % [facility] Work Phone: 11-12-2021 14:16-0400 Systolic blood pressure 154 mm[Hg] [facility] Work Phone: 11-12-2021 09:16-0400 Body height 163.83 cm [facility] Work Phone: 11-12-2021 09:16-0400 Body mass index (BMI) [Ratio] 24.2 kg/m2 [facility] Work Phone: 11-12-2021 09:16-0400 Body weight 65 kg [facility] Work Phone: 10-15-2021 13:19-0400 Body height 162.56 cm [facility] Work Phone: 10-15-2021 13:19-0400 Body mass index (BMI) [Ratio] 25.2 kg/m2 [facility] Work Phone: 10-15-2021 13:19-0400 Body temperature 96.4 [degF] [facility] Work Phone: 10-15-2021 13:19-0400 Body weight 66.67 kg [facility] Work Phone: 10-15-2021 13:19-0400 Diastolic blood pressure 82 mm[Hg] [facility] Work Phone: 10-15-2021 13:19-0400 Heart rate 87 /min [facility] Work Phone: 10-15-2021 13:19-0400 Respiratory rate 12 /min [facility] Work Phone: 10-15-2021 13:19-0400 SaO2% (BldA) [Mass fraction] 99 % [facility] Work Phone: 10-15-2021 13:19-0400 Systolic blood pressure 140 mm[Hg] [facility] Work Phone: 09-17-2021 11:43-0400 Body height 162.56 cm [facility] Work Phone: 09-17-2021 11:43-0400 Body temperature 98.7 [degF] [facility] Work Phone: 09-17-2021 11:43-0400 Diastolic blood pressure 70 mm[Hg] [facility] Work Phone: 09-17-2021 11:43-0400 Heart rate 94 /min [facility] Work Phone: 09-17-2021 11:43-0400 Respiratory rate 16 /min [facility] Work Phone: 09-17-2021 11:43-0400 SaO2% (BldA) [Mass fraction] 97 % [facility] Work Phone: 09-17-2021 11:43-0400 Systolic blood pressure 118 mm[Hg] [facility] Work Phone: 06-18-2021 14:13-0500 Body temperature 97.3 [degF] [facility] Work Phone: 06-18-2021 14:13-0500 Diastolic blood pressure 71 mm[Hg] [facility] Work Phone: 06-18-2021 14:13-0500 Heart rate 88 /min [facility] Work Phone: 06-18-2021 14:13-0500 Respiratory rate 16 /min [facility] Work Phone: 06-18-2021 14:13-0500 SaO2% (BldA) [Mass fraction] 99 % [facility] Work Phone: 06-18-2021 14:13-0500 Systolic blood pressure 126 mm[Hg] [facility] Work Phone: 06-18-2021 07:35-0500 Body height 162.56 cm [facility] Work Phone: 06-18-2021 07:35-0500 Body mass index (BMI) [Ratio] 25.7 kg/m2 [facility] Work Phone: 06-18-2021 07:35-0500 Body weight 68 kg [facility] Work Phone: 05-27-2021 12:05-0500 Body temperature 98.5 [degF] [facility] Work Phone: 05-27-2021 12:05-0500 Diastolic blood pressure 74 mm[Hg] [facility] Work Phone: 05-27-2021 12:05-0500 Heart rate 93 /min [facility] Work Phone: 05-27-2021 12:05-0500 Respiratory rate 16 /min [facility] Work Phone: 05-27-2021 12:05-0500 SaO2% (BldA) [Mass fraction] 98 % [facility] Work Phone: 05-27-2021 12:05-0500 Systolic blood pressure 135 mm[Hg] [facility] Work Phone: Encounters Encounter Date Encounter Type Care Provider Facility Start: 04-18-2025 ambulatory Ari Medina Facility:[facility] Start: 03-21-2025 End: 03-21-2025 Patient encounter procedure Dr. Ari Medina MD -Medical Out Work Phone: Start: 03-21-2025 End: 03-21-[address] Ari Medina MD Work Phone: -Medical Out Start: 03-17-2025 End: 03-17-2025 ambulatory ARI MEDINA Facility:[facility] Start: 02-21-2025 End: 02-21-[address] Ari Medina MD -Medical Out Work Phone: Start: 02-21-2025 End: 02-21-[address] Ari Medina MD Work Phone: -Medical Out Start: 01-24-2025 End: 01-24-[address] Ari Medina MD -Medical Out Work Phone: Start: 01-24-2025 End: 01-24-[address] Ari Medina MD Work Phone: -Medical Out Start: 12-27-2024 End: 12-27-[address] Ari Medina MD -Medical Out Work Phone: Start: 12-27-2024 End: 12-27-[address] Ari Medina MD Work Phone: -Medical Out Start: 12-26-2024 End: 12-26-2024 Telemedicine consultation with patient Bianka Olmos APRN.PINKING MACHINE OPERATOR Work Phone: NEUROLOGY Start: 12-26-2024 End: 12-26-2024 ambulatory Bianka Olmos APRN.PINKING MACHINE OPERATOR Work Phone: NEUROLOGY Comment on above: Nonruptured cerebral aneurysm (HCC) (Primary Dx); Essential hypertension Start: 12-19-2024 ambulatory ARI MEDINA Facility:[facility] Start: 12-19-2024 End: 12-19-2024 Subsequent hospital visit by physician [facility] (I-Stat/1.5t) Work Phone: Radiology Comment on above: Nonruptured cerebral aneurysm (HCC) [I67.1] Start: 11-29-2024 End: 11-29-[address] Ari Medina MD -Medical Out Work Phone: Start: 11-29-2024 End: 11-29-[address] Ari Medina MD Work Phone: -Medical Out Start: 11-05-2024 End: 11-05-[address] Ari Medina MD Work Phone: [facility] Work Phone: Start: 11-05-2024 End: 11-05-[address] Ari Medina MD -Laboratory Specimen Work Phone: Start: 11-05-2024 End: 11-05-2024 ambulatory Ari Medina Facility:[facility] Start: 11-01-2024 End: 11-01-[address] Ari Medina MD -Medical Out Work Phone: Start: 11-01-2024 End: 11-01-[address] Ari Medina MD Work Phone: [facility] Work Phone: Start: 10-04-2024 End: 10-04-[address] Ari Medina MD -Medical Out Work Phone: Start: 10-04-2024 End: 10-04-2024 ambulatory Ari Medina Facility:[facility] Start: 09-06-2024 End: 09-06-[address] Ari Medina MD -Medical Out Work Phone: Start: 09-06-2024 End: 09-06-[address] Ari Medina MD Work Phone: [facility] Work Phone: Start: 08-19-2024 End: 08-19-2024 ambulatory [facility] Facility:[facility] Start: 08-19-2024 End: 08-19-2024 Patient encounter procedure Leroy Barragan MD Work Phone: Cardiology Comment on above: SVT (supraventricula r tachycardia) (HCC) (Primary Dx) Start: 08-09-2024 End: 08-09-[address] Ari Medina MD -Medical Out Work Phone: Start: 08-09-2024 End: 08-09-[address] Ari Medina MD Work Phone: [facility] Work Phone: Start: 07-12-2024 End: 07-12-[address] Ari Medina MD -Medical Out Work Phone: Start: 07-12-2024 End: 07-12-2024 ambulatory [facility] Facility:[facility] Start: 06-14-2024 End: 06-14-[address] Ari Medina MD -Medical Out Work Phone: Start: 06-14-2024 End: 06-14-2024 ambulatory [facility] Facility:[facility] Start: 05-25-2024 End: 05-27-2024 Refill Leroy Barragan MD Work Phone: Cardiology Comment on above: Med Change Request Start: 05-17-2024 End: 05-17-[address] Ari Medina MD -Medical Out Work Phone: Start: 05-17-2024 End: 05-17-2024 ambulatory [facility] Facility:[facility] Start: 04-29-2024 End: 04-29-2024 ambulatory BIANKA OLMOS Facility:[facility] Start: 04-29-2024 End: 04-29-2024 Patient encounter procedure Leroy Barragan MD Work Phone: Cardiology Comment on above: Screening for ischem ic heart disease (Primary Dx); SVT (supraventricular tachycardia) (HCC); Pure hypercholesterolemia Start: 04-22-2024 End: 04-22-[address] Ari Medina MD -Laboratory, Phy Office 3rd Flr Start: 04-22-2024 End: 04-22-2024 [facility] Start: 04-19-2024 End: 04-19-[address] Ari Medina MD -Medical Out Work Phone: Start: 04-19-2024 End: 04-19-2024 ambulatory [facility] Facility:[facility] Start: 02-09-2024 End: 02-09-2024 Orders Only Bianka Olmos APRN.PINKING MACHINE OPERATOR Work Phone: Cerebrovascular Comment on above: Ventricular tachycar aniceto (HCC) (Primary Dx); SVT (supraventricular tachycardia) (HCC) Results Start: 01-18-2024 End: 01-18-2024 Patient Update Bianka Olmos APRN.PINKING MACHINE OPERATOR Work Phone: [facility] Comment on above: Orders Arterial ischemic st roke (HCC) (Primary Dx); Essential hypertension; Intracranial aneurysm Start: 12-27-2023 End: 12-27-2023 ambulatory Loretta Hernandez PA-C Work Phone: [facility] Comment on above: Nonruptured cerebral aneurysm (Primary Dx) Start: 12-27-2023 End: 12-27-2023 Telemedicine consultation with patient Loretta Caponeus GARRETT Work Phone: [facility]ovascular [facility] Start: 11-21-2023 End: 11-21-2023 Subsequent hospital visit by physician [facility] (I-Stat/1.5t) Work Phone: Radiology Comment on above: Nonruptured cerebral aneurysm [I67.1] Start: 09-22-2023 End: 09-22-2023 ambulatory [facility] Work Phone: Start: 09-22-2023 End: 09-22-2023 Patient encounter procedure [facility]Medical [facility] Work Phone: Start: 08-25-2023 End: 08-25-2023 ambulatory [facility] Work Phone: Start: 08-25-2023 End: 08-25-2023 Patient encounter procedure [facility] Work Phone: Start: 07-28-2023 End: 07-28-2023 ambulatory [facility] Work Phone: Start: 07-28-2023 End: 07-28-2023 Patient encounter procedure [facility] Work Phone: Start: 06-30-2023 End: 06-30-2023 Patient encounter procedure [facility] Work Phone: Start: 05-27-2023 End: 07-05-2023 [facility] Start: 05-26-2023 End: 05-26-2023 ambulatory [facility] Work Phone: Start: 05-26-2023 End: 05-26-2023 Patient encounter procedure [facility]Medical [facility] Work Phone: Start: 05-20-2023 End: 05-23-2023 Evaluation and management of inpatient [facility] Start: 04-28-2023 End: 04-28-2023 ambulatory [facility] Work Phone: Start: 04-28-2023 End: 04-28-2023 Patient encounter procedure [facility]Medical [facility] Work Phone: Start: 04-18-2023 End: 04-18-2023 ambulatory [facility] Work Phone: Start: 04-18-2023 End: 04-18-2023 Patient encounter procedure [facility]-Laboratory, Phy Office 3rd Flr Start: 03-31-2023 End: 03-31-2023 Patient encounter procedure [facility]Medical [facility] Work Phone: Start: 03-03-2023 End: 03-03-2023 ambulatory [facility] Work Phone: Start: 03-03-2023 End: 03-03-2023 Patient encounter procedure Nicolasa Saha [facility] Work Phone: Start: 02-13-2023 End: 02-13-2023 ambulatory [facility] Work Phone: Start: 02-13-2023 End: 02-13-2023 Patient encounter procedure Nicolasa Saha [facility] Office 3rd Flr Start: 02-03-2023 End: 02-03-2023 ambulatory [facility] Work Phone: Start: 02-03-2023 End: 02-03-2023 Patient encounter procedure Nicolasa Saha [facility] Work Phone: Start: 01-06-2023 End: 01-06-2023 ambulatory [facility] Work Phone: Start: 01-06-2023 End: 01-06-2023 Patient encounter procedure Nicolasa Saha [facility] Work Phone: Start: 12-09-2022 End: 12-09-2022 ambulatory [facility] Work Phone: Start: 12-09-2022 End: 12-09-2022 Patient encounter procedure Nicolasa Saha [facility] Work Phone: Start: 11-11-2022 End: 11-11-2022 Patient encounter procedure Nicolasa Saha [facility] Work Phone: Start: 10-14-2022 End: 10-14-2022 ambulatory [facility] Work Phone: Start: 10-14-2022 End: 10-14-2022 Patient encounter procedure Nicolasa Saha [facility] Start: 10-10-2022 End: 10-10-2022 ambulatory [facility] Work Phone: Start: 10-10-2022 End: 10-10-2022 [facility] 3rd Flr Start: 09-16-2022 End: 09-16-2022 ambulatory [facility] Work Phone: Start: 09-16-2022 End: 09-16-2022 Patient encounter procedure Nicolasa Saha [facility] Start: 08-05-2022 End: 08-05-2022 ambulatory [facility] Work Phone: Start: 08-05-2022 End: 08-05-2022 Patient encounter procedure Nicolasa Saha [facility] Start: 07-08-2022 End: 07-08-2022 ambulatory [facility] Work Phone: Start: 07-08-2022 End: 07-08-2022 Patient encounter procedure Nicolasa Saha [facility] Start: 06-10-2022 End: 06-10-2022 Patient encounter procedure Nicolasa Saha [facility] Start: 05-11-2022 End: 05-11-2022 ambulatory [facility] Work Phone: Start: 05-11-2022 End: 05-11-2022 Patient encounter procedure Nicolasa Saha [facility] Start: 04-08-2022 End: 04-08-2022 ambulatory [facility] Work Phone: Start: 04-08-2022 End: 04-08-2022 Patient encounter procedure Nicolasa Saha [facility] Start: 04-04-2022 End: 04-04-2022 ambulatory [facility] Work Phone: Start: 04-04-2022 End: 04-04-2022 Patient encounter procedure Nicolasa Yifan [facility] Phy Office 3rd Flr Start: 03-11-2022 End: 03-11-2022 ambulatory [facility] Work Phone: Start: 03-11-2022 End: 03-11-2022 Patient encounter procedure Nicolasa Saha [facility] Start: 11-12-2021 End: 11-12-2021 Admission to same day surgery center [facility] Start: 11-03-2021 End: 11-03-2021 Patient encounter procedure [facility], [facility] Start: 10-27-2021 Patient encounter procedure Earle Woodard Work Phone: [facility] Work Phone: Start: 10-15-2021 End: 10-15-2021 [facility] Start: 10-13-2021 Patient encounter procedure Earle Woodard Work Phone: [facility] Work Phone: Start: 09-27-2021 End: 09-27-2021 Patient encounter procedure [facility], Phy Office 3rd Flr Start: 09-24-2021 Patient encounter procedure [facility] Woodard [facility] Work Phone: Start: 09-24-2021 REINA, Provider : Veda Renner, Status: Pen, Time: 2:00 PM Isa Woodard Work Phone: [facility] Work Phone: Start: 09-17-2021 End: 09-17-2021 Patient encounter procedure [facility] Start: 09-14-2021 Patient encounter procedure Earle Woodard Work Phone: [facility] Work Phone: Start: 09-10-2021 Patient encounter procedure Earle Woodard Work Phone: [facility] Work Phone: Start: 09-07-2021 Patient encounter procedure Earle Woodard Work Phone: [facility] Work Phone: Start: 09-03-2021 Patient encounter procedure Earle Woodard Work Phone: [facility] Work Phone: Start: 08-31-2021 Patient encounter procedure Earle Woodard Work Phone: [facility] Work Phone: Start: 08-27-2021 Patient encounter procedure Earle Woodard Work Phone: [facility] Work Phone: Start: 08-20-2021 End: 08-20-2021 Patient encounter procedure [facility] Start: 08-18-2021 Patient encounter procedure Earle Woodard Work Phone: [facility] Work Phone: Start: 06-18-2021 End: 06-18-2021 [facility] Start: 05-27-2021 [facility] Procedure Procedure Detail Performing Clinician Start: 12-19-2024 Mra head w/o contrst material Loretta Hernandez PA-C Work Phone: Start: 11-05-2024 SARS-CoV-2, Influenz a & RSV (PCR) Dr. Ari Medina MD Work Phone: Start: 04-29-2024 Ecg routine ecg w/le ast 12 lds i&r only Leroy Barragan MD Work Phone: Start: 11-21-2023 Mra head w/o contrst material Bianka Olmos APRN.PINKING MACHINE OPERATOR Work Phone: Start: 05-23-2023 DISCHARGE PATIENT ISA WOODARD Start: 05-23-2023 DISCHARGE ACTIVITY SHAMIKA WOODARD Start: 05-23-2023 DISCHARGE INSTRUCTIONS ISA WOODARD Start: 05-23-2023 FOLLOW UP PRIMARY PHYSICIAN ISA WOODARD Start: 05-23-2023 ADULT DISCHARGE DIET EARLE WOODARD Start: 05-23-2023 NOTIFY PROVIDER (DO NOT PROMPT FOR PARAMETERS) ISA WOODARD Start: 05-23-2023 ADULT DISCHARGE DIET EARLE WOODARD Start: 05-23-2023 DISCHARGE ACTIVITY SHAMIKA N ELIAN Start: 05-23-2023 DISCHARGE INSTRUCTIONS ISA WOODARD Start: 05-23-2023 FOLLOW UP PRIMARY PHYSICIAN ISA ELIAN Start: 05-23-2023 NOTIFY PROVIDER (DO NOT PROMPT FOR PARAMETERS) ISA WOODARD Start: 05-23-2023 Basic metabolic 2000 panel - Serum or Plasma ISA ELIAN Start: 05-23-2023 CBC panel - Blood by Automated count ISA MUNOZOK Start: 05-22-2023 ADMIT TO INPATIENT HELE N ELIAN Start: 05-22-2023 CT ANGIO HEAD AND NE CK W AND WO IV CONTRAST ISA ELIAN Start: 05-22-2023 TRANSTHORACIC ECHO ( TTE) COMPLETE ISA MUNOZOK Start: 05-22-2023 INITIATE REQUEST TO ANOTHER FACILITY ISA WOODARD Start: 05-22-2023 MR ANGIO HEAD WO IV CONTRAST ISA ELIAN Start: 05-22-2023 MR BRAIN WO IV CONTRAST ISA ELIAN Start: 05-22-2023 VASC US CAROTID VITOR RY DUPLEX BILATERAL ISA ELIAN Start: 05-22-2023 Basic metabolic 2000 panel - Serum or Plasma ISA MUNOZOK Start: 05-22-2023 CBC panel - Blood by Automated count ISA WOODARD Start: 05-22-2023 Hepatic function 200 0 panel - Serum or Plasma ISA ELIAN Start: 05-22-2023 Natriuretic peptide B [Mass/volume] in Blood ISA WOODARD Start: 05-21-2023 REASON FOR NO DVT PROPHYLAXIS - HOSPITAL ADMISSION - MEDICATIONS ISA WOODARD Start: 05-21-2023 TELEMETRY MONITORING EARLE SEQUEIRA ELIAN Start: 05-21-2023 NURSING SWALLOW ASSESSMENT ISA WOODARD Start: 05-21-2023 PT EVAL AND TREAT ISA WOODARD Start: 05-20-2023 FULL CODE ISA DIAS K Start: 05-20-2023 MEASURE HEIGHT ISA TO ROK Start: 05-20-2023 WEIGH PATIENT ISA TOR OK Start: 05-20-2023 MEASURE HEIGHT ISA TO ROK Start: 05-20-2023 NURSING COMMUNICATION H SEVERINO ELIAN Start: 05-20-2023 WEIGH PATIENT ISA TOR OK Start: 05-20-2023 ECG 12-LEAD ISA DIAS K Start: 05-20-2023 ED TO FLOOR BED REQUEST ISA WOODARD Start: 05-20-2023 INITIATE OBSERVATION STATUS ISA WOODARD Start: 05-20-2023 INITIATE REQUEST TO ANOTHER FACILITY ISA WOODARD Start: 05-20-2023 EXTRA TUBES ISA MUNOZO K Start: 05-20-2023 SINGH TOP ISA DIAS K Start: 05-20-2023 SST TOP ISA DIAS K Start: 05-20-2023 aPTT in Blood by Coagulation assay ISA WOODARD Start: 05-20-2023 CBC W Auto Different ial panel - Blood ISA ELIAN Start: 05-20-2023 Comprehensive metabo lic 2000 panel - Serum or Plasma ISA MUNOZOK Start: 05-20-2023 Hemoglobin A1c/Hemoglobin.total in Blood ISA MUNOZOK Start: 05-20-2023 Lipid panel ISA Hernandez Start: 05-20-2023 PROTIME-INR ISA Hernandez Start: 05-20-2023 TROPONIN I, HIGH SENSITIVITY ISA MUNOZOK Start: 05-20-2023 CT BRAIN ATTACK HEAD WO IV CONTRAST ISA ELIAN Start: 05-20-2023 INSERT PERIPHERAL IV HE FABBY ELIAN Start: 05-20-2023 NURSING COMMUNICATION H SEVERINO ELIAN Start: 05-20-2023 NURSING SWALLOW ASSESSMENT ISA WOODARD Start: 05-20-2023 PULSE OXIMETRY, CONTINUOUS ISA WOODARD Start: 05-20-2023 POCT GLUCOSE METER SHAMIKA N ELIAN Start: 11-12-2021 Fluoroscopic guidance Start: 11-12-2021 Arthrodesis Start: 11-03-2021 Diagnostic radiograp hy of abdomen, decubitus and erect Start: 06-18-2021 X-ray of both feet Start: 06-18-2021 O.R. Fluoro for C-Arm Start: 06-18-2021 Radiography of foot Plan of Treatment Date Care Activity Detail Author Start: 05-23-2026 Diabetes Screening Diabetes Screenin g [facility] Start: 03-17-2025 End: 03-17-2025 Patient encounter procedure 03/17/2025 1:00 PM EDT Office Visit Cardiology [address] [place], [place] [id number] Leroy Barragan MD [address], [address] [place] [address] 6 month follow up Cardiology Comment on above: 6 month follow up Start: 02-03-2025 Influenza vaccination Influenza Vacc ine (#1) [facility] Start: 01-24-2025 Intravenous infusion THER/PROP H/DIAG IV INF [facility] Start: 01-24-2025 Iv infusion therapy prophylaxis/dx ea hour THER/PROPH/DIAG IV INF [facility] Start: 01-24-2025 Therapeutic injectio n iv push each new drug TX/PRO/DX INJ NEW DRUG [facility] Start: 01-24-2025 Vedolizumab therapy THER/PROPH /DIAG IV INF [facility] Start: 12-26-2024 End: 01-25-2025 MRA Head vessels WO contrast MRA BRAIN WO IVCON Radiology Routine Nonruptured cerebral aneurysm Expected: 12/26/2024 (Approximate), Expires: 01/25/2025 [facility] Work Phone: Comment on above: Expected: 12/26/2024 (Approximate), Expires: 01/25/2025 Start: 12-26-2024 End: 12-26-2024 Patient encounter procedure 12/26/2024 1:00 PM EDT Appointment Radiology [address] [place] [address] Nonruptured cerebral aneurysm [I67.1] Radiology Comment on above: Nonruptured cerebral aneurysm [I67.1] Start: 11-29-2024 Iv infusion therapy prophylaxis/dx ea hour THER/PROPH/DIAG IV INF [facility] Start: 11-29-2024 Iv infusion therapy/prophylaxis /dx 1st to 1 hr THER/PROPH/DIAG IV INF [facility] Start: 11-29-2024 Therapeutic injectio n iv push each new drug TX/PRO/DX INJ NEW DRUG [facility] Start: 11-01-2024 Iv infusion therapy prophylaxis/dx ea hour THER/PROPH/DIAG IV INF [facility] Start: 11-01-2024 Iv infusion therapy/prophylaxis /dx 1st to 1 hr THER/PROPH/DIAG IV INF [facility] Start: 10-24-2024 Covid-19 Vaccine ( season) Covid-19 Vaccine () [facility] Start: 10-04-2024 Iv infusion therapy prophylaxis/dx ea hour THER/PROPH/DIAG IV INF [facility] Start: 10-04-2024 Iv infusion therapy/prophylaxis /dx 1st to 1 hr THER/PROPH/DIAG IV INF [facility] Start: 09-06-2024 Iv infusion ther pro ph addl sequential to 1 hr TX/PROPH/DG ADDL SEQ IV INF [facility] Start: 09-06-2024 Therapeutic injectio n iv push each new drug TX/PRO/DX INJ NEW DRUG [facility] Start: 08-19-2024 End: 08-19-2024 Patient encounter procedure 08/19/2024 11:40 AM EDT Office Visit Cardiology [address] [place] [id number] Leroy Barragan MD [address] [facility], [address] [place] [address] 3 month follow up Cardiology Comment on above: 3 month follow up Start: 07-12-2024 Iv infusion therapy prophylaxis/dx ea hour THER/PROPH/DIAG IV INF [facility] Start: 07-12-2024 Iv infusion therapy/prophylaxis /dx 1st to 1 hr THER/PROPH/DIAG IV INF [facility] Start: 07-12-2024 Therapeutic injectio n iv push each new drug TX/PRO/DX INJ NEW DRUG [facility] Start: 06-05-2024 Advance Directive Discussion Advance Directive Discussion [facility] Start: 05-17-2024 Iv infusion therapy prophylaxis/dx ea hour THER/PROPH/DIAG IV INF [facility] Start: 05-17-2024 Iv infusion therapy/prophylaxis /dx 1st to 1 hr THER/PROPH/DIAG IV INF [facility] Start: 05-17-2024 Therapeutic injectio n iv push each new drug TX/PRO/DX INJ NEW DRUG [facility] Start: 02-04-2024 Covid-19 Vaccine (7 - 2023-24 season) Covid-19 Vaccine () [facility] Start: 02-04-2024 Influenza vaccination [facility] Start: 11-09-2023 Covid-19 Vaccine ( season) Covid-19 Vaccine () [facility] Start: 08-25-2023 Iv infusion therapy prophylaxis/dx ea hour THER/PROPH/DIAG IV INF [facility] Start: 08-25-2023 Iv infusion therapy/prophylaxis /dx 1st to 1 hr THER/PROPH/DIAG IV INF [facility] Start: 08-25-2023 Therapeutic injectio n iv push each new drug TX/PRO/DX INJ NEW DRUG [facility] Start: 07-28-2023 Iv infusion therapy prophylaxis/dx ea hour THER/PROPH/DIAG IV INF [facility] Start: 07-28-2023 Iv infusion therapy/prophylaxis /dx 1st to 1 hr THER/PROPH/DIAG IV INF [facility] Start: 07-28-2023 Therapeutic injectio n iv push each new drug TX/PRO/DX INJ NEW DRUG [facility] Start: 06-30-2023 Iv infusion therapy prophylaxis/dx ea hour THER/PROPH/DIAG IV INF [facility] Start: 06-30-2023 Iv infusion therapy/prophylaxis /dx 1st to 1 hr THER/PROPH/DIAG IV INF [facility] Start: 06-30-2023 Therapeutic injectio n iv push each new drug TX/PRO/DX INJ NEW DRUG [facility] Start: 06-05-2023 Advance Directive Discussion Advance Directive Discussion [facility] Start: 06-05-2023 Behavioral Health Screening Behavioral Health Screening [facility] Start: 04-28-2023 Iv infusion therapy prophylaxis/dx ea hour THER/PROPH/DIAG IV INF [facility] Start: 04-28-2023 Iv infusion therapy/prophylaxis /dx 1st to 1 hr THER/PROPH/DIAG IV INF [facility] Start: 04-28-2023 Therapeutic injectio n iv push each new drug TX/PRO/DX INJ NEW DRUG [facility] Start: 02-03-2023 Iv infusion therapy prophylaxis/dx ea hour THER/PROPH/DIAG IV INF [facility] Start: 02-03-2023 Iv infusion therapy/prophylaxis /dx 1st to 1 hr THER/PROPH/DIAG IV INF [facility] Start: 02-03-2023 Therapeutic injectio n iv push each new drug TX/PRO/DX INJ NEW DRUG [facility] Start: 01-06-2023 Iv infusion therapy prophylaxis/dx ea hour THER/PROPH/DIAG IV INF [facility] Start: 01-06-2023 Iv infusion therapy/prophylaxis /dx 1st to 1 hr THER/PROPH/DIAG IV INF [facility] Start: 01-06-2023 Therapeutic injectio n iv push each new drug TX/PRO/DX INJ NEW DRUG [facility] Start: 12-09-2022 Iv infusion therapy prophylaxis/dx ea hour THER/PROPH/DIAG IV INF [facility] Start: 12-09-2022 Iv infusion therapy/prophylaxis /dx 1st to 1 hr THER/PROPH/DIAG IV INF [facility] Start: 12-09-2022 Therapeutic injectio n iv push each new drug TX/PRO/DX INJ NEW DRUG [facility] Start: 11-11-2022 Iv infusion therapy prophylaxis/dx ea hour THER/PROPH/DIAG IV INF [facility] Start: 11-11-2022 Iv infusion therapy/prophylaxis /dx 1st to 1 hr THER/PROPH/DIAG IV INF [facility] Start: 11-11-2022 Therapeutic injectio n iv push each new drug TX/PRO/DX INJ NEW DRUG [facility] Start: 09-16-2022 Iv infusion therapy/prophylaxis /dx 1st to 1 hr THER/PROPH/DIAG IV INF [facility] Start: 09-16-2022 Therapeutic injectio n iv push each new drug TX/PRO/DX INJ NEW DRUG [facility] Start: 07-08-2022 Iv infusion therapy prophylaxis/dx ea hour THER/PROPH/DIAG IV INF [facility] Start: 07-08-2022 Iv infusion therapy/prophylaxis /dx 1st to 1 hr THER/PROPH/DIAG IV INF [facility] Start: 07-08-2022 Therapeutic prophylactic/dx injection subq/im THER/PROPH/DIAG INJ SC/IM [facility] Start: 05-11-2022 Iv infusion therapy prophylaxis/dx ea hour THER/PROPH/DIAG IV INF [facility] Start: 05-11-2022 Iv infusion therapy/prophylaxis /dx 1st to 1 hr THER/PROPH/DIAG IV INF [facility] Start: 05-11-2022 Therapeutic injectio n iv push each new drug TX/PRO/DX INJ NEW DRUG [facility] Start: 04-08-2022 Iv infusion therapy prophylaxis/dx ea hour THER/PROPH/DIAG IV INF [facility] Work Phone: Start: 04-08-2022 Iv infusion therapy/prophylaxis /dx 1st to 1 hr THER/PROPH/DIAG IV INF [facility] Work Phone: Start: 04-08-2022 Therapeutic injectio n iv push each new drug TX/PRO/DX INJ NEW DRUG [facility] Work Phone: Start: 03-11-2022 Iv infusion therapy prophylaxis/dx ea hour THER/PROPH/DIAG IV INF [facility] Work Phone: Start: 03-11-2022 Iv infusion therapy/prophylaxis /dx 1st to 1 hr THER/PROPH/DIAG IV INF [facility] Work Phone: Start: 03-11-2022 Therapeutic injectio n iv push each new drug TX/PRO/DX INJ NEW DRUG [facility] Work Phone: Start: 11-12-2021 X-ray of both feet Foot min 3 Views [facility] Work Phone: Start: 11-12-2021 X-ray of both feet Foot min 3 Views [facility] Work Phone: Start: 10-15-2021 Iv infusion therapy prophylaxis/dx ea hour THER/PROPH/DIAG IV INF [facility] Work Phone: Start: 10-15-2021 Iv infusion therapy/prophylaxis /dx 1st to 1 hr THER/PROPH/DIAG IV INF [facility] Work Phone: Start: 10-13-2021 PTRKODI, Provider : Veda Renner, Status: Pen, Time: 4:45 PM PTRECHBHAVESH, Provider: Veda Renner, Status: Pen, Time: 4:45 [facility] Start: 09-24-2021 PTRKODI, Provider : Veda Renner, Status: Pen, Time: 2:00 PM PTRECHECKA, Provider: Veda Renner, Status: Pen, Time: 2:00 PM [facility] Start: 09-21-2021 PTFUADULT4, Provider : Veda Renner, Status: Pen, Time: 2:00 PM PTFUADULT4, Provider: Veda Renner, Status: Pen, Time: 2:00 PM [facility] Start: 09-21-2021 PTFUADULT4, Provider : Pepito Glasgow, Status: Pen, Time: 2:00 PM PTFUADULT4, Provider: Pepito Glasgow, Status: Pen, Time: 2:00 PM [facility] Start: 09-17-2021 PTFUADULT4, Provider : Veda Renner, Status: Pen, Time: 2:00 PM PTFUADULT4, Provider: Veda Renner, Status: Pen, Time: 2:00 PM [facility] Start: 09-17-2021 Iv infusion therapy prophylaxis/dx ea hour THER/PROPH/DIAG IV INF [facility] Work Phone: Start: 09-17-2021 Iv infusion therapy/prophylaxis /dx 1st to 1 [facility] Start: 09-17-2021 Therapeutic injectio n iv push each new drug TX/PRO/DX INJ NEW DRUG [facility] Work Phone: Start: 09-14-2021 PTFUADULT4, Provider : Pepito Glasgow, Status: Pen, Time: 2:00 PM PTFUADULT4, Provider: Pepito Glasgow, Status: Pen, Time: 2:00 PM [facility] Work Phone: Start: 09-14-2021 PTFUADULT4, Provider : Gisela Medina, Status: Pen, Time: 2:00 PM PTFUADULT4, Provider: Gisela Medina, Status: Pen, Time: 2:00 PM [facility] Work Phone: Start: 09-10-2021 PTFUADULT4, Provider : Farideh Goncalves, Status: Pen, Time: 2:00 PM PTFUADULT4, Provider: Farideh Goncalves, Status: Pen, Time: 2:00 PM [facility] Work Phone: Start: 09-07-2021 PTFUADULT4, Provider : Briana Bowers, Status: Pen, Time: 2:00 PM PTFUADULT4, Provider: Briana Bowers, Status: Pen, Time: 2:00 PM [facility] Work Phone: Start: 09-07-2021 PTFUADULT4, Provider : Pepito Glasgow, Status: Pen, Time: 2:00 PM PTFUADULT4, Provider: Pepito Glasgow, Status: Pen, Time: 2:00 PM [facility] Work Phone: Start: 09-03-2021 PTFUADULT4, Provider : Farideh Goncalves, Status: Pen, Time: 2:00 PM PTFUADULT4, Provider: Farideh Goncalves, Status: Pen, Time: 2:00 PM [facility] Work Phone: Start: 08-31-2021 PTFUADULT4, Provider : Veda Renner, Status: Pen, Time: 2:00 PM PTFUADULT4, Provider: Veda Renner, Status: Pen, Time: 2:00 PM [facility] Start: 08-20-2021 Iv infusion therapy prophylaxis/dx ea hour THER/PROPH/DIAG IV INF [facility] Work Phone: Start: 08-20-2021 Iv infusion therapy/prophylaxis /dx 1st to 1 hr THER/PROPH/DIAG IV INF [facility] Work Phone: Start: 08-20-2021 Therapeutic injectio n iv push each new drug TX/PRO/DX INJ NEW DRUG [facility] Work Phone: Start: 06-18-2021 Anes open proc bones lower leg/ankle/foot nos ANESTH LOWER LEG BONE SURG [facility] Work Phone: Start: 06-18-2021 Correction hammertoe REPAIR OF HAMME RTOE [facility] Work Phone: Start: 06-18-2021 Corrj hallux valgus w/sesmdc w/1metar medial cnf CORRECTION HALLUX VALGUS [facility] Work Phone: Start: 2021 RSV Vaccine (1 - 1-d ose 75+ series) RSV Vaccine (1 - 1-dose 75+ series) [facility] Start: 08-28-2014 Urine microalbumin profile DTaP,Tdap,Td Vaccine (1 - Tdap) [facility] Start: 2011 Pneumococcal Vaccine : 65+ (2 of 2 - PCV) Pneumococcal Vaccine: 65+ (2 of 2 - PCV) [facility] Start: 2011 Screening for osteoporosis Bone Density Screening [facility] Start: 04-05-2011 Medicare Annual Wellness Visit Medicare Annual Wellness Visit [facility] Start: 04-04-2009 Pneumococcal Vaccine : 50+ (2 of 2 - PCV) Pneumococcal Vaccine: 50+ (2 of 2 - PCV) [facility] Start: 2006 RSV Vaccine (1 - 1-d ose 60+ series) RSV Vaccine (1 - 1-dose 60+ series) [facility] Start: 1996 Shingrix Vaccine (1 of 2) Shingrix Vaccine (1 of 2) [facility] Start: 1964 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 Disease Visit Annual PCP Team Chronic Disease Visit [facility] Start: 1964 Anxiety Screening Anxiety Screening [facility] Start: 1964 Depression Screening Depression Scre ening [facility] ECG COMPLETE ECG COMPLETE ECG Routine SVT (supraventricular tachycardia) (HCC) Screening for ischemic heart disease 04/29/2024 3:08 PM EST [facility] OUTSIDE VENDOR CARDI AC OUTPATIENT EXTENDED RHYTHM RECORDING (WITHOUT TELEMETRY) OUTSIDE VENDOR CARDIAC OUTPATIENT EXTENDED RHYTHM RECORDING (WITHOUT TELEMETRY) Holter Routine Arterial ischemic stroke (HCC) Ordered: 01/18/2024 [facility] Work Phone: Comment on above: Ordered: 01/18/2024 OUTSIDE VENDOR CARDI AC OUTPATIENT EXTENDED RHYTHM RECORDING (WITHOUT TELEMETRY) OUTSIDE VENDOR CARDIAC OUTPATIENT EXTENDED RHYTHM RECORDING (WITHOUT TELEMETRY) Holter Routine SVT (supraventricular tachycardia) (HCC) Ordered: 04/29/2024 [facility] Work Phone: Comment on above: Ordered: 04/29/2024 Patient referral [facility] Work Phone: Immunizations Immunization Date Immunization Notes Care Provider Kori schulz 04-22-2024 influenza virus vacc ine, unspecified formulation Mri (I-Stat/1.5t) Work Phone: [facility] 01-21-2021 influenza virus vacc ine, unspecified formulation Mri (I-Stat/1.5t) Work Phone: [facility] 08-27-2014 tetanus and diphther ia toxoids, adsorbed, preservative free, for adult use (2 Lf of tetanus toxoid and 2 Lf of diphtheria toxoid) [facility] 04-04-2008 influenza virus vacc ine, unspecified formulation Mri (I-Stat/1.5t) Work Phone: [facility] Work Phone: 04-04-2008 pneumococcal polysaccharide vaccine, 23 valent Mri (I-Stat/1.5t) Work Phone: [facility] 04-04-2001 pneumococcal polysaccharide vaccine, 23 valent Mri (I-Stat/1.5t) Work Phone: [facility] Payers Date Payer Category Payer Self-pay [id number] 2013 Private Health Insurance [id number] 2013 Unknown [id number] 2011 Medicare [id number] 2011 Medicare [id number] 1945 Unknown [id number] 2.16.8 [id number] 1945 Unknown [id number] 2.16.8 [id number] Unknown Unknown [id number] 2.16.8 [id number] Unknown [id number] 2.16.8 [id number] Unknown [id number] 2.16.8 [id number] Unknown [id number] 2.16.8 [id number] Unknown [id number] 2.16.8 [id number] Unknown [id number] 2.16.8 [id number] Unknown [id number] 2.16.8 [id number] Unknown [id number] 2.16.8 [id number] Unknown [id number] 2.16.8 [id number] Unknown [id number] 2.16.8 [id number] Unknown [id number] 2.16.8 [id number] Unknown [id number] 2.16.8 [id number] Unknown [id number] 2.16.8 [id number] Unknown [id number] 2.16.8 [id number] Unknown [id number] 2.16.8 [id number] Unknown [id number] 2.16.8 [id number] Social History Date Type Detail Facility [facility] Work Phone: Start: 06-11-2021 End: 11-05-2021 Tobacco smoking status LAIS Unknown if ever smoked [facility] Start: 1945 Sex Assigned At Female [facility] Start: 07-28-2011 End: 11-05-2021 Tobacco smoking status NHIS Never smoked tobacco [facility] Start: 07-28-2011 Tobacco use and exposure Smokeless tobacco non-user [facility] Start: 02-22-2017 End: 08-19-2024 Alcohol intake Current drinker of alcohol (finding) [facility] Start: 12-03-2017 End: 06-01-2023 History of Social function [facility] Start: 12-03-2017 End: 06-01-2023 Tobacco use panel [facility] Adult Depression Screening Assessment 0 [facility] Start: 07-21-2015 Alcohol Comment occassion [facility] Start: 1945 Sex Assigned At Not on file [facility] Start: 01-15-2024 Gender identity Identifies as female gender (finding) [facility] Start: 01-15-2024 Sexual orientation Heterosexual (fin ding) [facility] Start: 08-10-2024 End: 09-07-2024 Sex Female (finding) [facility] Medical Equipment Procedure Code Equipment Code Equipment Origin al Text Equipment Identifier Dates Fusion, joint 3.5 Mini Screw FDA Start: 11-12-2021 Fusion, joint 3.5 Mini Screw FDA Start: 11-12-2021 Fusion, joint BONE,CRUSHED CANCELLOUS 15CC FDA Start: 11-12-2021 Fusion, joint 3.5 Mini Screw FDA Start: 11-12-2021 Fusion, joint 3.5 Mini Screw FDA Start: 11-12-2021 Fusion, joint BONE,CRUSHED CANCELLOUS 15CC FDA Start: 11-12-2021 Fusion, joint 3.5 Mini Screw FDA Start: 11-12-2021 Fusion, joint 3.5 Mini Screw FDA Start: 11-12-2021 Fusion, joint BONE,CRUSHED CANCELLOUS 15CC FDA Start: 11-12-2021 Fusion, joint 3.5 Mini Screw FDA Start: 11-12-2021 Fusion, joint 3.5 Mini Screw FDA Start: 11-12-2021 Fusion, joint BONE,CRUSHED CANCELLOUS 15CC FDA Start: 11-12-2021 Fusion, joint 3.5 Mini Screw FDA Start: 11-12-2021 Fusion, joint 3.5 Mini Screw FDA Start: 11-12-2021 Fusion, joint BONE,CRUSHED CANCELLOUS 15CC FDA Start: 11-12-2021 Fusion, joint 3.5 Mini Screw FDA Start: 11-12-2021 Fusion, joint 3.5 Mini Screw FDA Start: 11-12-2021 Fusion, joint BONE,CRUSHED CANCELLOUS 15CC FDA Start: 11-12-2021 Fusion, joint 3.5 Mini Screw FDA Start: 11-12-2021 Fusion, joint 3.5 Mini Screw FDA Start: 11-12-2021 Fusion, joint BONE,CRUSHED CANCELLOUS 15CC FDA Start: 11-12-2021 Fusion, joint 3.5 Mini Screw FDA Start: 11-12-2021 Fusion, joint 3.5 Mini Screw FDA Start: 11-12-2021 Fusion, joint BONE,CRUSHED CANCELLOUS 15CC FDA Start: 11-12-2021 Fusion, joint 3.5 Mini Screw FDA Start: 11-12-2021 Fusion, joint 3.5 Mini Screw FDA Start: 11-12-2021 Fusion, joint BONE,CRUSHED CANCELLOUS 15CC FDA Start: 11-12-2021 Fusion, joint 3.5 Mini Screw FDA Start: 11-12-2021 Fusion, joint 3.5 Mini Screw FDA Start: 11-12-2021 Fusion, joint BONE,CRUSHED CANCELLOUS 15CC FDA Start: 11-12-2021 Fusion, joint 3.5 Mini Screw FDA Start: 11-12-2021 Fusion, joint 3.5 Mini Screw FDA Start: 11-12-2021 Fusion, joint BONE,CRUSHED CANCELLOUS 15CC FDA Start: 11-12-2021 Fusion, joint 3.5 Mini Screw FDA Start: 11-12-2021 Fusion, joint 3.5 Mini Screw FDA Start: 11-12-2021 Fusion, joint BONE,CRUSHED CANCELLOUS 15CC FDA Start: 11-12-2021 Fusion, joint 3.5 Mini Screw FDA Start: 11-12-2021 Fusion, joint 3.5 Mini Screw FDA Start: 11-12-2021 Fusion, joint BONE,CRUSHED CANCELLOUS 15CC FDA Start: 11-12-2021 Fusion, joint 3.5 Mini Screw FDA Start: 11-12-2021 Fusion, joint 3.5 Mini Screw FDA Start: 11-12-2021 Fusion, joint BONE,CRUSHED CANCELLOUS 15CC FDA Start: 11-12-2021 Fusion, joint 3.5 Mini Screw FDA Start: 11-12-2021 Fusion, joint 3.5 Mini Screw FDA Start: 11-12-2021 Fusion, joint BONE,CRUSHED CANCELLOUS 15CC FDA Start: 11-12-2021 Fusion, joint 3.5 Mini Screw FDA Start: 11-12-2021 Fusion, joint 3.5 Mini Screw FDA Start: 11-12-2021 Fusion, joint BONE,CRUSHED CANCELLOUS 15CC FDA Start: 11-12-2021 Fusion, joint 3.5 Mini Screw FDA Start: 11-12-2021 Fusion, joint 3.5 Mini Screw FDA Start: 11-12-2021 Fusion, joint BONE,CRUSHED CANCELLOUS 15CC FDA Start: 11-12-2021 Fusion, joint 3.5 Mini Screw FDA Start: 11-12-2021 Fusion, joint 3.5 Mini Screw FDA Start: 11-12-2021 Fusion, joint BONE,CRUSHED CANCELLOUS 15CC FDA Start: 11-12-2021 Fusion, joint 3.5 Mini Screw FDA Start: 11-12-2021 Fusion, joint 3.5 Mini Screw FDA Start: 11-12-2021 Fusion, joint BONE,CRUSHED CANCELLOUS 15CC FDA Start: 11-12-2021 Fusion, joint 3.5 Mini Screw FDA Start: 11-12-2021 Fusion, joint 3.5 Mini Screw FDA Start: 11-12-2021 Fusion, joint BONE,CRUSHED CANCELLOUS 15CC FDA Start: 11-12-2021 Fusion, joint 3.5 Mini Screw FDA Start: 11-12-2021 Fusion, joint 3.5 Mini Screw FDA Start: 11-12-2021 Fusion, joint BONE,CRUSHED CANCELLOUS 15CC FDA Start: 11-12-2021 Fusion, joint 3.5 Mini Screw FDA Start: 11-12-2021 Fusion, joint 3.5 Mini Screw FDA Start: 11-12-2021 Fusion, joint BONE,CRUSHED CANCELLOUS 15CC FDA Start: 11-12-2021 Fusion, joint 3.5 Mini Screw FDA Start: 11-12-2021 Fusion, joint 3.5 Mini Screw FDA Start: 11-12-2021 Fusion, joint BONE,CRUSHED CANCELLOUS 15CC FDA Start: 11-12-2021 Fusion, joint 3.5 Mini Screw FDA Start: 11-12-2021 Fusion, joint 3.5 Mini Screw FDA Start: 11-12-2021 Fusion, joint BONE,CRUSHED CANCELLOUS 15CC FDA Start: 11-12-2021 Fusion, joint 3.5 Mini Screw FDA Start: 11-12-2021 Fusion, joint 3.5 Mini Screw FDA Start: 11-12-2021 Fusion, joint BONE,CRUSHED CANCELLOUS 15CC FDA Start: 11-12-2021 Fusion, joint 3.5 Mini Screw FDA Start: 11-12-2021 Fusion, joint 3.5 Mini Screw FDA Start: 11-12-2021 Fusion, joint BONE,CRUSHED CANCELLOUS 15CC FDA Start: 11-12-2021 Fusion, joint 3.5 Mini Screw FDA Start: 11-12-2021 Fusion, joint 3.5 Mini Screw FDA Start: 11-12-2021 Fusion, joint BONE,CRUSHED CANCELLOUS 15CC FDA Start: 11-12-2021 Fusion, joint 3.5 Mini Screw FDA Start: 11-12-2021 Fusion, joint 3.5 Mini Screw FDA Start: 11-12-2021 Fusion, joint BONE,CRUSHED CANCELLOUS 15CC FDA Start: 11-12-2021 Fusion, joint 3.5 Mini Screw FDA Start: 11-12-2021 Fusion, joint 3.5 Mini Screw FDA Start: 11-12-2021 Fusion, joint BONE,CRUSHED CANCELLOUS 15CC FDA Start: 11-12-2021 Bunionectomy 2.5mm threadless comp screw FDA Start: 06-18-2021 Bunionectomy 3.5 mm Locking S crew, 16mm FDA Start: 06-18-2021 Bunionectomy 3.5 mm cortical screw, 22mm FDA Start: 06-18-2021 Bunionectomy 3.5 mm lock compression screw FDA Start: 06-18-2021 Bunionectomy 3.5mm Locking sc rew, 20 FDA Start: 06-18-2021 Bunionectomy 3.5mm headless compress. screw FDA Start: 06-18-2021 Bunionectomy 4.0mm cannulated screw PT FDA Start: 06-18-2021 Bunionectomy K-WIRE,.054 X 9 BAYONET FDA Start: 06-18-2021 Bunionectomy Plantar Lapidus Plate FDA S tart: 06-18-2021 Bunionectomy 2.5mm threadless comp screw FDA Start: 06-18-2021 Bunionectomy 3.5 mm Locking S crew, 16mm FDA Start: 06-18-2021 Bunionectomy 3.5 mm cortical screw, 22mm FDA Start: 06-18-2021 Bunionectomy 3.5 mm lock compression screw FDA Start: 06-18-2021 Bunionectomy 3.5mm Locking sc rew, 20 FDA Start: 06-18-2021 Bunionectomy 3.5mm headless compress. screw FDA Start: 06-18-2021 Bunionectomy 4.0mm cannulated screw PT FDA Start: 06-18-2021 Bunionectomy K-WIRE,.054 X 9 BAYONET FDA Start: 06-18-2021 Bunionectomy Plantar Lapidus Plate FDA S tart: 06-18-2021 Bunionectomy 2.5mm threadless comp screw FDA Start: 06-18-2021 Bunionectomy 3.5 mm Locking S crew, 16mm FDA Start: 06-18-2021 Bunionectomy 3.5 mm cortical screw, 22mm FDA Start: 06-18-2021 Bunionectomy 3.5 mm lock compression screw FDA Start: 06-18-2021 Bunionectomy 3.5mm Locking sc rew, 20 FDA Start: 06-18-2021 Bunionectomy 3.5mm headless compress. screw FDA Start: 06-18-2021 Bunionectomy 4.0mm cannulated screw PT FDA Start: 06-18-2021 Bunionectomy K-WIRE,.054 X 9 BAYONET FDA Start: 06-18-2021 Bunionectomy Plantar Lapidus Plate FDA S tart: 06-18-2021 Bunionectomy 2.5mm threadless comp screw FDA Start: 06-18-2021 Bunionectomy 3.5 mm Locking S crew, 16mm FDA Start: 06-18-2021 Bunionectomy 3.5 mm cortical screw, 22mm FDA Start: 06-18-2021 Bunionectomy 3.5 mm lock compression screw FDA Start: 06-18-2021 Bunionectomy 3.5mm Locking sc rew, 20 FDA Start: 06-18-2021 Bunionectomy 3.5mm headless compress. screw FDA Start: 06-18-2021 Bunionectomy 4.0mm cannulated screw PT FDA Start: 06-18-2021 Bunionectomy K-WIRE,.054 X 9 BAYONET FDA Start: 06-18-2021 Bunionectomy Plantar Lapidus Plate FDA S tart: 06-18-2021 Bunionectomy 2.5mm threadless comp screw FDA Start: 06-18-2021 Bunionectomy 3.5 mm Locking S crew, 16mm FDA Start: 06-18-2021 Bunionectomy 3.5 mm cortical screw, 22mm FDA Start: 06-18-2021 Bunionectomy 3.5 mm lock compression screw FDA Start: 06-18-2021 Bunionectomy 3.5mm Locking sc rew, 20 FDA Start: 06-18-2021 Bunionectomy 3.5mm headless compress. screw FDA Start: 06-18-2021 Bunionectomy 4.0mm cannulated screw PT FDA Start: 06-18-2021 Bunionectomy K-WIRE,.054 X 9 BAYONET FDA Start: 06-18-2021 Bunionectomy Plantar Lapidus Plate FDA S tart: 06-18-2021 Bunionectomy 2.5mm threadless comp screw FDA Start: 06-18-2021 Bunionectomy 3.5 mm Locking S crew, 16mm FDA Start: 06-18-2021 Bunionectomy 3.5 mm cortical screw, 22mm FDA Start: 06-18-2021 Bunionectomy 3.5 mm lock compression screw FDA Start: 06-18-2021 Bunionectomy 3.5mm Locking sc rew, 20 FDA Start: 06-18-2021 Bunionectomy 3.5mm headless compress. screw FDA Start: 06-18-2021 Bunionectomy 4.0mm cannulated screw PT FDA Start: 06-18-2021 Bunionectomy K-WIRE,.054 X 9 BAYONET FDA Start: 06-18-2021 Bunionectomy Plantar Lapidus Plate FDA S tart: 06-18-2021 Bunionectomy 2.5mm threadless comp screw FDA Start: 06-18-2021 Bunionectomy 3.5 mm Locking S crew, 16mm FDA Start: 06-18-2021 Bunionectomy 3.5 mm cortical screw, 22mm FDA Start: 06-18-2021 Bunionectomy 3.5 mm lock compression screw FDA Start: 06-18-2021 Bunionectomy 3.5mm Locking sc rew, 20 FDA Start: 06-18-2021 Bunionectomy 3.5mm headless compress. screw FDA Start: 06-18-2021 Bunionectomy 4.0mm cannulated screw PT FDA Start: 06-18-2021 Bunionectomy K-WIRE,.054 X 9 BAYONET FDA Start: 06-18-2021 Bunionectomy Plantar Lapidus Plate FDA S tart: 06-18-2021 Bunionectomy 2.5mm threadless comp screw FDA Start: 06-18-2021 Bunionectomy 3.5 mm Locking S crew, 16mm FDA Start: 06-18-2021 Bunionectomy 3.5 mm cortical screw, 22mm FDA Start: 06-18-2021 Bunionectomy 3.5 mm lock compression screw FDA Start: 06-18-2021 Bunionectomy 3.5mm Locking sc rew, 20 FDA Start: 06-18-2021 Bunionectomy 3.5mm headless compress. screw FDA Start: 06-18-2021 Bunionectomy 4.0mm cannulated screw PT FDA Start: 06-18-2021 Bunionectomy K-WIRE,.054 X 9 BAYONET FDA Start: 06-18-2021 Bunionectomy Plantar Lapidus Plate FDA S tart: 06-18-2021 Bunionectomy 2.5mm threadless comp screw FDA Start: 06-18-2021 Bunionectomy 3.5 mm Locking S crew, 16mm FDA Start: 06-18-2021 Bunionectomy 3.5 mm cortical screw, 22mm FDA Start: 06-18-2021 Bunionectomy 3.5 mm lock compression screw FDA Start: 06-18-2021 Bunionectomy 3.5mm Locking sc rew, 20 FDA Start: 06-18-2021 Bunionectomy 3.5mm headless compress. screw FDA Start: 06-18-2021 Bunionectomy 4.0mm cannulated screw PT FDA Start: 06-18-2021 Bunionectomy K-WIRE,.054 X 9 BAYONET FDA Start: 06-18-2021 Bunionectomy Plantar Lapidus Plate FDA S tart: 06-18-2021 Bunionectomy 2.5mm threadless comp screw FDA Start: 06-18-2021 Bunionectomy 3.5 mm Locking S crew, 16mm FDA Start: 06-18-2021 Bunionectomy 3.5 mm cortical screw, 22mm FDA Start: 06-18-2021 Bunionectomy 3.5 mm lock compression screw FDA Start: 06-18-2021 Bunionectomy 3.5mm Locking sc rew, 20 FDA Start: 06-18-2021 Bunionectomy 3.5mm headless compress. screw FDA Start: 06-18-2021 Bunionectomy 4.0mm cannulated screw PT FDA Start: 06-18-2021 Bunionectomy K-WIRE,.054 X 9 BAYONET FDA Start: 06-18-2021 Bunionectomy Plantar Lapidus Plate FDA S tart: 06-18-2021 Bunionectomy 2.5mm threadless comp screw FDA Start: 06-18-2021 Bunionectomy 3.5 mm Locking S crew, 16mm FDA Start: 06-18-2021 Bunionectomy 3.5 mm cortical screw, 22mm FDA Start: 06-18-2021 Bunionectomy 3.5 mm lock compression screw FDA Start: 06-18-2021 Bunionectomy 3.5mm Locking sc rew, 20 FDA Start: 06-18-2021 Bunionectomy 3.5mm headless compress. screw FDA Start: 06-18-2021 Bunionectomy 4.0mm cannulated screw PT FDA Start: 06-18-2021 Bunionectomy K-WIRE,.054 X 9 BAYONET FDA Start: 06-18-2021 Bunionectomy Plantar Lapidus Plate FDA S tart: 06-18-2021 Bunionectomy 2.5mm threadless comp screw FDA Start: 06-18-2021 Bunionectomy 3.5 mm Locking S crew, 16mm FDA Start: 06-18-2021 Bunionectomy 3.5 mm cortical screw, 22mm FDA Start: 06-18-2021 Bunionectomy 3.5 mm lock compression screw FDA Start: 06-18-2021 Bunionectomy 3.5mm Locking sc rew, 20 FDA Start: 06-18-2021 Bunionectomy 3.5mm headless compress. screw FDA Start: 06-18-2021 Bunionectomy 4.0mm cannulated screw PT FDA Start: 06-18-2021 Bunionectomy K-WIRE,.054 X 9 BAYONET FDA Start: 06-18-2021 Bunionectomy Plantar Lapidus Plate FDA S tart: 06-18-2021 Bunionectomy 2.5mm threadless comp screw FDA Start: 06-18-2021 Bunionectomy 3.5 mm Locking S crew, 16mm FDA Start: 06-18-2021 Bunionectomy 3.5 mm cortical screw, 22mm FDA Start: 06-18-2021 Bunionectomy 3.5 mm lock compression screw FDA Start: 06-18-2021 Bunionectomy 3.5mm Locking sc rew, 20 FDA Start: 06-18-2021 Bunionectomy 3.5mm headless compress. screw FDA Start: 06-18-2021 Bunionectomy 4.0mm cannulated screw PT FDA Start: 06-18-2021 Bunionectomy K-WIRE,.054 X 9 BAYONET FDA Start: 06-18-2021 Bunionectomy Plantar Lapidus Plate FDA S tart: 06-18-2021 Bunionectomy 2.5mm threadless comp screw FDA Start: 06-18-2021 Bunionectomy 3.5 mm Locking S crew, 16mm FDA Start: 06-18-2021 Bunionectomy 3.5 mm cortical screw, 22mm FDA Start: 06-18-2021 Bunionectomy 3.5 mm lock compression screw FDA Start: 06-18-2021 Bunionectomy 3.5mm Locking sc rew, 20 FDA Start: 06-18-2021 Bunionectomy 3.5mm headless compress. screw FDA Start: 06-18-2021 Bunionectomy 4.0mm cannulated screw PT FDA Start: 06-18-2021 Bunionectomy K-WIRE,.054 X 9 BAYONET FDA Start: 06-18-2021 Bunionectomy Plantar Lapidus Plate FDA S tart: 06-18-2021 Bunionectomy 2.5mm threadless comp screw FDA Start: 06-18-2021 Bunionectomy 3.5 mm Locking S crew, 16mm FDA Start: 06-18-2021 Bunionectomy 3.5 mm cortical screw, 22mm FDA Start: 06-18-2021 Bunionectomy 3.5 mm lock compression screw FDA Start: 06-18-2021 Bunionectomy 3.5mm Locking sc rew, 20 FDA Start: 06-18-2021 Bunionectomy 3.5mm headless compress. screw FDA Start: 06-18-2021 Bunionectomy 4.0mm cannulated screw PT FDA Start: 06-18-2021 Bunionectomy K-WIRE,.054 X 9 BAYONET FDA Start: 06-18-2021 Bunionectomy Plantar Lapidus Plate FDA S tart: 06-18-2021 Bunionectomy 2.5mm threadless comp screw FDA Start: 06-18-2021 Bunionectomy 3.5 mm Locking S crew, 16mm FDA Start: 06-18-2021 Bunionectomy 3.5 mm cortical screw, 22mm FDA Start: 06-18-2021 Bunionectomy 3.5 mm lock compression screw FDA Start: 06-18-2021 Bunionectomy 3.5mm Locking sc rew, 20 FDA Start: 06-18-2021 Bunionectomy 3.5mm headless compress. screw FDA Start: 06-18-2021 Bunionectomy 4.0mm cannulated screw PT FDA Start: 06-18-2021 Bunionectomy K-WIRE,.054 X 9 BAYONET FDA Start: 06-18-2021 Bunionectomy Plantar Lapidus Plate FDA S tart: 06-18-2021 Bunionectomy 2.5mm threadless comp screw FDA Start: 06-18-2021 Bunionectomy 3.5 mm Locking S crew, 16mm FDA Start: 06-18-2021 Bunionectomy 3.5 mm cortical screw, 22mm FDA Start: 06-18-2021 Bunionectomy 3.5 mm lock compression screw FDA Start: 06-18-2021 Bunionectomy 3.5mm Locking sc rew, 20 FDA Start: 06-18-2021 Bunionectomy 3.5mm headless compress. screw FDA Start: 06-18-2021 Bunionectomy 4.0mm cannulated screw PT FDA Start: 06-18-2021 Bunionectomy K-WIRE,.054 X 9 BAYONET FDA Start: 06-18-2021 Bunionectomy Plantar Lapidus Plate FDA S tart: 06-18-2021 Bunionectomy 2.5mm threadless comp screw FDA Start: 06-18-2021 Bunionectomy 3.5 mm Locking S crew, 16mm FDA Start: 06-18-2021 Bunionectomy 3.5 mm cortical screw, 22mm FDA Start: 06-18-2021 Bunionectomy 3.5 mm lock compression screw FDA Start: 06-18-2021 Bunionectomy 3.5mm Locking sc rew, 20 FDA Start: 06-18-2021 Bunionectomy 3.5mm headless compress. screw FDA Start: 06-18-2021 Bunionectomy 4.0mm cannulated screw PT FDA Start: 06-18-2021 Bunionectomy K-WIRE,.054 X 9 BAYONET FDA Start: 06-18-2021 Bunionectomy Plantar Lapidus Plate FDA S tart: 06-18-2021 Bunionectomy 2.5mm threadless comp screw FDA Start: 06-18-2021 Bunionectomy 3.5 mm Locking S crew, 16mm FDA Start: 06-18-2021 Bunionectomy 3.5 mm cortical screw, 22mm FDA Start: 06-18-2021 Bunionectomy 3.5 mm lock compression screw FDA Start: 06-18-2021 Bunionectomy 3.5mm Locking sc rew, 20 FDA Start: 06-18-2021 Bunionectomy 3.5mm headless compress. screw FDA Start: 06-18-2021 Bunionectomy 4.0mm cannulated screw PT FDA Start: 06-18-2021 Bunionectomy K-WIRE,.054 X 9 BAYONET FDA Start: 06-18-2021 Bunionectomy Plantar Lapidus Plate FDA S tart: 06-18-2021 Bunionectomy 2.5mm threadless comp screw FDA Start: 06-18-2021 Bunionectomy 3.5 mm Locking S crew, 16mm FDA Start: 06-18-2021 Bunionectomy 3.5 mm cortical screw, 22mm FDA Start: 06-18-2021 Bunionectomy 3.5 mm lock compression screw FDA Start: 06-18-2021 Bunionectomy 3.5mm Locking sc rew, 20 FDA Start: 06-18-2021 Bunionectomy 3.5mm headless compress. screw FDA Start: 06-18-2021 Bunionectomy 4.0mm cannulated screw PT FDA Start: 06-18-2021 Bunionectomy K-WIRE,.054 X 9 BAYONET FDA Start: 06-18-2021 Bunionectomy Plantar Lapidus Plate FDA S tart: 06-18-2021 Bunionectomy 2.5mm threadless comp screw FDA Start: 06-18-2021 Bunionectomy 3.5 mm Locking S crew, 16mm FDA Start: 06-18-2021 Bunionectomy 3.5 mm cortical screw, 22mm FDA Start: 06-18-2021 Bunionectomy 3.5 mm lock compression screw FDA Start: 06-18-2021 Bunionectomy 3.5mm Locking sc rew, 20 FDA Start: 06-18-2021 Bunionectomy 3.5mm headless compress. screw FDA Start: 06-18-2021 Bunionectomy 4.0mm cannulated screw PT FDA Start: 06-18-2021 Bunionectomy K-WIRE,.054 X 9 BAYONET FDA Start: 06-18-2021 Bunionectomy Plantar Lapidus Plate FDA S tart: 06-18-2021 Bunionectomy 2.5mm threadless comp screw FDA Start: 06-18-2021 Bunionectomy 3.5 mm Locking S crew, 16mm FDA Start: 06-18-2021 Bunionectomy 3.5 mm cortical screw, 22mm FDA Start: 06-18-2021 Bunionectomy 3.5 mm lock compression screw FDA Start: 06-18-2021 Bunionectomy 3.5mm Locking sc rew, 20 FDA Start: 06-18-2021 Bunionectomy 3.5mm headless compress. screw FDA Start: 06-18-2021 Bunionectomy 4.0mm cannulated screw PT FDA Start: 06-18-2021 Bunionectomy K-WIRE,.054 X 9 BAYONET FDA Start: 06-18-2021 Bunionectomy Plantar Lapidus Plate FDA S tart: 06-18-2021 Bunionectomy 2.5mm threadless comp screw FDA Start: 06-18-2021 Bunionectomy 3.5 mm Locking S crew, 16mm FDA Start: 06-18-2021 Bunionectomy 3.5 mm cortical screw, 22mm FDA Start: 06-18-2021 Bunionectomy 3.5 mm lock compression screw FDA Start: 06-18-2021 Bunionectomy 3.5mm Locking sc rew, 20 FDA Start: 06-18-2021 Bunionectomy 3.5mm headless compress. screw FDA Start: 06-18-2021 Bunionectomy 4.0mm cannulated screw PT FDA Start: 06-18-2021 Bunionectomy K-WIRE,.054 X 9 BAYONET FDA Start: 06-18-2021 Bunionectomy Plantar Lapidus Plate FDA S tart: 06-18-2021 Bunionectomy 2.5mm threadless comp screw FDA Start: 06-18-2021 Bunionectomy 3.5 mm Locking S crew, 16mm FDA Start: 06-18-2021 Bunionectomy 3.5 mm cortical screw, 22mm FDA Start: 06-18-2021 Bunionectomy 3.5 mm lock compression screw FDA Start: 06-18-2021 Bunionectomy 3.5mm Locking sc rew, 20 FDA Start: 06-18-2021 Bunionectomy 3.5mm headless compress. screw FDA Start: 06-18-2021 Bunionectomy 4.0mm cannulated screw PT FDA Start: 06-18-2021 Bunionectomy K-WIRE,.054 X 9 BAYONET FDA Start: 06-18-2021 Bunionectomy Plantar Lapidus Plate FDA S tart: 06-18-2021 Bunionectomy 2.5mm threadless comp screw FDA Start: 06-18-2021 Bunionectomy 3.5 mm Locking S crew, 16mm FDA Start: 06-18-2021 Bunionectomy 3.5 mm cortical screw, 22mm FDA Start: 06-18-2021 Bunionectomy 3.5 mm lock compression screw FDA Start: 06-18-2021 Bunionectomy 3.5mm Locking sc rew, 20 FDA Start: 06-18-2021 Bunionectomy 3.5mm headless compress. screw FDA Start: 06-18-2021 Bunionectomy 4.0mm cannulated screw PT FDA Start: 06-18-2021 Bunionectomy K-WIRE,.054 X 9 BAY[place]ET FDA Start: 06-18-2021 Bunionectomy Plantar Lapidus Plate FDA S tart: 06-18-2021 Bunionectomy 2.5mm threadless comp screw FDA Start: 06-18-2021 Bunionectomy 3.5 mm Locking S crew, 16mm FDA Start: 06-18-2021 Bunionectomy 3.5 mm cortical screw, 22mm FDA Start: 06-18-2021 Bunionectomy 3.5 mm lock compression screw FDA Start: 06-18-2021 Bunionectomy 3.5mm Locking sc rew, 20 FDA Start: 06-18-2021 Bunionectomy 3.5mm headless compress. screw FDA Start: 06-18-2021 Bunionectomy 4.0mm cannulated screw PT FDA Start: 06-18-2021 Bunionectomy K-WIRE,.054 X 9 BAYONET FDA Start: 06-18-2021 Bunionectomy Plantar Lapidus Plate FDA S tart: 06-18-2021 Bunionectomy 2.5mm threadless comp screw FDA Start: 06-18-2021 Bunionectomy 3.5 mm Locking S crew, 16mm FDA Start: 06-18-2021 Bunionectomy 3.5 mm cortical screw, 22mm FDA Start: 06-18-2021 Bunionectomy 3.5 mm lock compression screw FDA Start: 06-18-2021 Bunionectomy 3.5mm Locking sc rew, 20 FDA Start: 06-18-2021 Bunionectomy 3.5mm headless compress. screw FDA Start: 06-18-2021 Bunionectomy 4.0mm cannulated screw PT FDA Start: 06-18-2021 Bunionectomy K-WIRE,.054 X 9 BAYONET FDA Start: 06-18-2021 Bunionectomy Plantar Lapidus Plate FDA S tart: 06-18-2021 Bunionectomy 2.5mm threadless comp screw FDA Start: 06-18-2021 Bunionectomy 3.5 mm Locking S crew, 16mm FDA Start: 06-18-2021 Bunionectomy 3.5 mm cortical screw, 22mm FDA Start: 06-18-2021 Bunionectomy 3.5 mm lock compression screw FDA Start: 06-18-2021 Bunionectomy 3.5mm Locking sc rew, 20 FDA Start: 06-18-2021 Bunionectomy 3.5mm headless compress. screw FDA Start: 06-18-2021 Bunionectomy 4.0mm cannulated screw PT FDA Start: 06-18-2021 Bunionectomy K-WIRE,.054 X 9 BAYONET FDA Start: 06-18-2021 Bunionectomy Plantar Lapidus Plate FDA S tart: 06-18-2021 Bunionectomy 2.5mm threadless comp screw FDA Start: 06-18-2021 Bunionectomy 3.5 mm Locking S crew, 16mm FDA Start: 06-18-2021 Bunionectomy 3.5 mm cortical screw, 22mm FDA Start: 06-18-2021 Bunionectomy 3.5 mm lock compression screw FDA Start: 06-18-2021 Bunionectomy 3.5mm Locking sc rew, 20 FDA Start: 06-18-2021 Bunionectomy 3.5mm headless compress. screw FDA Start: 06-18-2021 Bunionectomy 4.0mm cannulated screw PT FDA Start: 06-18-2021 Bunionectomy K-WIRE,.054 X 9 BAYONET FDA Start: 06-18-2021 Bunionectomy Plantar Lapidus Plate FDA S tart: 06-18-2021 Bunionectomy 2.5mm threadless comp screw FDA Start: 06-18-2021 Bunionectomy 3.5 mm Locking S crew, 16mm FDA Start: 06-18-2021 Bunionectomy 3.5 mm cortical screw, 22mm FDA Start: 06-18-2021 Bunionectomy 3.5 mm lock compression screw FDA Start: 06-18-2021 Bunionectomy 3.5mm Locking sc rew, 20 FDA Start: 06-18-2021 Bunionectomy 3.5mm headless compress. screw FDA Start: 06-18-2021 Bunionectomy 4.0mm cannulated screw PT FDA Start: 06-18-2021 Bunionectomy K-WIRE,.054 X 9 BAYONET FDA Start: 06-18-2021 Bunionectomy Plantar Lapidus Plate FDA S tart: 06-18-2021 Bunionectomy 2.5mm threadless comp screw FDA Start: 06-18-2021 Bunionectomy 3.5 mm Locking S crew, 16mm FDA Start: 06-18-2021 Bunionectomy 3.5 mm cortical screw, 22mm FDA Start: 06-18-2021 Bunionectomy 3.5 mm lock compression screw FDA Start: 06-18-2021 Bunionectomy 3.5mm Locking sc rew, 20 FDA Start: 06-18-2021 Bunionectomy 3.5mm headless compress. screw FDA Start: 06-18-2021 Bunionectomy 4.0mm cannulated screw PT FDA Start: 06-18-2021 Bunionectomy K-WIRE,.054 X 9 BAYONET FDA Start: 06-18-2021 Bunionectomy Plantar Lapidus Plate FDA S tart: 06-18-2021 Bunionectomy 2.5mm threadless comp screw FDA Start: 06-18-2021 Bunionectomy 3.5 mm Locking S crew, 16mm FDA Start: 06-18-2021 Bunionectomy 3.5 mm cortical screw, 22mm FDA Start: 06-18-2021 Bunionectomy 3.5 mm lock compression screw FDA Start: 06-18-2021 Bunionectomy 3.5mm Locking sc rew, 20 FDA Start: 06-18-2021 Bunionectomy 3.5mm headless compress. screw FDA Start: 06-18-2021 Bunionectomy 4.0mm cannulated screw PT FDA Start: 06-18-2021 Bunionectomy K-WIRE,.054 X 9 BAYONET FDA Start: 06-18-2021 Bunionectomy Plantar Lapidus Plate FDA S tart: 06-18-2021 Bunionectomy 2.5mm threadless comp screw FDA Start: 06-18-2021 Bunionectomy 3.5 mm Locking S crew, 16mm FDA Start: 06-18-2021 Bunionectomy 3.5 mm cortical screw, 22mm FDA Start: 06-18-2021 Bunionectomy 3.5 mm lock compression screw FDA Start: 06-18-2021 Bunionectomy 3.5mm Locking sc rew, 20 FDA Start: 06-18-2021 Bunionectomy 3.5mm headless compress. screw FDA Start: 06-18-2021 Bunionectomy 4.0mm cannulated screw PT FDA Start: 06-18-2021 Bunionectomy K-WIRE,.054 X 9 BAYONET FDA Start: 06-18-2021 Bunionectomy Plantar Lapidus Plate FDA S tart: 06-18-2021 Bunionectomy 2.5mm threadless comp screw FDA Start: 06-18-2021 Bunionectomy 3.5 mm Locking S crew, 16mm FDA Start: 06-18-2021 Bunionectomy 3.5 mm cortical screw, 22mm FDA Start: 06-18-2021 Bunionectomy 3.5 mm lock compression screw FDA Start: 06-18-2021 Bunionectomy 3.5mm Locking sc rew, 20 FDA Start: 06-18-2021 Bunionectomy 3.5mm headless compress. screw FDA Start: 06-18-2021 Bunionectomy 4.0mm cannulated screw PT FDA Start: 06-18-2021 Bunionectomy K-WIRE,.054 X 9 BAYONET FDA Start: 06-18-2021 Bunionectomy Plantar Lapidus Plate FDA S tart: 06-18-2021 Bunionectomy 2.5mm threadless comp screw FDA Start: 06-18-2021 Bunionectomy 3.5 mm Locking S crew, 16mm FDA Start: 06-18-2021 Bunionectomy 3.5 mm cortical screw, 22mm FDA Start: 06-18-2021 Bunionectomy 3.5 mm lock compression screw FDA Start: 06-18-2021 Bunionectomy 3.5mm Locking sc rew, 20 FDA Start: 06-18-2021 Bunionectomy 3.5mm headless compress. screw FDA Start: 06-18-2021 Bunionectomy 4.0mm cannulated screw PT FDA Start: 06-18-2021 Bunionectomy K-WIRE,.054 X 9 BAYONET FDA Start: 06-18-2021 Bunionectomy Plantar Lapidus Plate FDA S tart: 06-18-2021 Functional Status Date Assessment Result Facility 08-04-2014 Are you deaf, or do you have serious difficulty hearing No 08/04/2014 10:34 AM Sadie Langley Lpn No [facility] 08-04-2014 Are you blind, or do you have serious difficulty seeing, even when wearing glasses No 08/04/2014 10:34 AM Sadie Langley Lpn No [facility] 08-04-2014 Do you have serious difficulty walking or climbing stairs No 08/04/2014 10:34 AM JAMES Mccann LpSadie baum No [facility] 08-04-2014 Do you have difficul ty dressing or bathing No 08/04/2014 10:34 AM JAMES Mccann LpnSadie No [facility] 08-04-2014 Because of a physica l, mental, or emotional condition, do you have difficulty doing errands alone such as visiting a physician's office or shopping No 08/04/2014 10:34 AM JAMES Mccann LpnSadie No [facility] Mental Status Date Assessment Result Facility 03-21-2025 Cognitive function Voice/Name [facility] Work Phone: 02-21-2025 Cognitive function Voice/Name [facility] Work Phone: 01-24-2025 Cognitive function Voice/Name [facility] Work Phone: 12-27-2024 Cognitive function Voice/Name [facility] Work Phone: 11-29-2024 Cognitive function Awake;Alert;A ppropriate;[facility] Work Phone: 11-01-2024 Cognitive function Voice/Name [facility] Work Phone: 10-04-2024 Cognitive function Voice/Name [facility] Work Phone: 09-06-2024 Cognitive function Awake;Alert;A ppropriate;[facility] Work Phone: 07-12-2024 Cognitive function Awake;Alert;A ppropriate;[facility] Work Phone: 06-14-2024 Cognitive function Awake;Alert;A ppropriate;[facility] Work Phone: 05-17-2024 Cognitive function Voice/Name [facility] Work Phone: 04-19-2024 Cognitive function Voice/Name [facility] Work Phone: 09-22-2023 Cognitive function Voice/Name [facility] Work Phone: 08-25-2023 Cognitive function Voice/Name [facility] Work Phone: 07-28-2023 Cognitive function Awake;Alert;Appropriat e [facility] Work Phone: 06-30-2023 Cognitive function Voice/Name [facility] Work Phone: 05-26-2023 Cognitive function Voice/Name [facility] Work Phone: 04-28-2023 Cognitive function Voice/Name [facility] Work Phone: 03-31-2023 Cognitive function Awake;Alert;A ppropriate;[facility] Work Phone: 03-03-2023 Cognitive function Voice/Name [facility] Work Phone: 02-03-2023 Cognitive function Awake;Alert;A ppropriate;[facility] Work Phone: 01-06-2023 Cognitive function Awake;Alert;A ppropriate;[facility] Work Phone: 12-09-2022 Cognitive function Voice/Name [facility] Work Phone: 10-14-2022 Cognitive function Awake;Alert;A ppropriate;[facility] Work Phone: 09-16-2022 Cognitive function Voice/Name [facility] Work Phone: 08-05-2022 Cognitive function Voice/Name [facility] Work Phone: 07-08-2022 Cognitive function Awake;Alert;A ppropriate;[facility] Work Phone: 06-10-2022 Cognitive function Awake;Alert;A ppropriate;[facility] Work Phone: 05-11-2022 Cognitive function Voice/Name [facility] Work Phone: 04-08-2022 Cognitive function Awake;Alert;A ppropriate;Fo llows Commands [facility] Work Phone: 03-11-2022 Cognitive function Voice/Name [facility] Work Phone: 11-12-2021 Cognitive function Touch/Shaking [facility] Work Phone: 11-12-2021 Cognitive function Patient Orien tation Person;Place;Time [facility] Work Phone: 10-15-2021 Cognitive function Voice/Name [facility] Work Phone: 09-17-2021 Cognitive function Voice/Name [facility] Work Phone: 06-18-2021 Cognitive function Voice/Name [facility] Work Phone: 05-27-2021 Cognitive function Voice/Name [facility] Work Phone: 08-04-2014 Because of a physica l, mental, or emotional condition, do you have serious difficulty concentrating, remembering, or making decisions No 08/04/2014 10:34 AM EST Sadie Mccann Lpn No [facility] Clinical Notes 06-18-2021 to 03-17-2025 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 Author Type: Physician Type: Progress Notes Filed: 03/17/2025 13:59 Note Text: Leroy Barragan MD General Cardiology [address] [address] [id number] Chief Complaint No chief complaint on file. HISTORY OF PRESENT ILLNESS: Mrs. Street is a 79-year-old female with a history of hyperlipidemia, ischemic stroke, and SVT, presenting for follow-up. The patient has a history of ischemic stroke with left-sided weakness, previously treated with tPA, and has since regained most of her function. She was evaluated six months ago for an abnormal Holter monitor, which revealed SVT. She remains asymptomatic with recurrent episodes of SVT and no evidence of atrial fibrillation on the monitor today. She denies palpitations, chest pain, or dyspnea but reports feeling more easily fatigued than previously, attributing this to her age. She describes a recent episode occurring a few nights ago at 4 a.m., characterized by a stinging sensation that necessitated shallow breathing for several minutes before resolving. She is uncertain if this episode is cardiac-related. She has two cerebral aneurysms currently under observation without active intervention. She does not monitor her blood pressure at home and is unsure why it was elevated during today's visit, noting that she had been sitting in her car for an extended period before the appointment. She is currently taking low-dose aspirin, atorvastatin 40 mg, losartan 25 mg, and metoprolol 25 mg. 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, not stated as uncontrolled (HCC) Unspecified hypothyroidism PAST SURGICAL HISTORY Procedure Laterality Date CHOLECYSTECTOMY Cholecystectomy INJ RADIOACTIVE TRACER FOR ID OF SENTINEL NODE 09-22-06 right INSJ TUNNELED CTR VAD W/SUBQ PORT AGE 5 YR/> 10-27-06 left MASTEC,MOD RADICAL 09-22-06 right STEREO LOC FOR CORE BRST BX RT 08-30-06 right THYROIDECTOMY TOTAL/COMPLETE right TONSILLECTOMY PRIMARY/SECONDARY Tonsillectomy FAMILY HISTORY Problem Relation Age of Onset Cancer Mother esophagus, lymph nodes Hypertension Mother Psychiatry Mother Cancer Father bladder, lung Coronary Artery Disease Father Ischemic Heart Disease Father Hypertension Father Stroke Father 70 Psychiatry Sister Diabetes Maternal Grandfather Stroke Paternal Grandmother Stroke Paternal Grandfather 80 SOCIAL HISTORY[1] ALLERGIES Allergen Reactions No Known Allergies Medications: Current Outpatient Medications Medication Sig Dispense Refill Magnesium Oxide 500 mg magnesium tab Take 1.5 tablets by mouth once daily. metoprolol tartrate, short acting, (LOPRESSOR) 25 mg tablet take 1 tablet by mouth twice a day 180 tablet 3 aspirin, enteric coated (ADULT LOW DOSE ASPIRIN) 81 mg EC tablet Take 1 tablet by mouth once daily. atorvastatin (LIPITOR) 40 mg tablet Take 1 tablet by mouth once daily. levothyroxine (SYNTHROID) 25 mcg tablet Take 1 tablet by mouth once daily. losartan (COZAAR) 25 mg tablet Take 1 tablet by mouth once daily. potassium chloride ER (KLOR-CON M20) 20 mEq tablet Take 1 tablet by mouth two times a day. traZODone (DESYREL) 100 mg tablet Take 100 mg by mouth daily at bedtime. No current facility-administered medications for this visit. Review of Systems Constitutional: Negative for chills, diaphoresis, fever, malaise/fatigue and weight loss. HENT: Negative for congestion, ear discharge, ear pain, hearing loss, nosebleeds, sinus pain, sore throat and tinnitus. Eyes: Negative for blurred vision, double vision, photophobia, pain, discharge and redness. Respiratory: Negative for cough, hemoptysis, sputum production, shortness of breath, wheezing and stridor. Cardiovascular: Negative for chest pain, palpitations, orthopnea, claudication, leg swelling and PND. Gastrointestinal: Negative for abdominal pain, blood in stool, constipation, diarrhea, heartburn, melena, nausea and vomiting. Genitourinary: Negative for dysuria, flank pain, frequency, hematuria and urgency. Musculoskeletal: Negative for back pain, falls, joint pain, myalgias and neck pain. Skin: Negative for itching and rash. Neurological: Negative for dizziness, tingling, tremors, sensory change, speech change, focal weakness, seizures, loss of consciousness, weakness and headaches. Endo/Heme/Allergies: Negative for environmental allergies and polydipsia. Does not bruise/bleed easily. Psychiatric/Behavioral: Negative for depression, hallucinations, (more content not included)... [facility] 12-26-2024 Instructions Bianka Olmos APRN.[facility] - 12/26/2024 10:51 AM EDT Images from the original note were not included. Regarding your visit with Nurse Practitioner Bianka Olmos today at the [facility] we discussed the following: MRA brain and follow-up appointment with our clinic due December 2025. We will send a scheduling reminder 2-3 months beforehand. If you have any questions, please call [phone] or send a Enval message to connect with one of our caregivers. Bianka Olmos, [facility] Nurse Practitioner [place], [place] [address] Office: [phone] Appointments: [phone] BRAIN ANEURYSMS What is a brain aneurysm? A brain aneurysm, also called a cerebral aneurysm, is a bulge in a weak area of an artery in or around your brain. The constant pressure of blood flow pushes the weakened section outward, creating a blister-like bump. When blood rushes into this bulge, the aneurysm stretches even farther. It s similar to how a balloon gets thinner and is more likely to pop as it fills with air. Brain aneurysms can occur anywhere in your brain, but most of them form in the major arteries along the base of your skull. Approximately 10% to 30% of people who have a brain aneurysm have multiple aneurysms. The majority of brain aneurysms are small and don t cause symptoms. An aneurysm can cause symptoms if it puts pressure on nearby nerves or brain tissue. If the aneurysm leaks or ruptures (bursts open), it causes bleeding in your brain. A ruptured brain aneurysm can be life-threatening and requires emergency medical treatment. As more time passes with a ruptured aneurysm, the likelihood of or disability increases. What causes brain aneurysms? Brain aneurysms develop when the daniels of an artery in your brain become thin and weak. They usually form at branching points of arteries. Sometimes, you can be born with a brain aneurysm. This is typically due to an abnormality ( defect) in an artery wall. Several other factors can contribute to the weakening of an artery. The following inherited factors affect the health of your arteries and can increase your risk of developing a brain aneurysm: Vascular Terry-Danlos syndrome. Autosomal dominant polycystic kidney disease. Marfan syndrome. Fibromuscular dysplasia. Arteriovenous malformation. Having a first-degree relative (biological sibling or parent) with a history of brain aneurysms. The following conditions and situations can weaken your artery daniels over time: Smoking. High blood pressure. Substance use, particularly cocaine. Excessive alcohol use. Symptoms of a ruptured aneurysm include: Thunderclap headache (sudden onset and severe, often described as the worst headache of my life ). Nausea and vomiting. Stiff neck. Blurred or double vision. Sensitivity to light (photophobia). Seizures. Drooping eyelid and a dilated pupil. Pain above and behind your eye. Confusion. Weakness and/or numbness. Loss of consciousness. Call 911 or get to the nearest emergency room as soon as possible if you have these symptoms. When a brain aneurysm leaks a small about of blood it s called a sentinel bleed. You may experience warning headaches (called sentinel headaches) from a tiny aneurysm leak days or weeks before a significant rupture. documented in this encounter [facility] 12-26-2024 Note HNO ID: [id number] Author: BIANKA OLMOS APRN.TRAVIS Service: ? Author Type: Nurse Practitioner Type: Progress Notes Filed: 12/26/2024 10:55 Note Text: [facility] Established Visit Patient consents to this virtual visit using [employer] Zoom Video Visit. The visit required patient-provider interaction for the medical decision making as documented below. I have communicated my name and active licensure. The patient's identity and physical location were verified at the time of this visit. Either the patient or their legal customer operations representative has been informed of the risks and benefits of -- and alternatives to -- treatment through a remote evaluation and consents to proceed with the evaluation remotely. [address] [facility]#: [id number] Date of Service: 12/26/2024 Primary Care Provider: Ari Medina MD OUTPATIENT CONSULTATION Reason for Visit: 79 year old female with significant past medical history of breast cancer status post chemotherapy and radiation, hypertension, hyperlipidemia, and stroke 05/20/2023 who initially presented to outside hospital with left-sided weakness. She was found to have acute right basal ganglia infarct. 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 She underwent evaluation by inpatient team and had virtual consultation during her hospitalization. She reports surgery was recommended but has been waiting to hear back from the neurosurgery team for further recommendations. She was initially seen in consultation for her aneurysm finding in 05/2024. Continued observation was recommended with follow-up study in 6 months. She was seen last in 12/2023 at which time MRA demonstrated stable ACOM aneurysm and noted right MCA trifurcation outpouching stable in comparison to prior study. She presents today via virtual visit to review recent MRA imaging in follow-up of her aneurysms. She remains on aspirin. She has a history of hypertension on antihypertensives and reports this to be well controlled with BP less than 140/90. She has recently started an OTC magnesium supplement for low extremity cramps with noted improvement of symptoms. No known family history of brain aneurysms, [...] Due to Unspecified Cause Vitamin D Deficiency Hyperlipidemia Screening for Ischemic Heart Disease Svt (Supraventricular Tachycardia) (Hcc) PAST SURGICAL HISTORY Procedure Laterality Date CHOLECYSTECTOMY Cholecystectomy INJ RADIOACTIVE TRACER FOR ID OF SENTINEL NODE 09-22-06 right INSJ TUNNELED CTR VAD W/SUBQ PORT AGE 5 YR/> 10-27-06 left MASTEC,MOD RADICAL 09-22-06 right STEREO LOC FOR CORE BRST BX RT 08-30-06 right THYROIDECTOMY TOTAL/COMPLETE right TONSILLECTOMY PRIMARY/SECONDARY Tonsillectomy Allergies: No Known Allergies Medications: Current Outpatient Medications Medication Sig metoprolol tartrate, short acting, (LOPRESSOR) 25 mg tablet take 1 tablet by mouth twice a day aspirin, enteric coated (ADULT LOW DOSE ASPIRIN) 81 mg EC tablet Take 1 tablet by mouth once daily. atorvastatin (LIPITOR) 40 mg tablet Take 1 tablet by mouth once daily. levothyroxine (SYNTHROID) 25 mcg tablet Take 1 tablet by mouth once daily. losartan (COZAAR) 25 mg tablet Take 1 tablet by mouth once daily. potassium chloride ER (KLOR-CON M20) 20 mEq tablet Take 1 tablet by mouth two times a day. traZODone (DESYREL) 100 mg tablet Take 100 mg by mouth daily at bedtime. No current facility-administered medications for this visit. [...] weakness. Negative for headaches. Patient Entered Questionnaires 05/31/2023 Health Status Impact by Stroke or CVD Impact Very little PROMIS/NeuroQoL Score Percentiles 12/24/2024 01/15/2024 11/28/2023 Physical Health Physical Function Percentile 14 4 12 Sleep Percentile 54 66 62 Fatigue Percentile 54 46 54 Pain Interference Percentile (more content not included)... [facility] 12-26-2024 History of Present illness Narrative Images from the original note were not included. [facility] Established Visit Patient consents to this virtual visit using [employer] Zoom Video Visit. The visit required patient-provider interaction for the medical decision making as documented below. I have communicated my name and active licensure. The patient's identity and physical location were verified at the time of this visit. Either the patient or their legal customer operations representative has been informed of the risks and benefits of -- and alternatives to -- treatment through a remote evaluation and consents to proceed with the evaluation remotely. [address] [facility]#: [id number] Date of Service: 12/26/2024 Primary Care Provider: Ari Medina MD OUTPATIENT CONSULTATION Reason for Visit: 79 year old female with significant past medical history of breast cancer status post chemotherapy and radiation, hypertension, hyperlipidemia, and stroke 05/20/2023 who initially presented to outside hospital with left-sided weakness. She was found to have acute right basal ganglia infarct. 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 She underwent evaluation by inpatient team and had virtual consultation during her hospitalization. She reports surgery was recommended but has been waiting to hear back from the neurosurgery team for further recommendations. She was initially seen in consultation for her aneurysm finding in 05/2024. Continued observation was recommended with follow-up study in 6 months. She was seen last in 12/2023 at which time MRA demonstrated stable ACOM aneurysm and noted right MCA trifurcation outpouching stable in comparison to prior study. She presents today via virtual visit to review recent MRA imaging in follow-up of her aneurysms. She remains on aspirin. She has a history of hypertension on antihypertensives and reports this to be well controlled with BP less than 140/90. She has recently started an OTC magnesium supplement for low extremity cramps with noted improvement of symptoms. No known family history of brain aneurysms, [...] Due to Unspecified Cause Vitamin D Deficiency Hyperlipidemia Screening for Ischemic Heart Disease Svt (Supraventricular Tachycardia) (Hcc) PAST SURGICAL HISTORY Procedure Laterality Date CHOLECYSTECTOMY Cholecystectomy INJ RADIOACTIVE TRACER FOR ID OF SENTINEL NODE 09-22-06 right INSJ TUNNELED CTR VAD W/SUBQ PORT AGE 5 YR/> 10-27-06 left MASTEC,MOD RADICAL 09-22-06 right STEREO LOC FOR CORE BRST BX RT 08-30-06 right THYROIDECTOMY TOTAL/COMPLETE right TONSILLECTOMY PRIMARY/SECONDARY <AGE 12 Tonsillectomy Allergies: No Known Allergies Medications: Current Outpatient Medications Medication Sig metoprolol tartrate, short acting, (LOPRESSOR) 25 mg tablet take 1 tablet by mouth twice a day aspirin, enteric coated (ADULT LOW DOSE ASPIRIN) 81 mg EC tablet Take 1 tablet by mouth once daily. atorvastatin (LIPITOR) 40 mg tablet Take 1 tablet by mouth once daily. levothyroxine (SYNTHROID) 25 mcg tablet Take 1 tablet by mouth once daily. losartan (COZAAR) 25 mg tablet Take 1 tablet by mouth once daily. potassium chloride ER (KLOR-CON M20) 20 mEq tablet Take 1 tablet by mouth two times a day. traZODone (DESYREL) 100 mg tablet Take 100 mg by mouth daily at bedtime. No current facility-administered medications for this visit. [...] weakness. Negative for headaches. Patient Entered Questionnaires 05/31/2023 Health Status Impact by Stroke or CVD Impact Very little PROMIS/NeuroQoL Score Percentiles 12/24/2024 01/15/2024 11/28/2023 Physical Health Physical Function Percentile 14 4 12 Sleep Percentile 54 66 62 Fatigue Percentile 54 46 54 Pain Interference Percentile 84 84 84 12/24/2024 01/15/2024 11/28/2023 PROMIS SOCIAL ROLE SCORE Social Role Satisfaction Percentile 14 38 16* 12/24/2024 01/15/2024 11/28/2023 Mental Health NeuroQol Cognitive Function Percentile 38 46 General Self-Efficacy Percentile 54 54 46 12/24/2024 12/25/2023 11/28/2023 PROMIS Global Health Scale Physical Health Percentile 31 53 53 53 Mental Health Percentile 73 73 73 73 Patient-reported Percentiles provide an indication of how a patient's score ranks in relation to the [place] general population. > 31st percentile is within normal limits or better * < 31st percentile is at least SD worse than population, which may be clinically relevant < 16th percentile is at least 1 SD worse than population and warrants attention Depression Screenin12/24/2024 12/25/2023 11/28/2023 PHQ-9 Score 2 1 2 2 Self-Harm Response Not at all Not at all Not at all PHQ-9 Scores: PHQ-9 Self-Harm (Item 9) Response: 0 - 9 No to Mild depression 0 - Not at all 10 - 14 Moderate depression 1 - Several Days > 15 Severe depression 2 - More than half the days 3 - Nearly every day 05/31/2023 Sleep Apnea Probability Score Probability (%) 39 (Sleep study not recommended) PHYSICAL EXAMINATION There were no vitals taken for this visit. Limited in setting of video visit General: Pleasant, well-developed, well-nourished, in no acute distress. HEENT: Normocephalic, atraumatic. Lungs: Respirations even and unlabored. Skin: No rash or ecchymoses visible. Neurological: Awake, alert, oriented to person, place, and time. Speech fluent, no dysarthria. Good attention and insight into illness. Cranial Nerves: Extraocular movements grossly intact. Facial movements appear normal and symmetric. Motor: Moves upper extremities freely. IMAGING MRA brain without contrast (12/19/2024): IMPRESSION: No significant change in MR findings of the brain since 11/21/2023. MRA brain without contrast (11/21/2023): IMPRESSION: Similar size of 3 to 4 mm aneurysm along the junction of the anterior communicating artery and the left A1 and A2 LASHONDA segments. Unchanged 3 to 4 mm aneurysm arising along the right MCA trifurcation incorporating the origins of two M2 MCA branches. CTA head/neck with contrast (05/22/2023): IMPRESSION: A 2 x 2 inferiorly projecting outpouching is seen from the left A1 A2 junction of the anterior cerebral artery and is concerning for a small aneurysm. No evidence of major vessel cut off or hemodynamically significant stenosis is noted. 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 Etiology likely secondary to small vessel disease. Hypertension, controlled PLAN Continue aspirin 81 mg daily Optimization of risk factors Blood pressure management: goal BP less than 140/90, continue antihypertensives as prescribed. Recommend home blood pressure monitoring twice daily. Notify primary Reviewed signs and symptoms warranting emergent neurologic evaluation. Return to clinic in 1 year following MRA imaging for aneurysm surveillance (due 12/2025) I spent a total of 22 minutes on the date of the service which included preparing to see the patient, [id number] patient care, completing clinical documentation, obtaining and/or reviewing separately obtained history, performing a medically appropriate examination, ordering medications, tests, or procedures, independently interpreting results (not separately reported), and communicating results to the patient/family/caregiver. SIGNATURE Bianka Olmos APRN.CNP 12/26/2024 documented in this encounter [facility] 08-19-2024 Note HNO ID: [id number] Author: LEROY BARRAGAN MD Service: ? Author Type: Physician Type: Progress Notes Filed: 08/19/2024 12:09 Note Text: Leroy Barragan MD Interventional Cardiology [address] [place] [address] [phone] Chief Complaint Patient presents with: Follow Up: 3 month follow up HISTORY OF PRESENT ILLNESS: Ms. 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 been monitored Zio patch for 14-day shows no evidence of atrial fibrillation just supraventricular Deny palpitation 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, not stated as uncontrolled (HCC) Unspecified hypothyroidism PAST SURGICAL HISTORY Procedure Laterality Date CHOLECYSTECTOMY Cholecystectomy INJ RADIOACTIVE TRACER FOR ID OF SENTINEL NODE 09-22-06 right INSJ TUNNELED CTR VAD W/SUBQ PORT AGE 5 YR/> 10-27-06 left MASTEC,MOD RADICAL 09-22-06 right STEREO LOC FOR CORE BRST BX RT 08-30-06 right THYROIDECTOMY TOTAL/COMPLETE right TONSILLECTOMY PRIMARY/SECONDARY Tonsillectomy FAMILY HISTORY Problem Relation Age of Onset Cancer Mother esophagus, lymph nodes Hypertension Mother Psychiatry Mother Cancer Father bladder, lung Coronary Artery Disease Father Ischemic Heart Disease Father Hypertension Father Stroke Father 70 Psychiatry Sister Diabetes Maternal Grandfather Stroke Paternal Grandmother Stroke Paternal Grandfather 80 Social History Tobacco Use Smoking status: Never Smokeless tobacco: Never Substance Use Topics Alcohol use: Yes Comment: occassion Drug use: No ALLERGIES Allergen Reactions No Known Allergies Medications: Current Outpatient Medications Medication Sig Dispense Refill metoprolol tartrate, short acting, (LOPRESSOR) 25 mg tablet take 1 tablet by mouth twice a day 180 tablet 3 aspirin, enteric coated (ADULT LOW DOSE ASPIRIN) 81 mg EC tablet Take 1 tablet by mouth once daily. atorvastatin (LIPITOR) 40 mg tablet Take 1 tablet by mouth once daily. levothyroxine (SYNTHROID) 25 mcg tablet Take 1 tablet by mouth once daily. losartan (COZAAR) 25 mg tablet Take 1 tablet by mouth once daily. potassium chloride ER (KLOR-CON M20) 20 mEq tablet Take 1 tablet by mouth two times a day. traZODone (DESYREL) 100 mg tablet Take 100 mg by mouth daily at bedtime. No current facility-administered medications for this visit. Review of Systems Constitutional: Negative for chills, diaphoresis, fever, malaise/fatigue and weight loss. HENT: Negative for congestion, ear discharge, ear pain, hearing loss, nosebleeds, sinus pain, sore throat and tinnitus. Eyes: Negative for blurred vision, double vision, photophobia, pain, discharge and redness. Respiratory: Negative for cough, hemoptysis, sputum production, shortness of breath, wheezing and stridor. Cardiovascular: Negative for chest pain, palpitations, orthopnea, claudication, leg swelling and PND. Gastrointestinal: Negative for abdominal pain, blood in stool, constipation, diarrhea, heartburn, melena, nausea and vomiting. Genitourinary: Negative for dysuria, flank pain, frequency, hematuria and urgency. Musculoskeletal: Negative for back pain, falls, joint pain, myalgias and neck pain. Skin: Negative for itching and rash. Neurological: Negative for dizziness, tingling, tremors, sensory change, speech change, focal weakness, seizures, loss of consciousness, weakness and headaches. Endo/Heme/Allergies: Negative for environmental allergies and polydipsia. Does not bruise/bleed easily. Psychiatric/Behavioral: Negative for depression, hallucinations, memory loss, substance abuse and suicidal ideas. The patient is not nervous/anxious and does not have insomnia. Physical Examination: Vitals:BP 134/76 Pulse 63 Resp 12 Ht 5' 3 (1.60m) Wt 146 lb (66.2kg) SpO2 98% BMI 25.87 kg/(m2). BP w/Orthostatic Vitals Date and Time Orthostatic BP Orthostatic Pulse BP Pulse BP Position BP Site BP Cuff Size 08/19/24 1146 -- -- 134/76 63 Sitting Right Arm Regular Adult Peak Flow Date and Time PF Resp 08/19/24 1146 -- 12 Last 2 Encounter Wt Readings: Date: Wt: 08/19/2024 146 lb (66.2 kg) 04/29/2024 143 lb (64.9 kg) Physical Exam Con (more content not included)... [facility] 08-19-2024 History of Present illness Narrative Images from the original note were not included. Leroy Barragan MD Interventional Cardiology [address] [place] [address] [phone] Chief Complaint Patient presents with: Follow Up: 3 month follow up HISTORY OF PRESENT ILLNESS: Ms. 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 been monitored Zio patch for 14-day shows no evidence of atrial fibrillation just supraventricular Deny palpitation 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, not stated as uncontrolled (HCC) Unspecified hypothyroidism PAST SURGICAL HISTORY Procedure Laterality Date CHOLECYSTECTOMY Cholecystectomy INJ RADIOACTIVE TRACER FOR ID OF SENTINEL NODE 09-22-06 right INSJ TUNNELED CTR VAD W/SUBQ PORT AGE 5 YR/> 10-27-06 left MASTEC,MOD RADICAL 09-22-06 right STEREO LOC FOR CORE BRST BX RT 08-30-06 right THYROIDECTOMY TOTAL/COMPLETE right TONSILLECTOMY PRIMARY/SECONDARY <AGE 12 Tonsillectomy FAMILY HISTORY Problem Relation Age of Onset Cancer Mother esophagus, lymph nodes Hypertension Mother Psychiatry Mother Cancer Father bladder, lung Coronary Artery Disease Father Ischemic Heart Disease Father Hypertension Father Stroke Father 70 Psychiatry Sister Diabetes Maternal Grandfather Stroke Paternal Grandmother Stroke Paternal Grandfather 80 Social History Tobacco Use Smoking status: Never Smokeless tobacco: Never Substance Use Topics Alcohol use: Yes Comment: occassion Drug use: No ALLERGIES Allergen Reactions No Known Allergies Medications: Current Outpatient Medications Medication Sig Dispense Refill metoprolol tartrate, short acting, (LOPRESSOR) 25 mg tablet take 1 tablet by mouth twice a day 180 tablet 3 aspirin, enteric coated (ADULT LOW DOSE ASPIRIN) 81 mg EC tablet Take 1 tablet by mouth once daily. atorvastatin (LIPITOR) 40 mg tablet Take 1 tablet by mouth once daily. levothyroxine (SYNTHROID) 25 mcg tablet Take 1 tablet by mouth once daily. losartan (COZAAR) 25 mg tablet Take 1 tablet by mouth once daily. potassium chloride ER (KLOR-CON M20) 20 mEq tablet Take 1 tablet by mouth two times a day. traZODone (DESYREL) 100 mg tablet Take 100 mg by mouth daily at bedtime. No current facility-administered medications for this visit. Review of Systems Constitutional: Negative for chills, diaphoresis, fever, malaise/fatigue and weight loss. HENT: Negative for congestion, ear discharge, ear pain, hearing loss, nosebleeds, sinus pain, sore throat and tinnitus. Eyes: Negative for blurred vision, double vision, photophobia, pain, discharge and redness. Respiratory: Negative for cough, hemoptysis, sputum production, shortness of breath, wheezing and stridor. Cardiovascular: Negative for chest pain, palpitations, orthopnea, claudication, leg swelling and PND. Gastrointestinal: Negative for abdominal pain, blood in stool, constipation, diarrhea, heartburn, melena, nausea and vomiting. Genitourinary: Negative for dysuria, flank pain, frequency, hematuria and urgency. Musculoskeletal: Negative for back pain, falls, joint pain, myalgias and neck pain. Skin: Negative for itching and rash. Neurological: Negative for dizziness, tingling, tremors, sensory change, speech change, focal weakness, seizures, loss of consciousness, weakness and headaches. Endo/Heme/Allergies: Negative for environmental allergies and polydipsia. Does not bruise/bleed easily. Psychiatric/Behavioral: Negative for depression, hallucinations, memory loss, substance abuse and suicidal ideas. The patient is not nervous/anxious and does not have insomnia. Physical Examination: Vitals:BP 134/76 Pulse 63 Resp 12 Ht 5' 3 (1.60m) Wt 146 lb (66.2kg) SpO2 98% BMI 25.87 kg/(m^2). BP w/Orthostatic Vitals Date and Time Orthostatic BP Orthostatic Pulse BP Pulse BP Position BP Site BP Cuff Size 08/19/24 1146 -- -- 134/76 63 Sitting Right Arm Regular Adult Peak Flow Date and Time PF Resp 08/19/24 1146 -- 12 Last 2 Encounter Wt Readings: Date: Wt: 08/19/2024 146 lb (66.2 kg) 04/29/2024 143 lb (64.9 kg) Physical Exam Constitutional: General: She is not in acute distress. Appearance: She is not diaphoretic. HENT: Head: Normocephalic and atraumatic. Right Ear: External ear normal. Left Ear: External ear normal. Nose: Nose normal. Mouth/Throat: Pharynx: Oropharynx is clear. Eyes: General: Right eye: No discharge. Left eye: No discharge. Conjunctiva/sclera: Conjunctivae normal. Pupils: Pupils are equal, round, and reactive to light. Cardiovascular: Rate and Rhythm: Normal rate and regular rhythm. Heart sounds: Normal heart sounds, S1 normal and S2 normal. No murmur heard. No friction rub. No gallop. No S3 or S4 sounds. Pulmonary: Effort: Pulmonary effort is normal. No respiratory distress. Breath sounds: Normal breath sounds. No wheezing or rales. Chest: Chest wall: No tenderness. Abdominal: General: Abdomen is flat. Musculoskeletal: General: Normal range of motion. Cervical back: Normal range of motion and neck supple. Skin: General: Skin is warm and dry. Neurological: Mental Status: She is alert and oriented to person, place, and time. Psychiatric: Mood and Affect: Mood normal. Thought Content: Thought content normal. Pertinent Labs: CBC: Hemoglobin (g/dL) Date Value 08/27/2014 12.7 Hematocrit (%) Date Value 08/27/2014 36.9 WBC (thou/cmm) Date Value 08/27/2014 10.1 Platelet Count (thou/cmm) Date Value 08/27/2014 143 BMP: Glucose (mg/dL) Date Value 08/27/2014 132 Potassium (mEq/L) Date Value 08/27/2014 2.7 Sodium (mEq/L) Date Value 08/27/2014 144 Chloride (mEq/L) Date Value 08/27/2014 108 CO2 (mEq/L) Date Value 08/27/2014 27 Creatinine (mg/dL) Date Value 08/27/2014 0.81 BUN (mg/dL) Date Value 08/27/2014 9 Anion Gap (no units) Date Value 08/27/2014 12 Calcium (mg/dL) Date Value 08/27/2014 8.3 INR: Lipid Profile: LDL Chol, [place] Date Value Ref Range Status 03/25/2010 129 0 - 129 mg/dL Final Hemoglobin A1C: No results found for: HGBA1C TSH: No results found for: TSHREFL Prior Cardiac Testing Zio Assessment and Plan: 79 years old female patient with supraventricular tachycardia ASSESSMENT/PLAN: 1. SVT (supraventricular tachycardia) (HCC) - ICD9: 427.89, ICD10: I47.10 Asymptomatic recurrent episode of supraventricular tachycardia No evidence of atrial fibrillation on the monitor Continue medical therapy and observation Follow-up with 6-month Leroy Barragan MD Follow up plannin months Electronically signed by Leroy Barragan MD on August 19, 2024, 12:05 PM The above note was partially created using a dictation recognition software. A reasonable attempt has been made to correct any errors. documented in this encounter [facility] 05-27-2024 Telephone encounter Note Patient phones requesting refills as follows: Requested Prescriptions Pending Prescriptions Disp Refills metoprolol tartrate, short acting, (LOPRESSOR) 25 mg tablet [Pharmacy Med Name: METOPROLOL TARTRATE 25 MG TAB] 180 tablet 3 Sig: take 1 tablet by mouth twice a day Please review and advise. Christel Boland MA [facility] 05-27-2024 Miscellaneous Notes Patient phones requesting refills as follows: Requested Prescriptions Pending Prescriptions Disp Refills metoprolol tartrate, short acting, (LOPRESSOR) 25 mg tablet [Pharmacy Med Name: METOPROLOL TARTRATE 25 MG TAB] 180 tablet 3 Sig: take 1 tablet by mouth twice a day Please review and advise. Christel Boland MA documented in this encounter [facility] 04-29-2024 Note HNO ID: [id number] Author: LEROY BARRAGAN MD Service: ? Author Type: Physician Type: Progress Notes Filed: 04/29/2024 16:04 Note Text: Leroy Barragan MD Interventional Cardiology [address] [place] [address] [phone] Chief Complaint Patient presents with: New Patient HISTORY OF PRESENT ILLNESS: Ms. 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 Denies chest pain or shortness of breath no angina no signs or symptoms of congestive heart failure 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, not stated as uncontrolled (HCC) Unspecified hypothyroidism PAST SURGICAL HISTORY Procedure Laterality Date CHOLECYSTECTOMY Cholecystectomy INJ RADIOACTIVE TRACER FOR ID OF SENTINEL NODE 09-22-06 right INSJ TUNNELED CTR VAD W/SUBQ PORT AGE 5 YR/> 10-27-06 left MASTEC,MOD RADICAL 09-22-06 right STEREO LOC FOR CORE BRST BX RT 3-28-07 right THYROIDECTOMY TOTAL/COMPLETE right TONSILLECTOMY PRIMARY/SECONDARY Tonsillectomy FAMILY HISTORY Problem Relation Age of Onset Cancer Mother esophagus, lymph nodes Hypertension Mother Psychiatry Mother Cancer Father bladder, lung Coronary Artery Disease Father Ischemic Heart Disease Father Hypertension Father Stroke Father 70 Psychiatry Sister Diabetes Maternal Grandfather Stroke Paternal Grandmother Stroke Paternal Grandfather 80 Social History Tobacco Use Smoking status: Never Smokeless tobacco: Never Substance Use Topics Alcohol use: Yes Comment: occassion Drug use: No ALLERGIES Allergen Reactions No Known Allergies Medications: Current Outpatient Medications Medication Sig Dispense Refill aspirin, enteric coated (ADULT LOW DOSE ASPIRIN) 81 mg EC tablet Take 1 tablet by mouth once daily. atorvastatin (LIPITOR) 40 mg tablet Take 1 tablet by mouth once daily. levothyroxine (SYNTHROID) 25 mcg tablet Take 1 tablet by mouth once daily. losartan (COZAAR) 25 mg tablet Take 1 tablet by mouth once daily. potassium chloride ER (KLOR-CON M20) 20 mEq tablet Take 1 tablet by mouth two times a day. traZODone (DESYREL) 100 mg tablet Take 100 mg by mouth daily at bedtime. metoprolol tartrate, short acting, (LOPRESSOR) 25 mg tablet Take 1 tablet by mouth two times a day. 60 tablet 3 No current facility-administered medications for this visit. Review of Systems Constitutional: Negative for chills, diaphoresis, fever, malaise/fatigue and weight loss. HENT: Negative for congestion, ear discharge, ear pain, hearing loss, nosebleeds, sinus pain, sore throat and tinnitus. Eyes: Negative for blurred vision, double vision, photophobia, pain, discharge and redness. Respiratory: Negative for cough, hemoptysis, sputum production, shortness of breath, wheezing and stridor. Cardiovascular: Negative for chest pain, palpitations, orthopnea, claudication, leg swelling and PND. Gastrointestinal: Negative for abdominal pain, blood in stool, constipation, diarrhea, heartburn, melena, nausea and vomiting. Genitourinary: Negative for dysuria, flank pain, frequency, hematuria and urgency. Musculoskeletal: Negative for back pain, falls, joint pain, myalgias and neck pain. Skin: Negative for itching and rash. Neurological: Negative for dizziness, tingling, tremors, sensory change, speech change, focal weakness, seizures, loss of consciousness, weakness and headaches. Endo/Heme/Allergies: Negative for environmental allergies and polydipsia. Does not bruise/bleed easily. Psychiatric/Behavioral: Negative for depression, hallucinations, memory loss, substance abuse and suicidal ideas. The patient is not nervous/anxious and does not have insomnia. Physical Examination: Vitals:BP 128/82 Pulse 108 Wt 143 lb (64.9kg) SpO2 98% BP w/Orthostatic Vitals Date and Time Orthostatic BP Orthostatic Pulse BP Pulse BP Position BP Site BP Cuff Size 04/29/24 1502 -- -- 128/82 108 -- -- -- Last 2 Encounter Wt Readings: Date: Wt: 04/29/2024 64.9 kg (143 lb) 02/22/2017 76.9 kg (169 lb 8 oz) Phys (more content not included)... [facility] 04-29-2024 History of Present illness Narrative Images from the original note were not included. Leroy Barragan MD Interventional Cardiology [address] [place] [address] [phone] Chief Complaint Patient presents with: New Patient HISTORY OF PRESENT ILLNESS: Ms. 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 Denies chest pain or shortness of breath no angina no signs or symptoms of congestive heart failure 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, not stated as uncontrolled (HCC) Unspecified hypothyroidism PAST SURGICAL HISTORY Procedure Laterality Date CHOLECYSTECTOMY Cholecystectomy INJ RADIOACTIVE TRACER FOR ID OF SENTINEL NODE 09-22-06 right INSJ TUNNELED CTR VAD W/SUBQ PORT AGE 5 YR/> 10-27-06 left MASTEC,MOD RADICAL 09-22-06 right STEREO LOC FOR CORE BRST BX RT 08-30-06 right THYROIDECTOMY TOTAL/COMPLETE right TONSILLECTOMY PRIMARY/SECONDARY <AGE 12 Tonsillectomy FAMILY HISTORY Problem Relation Age of Onset Cancer Mother esophagus, lymph nodes Hypertension Mother Psychiatry Mother Cancer Father bladder, lung Coronary Artery Disease Father Ischemic Heart Disease Father Hypertension Father Stroke Father 70 Psychiatry Sister Diabetes Maternal Grandfather Stroke Paternal Grandmother Stroke Paternal Grandfather 80 Social History Tobacco Use Smoking status: Never Smokeless tobacco: Never Substance Use Topics Alcohol use: Yes Comment: occassion Drug use: No ALLERGIES Allergen Reactions No Known Allergies Medications: Current Outpatient Medications Medication Sig Dispense Refill aspirin, enteric coated (ADULT LOW DOSE ASPIRIN) 81 mg EC tablet Take 1 tablet by mouth once daily. atorvastatin (LIPITOR) 40 mg tablet Take 1 tablet by mouth once daily. levothyroxine (SYNTHROID) 25 mcg tablet Take 1 tablet by mouth once daily. losartan (COZAAR) 25 mg tablet Take 1 tablet by mouth once daily. potassium chloride ER (KLOR-CON M20) 20 mEq tablet Take 1 tablet by mouth two times a day. traZODone (DESYREL) 100 mg tablet Take 100 mg by mouth daily at bedtime. metoprolol tartrate, short acting, (LOPRESSOR) 25 mg tablet Take 1 tablet by mouth two times a day. 60 tablet 3 No current facility-administered medications for this visit. Review of Systems Constitutional: Negative for chills, diaphoresis, fever, malaise/fatigue and weight loss. HENT: Negative for congestion, ear discharge, ear pain, hearing loss, nosebleeds, sinus pain, sore throat and tinnitus. Eyes: Negative for blurred vision, double vision, photophobia, pain, discharge and redness. Respiratory: Negative for cough, hemoptysis, sputum production, shortness of breath, wheezing and stridor. Cardiovascular: Negative for chest pain, palpitations, orthopnea, claudication, leg swelling and PND. Gastrointestinal: Negative for abdominal pain, blood in stool, constipation, diarrhea, heartburn, melena, nausea and vomiting. Genitourinary: Negative for dysuria, flank pain, frequency, hematuria and urgency. Musculoskeletal: Negative for back pain, falls, joint pain, myalgias and neck pain. Skin: Negative for itching and rash. Neurological: Negative for dizziness, tingling, tremors, sensory change, speech change, focal weakness, seizures, loss of consciousness, weakness and headaches. Endo/Heme/Allergies: Negative for environmental allergies and polydipsia. Does not bruise/bleed easily. Psychiatric/Behavioral: Negative for depression, hallucinations, memory loss, substance abuse and suicidal ideas. The patient is not nervous/anxious and does not have insomnia. Physical Examination: Vitals:BP 128/82 Pulse 108 Wt 143 lb (64.9kg) SpO2 98% BP w/Orthostatic Vitals Date and Time Orthostatic BP Orthostatic Pulse BP Pulse BP Position BP Site BP Cuff Size 04/29/24 1502 -- -- 128/82 108 -- -- -- Last 2 Encounter Wt Readings: Date: Wt: 04/29/2024 64.9 kg (143 lb) 02/22/2017 76.9 kg (169 lb 8 oz) Physical Exam Constitutional: General: She is not in acute distress. Appearance: She is not diaphoretic. HENT: Head: Normocephalic and atraumatic. Right Ear: External ear normal. Left Ear: External ear normal. Nose: Nose normal. Mouth/Throat: Pharynx: Oropharynx is clear. Eyes: General: Right eye: No discharge. Left eye: No discharge. Conjunctiva/sclera: Conjunctivae normal. Pupils: Pupils are equal, round, and reactive to light. Cardiovascular: Rate and Rhythm: Normal rate and regular rhythm. Heart sounds: Normal heart sounds, S1 normal and S2 normal. No murmur heard. No friction rub. No gallop. No S3 or S4 sounds. Pulmonary: Effort: Pulmonary effort is normal. No respiratory distress. Breath sounds: Normal breath sounds. No wheezing or rales. Chest: Chest wall: No tenderness. Abdominal: General: Abdomen is flat. Musculoskeletal: General: Normal range of motion. Cervical back: Normal range of motion and neck supple. Skin: General: Skin is warm and dry. Neurological: Mental Status: She is alert and oriented to person, place, and time. Psychiatric: Mood and Affect: Mood normal. Thought Content: Thought content normal. Pertinent Labs: CBC: Hemoglobin (g/dL) Date Value 08/27/2014 12.7 Hematocrit (%) Date Value 08/27/2014 36.9 WBC (thou/cmm) Date Value 08/27/2014 10.1 Platelet Count (thou/cmm) Date Value 08/27/2014 143 BMP: Glucose (mg/dL) Date Value 08/27/2014 132 Potassium (mEq/L) Date Value 08/27/2014 2.7 Sodium (mEq/L) Date Value 08/27/2014 144 Chloride (mEq/L) Date Value 08/27/2014 108 CO2 (mEq/L) Date Value 08/27/2014 27 Creatinine (mg/dL) Date Value 08/27/2014 0.81 BUN (mg/dL) Date Value 08/27/2014 9 Anion Gap (no units) Date Value 08/27/2014 12 Calcium (mg/dL) Date Value 08/27/2014 8.3 INR: Lipid Profile: LDL Chol, Nicolasa Date Value Ref Range Status 03/25/2010 129 0 - 129 mg/dL Final Hemoglobin A1C: No results found for: HGBA1C TSH: No results found for: TSHREFL Prior Cardiac Testing EKG Assessment and Plan: 78 years old female patient prior history of stroke history comes with abnormal Holter monitor shows recurrent episodes of supraventricular tachycardia ASSESSMENT/PLAN: 1. Screening for ischemic heart disease - ICD9: V81.0, ICD10: Z13.6 (primary diagnosis) 7 obstructive coronary disease no angina we will continue medical therapy - ECG COMPLETE 2. SVT (supraventricular tachycardia) (HCC) - ICD9: 427.89, ICD10: I47.10 Holter monitor shows likely recurrent episodes of supraventricular tachycardia atrial fibrillation cannot be excluded completely I had extensive discussion with the patient regarding anticoagulation with the risk benefits equation in terms of intracranial bleed versus reduction of stroke particular this patient had 2 separate aneurysm detected by MRI Time. Will repeat her Zio patch again to assess for any evidence of atrial fibrillation She could be considered for Watchman procedure if risk of bleeding with aneurysms high with anticoagulant - ECG COMPLETE - OUTSIDE VENDOR CARDIAC OUTPATIENT EXTENDED RHYTHM RECORDING (WITHOUT TELEMETRY) 3. Pure hypercholesterolemia - ICD9: 272.0, ICD10: E78.00 ON STATIN Leroy Barragan MD Follow up plannin months Electronically signed by Leroy Barragan MD on April 29, 2024, 3:50 PM The above note was partially created using a dictation recognition software. A reasonable attempt has been made to correct any errors. documented in this encounter [facility] 04-29-2024 Note HNO ID: [id number] Author: LEROY BARRAGAN MD Service: ? Author Type: Physician Type: Procedures Filed: 05/24/2024 16:50 Note Text: Patient Name: Gladis Street : 1945 Ordering Provider: Leroy Barragan Indication: I47.10 Supraventricular Tachycardia, unspecified Type of Monitor: Extended Monitoring-Zio Patch Enrollment Dates: 04/29/2024-05/13/2024 IRHYTHM FINDINGS: Patient had a min HR of 49 bpm, max HR of 190 bpm, and avg HR of 76 bpm. Predominant underlying rhythm was Sinus Rhythm. 1 run of Ventricular Tachycardia occurred lasting 5 beats with a max rate of 112 bpm (avg 102 bpm). 18 Supraventricular Tachycardia runs occurred, the run with the fastest interval lasting 6 beats with a max rate of 190 bpm, the longest lasting 16 beats with an avg rate of 117 bpm. Some episodes of Supraventricular Tachycardia may be possible Atrial Tachycardia with variable block. Isolated SVEs were occasional (1.8%, 09256), SVE Couplets were rare (<1.0%, 180), and SVE Triplets were rare (<1.0%, 30). Isolated VEs were rare (<1.0%, 864), VE Couplets were rare (<1.0%, 16), and VE Triplets were rare (<1.0%, 1). [facility] 02-09-2024 Telephone encounter Note Called pt re zio results, no answer, left detailed message on identified vm Per Bianka Olmos PINKING MACHINE OPERATOR-there was no evidence of heart rhythms that would increase risk of stroke (atrial fibrillation) however does show some runs of tachycardia and vtach that I would like her to see a ben day artist for. Referral placed. Cardiology appt- [phone] [facility] 02-09-2024 Miscellaneous Notes Called pt re zio results, no answer, left detailed message on identified vm Per Bianka Olmos CNP-there was no evidence of heart rhythms that would increase risk of stroke (atrial fibrillation) however does show some runs of tachycardia and vtach that I would like her to see a ben day artist for. Referral placed. Cardiology appt- [phone] documented in this encounter [facility] 01-18-2024 Instructions Bianka Olmos APRN.TRAVIS - 01/18/2024 2:51 PM EDT Images from the original note were not included. Regarding your visit with Nurse Practitioner Bianka Olmos today at the [facility] we discussed the following: Recommendations: Outpatient heart monitor (Zio Patch) for 14 days. Please return in the mail upon completion per package instructions. We will notify you of results. Continue aspirin 81 mg daily for stroke prevention Regular follow up with primary care doctor for health maintenance Assist ensuring blood pressure and cholesterol are at goal Screen and manage diabetes Lifestyle modification -- Establish goals Diet Regular exercise Establish weight goals with primary care doctor Additional stroke reduction measures and stroke warning signs are listed below. Return to clinic in 1 year following MRA imaging for monitor of your aneurysms Please do not hesitate to call if you have any questions Bianka Olmos CNP [facility] Nurse Practitioner [place], [place] [address] Office: [phone] Appointments: [phone] Stroke Signs and Symptoms: *Stroke is a medical emergency. Know the warning signs of stroke: Sudden numbness or weakness of the face, arm or leg, especially on one side of the body Sudden confusion, trouble speaking, or understanding Sudden trouble seeing in one eye, or both eyes Sudden trouble walking, dizziness, loss of balance, or coordination Sudden severe headache with no known cause *If you, or someone with you, has one or more of these signs, don't delay! Immediately call 911, or the emergency medical services (EMS) number so an ambulance can be sent for you. Also, check the time so that you will know when the symptoms first appeared. It is very important to take immediate action, every second counts. Medical treatment may be available if action is taken early enough. ~~~~~~~~~~~~~~~~~~~~~~~~~~~~~~~~~~ ~~~~~~~~~~~~~~~~~~~~~~~~~~~~~~~~~ General Guidelines to Help Reduce Risk of Recurrent Stroke Blood Pressure Management: Blood Pressure reduction is recommended for both prevention of recurrent stroke and prevention of other vascular events in persons who have had an ischemic stroke or TIA and are beyond the first 24 hours. Several lifestyle modifications have been associated with BP reduction and are a reasonable part of a comprehensive antihypertensive therapy. These modifications include: Salt restriction (less than 2 grams per day) Weight loss Consumption of a diet rich in fruits, vegetables, and low-fat products Regular aerobic physical activity Limited alcohol consumption Goal: Prehypertension (BP less than 130/80 mm Hg): - Perform annual BP screening and lifestyle modifications Hypertension: (BP greater than or equal to 130/80 mm Hg) - Combine medications with above lifestyle modifications to reach your goal blood pressure as defined above. - Monitor your blood pressure at home regularly to ensure you are reaching your goals Diabetes Mellitus: The goal for glycemic control should be individualized based on the risk for adverse events, patient characteristics and preferences, and, for most patients with diabetes, achieving a goal of HbA1c ?7% is recommended to reduce risk for microvascular complications.Treatment of diabetes should include glucose-lowering medications with proven cardiovascular benefit to reduce the risk for future major adverse cardiovascular events (eg, stroke, heart attack) Cholesterol and Lipid Management Statin (rosuvastatin or atorvastatin) therapy with intensive lipid-lowering effects is recommended to reduce risk of stroke and cardiovascular events among patient with ischemic stroke or TIA who have LDL cholesterol > 100 mg/dL, or evidence of atherosclerosis. A goal of LDL cholesterol < 70 mg/dL for stroke or TIA patients on lipid lowering therapy is recommended. Ezetimibe in combination with statin therapy to lower the LDL cholesterol < 70 mg/DL is recommended, if statin therapy alone is insufficient to attain this treatment target. For patients with ischemic stroke at very high risk, already taking maximally tolerated statin and ezetimibe and still have an LDL cholesterol > 70 mg/dL, it is reasonable to treat with a proprotein convertase subtilisin/kexin type 9 (PCSK9) inhibitor to prevent atherosclerotic cardiovascular or cerebrovascular events. In patients with ischemic stroke or TIA, with fasting triglycerides 135 to 499 mg/dL and LDL cholesterol of 41 to 100 mg/dL, on moderate- or high-intensity statin therapy, with HbA1c <10%, and with no history of pancreatitis, atrial fibrillation, or severe heart failure, treatment with icosapent ethyl (IPE) 2 g twice a day is reasonable to reduce risk of recurrent stroke Diet: Reduced sodium and increased potassium intake; DASH-style diet rich in fruits and vegetables (https://www.nhlbi.nih.gov/educati on/eooy-pvomzv-pkky) Consider Mediterranean diet supplemented with nuts Smoking and Tobacco Use: Strongly recommend smoking and tobacco use cessation to reduce risk of stroke. Counseling, nicotine products, and oral smoking cessation medications are effective for helping smokers quit and can be provided if needed. Alcohol Consumption: Patients with ischemic stroke or TIA who drink greater than or equal to 2 alcoholic drinks a day, should eliminate alcohol use or reduce their consumption of alcohol to less than equal to 1 alcohol drink per day to reduce stroke risk Exercise: In patients with stroke or TIA who are capable of physical activity, engaging in at least moderate-intensity aerobic activity for a minimum of 10 minutes 4 times a week or vigorous-intensity aerobic activity for a minimum of 20 minutes twice a week is indicated to lower the risk of recurrent stroke In patients with deficits after stroke that impair their ability to exercise, supervision of an exercise program by a health cardiac care nurse such as a physical therapist or cardiac rehabilitation professional, in addition to routine rehabilitation, can be beneficial for secondary stroke prevention In individuals with stroke or TIA who sit for long periods of uninterrupted time during the day, it may be reasonable to recommend breaking up sedentary time with intervals as short as 3 minutes of standing or light exercise every 30 minutes for their cardiovascular health Adapted from the [place] [employer]/[place] [employer]: 2021 Guideline for the Prevention of Stroke in Patients With Stroke and Transient Ischemic Attack documented in this encounter [facility] 01-18-2024 Note HNO ID: [id number] Author: BIANKA OLMOS APRN.CNP Service: ? Author Type: Nurse Practitioner Type: Progress Notes Filed: 01/18/2024 14:54 Note Text: [facility] Established Visit Patient consents to this virtual visit using [employer] Video Visit. The visit required patient-provider interaction for the medical decision making as documented below. I have communicated my name and active licensure. The patient's identity and physical location were verified at the time of this visit. Either the patient or their legal customer operations representative has been informed of the risks and benefits of -- and alternatives to -- treatment through a remote evaluation and consents to proceed with the evaluation remotely. Gladis Street [facility]#: [id number] Date of Service: 01/18/2024 Primary Care Provider: Ari Medina MD OUTPATIENT CONSULTATION Reason for Visit: 78 year old female with significant past medical history of breast cancer status post chemotherapy and radiation, hypertension, hyperlipidemia, and stroke 05/20/2023 who initially presented to outside hospital with left-sided weakness. She was found to have acute right basal ganglia infarct. 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 She underwent evaluation by inpatient team and had virtual consultation during her hospitalization. She reports surgery was recommended but has been waiting to hear back from the neurosurgery team for further recommendations. She was initially seen in consultation for her aneurysm finding in 05/2024. Continued observation was recommended with follow-up study in 6 months. She was seen last in 12/2023 at which time MRA demonstrated stable ACOM aneurysm and noted right MCA trifurcation outpouching stable in comparison to prior study. She discussed stroke follow-up with the last provider and presents today to discuss her stroke management. She reports left facial drooping, left arm/leg weakness and vision loss secondary to her stroke that has since resolved. Her daughter initially stayed with her upon her discharge home. She completed home physical and occupational therapy following her discharge.She notes difficulty with fine motor skills such as buttoning a shirt. She has resumed ADLs and now lives independently. She remains on aspirin (previously completing 21 day course of clopidogrel). She has a history of hypertension on antihypertensives. She denies personal history of hyperlipidemia or diabetes. She is a never smoker. Denies cardiac history or symptoms of heart palpitations, shortness of breath or lightheadedness. No new focal neurologic symptoms but notes recent dropping of objects from her right hand. She denies any associated unilateral right arm or leg weakness. No facial drooping, vision or speech changes. No known family history of brain aneurysms, [...] Cause Vitamin D Deficiency PAST SURGICAL HISTORY 09-22-06: IDENTIFY SENTINEL NODE Comment: right 09-22-06: MASTEC,MOD RADICAL Comment: right No date: REMOVAL GALLBLADDER Comment: Cholecystectomy No date: REMOVAL OF TONSILS,<12 Y/O Comment: Tonsillectomy 08-30-06: STEREO LOC FOR CORE BRST BX RT Comment: right No date: THYROIDECTOMY Comment: right 10-27-06: TUNNEL VAD W SUB Q PORT >=5 Comment: left Allergies: No Known Allergies Medications: Current Outpatient Medications Medication Sig aspirin, enteric coated (ADULT LOW DOSE ASPIRIN) 81 mg EC tablet Take 1 tablet by mouth once daily. clopidogrel (PLAVIX) 75 mg tablet Take 1 tablet by mouth once daily. atorvastatin (LIPITOR) 40 mg tablet Take 1 tablet by mouth once daily. levothyroxine (SYNTHROID) 25 mcg tablet Take 1 tablet by mouth once daily. losartan (COZAAR) 25 mg tablet Take 1 tablet by mouth once daily. potassium chloride ER (KLOR-CON M20) 20 mEq tablet Take 1 tablet by mouth two times a day. traZODone (DESYREL) 100 mg tablet Take 100 mg by mouth daily at bedtime. No current facility-administered medications for this visit. Social History Tobacco Use Smoking status: Never Smokeless tobacco: Never Substance Use Topics Alcohol use: Yes Comment: occassion Drug use: No Family History: Subarachnoid hemorrhage: None Aneurysms: Yes, mother with abdominal aneurysm Stroke: None Vascular malformations: (more content not included)... [facility] 01-18-2024 History of Present illness Narrative [facility] Established Visit Patient consents to this virtual visit using Educerust Zoom Video Visit. The visit required patient-provider interaction for the medical decision making as documented below. I have communicated my name and active licensure. The patient's identity and physical location were verified at the time of this visit. Either the patient or their legal customer operations representative has been informed of the risks and benefits of -- and alternatives to -- treatment through a remote evaluation and consents to proceed with the evaluation remotely. Gladis Street [facility]#: [id number] Date of Service: 01/18/2024 Primary Care Provider: Ari Medina MD OUTPATIENT CONSULTATION Reason for Visit: 78 year old female with significant past medical history of breast cancer status post chemotherapy and radiation, hypertension, hyperlipidemia, and stroke 05/20/2023 who initially presented to outside hospital with left-sided weakness. She was found to have acute right basal ganglia infarct. 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 She underwent evaluation by inpatient team and had virtual consultation during her hospitalization. She reports surgery was recommended but has been waiting to hear back from the neurosurgery team for further recommendations. She was initially seen in consultation for her aneurysm finding in 05/2024. Continued observation was recommended with follow-up study in 6 months. She was seen last in 12/2023 at which time MRA demonstrated stable ACOM aneurysm and noted right MCA trifurcation outpouching stable in comparison to prior study. She discussed stroke follow-up with the last provider and presents today to discuss her stroke management. She reports left facial drooping, left arm/leg weakness and vision loss secondary to her stroke that has since resolved. Her daughter initially stayed with her upon her discharge home. She completed home physical and occupational therapy following her discharge.She notes difficulty with fine motor skills such as buttoning a shirt. She has resumed ADLs and now lives independently. She remains on aspirin (previously completing 21 day course of clopidogrel). She has a history of hypertension on antihypertensives. She denies personal history of hyperlipidemia or diabetes. She is a never smoker. Denies cardiac history or symptoms of heart palpitations, shortness of breath or lightheadedness. No new focal neurologic symptoms but notes recent dropping of objects from her right hand. She denies any associated unilateral right arm or leg weakness. No facial drooping, vision or speech changes. No known family history of brain aneurysms, [...] Cause Vitamin D Deficiency PAST SURGICAL HISTORY 09-22-06: IDENTIFY SENTINEL NODE Comment: right 09-22-06: MASTEC,MOD RADICAL Comment: right No date: REMOVAL GALLBLADDER Comment: Cholecystectomy No date: REMOVAL OF TONSILS,<12 Y/O Comment: Tonsillectomy 08-30-06: STEREO LOC FOR CORE BRST BX RT Comment: right No date: THYROIDECTOMY Comment: right 10-27-06: TUNNEL VAD W SUB Q PORT >=5 Comment: left Allergies: No Known Allergies Medications: Current Outpatient Medications Medication Sig aspirin, enteric coated (ADULT LOW DOSE ASPIRIN) 81 mg EC tablet Take 1 tablet by mouth once daily. clopidogrel (PLAVIX) 75 mg tablet Take 1 tablet by mouth once daily. atorvastatin (LIPITOR) 40 mg tablet Take 1 tablet by mouth once daily. levothyroxine (SYNTHROID) 25 mcg tablet Take 1 tablet by mouth once daily. losartan (COZAAR) 25 mg tablet Take 1 tablet by mouth once daily. potassium chloride ER (KLOR-CON M20) 20 mEq tablet Take 1 tablet by mouth two times a day. traZODone (DESYREL) 100 mg tablet Take 100 mg by mouth daily at bedtime. No current facility-administered medications for this visit. [...] weakness. Negative for headaches. Patient Entered Questionnaires 05/31/2023 Health Status Impact by Stroke or CVD Impact Very little PROMIS/NeuroQoL Score Percentiles 01/15/2024 11/28/2023 05/31/2023 Physical Health Physical Function Percentile 4 12 21* Sleep Percentile 66 62 58 Fatigue Percentile 46 54 46 Pain Interference Percentile 84 84 01/15/2024 11/28/2023 05/31/2023 PROMIS SOCIAL ROLE SCORE Social Role Satisfaction Percentile 38 16* 84 01/15/2024 11/28/2023 05/31/2023 Mental Health NeuroQol Cognitive Function Percentile 38 46 58 General Self-Efficacy Percentile 54 46 95 12/25/2023 11/28/2023 05/31/2023 PROMIS Global Health Scale Physical Health Percentile 53 53 53 78 Mental Health Percentile 73 73 73 82 Percentiles provide an indication of how a patient's score ranks in relation to the [place] general population. > 31st percentile is within normal limits or better * < 31st percentile is at least SD worse than population, which may be clinically relevant < 16th percentile is at least 1 SD worse than population and warrants attention Depression Screenin12/25/2023 11/28/2023 05/31/2023 PHQ-9 Score 1 2 2 1 Self-Harm Response Not at all Not at all Not at all PHQ-9 Scores: PHQ-9 Self-Harm (Item 9) Response: 0 - 9 No to Mild depression 0 - Not at all 10 - 14 Moderate depression 1 - Several Days > 15 Severe depression 2 - More than half the days 3 - Nearly every day 05/31/2023 Sleep Apnea Probability Score Probability (%) 39 (Sleep study not recommended) PHYSICAL EXAMINATION There were no vitals taken for this visit. Limited in setting of video visit General: Pleasant, well-developed, well-nourished, in no acute distress. HEENT: Normocephalic, atraumatic. Lungs: Respirations even and unlabored. Skin: No rash or ecchymoses visible. Neurological: Awake, alert, oriented to person, place, and time. Speech fluent, no dysarthria. Good attention and insight into illness. Cranial Nerves: Extraocular movements grossly intact. Facial movements appear normal and symmetric. Motor: Moves upper extremities freely. IMAGING CTA head/neck with contrast (05/22/2023): IMPRESSION: A 2 x 2 inferiorly projecting outpouching is seen from the left A1 A2 junction of the anterior cerebral artery and is concerning for a small aneurysm. No evidence of major vessel cut off or hemodynamically significant stenosis is noted. 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 Etiology likely secondary to small vessel disease Unruptured 2 mm ACOM outpouching concerning for small aneurysm Right MCA trifurcation outpouching concerning for small aneurysm Hypertension, controlled PLAN Continue aspirin 81 mg daily Recommend Zio patch monitor x 14 days Discussed aneurysm monitoring with noninvasive imaging (CTA/MRA) versus cerebral angiogram for further assessment of her aneurysms. We discussed risks and benefits of a diagnostic cerebral angiogram which include, but are not limited to, a very low risk of infection, bleeding, vessel injury or stroke, totaling less than 1%. We discussed the indication for a diagnostic cerebral angiogram in the current context, as well as the patient's concerns. She wishes to pursue noninvasive imaging at this time. Optimization of risk factors Blood pressure management: goal BP less than 140/90, continue antihypertensives as prescribed. Recommend home blood pressure monitoring twice daily. Notify primary care provider of elevated readings. Refrain from tobacco use Reviewed signs and symptoms warranting emergent neurologic evaluation. Return to clinic in 1 year following MRA imaging for aneurysm surveillance I spent a total of 40 minutes on the date of the service which included preparing to see the patient, [id number] patient care, completing clinical documentation, obtaining and/or reviewing separately obtained history, performing a medically appropriate examination, ordering medications, tests, or procedures, independently interpreting results (not separately reported), and communicating results to the patient/family/caregiver. SIGNATURE Bianka Olmos APRN.CNP 01/18/2024 documented in this encounter [facility] 07-24-2024 History of Present illness Narrative [facility] Virtual Visit Patient consents to this virtual visit using Educerust Zoom Video Visit. The visit required patient-provider interaction for the medical decision making as documented below. I have communicated my name and active licensure. The patient's identity and physical location were verified at the time of this visit. Either the patient or their legal customer operations representative has been informed of the risks and benefits of -- and alternatives to -- treatment through a remote evaluation and consents to proceed with the evaluation remotely. 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 This is 6 month PCP: Ari Medina MD Reason for visit: Unruptured aneurysm History of Event: Ms. Street is a very nice 78M, PMH of Breast ca, HTN, HLD, RIGHT BG infarct 05/20/23, who returns today for continued evaluation of 2mm LEFT A1/A2 junction incidental aneurysm. Non-smoker, no family history of cerebral aneurysm. The patient presents today via virtual visit to review 6 month follow up MRA brain wo. Interval History: - CARLENE:06/01/23 - Symptoms: -The patient relays her LEFT sided weakness, facial droop and vision issues have completely resolved following the stroke -Admits to experiencing word finding issues sometimes as well as worsening memory. No new or progressively worsening -Denies headaches or speech issues. Denies new or worsening neurologic s/s -Patient would like to address the cause of her stroke -Notes she discontinued her Plavix 17 days after stroke as instructed - BP- Compliant with medication. - AP/AC-ASA Tobacco-No ETOH-No Family history Subarachnoid hemorrhage: No Aneurysms: No Stroke: Paternal grandmother and grandfather Vascular malformations: No Other neurologic diseases: Paternal grandfather-seizure Handedness: RIGHT Hypertension NA Coronary Artery Disease NA Diabetes Y Obesity NA Dyslipidemia NA Tobacco Use (Please Update Smoking History) NA Stroke NA Intracranial Aneurysm NA Past Medical History: ACTIVE PROBLEM LIST Malignant [...] Allergies Medications: Current Outpatient Medications Medication Sig aspirin, enteric coated (ADULT LOW DOSE ASPIRIN) 81 mg EC tablet Take 1 tablet by mouth once daily. clopidogrel (PLAVIX) 75 mg tablet Take 1 tablet by mouth once daily. atorvastatin (LIPITOR) 40 mg tablet Take 1 tablet by mouth once daily. levothyroxine (SYNTHROID) 25 mcg tablet Take 1 tablet by mouth once daily. losartan (COZAAR) 25 mg tablet Take 1 tablet by mouth once daily. potassium chloride ER (KLOR-CON M20) 20 mEq tablet Take 1 tablet by mouth two times a day. traZODone (DESYREL) 100 mg tablet Take 100 mg by mouth daily at bedtime. No current facility-administered medications for this visit. Social History Tobacco Use Smoking status: Never Smokeless tobacco: Never Substance Use Topics Alcohol use: Yes Comment: occassion Drug use: No Review of Systems Eyes: Negative for visual disturbance and vision loss. Respiratory: Negative for shortness of breath. Cardiovascular: Negative for chest pain and palpitations. Gastrointestinal: Negative for nausea and vomiting. Neurological: Positive for memory difficulty. Negative for dizziness, headaches, numbness/tingling, slurred speech and weakness. See HPI. Patient Entered Questionnaires 05/31/2023 Health Status Impact by Stroke or CVD Impact Very little 12/25/2023 11/28/2023 Health Status Change Since Last Visit Change Much improved Much improved PROMIS/NeuroQoL Score Percentiles 11/28/2023 05/31/2023 Physical Health Physical Function Percentile 12 21* Sleep Percentile 62 58 Fatigue Percentile 54 46 Pain Interference Percentile 84 11/28/2023 05/31/2023 PROMIS SOCIAL ROLE SCORE Social Role Satisfaction Percentile 16* 84 11/28/2023 05/31/2023 Mental Health NeuroQol Cognitive Function Percentile 46 58 General Self-Efficacy Percentile 46 95 12/25/2023 11/28/2023 05/31/2023 PROMIS Global Health Scale Physical Health Percentile 53 53 53 78 Mental Health Percentile 73 73 73 82 Percentiles provide an indication of how a patient's score ranks in relation to the [place] general population. > 31st percentile is within normal limits or better * < 31st percentile is at least SD worse than population, which may be clinically relevant < 16th percentile is at least 1 SD worse than population and warrants attention Depression Screenin12/25/2023 11/28/2023 05/31/2023 PHQ-9 Score 1 2 2 1 Self-Harm Response Not at all Not at all Not at all PHQ-9 Scores: PHQ-9 Self-Harm (Item 9) Response: 0 - 9 No to Mild depression 0 - Not at all 10 - 14 Moderate depression 1 - Several Days > 15 Severe depression 2 - More than half the days 3 - Nearly every day 05/31/2023 Sleep Apnea Probability Score Probability (%) 39 (Sleep study not recommended) PHYSICAL EXAMINATION There were no vitals taken for this visit. General: Well-developed, well-nourished, in no acute distress. Limited in setting of video visit General: Pleasant, well-developed, well-nourished, in no acute distress. HEENT: Normocephalic, atraumatic. Lungs: Respirations even and unlabored. Skin: No rash or ecchymoses visible. Neurological: Awake, alert, oriented to person, place, and time. Speech fluent, no dysarthria. Good attention and insight into illness. Cranial Nerves: Extraocular movements grossly intact. Facial movements appear normal and symmetric. Motor: Moves upper extremities freely. IMAGING MRA brain wo (11/21/23): Similar size of 3 to 4 mm aneurysm along the junction of the anterior communicating artery and the left A1 and A2 LASHONDA segments. Unchanged 3 to 4 mm aneurysm arising along the right MCA trifurcation incorporating the origins of two M2 MCA branches Reviewed. Stable compared to OSH imaging from 05/2023. LABS N/A IMPRESSION This is a very nice 78F who presents today for continued evaluation of 2 intracranial aneurysms incidentally found during stroke work up. PMH of HTN, non-smoker, no family history of cerebral aneurysm. The patient is doing well with resolution of her weakness following the RIGHT BG infarct, no new or worsening neurologic s/s. Imaging reviewed demonstrating stable 3mm intracranial aneurysms stable compared to 2022 OSH imaging. PLAN - Imaging reviewed with patient. Stable. Reiterated the natural history of cerebral aneurysms - Recommend one year follow up MRA brain wo - Will discuss continued stroke work up for etiology with stroke neurology at patient's request - Continue ASA 81mg - Discussed the importance of continued smoking cessation as well as good BP control Goal blood pressure is SBP less than 140 (top number) and DBP less than 90 (bottom number). Notify your PCP with any elevated blood pressure readings. - Reviewed s/s for which to present to the ED All questions/concerns addressed and patient is agreeable to this plan. I spent a total of 30 minutes on the date of the service which included preparing to see the patient, [id number] patient care, completing clinical documentation, obtaining and/or reviewing separately obtained history, performing a medically appropriate examination, counseling and educating the patient/family/caregiver, ordering medications, tests, or procedures, communicating with other HCPs (not separately reported), independently interpreting results (not separately reported), communicating results to the patient/family/caregiver, and care coordination (not separately reported). SIGNATURE Loretta Hernandez PA-C December 27, 2023 documented in this encounter [facility] 11-21-2023 History of Present illness Narrative Radiology Service Progress Note PATIENT NAME: Gladis Street DATE OF SERVICE: November 21, 2023 TIME: 1:08 PM PATIENT IDENTITY VERIFICATION COMPLETED USING TWO (2) IDENTIFIERS: Name and Date of confirmed by patient verbally. FALL SCREENING: Has the patient had 2 falls in the last year or 1 fall with injury or currently using an Ambulatory Assistive Device (Walker, Cane, Wheelchair, Crutches, etc.)? No PATIENT GENDER DATA: Female. status: : No status: NO. PATIENT RELEVANT IMPLANT DATA REVIEWED: Yes PATIENT PRESENTS WITH AN IMPLANTABLE OR ATTACHED DCS ENGINEER: No RADIOLOGY DEPARTMENT: MR; Exam(s) Completed: Head: [place] [facility] MRA PERIPHERAL IV DATA: Not applicable SIGNED BY: Jaymie Demarco RT(R) November 21, 2023 1:08 PM documented in this encounter [facility] 06-18-2021 History of Present illness Narrative Gladis Street, a 76 year old female, arrives [...] you for this referral and please call [phone] with any questions or concerns.Clinical Presentation: Stable and/or uncomplicated characteristics.Level of Complexity: lowProblem List: activity limitations, ADLs/IADLs/self care skills, balance, decreased knowledge of HEP, fall risk, gait/locomotion, pain, participation restrictions, range of motion/joint mobility and strength. [facility] Work Phone: Evaluation note Diagnosis Onset Date Hallux valgus (acquired), left foot acute Other hammer toe(s) (acquired), left foot acute Pain in left foot acute [facility] Work Phone: Evaluation noteNo assessment information available [facility] Work Phone: Evaluation note* Diagnosis Onset Date Resolution Status Capsulitis of left foot acut e Hallux rigidus, left foot ac [place] Pain in left foot acute [facility] Work Phone: Evaluation note* Diagnosis Nonruptured cerebral aneurysm Cerebral aneurysm, nonruptured [facility] Diagnosis Nonruptured cerebral aneurysm- Primary Cerebral aneurysm, nonruptured [facility]* Diagnosis Arterial ischemic stroke (HCC)- Primary Unspecified cerebral artery occlusion with cerebral infarction [facility]* Diagnosis Arterial ischemic stroke (HCC)- Primary Unspecified cerebral artery occlusion with cerebral infarction Essential hypertension Unspecified essential hypertension Intracranial aneurysm Cerebral aneurysm, nonruptured [facility]* Diagnosis Ventricular tachycardia (HCC)- Primary Paroxysmal ventricular tachycardia SVT (supraventricular tachycardia) (HCC) Other specified cardiac dysrhythmias [facility]* Diagnosis Screening for ischemic heart disease- Primary SVT (supraventricular tachycardia) (HCC) Other specified cardiac dysrhythmias Pure hypercholesterolemia [facility]* Diagnosis SVT (supraventricular tachycardia) (HCC)- Primary Other specified cardiac dysrhythmias [facility]* Diagnosis Nonruptured cerebral aneurysm (HCC) Cerebral aneurysm, nonruptured [facility] Diagnosis Nonruptured cerebral aneurysm (HCC)- Primary Cerebral aneurysm, nonruptured Essential hypertension Unspecified essential hypertension [facility] Verbal cues needed with TE/ROM this date. Fair tolerance without increased sx.'s. PROM applied to gr eat toe for ext/flex. Trial STM to top of foot and laterally along the incision, relief following session. * Response to treatment: decreased pain. [facility] Work Phone: History of Present illness Narrative* Fair tolerance to progressions in therapeutic exercise with no exacerbation of pain throughout. Increased restriction of extensor retinaculum and 1st MTP. Verbal cues with WB to only match 30% WB with good understanding. Patient WBs mostly through L heel. * Response to treatment: decreased pain. [facility] Work Phone: History of Present illness Narrative* Fair tolerance with exercises/stretches. Fatigue noted with isometrics for IR/ER. Tenderness noted with PROM to the great toe. STM applied with decrease in sx.'s. * Response to treatment: decreased pain. * Patient was able to complete today's treatment with some difficulty. [facility] Narr[facility]* Pt. continues with a lot of swelling with left foot as compared to her right foot. Progressed to ankle 4-ways with thera band (watch placement of band). No c/o increased sx.'s. Trial small balance board with patient in sitting for ROM. Decreased sx.'s noted following STM. * Response to treatment: decreased pain. * Patient was able to complete today's treatment with some difficulty. [facility] History of Present illness NarrativePatient tolerated treatment without increased discomfort. wearing walking boot on left LE. Patient has good form/understanding with ther-ex and reports compliance with HEP. Patient able to don/doff walking boot/brace indepentently. Continue with left foot strength, ROM to decrease discomfort and improve ambulation. [facility] Work Phone: History of Present illness Narrative* Patient identified by name & . Patient wore a mask during treatment d/t Covid-19 precautions. Treatment consisted of ther ex's forL ankle ROM and strengthening, gait and manual therapy. * Patient ambulating with FWW with WBAT and not 30%, she was not using UE to take weight off L LE. Patient's walker up too high and she was unable to put weight through UE's to take weight of L LE. Decreased height of walker and patient with improved ability to perform 30% WB'ing status. Pain level the same pre and post treatment. [facility] Narrative* Gladis Street is progressing fairly through their POC [...] all therapy goals and compliant in current HEP. * The pt will benefit from reassessment in 2 weeks to progress HEP and address remaining impairments.HEP including AROM exercises for L ankle and 1st MTP with isometrics provided d/t current weight bearing restrictions. Thank you for this referral and please call [phone] with any questions or concerns. * Response to treatment: no change in pain. [facility] Work Phone: Retjbu for referral (narrative)* Outpatient Procedure (Routine) - New Request Specialty Diagnoses / Procedures Referred By Angel peguero [facility] To [facility] Diagnoses Ventricular tachycardia (HCC) SVT (supraventricular tachycardia) (HCC) Screening for ischemic heart disease Procedures ECG COMPLETE ECG ROUTINE ECG W/LEAST 12 LDS W/I&R Leroy Barragan MD [address] [facility] [facility], [address] [place] [address] [facility] [place] [address] [place] [address] Referral ID Status Reason Start Date Expiration Date Visits Requested Visits Authorized [id number] New Request Auto-Generat ed Referral 4 04/29/2025 1 1 [facility] for referral (narrative)No reason for referral information availableWMercy Health Work Phone: Reason for visit Narrative* Initial Evaluation . L bunionectomy. * Referred by: Radha Khan DPM [facility] Work Phone: reason for visit Narrative* MRI/CT (Routine) - Closed Specialty Diagnoses / Procedures Referred By Angel peguero Referred To Contact [facility] Diagnoses Nonruptured cerebral aneurysm (HCC) Procedures MRA BRAIN WO IVCON MRA, HEAD W/O CONTRAST Loretta Hernandez PA-C [address] [place] [address] Phone: tel: fax: [place] [phone] Referral ID Status Reason Start Date Expiration Date V isits Requested Visits Authorized [id number] Closed Auto-Generate d Referral 12/18/2024 01/25/2025 1 1 [facility] Chief Complaint and Reason for Visit Chief Complaint IVIG BUNIONECTOMY, HAMMERTOE LEFT IVIG Reason for Visit Hallux valgus (acqui red), left foot Other hammer toe(s) (acquired), left foot Pain in left foot Chief Complaint BUNIONECTOMY, HAMMER TOE LEFT IVIG IVIG Reason for Visit Hallux valgus (acqui red), left foot Other hammer toe(s) (acquired), left foot Pain in left foot Chief Complaint IVIG IVIG IVIG Chief Complaint IVIG IVIG IVIG ABD PAIN Chief Complaint IVIG IVIG IVIG ABD PAIN LT ARTHRODESIS WITH INTERNAL FIXATION OF JOINT Reason for Visit Capsulitis of left f oot Hallux rigidus, left foot Pain in left foot Chief Complaint IVIG Chief Complaint IVIG IVIG Chief Complaint IVIG IVIG IVIG IVIG Chief Complaint IVIG IVIG IVIG IVIG IVIG Chief Complaint Admit Date April 19, 2024 10:30am [facility] May 17, 2024 11:43am [facility] June 14, 2024 1 0:23am [facility] July 12, 2024 1 0:58am [facility] August 09, 2024 10:2 3am Chief Complaint Admit Date May 17, 2024 11:43am [facility] June 14, 2024 1 0:23am [facility] July 12, 2024 1 0:58am [facility] August 09, 2024 10:2 3am [facility] September 06, 2024 10:2 5am Chief Complaint Admit Date July 12, 2024 1 0:58am [facility] August 09, 2024 10:2 3am [facility] September 06, 2024 10:2 5am [facility] October 04, 2024 10:36a m [facility] November 01, 2024 10:27 am Chief Complaint Admit Date August 09, 2024 10:2 3am [facility] September 06, 2024 10:2 5am [facility] October 04, 2024 10:36a m [facility] November 01, 2024 10:27 am Chief Complaint Admit Date OCTAGAAugust 09, 2024 10:2 3am [facility] September 06, 2024 10:2 5am [facility] October 04, 2024 10:36a m [facility] November 01, 2024 10:27 am [facility] November 29, 2024 10:0 8am Chief Complaint Admit Date OCT[facility] September 06, 2024 10:2 5am [facility] October 04, 2024 10:36a m [facility] November 01, 2024 10:27 am [facility] November 29, 2024 10:0 8am [facility] December 27, 2024 9:54 am Chief Complaint Admit Date [facility] October 04, 2024 10:36a m [facility] November 01, 2024 10:27 am [facility] November 29, 2024 10:0 8am [facility] December 27, 2024 9:54 am [facility] January 24, 2025 10 :19am Chief Complaint Admit Date OCTAGAM November 29, 2024 10:0 8am [facility] December 27, 2024 9:54 am [facility] January 24, 2025 10 :19am [facility] February 21, 2025 10:24am Chief Complaint Admit Date OCTAGA December 27, 2024 9:54 am [facility] January 24, 2025 10 :19am [facility] February 21, 2025 10:24am [facility] March 21, 2025 1 0:25am Advance Directives No Advanced Directives Records Found Advance Directive Response Recorded Date/ Time Living Will No June 11 1:54pm Power of Roofer [place] No June 11 022 1:54pm Advance Directive Response Recorded Date/ Time Living Will No November 05, 2021 9 :06am Power of Roofer [place] No November 05, 2021 9:06am Advance Directive Response Recorded Date/ Time Living Will No November 05, 2021 8 :06am Power of Roofer [place] No November 05, 2021 8:06am Summary Purpose Family History No Family History Records FoundNo Family History Records FoundNo Family History Records FoundNo Family History Records FoundNo Family History Records FoundNo Family History Records Found Reason for Referral Specialty Diagnoses / Procedures Referred By Contac t Referred To Contact [facility] Diagnoses Nonruptured cerebral aneurysm Procedures MRA BRAIN WO IVCON MRA, HEAD W/O CONTRAST Mikula, Bianka, DIGITAL PRE PRESS OPERATOR.PINKING MACHINE OPERATOR [address] [place] [address] Mr [facility] Referral ID Status Reason Start Date Expiration Date V isits Requested Visits Authorized [id number] Closed Auto-Generate d Referral 11/21/2023 06/30/2024 1 1 Specialty Diagnoses / Procedures Referred By Contac t Referred To Contact [facility]AG[facility] Diagnoses Nonruptured cerebral aneurysm Procedures MRA BRAIN WO IVCON MRA, HEAD W/O CONTRAST Loretta Hernandez PA-C [address] [place] [id number] [facility] Referral ID Status Reason Start Date Expiration Date Visits Requested Visits Authorized [id number] New Request Auto-Generat ed Referral 12/26/2024 01/25/2025 1 1 Specialty Diagnoses / Procedures Referred By Contac t Referred To Contact Cardiology Diagnoses Ventricular tachycardia (HCC) SVT (supraventricular tachycardia) (HCC) Procedures CONSULT TO CARDIOLOGY OFFICE/OUTPATIENT NEW HIGH MDM 60 MINUTES Bianka Olmos APRN.PINKING MACHINE OPERATOR [address] [id number] Referral ID Status Reason Start Date Expiration Date Visits Requested Visits Authorized [id number] Authorized PCP Requested Referral 02/09/2024 02/08/2025 1 1 Additional Source Comments Goals (unrecognized section and content) Goals may be documented in a n alternate sectionGoals may be documented in an alternate sectionGoals may be documented in an alternate sectionGoals may be documented in an alternate sectionGoals may be documented in an alternate sectionGoals may be documented in an alternate sectionGoals may be documented in an alternate sectionGoals may be documented in an alternate sectionGoals may be documented in an alternate sectionGoals may be documented in an alternate sectionGoals may be documented in an alternate sectionGoals may be documented in an alternate sectionGoals may be documented in an alternate sectionGoals may be documented in an alternate sectionGoals may be documented in an alternate sectionGoals may be documented in an alternate sectionGoals may be documented in an alternate sectionGoals may be documented in an alternate sectionGoals may be documented in an alternate sectionGoals may be documented in an alternate sectionGoals may be documented in an alternate sectionGoals may be documented in an alternate sectionGoals may be documented in an alternate sectionGoals may be documented in an alternate sectionGoals may be documented in an alternate sectionGoals may be documented in an alternate sectionGoals may be documented in an alternate sectionGoals may be documented in an alternate sectionGoals may be documented in an alternate sectionGoals may be documented in an alternate sectionGoals may be documented in an alternate sectionGoals may be documented in an alternate sectionGoals may be documented in an alternate sectionGoals may be documented in an alternate sectionGoals may be documented in an alternate section INFORMATION SOURCE (unrecogn ized section and content) DATE CREATED AUTHOR 10/28/2021 [email or web address] DATE CREATED AUTHOR AUTHOR'S ORGANIZ ATION 07/09/2023 [facility] DATE CREATED AUTHOR AUTHOR'S ORGANIZ ATION 02/22/2024 [facility] DATE CREATED AUTHOR AUTHOR'S ORGANIZ ATION 12/27/2024 [facility] DATE CREATED AUTHOR AUTHOR'S ORGANIZ ATION 03/18/2025 [facility] DATE CREATED AUTHOR AUTHOR'S ORGANIZ ATION 04/13/2025 [facility] Care Teams (unrecognized sec tion and content) Team Status: Active Member Role Status Dates Dr. Ari Medina MD Family Provider Active Dr. Ari Medina MD Primary Care Provider Active Team Status: Inactive Member Role Status Dates Dr. Ari Medina MD Primary Care Provi reyna, Attending Provider, Referring Provider Active Team Status: Inactive Member Role Status Dates Dr. Ari Medina MD Primary Care Provider, Attending Provider Active Team Status: Active Member Role Status Dates Dr. Ari Medina MD Primary Care Provider, Attending Provider Active Human Resources Advisor Relationship Specialty Start Date End Date Ari Medina Chi PCP - General Gerontology 02/22/17 Ari Medina Chi [address] [place] [address] NI Referring Team Gerontology 05/30/23 Human Resources Advisor Relationship Specialty Start Date End Date Ari Medina Chi PCP - General Gerontology 02/22/17 Ari Medina Chi [address] [place], [place] [id number] NI Referring Team Gerontology 05/30/23 Human Resources Advisor Relationship Specialty Start Date End Date Ari Medina Chi PCP - General Gerontology 02/22/17 Ari Medina Chi [address] [place], [place] [id number] NI Referring Team Gerontology 05/30/23 Human Resources Advisor Relationship Specialty Start Date End Date Ari Medina Chi PCP - General Gerontology 02/22/17 Ari Medina Chi [address] [place], [place] [id number] NI Referring Team Gerontology 05/30/23 Human Resources Advisor Relationship Specialty Start Date End Date Ari Medina Chi PCP - General Gerontology 02/22/17 Ari Medina Chi [address] [place] [address] NI Referring Team Gerontology 05/30/23 Human Resources Advisor Relationship Specialty Start Date End Date Ari Medina Chi PCP - General Gerontology 02/22/17 Ari Medina Chi [address] [place], [place] [address] NI Referring Team Gerontology 05/30/23 Human Resources Advisor Relationship Specialty Start Date End Date Ari Medina Chi PCP - General Gerontology 02/22/17 Ari Medina Chi [address] [place], [place] [id number] NI Referring Team Gerontology 05/30/23 Human Resources Advisor Relationship Specialty Start Date End Date Ari Medina Chi PCP - General Gerontology 02/22/17 Ari Medina Chi [address] [place], [place] [id number] NI Referring Team Gerontology 05/30/23 Human Resources Advisor Relationship Specialty Start Date End Date Ari Medina Chi PCP - General Gerontology 02/22/17 Ari Medina Chi [address] [place] [address] NI Referring Team Gerontology 05/30/23 Team Status: Active Member Role Status Dates Dr. Ari Medina MD Primary Care Provider Active Team Status: Inactive Member Role Status Dates Dr. Ari Medina MD Primary Care Provider Active Start: April 19, 2024 End: April 19, 2024 Dr. Ari Medina MD Attending Provider Active Start: April 19, 2024 End: April 19, 2024 Dr. Ari Medina MD Referring Provider Active Start: April 19, 2024 End: April 19, 2024 Team Status: Inactive Member Role Status Dates Dr. Ari Medina MD Primary Care Provider Active Start: April 22, 2024 End: April 22, 2024 Dr. Ari Medina MD Attending Provider Active Start: April 22, 2024 End: April 22, 2024 Team Status: Inactive Member Role Status Dates Dr. Ari Medina MD Primary Care Provider Active Start: May 17, 2024 End: May 17, 2024 Dr. Ari Medina MD Attending Provider Active Start: May 17, 2024 End: May 17, 2024 Dr. Ari Medina MD Referring Provider Active Start: May 17, 2024 End: May 17, 2024 Team Status: Inactive Member Role Status Dates Dr. Ari Medina MD Primary Care Provider Active Start: June 14, 2024 End: June 14, 2024 Dr. Ari Medina MD Attending Provider Active Start: June 14, 2024 End: June 14, 2024 Dr. Ari Medina MD Referring Provider Active Start: June 14, 2024 End: June 14, 2024 Team Status: Inactive Member Role Status Dates Dr. Ari Medina MD Primary Care Provider Active Start: July 12, 2024 End: July 12, 2024 Dr. Ari Medina MD Attending Provider Active Start: July 12, 2024 End: July 12, 2024 Dr. Ari Medina MD Referring Provider Active Start: July 12, 2024 End: July 12, 2024 Team Status: Inactive Member Role Status Dates Dr. Ari Medina MD Primary Care Provider Active Start: August 09, 2024 End: August 09, 2024 Dr. Ari Medina MD Attending Provider Active Start: August 09, 2024 End: August 09, 2024 Dr. Ari Medina MD Referring Provider Active Start: August 09, 2024 End: August 09, 2024 Team Status: Inactive Member Role Status Dates Dr. Ari Medina MD Primary Care Provider Active Start: September 06, 2024 End: September 06, 2024 Dr. Ari Medina MD Attending Provider Active Start: September 06, 2024 End: September 06, 2024 Dr. Ari Medina MD Referring Provider Active Start: September 06, 2024 End: September 06, 2024 Team Status: Inactive Member Role Status Dates Dr. Ari Medina MD Primary Care Provider Active Start: October 04, 2024 End: October 04, 2024 Dr. Ari Medina MD Attending Provider Active Start: October 04, 2024 End: October 04, 2024 Dr. Ari Medina MD Referring Provider Active Start: October 04, 2024 End: October 04, 2024 Team Status: Inactive Member Role Status Dates Dr. Ari Medina MD Primary Care Provider Active Start: November 01, 2024 End: November 01, 2024 Dr. Ari Medina MD Attending Provider Active Start: November 01, 2024 End: November 01, 2024 Dr. Ari Medina MD Referring Provider Active Start: November 01, 2024 End: November 01, 2024 Team Status: Inactive Member Role Status Dates Dr. Ari Medina MD Primary Care Provider Active Start: November 05, 2024 End: November 05, 2024 Dr. Ari Medina MD Attending Provider Active Start: November 05, 2024 End: November 05, 2024 Dr. Ari Medina MD Referring Provider Active Start: November 05, 2024 End: November 05, 2024 Team Status: Active Member Role/Relationship Status Dates Dr. Ari Medina MD Primary Care Provider Active Team Status: Inactive Member Role/Relationship Status Dates Dr. Ari Medina MD Primary Care Provider Active Start: August 09, 2024 End: August 09, 2024 Dr. Ari Medina MD Attending Provider Active Start: August 09, 2024 End: August 09, 2024 Dr. Ari Medina MD Referring Provider Active Start: August 09, 2024 End: August 09, 2024 Team Status: Inactive Member Role/Relationship Status Dates Dr. Ari Medina MD Primary Care Provider Active Start: September 06, 2024 End: September 06, 2024 Dr. Ari Medina MD Attending Provider Active Start: September 06, 2024 End: September 06, 2024 Dr. Ari Medina MD Referring Provider Active Start: September 06, 2024 End: September 06, 2024 Team Status: Inactive Member Role/Relationship Status Dates Dr. Ari Medina MD Primary Care Provider Active Start: October 04, 2024 End: October 04, 2024 Dr. Ari Medina MD Attending Provider Active Start: October 04, 2024 End: October 04, 2024 Dr. Ari Medina MD Referring Provider Active Start: October 04, 2024 End: October 04, 2024 Team Status: Inactive Member Role/Relationship Status Dates Dr. Ari Medina MD Primary Care Provider Active Start: November 01, 2024 End: November 01, 2024 Dr. Ari Medina MD Attending Provider Active Start: November 01, 2024 End: November 01, 2024 Dr. Ari Medina MD Referring Provider Active Start: November 01, 2024 End: November 01, 2024 Team Status: Inactive Member Role/Relationship Status Dates Dr. Ari Medina MD Primary Care Provider Active Start: November 05, 2024 End: November 05, 2024 Dr. Ari Medina MD Attending Provider Active Start: November 05, 2024 End: November 05, 2024 Dr. Ari Medina MD Referring Provider Active Start: November 05, 2024 End: November 05, 2024 Team Status: Inactive Member Role/Relationship Status Dates Dr. Ari Medina MD Primary Care Provider Active Start: November 29, 2024 End: November 29, 2024 Dr. Ari Medina MD Attending Provider Active Start: November 29, 2024 End: November 29, 2024 Dr. Ari Medina MD Referring Provider Active Start: November 29, 2024 End: November 29, 2024 Human Resources Advisor Relationship Specialty Start Date End Date Ari Medina Chi PCP - General Gerontology 02/22/17 Ari Medina Chi [address] [place] [id number] Referring Team Gerontology 05/30/23 Team Status: Inactive Member Role/Relationship Status Dates Dr. Ari Medina MD Primary Care Provider Active Start: September 06, 2024 End: September 06, 2024 Dr. Ari Medina MD Attending Provider Active Start: September 06, 2024 End: September 06, 2024 Dr. Ari Medina MD Referring Provider Active Start: September 06, 2024 End: September 06, 2024 Team Status: Inactive Member Role/Relationship Status Dates Dr. Ari Medina MD Primary Care Provider Active Start: October 04, 2024 End: October 04, 2024 Dr. Ari Medina MD Attending Provider Active Start: October 04, 2024 End: October 04, 2024 Dr. Ari Medina MD Referring Provider Active Start: October 04, 2024 End: October 04, 2024 Team Status: Inactive Member Role/Relationship Status Dates Dr. Ari Medina MD Primary Care Provider Active Start: November 01, 2024 End: November 01, 2024 Dr. Ari Medina MD Attending Provider Active Start: November 01, 2024 End: November 01, 2024 Dr. Ari Medina MD Referring Provider Active Start: November 01, 2024 End: November 01, 2024 Team Status: Inactive Member Role/Relationship Status Dates Dr. Ari Medina MD Primary Care Provider Active Start: November 05, 2024 End: November 05, 2024 Dr. Ari Medina MD Attending Provider Active Start: November 05, 2024 End: November 05, 2024 Dr. Ari Medina MD Referring Provider Active Start: November 05, 2024 End: November 05, 2024 Team Status: Inactive Member Role/Relationship Status Dates Dr. Ari Medina MD Primary Care Provider Active Start: November 29, 2024 End: November 29, 2024 Dr. Ari Medina MD Attending Provider Active Start: November 29, 2024 End: November 29, 2024 Dr. Ari Medina MD Referring Provider Active Start: November 29, 2024 End: November 29, 2024 Team Status: Inactive Member Role/Relationship Status Dates Dr. Ari Medina MD Primary Care Provider Active Start: December 27, 2024 End: December 27, 2024 Dr. Ari Medina MD Attending Provider Active Start: December 27, 2024 End: December 27, 2024 Dr. Ari Medina MD Referring Provider Active Start: December 27, 2024 End: December 27, 2024 Team Status: Inactive Member Role/Relationship Status Dates Dr. Ari Medina MD Primary Care Provider Active Start: October 04, 2024 End: October 04, 2024 Dr. Ari Medina MD Attending Provider Active Start: October 04, 2024 End: October 04, 2024 Dr. Ari Medina MD Referring Provider Active Start: October 04, 2024 End: October 04, 2024 Team Status: Inactive Member Role/Relationship Status Dates Dr. Ari Medina MD Primary Care Provider Active Start: November 01, 2024 End: November 01, 2024 Dr. Ari Medina MD Attending Provider Active Start: November 01, 2024 End: November 01, 2024 Dr. Ari Medina MD Referring Provider Active Start: November 01, 2024 End: November 01, 2024 Team Status: Inactive Member Role/Relationship Status Dates Dr. Ari Medina MD Primary Care Provider Active Start: November 05, 2024 End: November 05, 2024 Dr. Ari Medina MD Attending Provider Active Start: November 05, 2024 End: November 05, 2024 Dr. Ari Medina MD Referring Provider Active Start: November 05, 2024 End: November 05, 2024 Team Status: Inactive Member Role/Relationship Status Dates Dr. Ari Medina MD Primary Care Provider Active Start: November 29, 2024 End: November 29, 2024 Dr. Ari Medina MD Attending Provider Active Start: November 29, 2024 End: November 29, 2024 Dr. Ari Medina MD Referring Provider Active Start: November 29, 2024 End: November 29, 2024 Team Status: Inactive Member Role/Relationship Status Dates Dr. Ari Medina MD Primary Care Provider Active Start: December 27, 2024 End: December 27, 2024 Dr. Ari Medina MD Attending Provider Active Start: December 27, 2024 End: December 27, 2024 Dr. Ari Medina MD Referring Provider Active Start: December 27, 2024 End: December 27, 2024 Team Status: Inactive Member Role/Relationship Status Dates Dr. Ari Medina MD Primary Care Provider Active Start: January 24, 2025 End: January 24, 2025 Dr. Ari Medina MD Attending Provider Active Start: January 24, 2025 End: January 24, 2025 Dr. Ari Medina MD Referring Provider Active Start: January 24, 2025 End: January 24, 2025 Team Status: Active Member Role/Relationship Status Dates Dr. Ari Medina MD Primary care physician Active Team Status: Inactive Member Role/Relationship Status Dates Dr. Ari Medina MD Primary care physician Active Start: November 05, 2024 End: November 05, 2024 Dr. Ari Medina MD Attending physician Active Start: November 05, 2024 End: November 05, 2024 Dr. Ari Medina MD Referring Provider Active Start: November 05, 2024 End: November 05, 2024 Team Status: Inactive Member Role/Relationship Status Dates Dr. Ari Medina MD Primary care physician Active Start: November 29, 2024 End: November 29, 2024 Dr. Ari Medina MD Attending physician Active Start: November 29, 2024 End: November 29, 2024 Dr. Ari Medina MD Referring Provider Active Start: November 29, 2024 End: November 29, 2024 Team Status: Inactive Member Role/Relationship Status Dates Dr. Ari Medina MD Primary care physician Active Start: December 27, 2024 End: December 27, 2024 Dr. Ari Medina MD Attending physician Active Start: December 27, 2024 End: December 27, 2024 Dr. Ari Medina MD Referring Provider Active Start: December 27, 2024 End: December 27, 2024 Team Status: Inactive Member Role/Relationship Status Dates Dr. Ari Medina MD Primary care physician Active Start: January 24, 2025 End: January 24, 2025 Dr. Ari Medina MD Attending physician Active Start: January 24, 2025 End: January 24, 2025 Dr. Ari Medina MD Referring Provider Active Start: January 24, 2025 End: January 24, 2025 Team Status: Inactive Member Role/Relationship Status Dates Dr. Ari Medina MD Primary care physician Active Start: February 21, 2025 End: February 21, 2025 Dr. Ari Medina MD Attending physician Active Start: February 21, 2025 End: February 21, 2025 Dr. Ari Medina MD Referring Provider Active Start: February 21, 2025 End: February 21, 2025 Team Status: Inactive Member Role/Relationship Status Dates Dr. Ari Medina MD Primary care physician Active Start: December 27, 2024 End: December 27, 2024 Dr. Ari Medina MD Attending physician Active Start: December 27, 2024 End: December 27, 2024 Dr. Ari Medina MD Referring Provider Active Start: December 27, 2024 End: December 27, 2024 Team Status: Inactive Member Role/Relationship Status Dates Dr. Ari Medina MD Primary care physician Active Start: January 24, 2025 End: January 24, 2025 Dr. Ari Medina MD Attending physician Active Start: January 24, 2025 End: January 24, 2025 Dr. Ari Medina MD Referring Provider Active Start: January 24, 2025 End: January 24, 2025 Team Status: Inactive Member Role/Relationship Status Dates Dr. Ari Medina MD Primary care physician Active Start: February 21, 2025 End: February 21, 2025 Dr. Ari Medina MD Attending physician Active Start: February 21, 2025 End: February 21, 2025 Dr. Ari Medina MD Referring Provider Active Start: February 21, 2025 End: February 21, 2025 Team Status: Inactive Member Role/Relationship Status Dates Dr. Ari Medina MD Primary care physician Active Start: March 21, 2025 End: March 21, 2025 Dr. Ari Medina MD Attending physician Active Start: March 21, 2025 End: March 21, 2025 Dr. Ari Medina MD Referring Provider Active Start: March 21, 2025 End: March 21, 2025 Source Comments (unrecognize d section and content) In the event this informatio n is protected by the Federal Confidentiality of Alcohol and Drug Abuse Patient Records regulations: The Federal rules restrict any use of the information to criminally investigate or prosecute any alcohol or drug abuse patient.[facility] PrebleIn the event this information is protected by the Federal Confidentiality of Alcohol and Drug Abuse Patient Records regulations: The Federal rules restrict any use of the information to criminally investigate or prosecute any alcohol or drug abuse patient.[facility] PrebleIn the event this information is protected by the Federal Confidentiality of Alcohol and Drug Abuse Patient Records regulations: The Federal rules restrict any use of the information to criminally investigate or prosecute any alcohol or drug abuse patient.[facility] PrebleIn the event this information is protected by the Federal Confidentiality of Alcohol and Drug Abuse Patient Records regulations: The Federal rules restrict any use of the information to criminally investigate or prosecute any alcohol or drug abuse patient.[facility] PrebleIn the event this information is protected by the Federal Confidentiality of Alcohol and Drug Abuse Patient Records regulations: The Federal rules restrict any use of the information to criminally investigate or prosecute any alcohol or drug abuse patient.[facility] PrebleIn the event this information is protected by the Federal Confidentiality of Alcohol and Drug Abuse Patient Records regulations: The Federal rules restrict any use of the information to criminally investigate or prosecute any alcohol or drug abuse patient.[facility] PrebleIn the event this information is protected by the Federal Confidentiality of Alcohol and Drug Abuse Patient Records regulations: The Federal rules restrict any use of the information to criminally investigate or prosecute any alcohol or drug abuse patient.[facility] PrebleIn the event this information is protected by the Federal Confidentiality of Alcohol and Drug Abuse Patient Records regulations: The Federal rules restrict any use of the information to criminally investigate or prosecute any alcohol or drug abuse patient.[facility] PrebleIn the event this information is protected by the Federal Confidentiality of Alcohol and Drug Abuse Patient Records regulations: The Federal rules restrict any use of the information to criminally investigate or prosecute any alcohol or drug abuse patient.[facility]bleIn the event this information is protected by the Federal Confidentiality of Alcohol and Drug Abuse Patient Records regulations: The Federal rules restrict any use of the information to criminally investigate or prosecute any alcohol or drug abuse patient.[facility] PrebleIn the event this information is protected by the Federal Confidentiality of Alcohol and Drug Abuse Patient Records regulations: The Federal rules restrict any use of the information to criminally investigate or prosecute any alcohol or drug abuse patient.[facility] Reason for Visit (unrecogniz ed section and content) Specialty Diagnoses / Procedures Referred By Angel peguero Referred To Contact [facility] Diagnoses Nonruptured cerebral aneurysm Procedures MRA BRAIN WO IVCON MRA, HEAD W/O CONTRAST Bianka Olmos APRN.PINKING MACHINE OPERATOR [address] [place] [id number] [facility] [place] [address] Referral ID Status Reason Start Date Expiration Date V isits Requested Visits Authorized [id number] Closed Auto-Generate d Referral 11/21/2023 06/30/2024 1 1 Reason Comments Unruptured Aneurysm Reason Comments Orders Reason Comments Stroke Reason Comments Results Reason Comments New Patient Specialty Diagnoses / Procedures Referred By Angel peguero Referred To Contact Cardiology Diagnoses Ventricular tachycardia (HCC) SVT (supraventricular tachycardia) (HCC) Procedures CONSULT TO CARDIOLOGY OFFICE/OUTPATIENT NEW HIGH MDM 60 MINUTES Bianka Olmos APRN.PINKING MACHINE OPERATOR [address] [place] [id number] Referral ID Status Reason Start Date Expiration Date V isits Requested Visits Authorized [id number] Closed PCP Requested Referral 02/09/2024 02/08/2025 1 1 Reason Comments Med Change Request Reason Comments Follow Up 3 month follow up Reason Comments Unruptured Aneurysm FOR RECORDS PERTAINING TO PATIENTS WHO ARE [...] BE BASED ON THE PRIMARY CLINICAL RECORDS. [facility] [employer] provides no warranty or guarantee of the accuracy or completeness of information in this document.
[2025-05-16] MEDS: 0.9% NaCl Peripheral Flush Adult IV (11:15)
[2025-05-16] MEDS: DiphenhydrAMINE 50 MG/ML Syringe 25 MG IV (11:17)
[2025-05-16] MEDS: 0.9% NaCl IVPB Med Flush (100mL) 15 ML IV (11:17)
[2025-05-16] MEDS: Immune Globulin 10 gm 10 GM/100 ML VIAL IV (11:52)
== END 2025-05-16 23:59 | disposition home or self-care (01) ==
LOC: MEDOUTP 10:21
PROVIDERS: PCP Family Medicine Geriatric Medicine; Referring Provider Family Medicine Geriatric Medicine; Visit Provider Family Medicine Geriatric Medicine
DX: D80.0 Hereditary hypogammaglobulinemia (principal)
CPT/HCPCS: 96366; 96365; 96375; A4216; J1568